=== PATIENT | female | born 1955 | race Caucasian/White ===

== ENCOUNTER 2023-08-04 10:12 | Outpatient (AMB) | payer MEDICARE, SELFPAY ==
--- NOTE | 2023-08-04 10:16 | AM.OFFWIN_ITS ---
Intake Vital Signs 08/04/23 10:26 Height 5 ft 4 in Weight 241 lb 2 oz BMI 41.4 BP 140/80 H Blood Pressure Location Rt brachial Position Sitting Respiration 14 Pulse 71 Pulse Source Pulse Oximeter Temp 97 F Temp Source Temporal Artery Scan Pulse Oximetry (%) 94 Oxygen Delivery Method Room Air Intake Visit Reasons: Sinus Infection Intake Note: Patient states that shes been experiencing post nasal drip, dark yellow phlegm, and congestion. Patient Tobacco Use Status: Former Tobacco user Park Services Specialist Required: No Accompanied by: Sister Allergies iopromide [From Ultravist] Allergy (Mild, Verified 08/04/23 10:41) REDNESS, SWELLING AROUND NECK amoxapine [AMOXAPINE] Allergy (Unknown, Verified 08/04/23 10:41) OVER EATING amoxicillin [AMOXICILLIN] Allergy (Unknown, Verified 08/04/23 10:41) LOWER GI DISTRESS azithromycin [From ZITHROMAX] Allergy (Unknown, Verified 08/04/23 10:41) DOES NOT WORK blue dye [BLUE DYE] Allergy (Unknown, Verified 08/04/23 10:41) FACIAL SWELLING,TEMP,RASH caffeine [From CAFERGOT] Allergy (Unknown, Verified 08/04/23 10:41) CANT TAKE ANYMORE celecoxib [From CELEBREX] Allergy (Unknown, Verified 08/04/23 10:41) RASH,TEMP ciprofloxacin [CIPROFLOXACIN] Allergy (Unknown, Verified 08/04/23 10:41) HALLUCINATION clarithromycin [From BIAXIN] Allergy (Unknown, Verified 08/04/23 10:41) DOES NOT WORK clavulanic acid [From AUGMENTIN] Allergy (Unknown, Verified 08/04/23 10:41) C-DIFF X 3 divalproex sodium [From DEPAKOTE] Allergy (Unknown, Verified 08/04/23 10:41) NIGHT SCARES ergotamine [From CAFERGOT] Allergy (Unknown, Verified 08/04/23 10:41) UNKNOWN gabapentin [GABAPENTIN] Allergy (Unknown, Verified 08/04/23 10:41) NIGHT SCARES hydroxyzine [HYDROXYZINE] Allergy (Unknown, Verified 08/04/23 10:41) ITCHING influenza virus vaccine, specific [FLU VACCINE] Allergy (Unknown, Verified 08/04/23 10:41) FEVER- PINS/ NEEDLES ALL OVER , RASH Iodinated Contrast Media [IV CONTRAST] Allergy (Unknown, Verified 08/04/23 10:41 ) HIVES ketorolac [From TORADOL] Allergy (Unknown, Verified 08/04/23 10:41) SEVERE ITCHING levofloxacin [From LEVAQUIN] Allergy (Unknown, Verified 08/04/23 10:41) HEART PALPITATIONS meperidine [From DEMEROL] Allergy (Unknown, Verified 08/04/23 10:41) ANAPHYLAXIS Sulfa (Sulfonamide Antibiotics) [SULFA (SULFONAMIDE ANTIBIOTICS)] Allergy (Unknown, Verified 08/04/23 10:41) ADMITTED WITH HIVES sumatriptan [Imitrex] Allergy (Unknown, Verified 08/04/23 10:41) heart pounding tramadol [From ULTRAM] Allergy (Unknown, Verified 08/04/23 10:41) ITCH trazodone [TRAZODONE] Allergy (Unknown, Verified 08/04/23 10:41) NIGHT SCARES valacyclovir [VALACYCLOVIR] Allergy (Unknown, Verified 08/04/23 10:41) GASTIC UPSET yellow dye [YELLOW DYE] Allergy (Unknown, Verified 08/04/23 10:41) SYSTEMIC ITCHING dexamethasone [From Decadron] Adverse Reaction (Intermediate, Verified 08/04/23 10:41) neck pain naproxen Adverse Reaction (Verified 08/04/23 10:41) Swelling Flu vaccine Allergy (Severe, Uncoded 08/04/23 10:35) Anaphylaxis Amitriptyline Allergy (Unknown, Uncoded 08/04/23 10:35) Unknown Blue and yellow dye Allergy (Unknown, Uncoded 08/04/23 10:35) Swelling Ionic dye Allergy (Unknown, Uncoded 08/04/23 10:35) Rash Medication List - Last Reconciled 08/04/23 by Madonna Loco, RELIGION INSTRUCTOR- amlodipine 5 mg PO DAILY baclofen 20 mg PO BID ixecazarni-vwgcuiol-kaxsyfmnfw 160-9-4.8 mcg/actuation (Breztri Aerosphere) inhalations inhalation buspirone 30 mg PO BID lancets (FreeStyle Lancets) As directed latanoprost 0.005% drps ophthalmic (eye) lisinopril 40 mg PO DAILY lorazepam 1 mg PO TID metoprolol succinate ER 100 mg PO DAILY nystatin topical venlafaxine ER 225 mg PO DAILY Do you need a note to return to daycare/school/sports/work: No HPI HPI Comments History of Present Illness Details Here worried she has a sinus infection Sx started a few weeks ago Fever started 4 days ago nasal drainage and dental and frontal pain, dry cough, phlegm at back of throat, overall feeling tired, T 100.3 Used excedrin and NSAID w/ temporary relief PFSH Social History Patient Tobacco Use Status: Former Tobacco user Review of Systems Const All systems reviewed & are unremarkable except as noted in HPI and below Physical Exam Const Other: Awake alert NAD Sclera and conjunctiva clear bilat Nares with scant mucoid d/c, turbinates pale and edematous, + frontal and maxillary sinus tenderness with palpation bilat TM intact and clear bilat MMM, pharynx WNL - dry overall RRR LS CTAB Assessment & Plan Assessment & Plan (1) Acute bacterial sinusitis: Comment: states she has responded well to doxy in the past as long as it does not contain blue or yellow dye this was added to RX Code(s): J01.90 - Acute sinusitis, unspecified; B96.89 - Other specified bacterial agents as the cause of diseases classified elsewhere Plan . Medications: New doxycycline hyclate 100 mg PO BID 7 days 14 caps 0RF Patient Instructions: WHAT IS IT? SINUSES ARE AIR-FILLED SPACES BEHIND THE BONES OF THE UPPER FACE: BETWEEN THE EYES AND BEHIND THE FOREHEAD, NOSE AND CHEEKS. THE LINING OF THE SINUSES ARE MADE UP OF CELLS WITH TINY HAIRS ON THEIR SURFACES CALLED CILIA. OTHER CELLS IN THE LINING PRODUCE MUCUS. THE MUCUS TRAPS GERMS AND POLLUTANTS AND THE CILIA PUSH THE MUCUS OUT THROUGH NARROW SINUS OPENINGS INTO THE NOSE. WHEN THE SINUSES BECOME INFLAMED OR INFECTED, THE MUCUS THICKENS AND CLOGS THE OPENINGS TO ONE OR MORE SINUSES. FLUID BUILDS UP INSIDE THE SINUSES CAUSING INCREASED PRESSURE. ALSO BACTERIA CAN BECOME TRAPPED, MULTIPLY AND INFECT THE LINING. THIS IS SINUSITIS. PREVENTION THERE ARE SOME MEASURES YOU CAN TAKE TO DECREASE YOUR RISK OF DEVELOPING SINUSITIS. IF YOU SMOKE CIGARETTES, YOU SHOULD QUIT. THE SMOKE CAN IRRITATE NASAL PASSAGEWAYS AND INCREASE THE LIKELIHOOD OF INFECTION. NASAL ALLERGIES CAN TRIGGER SINUS INFECTIONS, TOO. BY IDENTIFYING THE ALLERGEN (THE SUBSTANCE CAUSING THE ALLERGIC REACTION) AND AVOIDING IT, YOU CAN HELP PREVENT SINUSITIS. IF YOU HAVE CONGESTION FROM A COLD OR ALLERGIES, THE FOLLOWING MAY HELP TO REDUCE THE RISK OF DEVELOPING SINUSITIS: DRINK LOTS OF WATER. THIS THINS NASAL SECRETIONS AND KEEPS MUCOUS MEMBRANES MOIST. USE STEAM TO SOOTHE NASAL PASSAGES. BREATHE DEEPLY WHILE STANDING IN A HOT SHOWER, OR INHALE THE VAPOR FROM A BASIN FILLED WITH HOT WATER WHILE HOLDING A TOWEL OVER YOUR HEAD. AVOID BLOWING YOUR NOSE WITH GREAT FORCE, WHICH CAN PUSH BACTERIA INTO THE SINUSES. SOME DOCTORS ADVISE PERIODIC HOME NASAL WASHINGS TO CLEAR SECRETIONS. THIS MAY HELP PREVENT, AND ALSO TREAT, SINUS INFECTIONS. TREATMENT MANY SINUS INFECTIONS IMPROVE WITHOUT TREATMENT. HOWEVER, SEVERAL MEDICATIONS MAY SPEED RECOVERY AND REDUCE THE CHANCE THAT AN INFECTION WILL BECOME CHRONIC. DECONGESTANTS - CONGESTION OFTEN TRIGGERS SINUS INFECTIONS, AND DECONGESTANTS CAN OPEN THE SINUSES AND ALLOW THEM TO DRAIN. SEVERAL ARE AVAILABLE: PSEUDOEPHEDRINE (SUDAFED) IS AVAILABLE WITHOUT PRESCRIPTION, ALONE OR IN COMBINATION WITH OTHER MEDICATIONS IN MULTI-SYMPTOM COLD AND SINUS REMEDIES. PSEUDOEPHEDRINE CAN CAUSE INSOMNIA, RACING PULSE AND JITTERINESS. DO NOT USE IF YOU HAVE HIGH BLOOD PRESSURE OR A HEART CONDITION. PHENYLEPHRINE (SUCH SUDAFED PE) IS AN ALTERNATIVE [id number] ORAL DECONGESTANT. IF YOU TAKE PRODUCTS CONTAINING ORAL PHENYLEPHRINE, CHECK WITH THE PHARMACIST TO BE CERTAIN THERE IS NO INTERACTION WITH OTHER MEDICATIONS YOU TAKE. OXYMETAZOLINE (AFSANTA ELLIOTT AND OTHERS) AND PHENYLEPHRINE (NALDO-SYNEPHRINE AND OTHERS) ARE FOUND IN NASAL SPRAYS. THEY ARE EFFECTIVE AND MAY BE LESS LIKELY TO CAUSE THE SIDE EFFECTS SEEN WITH PSEUDOEPHEDRINE. HOWEVER, USING A NASAL DECONGESTANT FOR MORE THAN THREE DAYS CAN CAUSE WORSE SYMPTOMS WHEN YOU STOP THE MEDICATION. THIS IS CALLED THE REBOUND EFFECT. ANTIHISTAMINES - THESE MEDICATIONS HELP TO RELIEVE THE SYMPTOMS OF NASAL ALLERGIES THAT LEAD TO INFLAMMATION AND INFECTIONS. HOWEVER, SOME DOCTORS ADVISE AGAINST USING ANTIHISTAMINES DURING A SINUS INFECTION BECAUSE THEY CAN CAUSE EXCESSIVE DRYING AND SLOW THE DRAINAGE PROCESS. [id number] ANTIHISTAMINES INCLUDE DIPHENHYDRAMINE (BENADRYL AND OTHERS), CHLORPHENIRAMINE (CHLOR-TRIMETON AND OTHERS) AND LORATADINE (CLARITIN). FEXOFENADINE (KRISTY) AND CETRIZINE (ZYRTEC) ARE AVAILABLE BY PRESCRIPTION. NASAL STEROIDS - ANTI-INFLAMMATORY SPRAYS SUCH MOMETASONE (NASONEX) AND FLUTICASONE (FLONASE), BOTH AVAILABLE BY PRESCRIPTION, REDUCE SWELLING OF NASAL MEMBRANES. LIKE ANTIHISTAMINES, NASAL STEROIDS CAN BE MOST USEFUL FOR THOSE WHO HAVE NASAL ALLERGIES. NASAL STEROIDS TEND TO PRODUCE LESS DRYING THAN ANTIHISTAMINES. UNLIKE NASAL DECONGESTANTS, NASAL STEROIDS CAN BE USED FOR PROLONGED PERIODS. SALINE NASAL SPRAYS - THESE SALT-WATER SPRAYS ARE SAFE TO USE AND CAN PROVIDE SOME RELIEF BY ADDING MOISTURE TO THE NASAL PASSAGES, THINNING MUCUS SECRETIONS AND HELPING TO FLUSH OUT ANY BACTERIA THAT MAY BE PRESENT. PAIN RELIEVERS - ACETAMINOPHEN (TYLENOL), IBUPROFEN (ADVIL, MOTRIN AND OTHERS) OR NAPROXEN (ALEVE) CAN BE TAKEN SINUS PAIN. ANTIBIOTICS - YOUR DOCTOR MAY PRESCRIBE AN ANTIBIOTIC IF HE OR SHE SUSPECTS THAT A BACTERIAL INFECTION IS CAUSING YOUR SINUSITIS. IF YOU START TAKING AN ANTIBIOTIC, COMPLETE THE ENTIRE COURSE SO THAT THE INFECTION IS COMPLETELY KILLED OFF. NOT ALL CASES OF SINUSITIS REQUIRE ANTIBIOTIC TREATMENT: TALK WITH YOUR DOCTOR ABOUT WHETHER AN ANTIBIOTIC IS RIGHT FOR YOU. KEEP IN MIND THAT ANTIBIOTICS CAN CAUSE SIDE EFFECTS, SUCH ALLERGIC REACTIONS, RASH AND DIARRHEA. IN ADDITION, OVERUSING ANTIBIOTICS EVENTUALLY LEADS TO THE SPREAD OF BACTERIA THAT NO LONGER CAN BE KILLED BY THE MOST COMMONLY PRESCRIBED ANTIBIOTICS. WHEN TO CALL A PROFESSIONAL CONTACT A DOCTOR IF YOU EXPERIENCE FACIAL PAIN ALONG WITH A HEADACHE AND FEVER, COLD SYMPTOMS THAT LAST LONGER THAN SEVEN TO 10 DAYS, OR PERSISTENT GREEN DISCHARGE FROM THE NOSE. IF YOUR SYMPTOMS DON'T IMPROVE WITHIN A WEEK OF BEGINNING TREATMENT, CALL YOUR DOCTOR. CALL SOONER IF SYMPTOMS ARE GETTING WORSE. IF YOU HAVE REPEATED BOUTS OF ACUTE SINUSITIS, YOU MAY HAVE ALLERGIES OR ANOTHER TREATABLE CAUSE OF SINUS CONGESTION. ASK YOUR DOCTOR FOR ADVICE. Coding Level of Care Code Est Pt Level 3 (52567) Diagnoses Acute bacterial sinusitis J01.90; B96.89
--- OUTSIDE RECORDS SUMMARY | 2023-08-04 10:18 | XMS_ITS | Continuity of Care Document ---
Author Organization [facility] Address [address] [place] [address]- Care Team Providers Care Human Resources Office Manager Name Role Phone Marilia HARE, Destiny Gibbs Primary Care Physician [phone] Encounter [facility] Date(s): 05/08/21 - 06/07/21 [facility] [address], [place] [address] Allergies, Adverse Reactions, Alerts Substance Reaction Severity Status ciprofloxacin hallucinations Persistent Severe Active cefuroxime Active amoxicillin Active gabapentin night terrors Persistent Severe Active levofloxacin Heart Palpatations Persistent Severe Acti ve sulfa drugs high temp and rash Persistent Severe Acti ve nitrates migraine STARR Persistent Severe Active Toradol Active Imitrex chest heaviness Persistent Severe Active Ultram generalized itching Persistent Severe Act krystal Remeron swollen neck and rash Persistent Severe A ctive Compazine severe STARR Persistent Severe Active Decadron Pins and needles sensation A ctive Depakote night terrors Persistent Severe Active Demerol HCl anaphylaxis Persistent Severe Active pantoprazole 1 Facial swelling Persistent Severe Activ e Abdominal pain Active Chocolate migraine STARR Persistent Severe Active Contrast Dye hives Persistent Severe Active Other Food Allergy 2, 3, 4 migraines and swelling Active Other Environmental Allergy 5, 6, 7 facial swelling and itching Persistent Severe Active flu vaccines high fever and swelling Persistent Severe Active Percocet 5/325 severe STARR Persistent Severe Active Valacyclovir Hydrochloride abd upspet A ctive traMADol Active CeleBREX HIVES Persistent Severe Active 1patient has yellow dye allergy --Pantoprazole 40mg (manfacturer: Mylan) contains yellow dye 2blue and yellow dyes 3MSG 4yeast, feta cheese, cottage cheese, splenda 5IVP DYE 6BLEACH 7BLUE DYE YELLOW DYE Immunizations Given and Recorded Vaccine Date Status Refusal Reason pneumococcal 13-valent vaccine 01/31/19 Given Influenza Virus Vaccine (oldterm) 1 11/28/14 Given influ virus vac, H1N1, inactive(oldterm) 2 05/15/13 Given tetanus/diphtheria/pertussis, acel(Tdap) 02/04/13 Given tetanus/diphtheria/pertussis, acel(Tdap) 02/28/99 Given pneumococcal 23-valent vaccine 02/29/08 Given 1Admin Note: pt states allergic 2Admin Note: pt advises allergic to Medications acetaminophen 325 mg oral tablet 650 mg, By Mouth, Every 6 hours, Refills 0, Maintenance, 07/03/20 11:30:00 EDT, Partial fill upon patient request if the prescription is for a schedule II opioid drug. Start Date: 07/03/20 Status: Ordered acetaminophen/butalbital/caffeine 325 mg-50 mg-40 mg oral tablet See Instructions, TAKE 1 TABLET BY MOUTH EVERY 4 HOURS NEEDED FOR PAIN, # 12 tablet, 0 Refills, [id number], 3, TAKE 1 TABLET BY MOUTH EVERY 4 HOURS NEEDED FOR PAIN, 162, cm, 07/03/20 11:05:00 EDT, Height, 99.8, kg, 07/02/20 6:39:00 EDT, Dry... Start Date: 04/21/21 Status: Ordered acyclovir 400 mg oral tablet 1 tablet, By Mouth, 2 times a day, # 180 tablet, 1 Refills, Maintenance, 01/09/20 10:00:00 EST, [facility]/pharmacy #[id number], 163, cm, 11/10/19 8:11:00 EDT, Height, 105, kg, 08/11/19 15:02:00 EDT, Dry Weight Start Date: 01/09/20 Status: Ordered albuterol-ipratropium 3 mg-0.5 mg/3 ml inhalation solution 3 mL, Inhalation, 4 times a day, # 30 each, 0 Refills, Maintenance, 06/02/21 10:30:00 EDT, Solution, [id number], Partial fill upon patient request if the prescription is for a schedule II opioid drug., 3 mL Inhalation 4 times a day, 164, cm, 0... Start Date: 06/02/21 Status: Ordered albuterol-ipratropium 3 mg-0.5 mg/3 ml inhalation solution 3 mL, Inhalation, 4 times a day, PRN Wheezing/Shortness of Breath, FAX [phone] BOWLING J45.909 ASTHMA, # 360 mL, 11 Refills, Maintenance, 05/04/17 13:29:51, Inhalation Solution, 3 mL Inhalation 4 times a day,PRN:Wheezing/Shortness of Breath,I... Start Date: 05/04/17 Status: Ordered Asmanex Twisthaler 60 Dose 220 mcg/inh inhalation aerosol powder 2 puffs, Inhalation, 2 times a day, j44.9, # 1 each, 6 Refills, Maintenance, 04/25/20 9:10:00 EST, Aerosol, Partial fill upon patient request if the prescription is for a schedule II opioid drug. Start Date: 04/25/20 Status: Ordered atorvastatin 20 mg oral tablet See Instructions, TAKE 1 TABLET BY MOUTH EVERY DAY, # 90 tablet, 2 Refills, Maintenance, [id number], 163, cm, 11/10/19 8:11:00 EDT, Height, 105, kg, 08/11/19 15:02:00 EDT, Dry Weight Start Date: 01/21/20 Status: Ordered baclofen 10 mg oral tablet 20 mg, 2, tablet, By Mouth, 2 times a day, Refills 0, Maintenance, 07/29/16 15:15:27 Start Date: 07/29/16 Status: Ordered busPIRone 10 mg oral tablet 20 mg, 2, tablet, By Mouth, 3 times a day, DOSE CHANGE, # 180 tablet, Refills 0, Tot. Refills 0, Maintenance, 10/13/16 14:32:53, Route to Pharmacy Electronically, [id number], [facility]/pharmacy #[id number] Start Date: 10/13/16 Status: Ordered Colace sodium 100 mg oral capsule 100 mg, 1, capsule, By Mouth, Daily, PRN, # 20 capsule, Refills 0, Maintenance, for constipation, 07/13/17 11:53:57 EDT Start Date: 07/13/17 Status: Ordered Denavir 1% topical cream 1 applicator, Topically, Every 2 hours, # 1 Gm, 4 Refills, Maintenance, 11/23/17 10:35:31 EDT, 1 applicator Topically Every 2 hours Start Date: 11/23/17 Status: Ordered famotidine 40 mg oral tablet 1 tablet, By Mouth, 2 times a day, # 180 tablet, 3 Refills, [facility], 162, cm, 07/03/20 11:05:00 EDT, Height, 99.8, kg, 07/02/20 6:39:00 EDT, Dry Weight Start Date: 11/14/20 Status: Ordered latanoprost 0.005% ophthalmic solution 1 drops, Eyes, Both, Daily in PM, # 2.5 mL, 0 Refills, Maintenance, 08/21/15 10:26:08, Solution Start Date: 08/21/15 Status: Ordered lisinopril 20 mg oral tablet 20 mg, 1, tablet, By Mouth, Daily, no yellow dye and no blue dye due to allergy, # 90 tablet, Refills 1, Tot. Refills 1, Maintenance, 07/18/20 10:58:00 EDT, Route to Pharmacy Electronically, [facility]/pharmacy #[id number], Partial fill upon patient request if the... Start Date: 07/18/20 Status: Ordered LORazepam 1 mg oral tablet 1 tablet = 1 mg, By Mouth, 3 times a day, 0 Refills, Maintenance, 09/14/17 11:57:01 EDT, Tablet Start Date: 09/14/17 Status: Ordered magnesium oxide 400 mg oral tablet 1 tablet, By Mouth, Daily, # 30 tablet, 5 Refills, Acute, 10/02/20 11:46:00 EDT, [facility], 162, cm, 07/03/20 11:05:00 EDT, Height, 99.8, kg, 07/02/20 6:39:00 EDT, Dry Weight Start Date: 10/02/20 Status: Ordered meclizine 12.5 mg oral tablet 1 tablet = 12.5 mg, By Mouth, 3 times a day, PRN for motion sickness, has allergy to blue dye, white tabs only, # 30 tablet, 0 Refills, Maintenance, 11/05/20 9:59:00 EDT, Tablet, [facility]/pharmacy #[id number], Patient is allergic to blue dye. White tablet woul... Start Date: 11/05/20 Status: Ordered Metoprolol Succinate ER 100 mg oral tablet, extended release 1 tablet = 100 mg, By Mouth, Daily, # 90 tablet, 1 Refills, Maintenance, 12/07/19 9:45:00 EDT, [facility]/pharmacy #[id number], 163, cm, 11/10/19 8:11:00 EDT, Height, 105, kg, 08/11/19 15:02:00 EDT, Dry Weight Start Date: 12/07/19 Status: Ordered mupirocin 2% topical ointment 1 application, Topically, 3 times a day, # 30 Gm, 11 Refills, Maintenance, 05/15/19 15:41:00 EDT, Ointment, [facility]/pharmacy #[id number], 1 application Topically 3 times a day, 164, cm, 04/22/19 10:50:00 EST, Height, 102.5, kg, 03/10/19 22:47:00 EST, Dry Weight Start Date: 05/15/19 Status: Ordered nystatin topical 553917 u/gm powder See Instructions, APPLY TO AFFECTED AREA TWICE A DAY -PER DR BOWLING, # 30 Gm, 1 Refills, Acute, [facility], 7, APPLY TO AFFECTED AREA TWICE A DAY -PER DR BOWLING, 163, cm, 11/10/19 8:11:00 EDT, Height,105, kg, 08/11/19 15:02:00 EDT, Dry Weight Start Date: 11/13/19 Status: Ordered Probiotic Formula oral capsule 1 capsule, By Mouth, 2 times a day, # 60 capsule, 11 Refills, Maintenance, 01/22/16 10:10:40, 1 capsule By Mouth 2 times a day Start Date: 01/22/16 Status: Ordered Senna = 8.6 mg, By Mouth, Daily at bedtime, PRN as needed for constipation, 0 Refills, Maintenance, 01/14/13 2:05:48 Start Date: 01/14/13 Status: Ordered triamcinolone 0.025% topical cream 1 application, Topically, 2 times a day, # 15 Gm, 0 Refills, Maintenance, 09/14/17 11:54:23 EDT, Cream Start Date: 09/14/17 Stop Date: 09/28/17 Status: Ordered venlafaxine 225 mg oral tablet, extended release 225 mg, 1, tablet, By Mouth, Daily, # 30 tablet, Refills 0, Maintenance, 04/17/16 7:41:51 Start Date: 04/17/16 Status: Ordered Ventolin HFA 108 mcg/inh inhalation aerosol with adapter 2 puffs, Inhalation, 4 times a day, # 54 Unknown, 3 Refills, Maintenance, 11/07/19 7:57:00 EDT, [facility], 163, cm, 08/11/19 15:02:00 EDT, Height, 105, kg, 08/11/19 15:02:00 EDT, Dry Weight Start Date: 11/07/19 Status: Ordered Vitamin D3 2000 intl units oral tablet 1 tablet = 2,000 International_Units, By Mouth, Daily, 0 Refills, Maintenance, 01/14/13 1:51:51 Start Date: 01/14/13 Status: Ordered Zofran 4 mg oral tablet See Instructions, 1 tablet By Mouth at onset of migraine prn nausea PER DR BOWLING, # 30 tablet, 11 Refills, Maintenance, 05/26/18 14:35:15 EDT, PT HAS ALLERGIES TO CERTAIN DYES. [facility] AWARE. Start Date: 05/26/18 Status: Ordered Zyrtec 10 mg oral tablet 1 tablet = 10 mg, By Mouth, Daily, 0 Refills, Maintenance, 01/14/13 1:54:06, Tablet Start Date: 01/14/13 Status: Ordered Problem List Condition Effective Dates Status Health Status Inform ant Allergic rhinitis(Confirmed) Active Temporomandibular joint (TMJ ) pain(Confirmed) Active Asthma(Confirmed) Active BMI 40.0-44.9, adult(Confirmed) Active Carpal tunnel syndrome(Confirmed) 1 Active Chronic fatigue syndrome(Confirmed) Active Chronic tension-type headache(Confirmed) Active Depressive disorder(Confirmed) Active Diverticular disease(Confirmed) Active Diverticulitis(Confirmed) Active NSAID long-term use(Confirmed) Active External hemorrhoids(Confirmed) 2 Active Fibromyositis(Confirmed) Active Gastroesophageal reflux disease(Confirmed) 3 Active Generalized anxiety disorder(Confirmed) Active History of incisional hernia repair(Confirmed) 4 Active Herpes(Confirmed) Active History of total hysterectomy(Confirmed) Active Hypercholesterolemia(Confirmed) Active Hypertensive disorder(Confirmed) Active Knee pain, bilateral(Confirmed) Active Menopausal symptom(Confirmed) Active Chronic migraine(Confirmed) Active Chronic nausea(Confirmed) Active Obese class II(Confirmed) Active Osteoarthritis(Confirmed) Active Past history of procedure-colonoscopy(Confirmed) 5 Active Polyp of colon(Confirmed) 6, 7 Active Posttraumatic stress disorder(Confirmed) Active 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 Per patient's report [id number] - [facility] - Dr. Hazel 5Colonoscopy 2008 by patient report normal. 6tubular adenoma of colon repeat scrrening colonoscopy in 2020 7colo 2015 Social History Social History Type Response Smoking Status Former smoker; Other : Quit smoking 1983.; entered on: 08/21/15 Sex
--- OUTSIDE RECORDS SUMMARY | 2023-08-04 10:20 | XMS_ITS | Continuity of Care Document ---
Author Organization [facility] Address [address] [place] [address]- Care Team Providers Care Painter Ordnance Name Role Phone Sujatha HARE, Narda Primary Care Physician Encounter [facility] ACCT R [id number] Date(s): 11/24/22 - 12/01/22 [facility] [address] [place] [address]- Encounter Diagnosis COPD with exacerbation(Discharge Diagnosis) - 11/24/22 Attending Physician: Marielena Jacobson MD Referring Physician: Narda Solares MD Allergies, Adverse Reactions, Alerts Substance Reaction Severity [...] 2Admin Note: pt advises allergic to Medications acetaminophen/butalbital/caffeine 325 mg-50 mg-40 mg oral tablet See Instructions, PRN Headache, TAKE 1 TABLET BY MOUTH EVERY 4 HOURS NEEDED FOR PAIN, # 12 tablet, 0 Refills, Maintenance, 11/05/22 11:09:00 EDT, [id number], TAKE 1 TABLET BY MOUTH EVERY 4HOURS NEEDED FOR PAIN,PRN:Headache, 163, cm, /... Start Date: 11/05/22 Status: Ordered acyclovir 400 mg oral tablet 2 tablet = 800 mg, By Mouth, 2 times a day, PRN herpes episodes, # 60 tablet, 0 Refills, Maintenance, 07/28/22 14:06:00 EDT, [id number], 163, cm, 07/28/22 13:50:00 EDT, Height, 105, kg, 06/05/22 16:25:00 EDT, Dry Weight Start Date: 07/28/22 Status: Ordered albuterol-ipratropium 3 mg-0.5 mg/3 ml inhalation solution 3 mL, Inhalation, 4 times a day, PRN Wheezing/Shortness of Breath, # 90 mL, 0 Refills, Maintenance,11/24/22 18:14:00 EDT, Solution, [id number], Partial fill upon patient request if the prescription is for a schedule II opioid drug., 3 mL Inha... Start Date: 11/24/22 Status: Ordered amLODIPine 5 mg oral tablet 5 mg, 1, tablet, By Mouth, Daily, # 90 tablet, Refills 3, Tot. Refills 3, Maintenance, 10/23/22 8:48:00 EDT, Route to Pharmacy Electronically, [facility]pharmacy #[id number], pt has allergies to yellow and blue dye, 163, cm, 08/27/22 12:58:00 EDT, Height, 107.3,... Start Date: 10/23/22 Stop Date: 10/18/23 Status: Ordered atorvastatin 20 mg oral tablet 1 tablet, By Mouth, Daily, # 90 tablet, 1 Refills, Maintenance, 03/23/22 21:16:00 EST, [id number], 164, cm, 01/27/22 10:37:00 EST, Height, 98.8, kg, 06/01/21 18:26:00 EDT, Dry Weight Start Date: 03/23/22 Status: Ordered baclofen 10 mg oral tablet 20 mg, 2, tablet, By Mouth, 2 times a day, Refills 0, Maintenance, 07/29/16 15:15:27 Start Date: 07/29/16 Status: Ordered Beconase AQ 0.042 mg/inh spray 1 sprays, Nares, Both, 2 times a day, PRN Nasal Congestion, # 25 Gm, 1 Refills, Maintenance, 10/22/22 12:39:00 EDT, [facility]/pharmacy #[id number], Partial fill upon patient request if the prescription is for a schedule II opioid drug., 1 sprays Nares, Both 2 anne... Start Date: 10/22/22 Status: Ordered Breo Ellipta 200 mcg-25 mcg/inh inhalation powder 1 puffs, Inhalation, Daily, # 1 each, 11 Refills, Maintenance, 05/11/22 12:46:00 EDT, Powder, [facility]/pharmacy #[id number], Partial fill upon patient request if the prescription is for a schedule II opioid drug., 1 puffs Inhalation Daily, 164, cm, 04/16/22 11:0... Start Date: 05/11/22 Status: Ordered busPIRone 30 mg oral tablet 1 tablet = 30 mg, By Mouth, 2 times a day, # 60 tablet, 0 Refills, Maintenance, 09/23/21 19:24:00 EDT, Tablet, Partial fill upon patient request if the prescription is for a schedule II opioid drug. Start Date: 09/23/21 Status: Ordered Colace sodium 100 mg oral capsule 100 mg, 1, capsule, By Mouth, Daily, PRN, # 20 capsule, Refills 0, Maintenance, for constipation, 07/13/17 11:53:57 EDT Start Date: 07/13/17 Status: Ordered CPAP Machine See Instructions, # 1 each, Maintenance, AutoCPAP 11-15 cm H20, use Daily when sleeping, 10/22/22 12:30:00 EDT, Supply Start Date: 10/22/22 Status: Ordered famotidine 40 mg oral tablet 1 tablet, By Mouth, 2 times a day, # 180 tablet, 3 Refills, [id number], 162, cm, 07/03/20 11:05:00 EDT, Height, 99.8, kg, 07/02/20 6:39:00 EDT, Dry Weight Start Date: 11/14/20 Status: Ordered Freestyle Lite Lancets See Instructions, # 200 each, Refills 5, Tot. Refills 5, Maintenance, check glucose twice a day e11.9, 08/11/22 14:41:00 EDT, Supply, 163, cm, 08/11/22 14:12:00 EDT, Height, 107.3, kg, 08/04/22 17:44:00 EDT, Dry Weight Start Date: 08/11/22 Stop Date: 02/07/23 Status: Ordered FREESTYLE LITE TEST STRIP FREESTYLE LITE TEST STRIP, See Instructions, # 100 Unknown, 3 Refills, Maintenance, TEST ONCE [id number], 06/08/22 8:32:00 EDT, 163, cm, 06/05/22 16:25:00 EDT, Height, 105, kg, 06/05/22 16:25:00 EDT, Dry Weight Start Date: 06/08/22 Status: Ordered Freestyle Lite Test Strips See Instructions, # 200 each, Tot. Refills 5, Maintenance, use as directed for Type 2 Diabetes Mellitus, 08/11/22 14:41:00 EDT, Supply, 163, cm, 08/11/22 14:12:00 EDT, Height, 107.3, kg, 08/04/22 17:44:00 EDT, Dry Weight Start Date: 08/11/22 Stop Date: 7/20/23 Status: Ordered Home Blood Pressure Monitor See Instructions, # 1 each, Refills 0, Tot. Refills 0, Maintenance, Please take blood pressure and heart rate at least once daily. ICD-10 Code: I10 (HTN), 06/17/22 11:22:00 EDT, Supply Start Date: 06/17/22 Status: Ordered latanoprost 0.005% ophthalmic solution 1 drops, Eyes, Both, Daily in PM, # 2.5 mL, 0 Refills, Maintenance, 08/21/15 10:26:08, Solution Start Date: 08/21/15 Status: Ordered lisinopril 40 mg oral tablet 1 tablet = 40 mg, By Mouth, Daily, no yellow dye and no blue dye due to allergy, # 90 tablet, 3 Refills, Maintenance, 06/26/22 10:29:00 EDT, Tablet, [facility]/pharmacy #[id number], Partial fill upon patient request if the prescription is for a schedule II opioid... Start Date: 06/26/22 Stop Date: 06/21/23 Status: Ordered LORazepam 1 mg oral tablet 1 tablet = 1 mg, By Mouth, 3 times a day, 0 Refills, Maintenance, 09/14/17 11:57:01 EDT, Tablet Start Date: 09/14/17 Status: Ordered magnesium oxide 400 mg oral tablet 1 tablet, By Mouth, Daily, # 30 tablet, 5 Refills, Acute, 10/02/20 11:46:00 EDT, [facility], 162, cm, 07/03/20 11:05:00 EDT, Height, 99.8, kg, 07/02/20 6:39:00 EDT, Dry Weight Start Date: 10/02/20 Status: Ordered meclizine 12.5 mg oral tablet 1 tablet = 12.5 mg, By Mouth, 3 times a day, PRN for motion sickness, has allergy to blue dye, white tabs only, # 30 tablet, 0 Refills, Maintenance, 11/05/20 9:59:00 EDT, Tablet, [facility]/pharmacy #[id number], Patient is allergic to blue dye. White tablet woul... Start Date: 11/05/20 Status: Ordered Metoprolol Succinate ER 100 mg oral tablet, extended release 1 tablet = 100 mg, By Mouth, Daily, # 30 tablet, 0 Refills, Maintenance, 09/24/21 9:49:00 EDT, [facility]/pharmacy #[id number], 164, cm, 06/30/21 11:07:00 EDT, Height, 98.8, kg, 06/01/21 18:26:00 EDT, Dry Weight Start Date: 09/24/21 Status: Ordered mupirocin 2% topical ointment 1 application, Topically, 3 times a day, # 30 Gm, 11 Refills, Maintenance, 05/15/19 15:41:00 EDT, Ointment, [facility]/pharmacy #[id number], 1 application Topically 3 times a day, 164, cm, 04/22/19 10:50:00 EST, Height, 102.5, kg, 03/10/19 22:47:00 EST, Dry Weight Start Date: 05/15/19 Status: Ordered nystatin topical [id number] u/gm powder See Instructions, APPLY TO AFFECTED AREA TWICE A DAY -PER DR BOWLING, # 30 Gm, 1 Refills, Acute, [id number], 7, APPLY TO AFFECTED AREA TWICE A DAY -PER DR BOWLING, 163, cm, 11/10/19 8:11:00 EDT, Height,105, kg, 08/11/19 15:02:00 EDT, Dry Weight Start Date: 11/13/19 Status: Ordered predniSONE 20 mg oral tablet See Instructions, 3 tabs PO QD X3 days 2 tabs PO QD X3 days 1 tab PO QD x3 days with food or milk, # 15 tablet, 0 Refills, Acute 12/03/22 18:13:00 EDT, 11/24/22 18:12:00 EDT, [facility]/pharmacy #[id number], Partial fill upon patient request if the prescripti... Start Date: 11/24/22 Stop Date: 12/03/22 Status: Ordered Probiotic Formula oral capsule 1 [...] Date: 09/14/17 Stop Date: 09/28/17 Status: Ordered Trulicity Pen 0.75 mg/0.5 mL subcutaneous solution 0.5 mL = 0.75 mg, Subcutaneous Injection, Every week, rotate injection sites, # 2 mL, 0 Refills, Maintenance, 08/11/22 14:46:00 EDT, Solution, [id number], Partial fill upon patient request ifthe prescription is for a schedule II opioid drug.,... Start Date: 08/11/22 Status: Ordered venlafaxine 225 mg oral tablet, extended release 225 mg, 1, tablet, By Mouth, Daily, # 30 tablet, Refills 0, Maintenance, 04/17/16 7:41:51 Start Date: 04/17/16 Status: Ordered Ventolin HFA 108 mcg/inh inhalation aerosol with adapter 2 puffs, Inhalation, 4 times a day, # 54 Unknown, 3 Refills, Maintenance, 11/07/19 7:57:00 EDT, [id number], 163, cm, 08/11/19 15:02:00 EDT, Height, 105, [...] EDT, PT HAS ALLERGIES TO CERTAIN DYES. [facility] AWARE. Start Date: 05/26/18 Status: Ordered Zyrtec 10 mg oral tablet 1 tablet = 10 mg, By Mouth, Daily, 0 Refills, Maintenance, 01/14/13 1:54:06, Tablet Start Date: 01/14/13 Status: Ordered Problem List Condition Confirmation Course Effective Dates Status Health Status Informant Allergic rhinitis Confirmed Active Temporomandibular joint (TMJ) pain Confirmed Active Arthritis of hand Confirmed Active Asthma Confirmed Active BMI 40.0-44.9, adult Confirmed Active Carpal tunnel syndrome 1 Confirmed Active Chronic fatigue syndrome Confirmed Active Chronic obstructive lung disease (disorder) Confirmed Active Chronic tension-type headache Confirmed Active Diverticular disease Confirmed Active Diverticulitis Confirmed Active NSAID long-term use Confirmed Active COPD with chronic bronchitis Confirmed Active External hemorrhoids 2 Confirmed Active Fibromyositis Confirmed Active Gastroesophageal reflux disease 3 Confirmed Active Generalized anxiety disorder Confirmed Active Herpes Confirmed Active Hypercholesterolemia Confirmed Active Hypertensive disorder Confirmed Active Knee pain, bilateral Confirmed Active Major depression in partial remission Confirmed Active Menopausal symptom Confirmed Active Chronic migraine Confirmed Active Moderate recurrent major depression (disorder) Confirmed Active Chronic nausea Confirmed Active Meningioma Confirmed Active Obstructive sleep apnea Confirmed Active Osteoarthritis Confirmed Active Polyp of colon 4, 5 Confirmed Active Posttraumatic stress disorder Confirmed Active Pre-diabetes Confirmed Active Severe obesity Confirmed Active Hernia, umbilical Confirmed Active White matter disease, unspecified Confirmed Active 1Status post right carpal tunnel release surgery 2colo 2015 3Status post endoscopy approximately 2005 negative for Casey's esophagus. Per patient's report 4tubular adenoma of colon repeat scrrening colonoscopy in 2020 5colo 2015 Diagnosis Diagnosis Type Effective Dates Health Status Clinical Service Informant COPD with exacerbation Discharge Diagnosis 11/24/22 Vital Signs Most recent to oldest [Reference Range]: 1 Height 163 cm (11/24/22 5:36 PM) Oxygen Saturation [94-100 %] 94 % (11/24/22 5:36 PM) Pulse Rate [55-90 bpm] 70 bpm (11/24/22 5:36 PM) Blood Pressure [90-138/55-84 mm Hg] 137/ 71mm Hg (11/24/22 5:36 PM) Respiratory Rate [16-30 br/min] 16 br/mi n (11/24/22 5:36 PM) Temperature [96.8-100.4 DegF] 98.2 DegF (11/24/22 5:36 PM) Mode of Delivery (Oxygen) Room air (11/24/22 5:36 PM) Blood pressure sites Arm, right (11/24/22 5:36 PM) Temperature Route Oral (11/24/22 5:36 PM) Social History Social History Type Response Smoking Status Former smoker; Other : Quit smoking 1983.; entered on: 08/21/15 Sex Patient Care team information Care Team Personnel Name: Matthew Julio RN Position: [facility] RN Member Role: Primary Care Nurse Name: Ashley Akers RN Position: [facility] RN Member Role: Primary Care Nurse Name: Evelyn Hernandez RN Position: [facility] RN Member Role: Primary Care Nurse Name: Zahira Davis RN Position: [facility] RN Member Role: Primary Care Nurse Name: Jeff ROSS, Ashley Matson Position: Reference Physician Member Role: Primary Care Nurse Address: Address: [address] [place] [id number]- [place] Name: Narda Solares MD Position: [facility] Physician - Primary Care Member Role: PCP Address: Address: [address] [place] [id number]- [place] Name: Joe Sullivan RN Position: [facility] [employer] Member Role: Primary Care Nurse Care Team Related Persons Name: LENY BLAS Address: home [address] [address] Name: LAURA CALL Address: home [address] [place] [address] [address]
--- OUTSIDE RECORDS SUMMARY | 2023-08-04 10:21 | XMS_ITS | Continuity of Care Document ---
Author Organization [facility] Address [address], [address], [address] [place] [address]- Care Team Providers Care Cattle Broker Name Role Phone Marilia HARE, Destiny Gibbs Primary Care Physician [phone] Encounter [facility] Date(s): 06/12/19 - 07/12/19 [facility] [address] [place], [address], [address] [place] [address]- [facility] Attending Physician: Admtr, Ar8 Admitting Physician: Admtr, Ar8 Referring Physician: Admtr, Ar8 Allergies, Adverse Reactions, Alerts Substance Reaction Severity [...] 2Admin Note: pt advises allergic to Medications Accu-Chek Shira Glucose Meter See Instructions, # 1 each, Maintenance, DM2 E11.9 check blood sugar qd, 08/22/18 14:09:22 EDT, Compound Start Date: 08/22/18 Status: Ordered Accu-Chek Shira Plus Test Strips See Instructions, # 90 each, Refills 3, Tot. Refills 3, Maintenance, DM2 E11.9 check blood sugar qd, 08/22/18 14:09:29 EDT, Compound Start Date: 08/22/18 Status: Ordered acetaminophen/butalbital/caffeine 325 mg-50 mg-40 mg oral tablet 1 tablet, By Mouth, Every 4 hours, PRN NEEDED, # 30 tablet, 0 Refills, Maintenance, 06/13/19 13:51:00 EDT, [facility]/pharmacy #[id number], 5, 1 tablet By Mouth Every 4 hours,PRN: NEEDED, 164, cm, 04/22/19 10:50:00 EST, Height, 102.5, kg, 03/10/19 22:47:00 ES... Start Date: 06/13/19 Status: Ordered acyclovir 400 mg oral tablet 1 tablet = 400 mg, By Mouth, 2 times a day, # 20 tablet, 3 Refills, Soft Stop, 04/22/19 11:05:00 EST, [id number], 164, cm, 04/22/19 10:50:00 EST, Height, 102.5, kg, 03/10/19 22:47:00 EST, DryWeight Start Date: 04/22/19 Status: Ordered albuterol-ipratropium 3 mg-0.5 mg/3 ml inhalation solution 3 mL, Inhalation, 4 times a day, PRN Wheezing/Shortness of Breath, FAX [phone] BOWLING J45.909 ASTHMA, # 360 mL, 11 Refills, Maintenance, 05/04/17 13:29:51, Inhalation Solution, 3 mL Inhalation 4 times a day,PRN:Wheezing/Shortness of Breath,I... Start Date: 05/04/17 Status: Ordered atorvastatin 20 mg oral tablet 1 tablet = 20 mg, By Mouth, Daily, # 90 tablet, 1 Refills, Maintenance, 06/18/19 11:32:00 EDT, Tablet, [facility]/pharmacy #[id number], 164, cm, 04/22/19 10:50:00 EST, Height, 102.5, kg, 03/10/19 22:47:00 EST, Dry Weight Start Date: 06/18/19 Stop Date: 12/15/19 Status: Ordered baclofen 10 mg oral tablet 20 mg, 2, tablet, By Mouth, 2 times a day, Refills 0, Maintenance, 07/29/16 15:15:27 Start Date: 07/29/16 Status: Ordered Benadryl 25 mg oral capsule 1 capsule = 25 mg, By Mouth, 4 times a day, PRN for allergy symptoms, 0 Refills, Maintenance, 01/14/13 1:52:28, Capsule Start Date: 01/14/13 Status: Ordered busPIRone 10 mg oral tablet 20 mg, 2, tablet, By Mouth, 3 times a day, DOSE CHANGE, # 180 tablet, Refills 0, Tot. Refills 0, Maintenance, 10/13/16 14:32:53, Route to Pharmacy Electronically, [id number], [id number] Start Date: 10/13/16 Status: Ordered Coenzyme Q10 30 mg oral capsule 1 capsule = 30 mg, By Mouth, Daily, # 30 capsule, 5 Refills, Maintenance, 06/12/19 15:10:00 EDT, Capsule, [id number], 164, cm, 04/22/19 10:50:00 EST, Height, 102.5, kg, 03/10/19 22:47:00 EST,Dry Weight Start Date: 06/12/19 Stop Date: 12/09/19 Status: Ordered Colace sodium 100 mg oral [...] Ordered famotidine 40 mg oral tablet 1 tablet = 40 mg, By Mouth, 2 times a day, # 60 tablet, 11 Refills, Maintenance, 08/08/18 13:55:58 EDT, Suspension Start Date: 08/08/18 Stop Date: 08/03/19 Status: Ordered Flonase 50 mcg/inh nasal spray 1 sprays, Nares, Both, 2 times a day, # 16 Gm, 11 Refills, Maintenance, 07/01/18 11:47:12 EDT, [place], 1 sprays Nares, Both 2 times a day Start Date: 07/01/18 Status: Ordered Flovent HFA 110 mcg/inh inhalation aerosol 2 puffs, Inhalation, 2 times a day, # 36 Gm, 11 Refills, Maintenance, 06/27/18 13:45:48 EDT, Aerosol Start Date: 06/27/18 Status: Ordered Freestyle Lite Lancets See Instructions, # 200 each, Refills 11, Tot. Refills 11, Maintenance, DM2 E11.9 check blood sugarthree times a day, 11/23/17 10:42:26 EDT, Compound Start Date: 11/23/17 Status: Ordered Freestyle Lite Monitor See Instructions, # 1 each, Maintenance, DM2 E11.9 check blood sugar three times a day, 11/23/17 10:42:10 EDT, Compound Start Date: 11/23/17 Status: Ordered Freestyle Lite Test Strips See Instructions, # 100 each, Refills 3, Tot. Refills 3, Maintenance, DM2 E11.9 check blood sugar qd NEW DIRECTIONS PER DR BOWLING, 08/17/18 15:20:58 EDT, Compound Start Date: 08/17/18 Status: Ordered latanoprost 0.005% ophthalmic solution 1 drops, Eyes, Both, Daily in PM, # 2.5 mL, 0 Refills, Maintenance, 08/21/15 10:26:08, Solution Start Date: 08/21/15 Status: Ordered lisinopril 10 mg oral tablet 10 mg, 1, tablet, By Mouth, Daily, # 90 tablet, Refills 0, Tot. Refills 0, Maintenance, 05/22/19 10:20:00 EDT, Route to Pharmacy Electronically, [facility]/pharmacy #[id number], 164, cm, 04/22/19 10:50:00 EST, Height, 102.5, kg, 03/10/19 22:47:00 EST, Dry Weight Start Date: 05/22/19 Status: Ordered LORazepam 1 mg oral tablet 1 tablet = 1 mg, By Mouth, 3 times a day, 0 Refills, Maintenance, 09/14/17 11:57:01 EDT, Tablet Start Date: 09/14/17 Status: Ordered lysine 1000 mg oral tablet 1 tablet = 1,000 mg, By Mouth, Daily, # 60 tablet, 0 Refills, Maintenance, 11/23/17 10:25:18 EDT, Tablet Start Date: 11/23/17 Status: Ordered magnesium oxide 400 mg oral tablet 1 tablet = 400 mg, By Mouth, Daily, for 30 days, # 30 tablet, 5 Refills, Acute 12/09/19 15:12:00 EDT, 06/12/19 15:12:00 EDT, [facility]/pharmacy #[id number], 164, cm, 04/22/19 10:50:00 EST, Height, 102.5, kg, 03/10/19 22:47:00 EST, Dry Weight Start Date: 06/12/19 Stop Date: 12/09/19 Status: Ordered meclizine 12.5 mg oral tablet 1 tablet = 12.5 mg, By Mouth, 3 times a day, PRN for motion sickness, # 30 tablet, 0 Refills, Maintenance, 04/07/19 10:10:00 EST, Tablet, [facility]/pharmacy #[id number], Patient is allergic to blue dye. White tablet would be preferrable., 163, cm, 04/07/19 9:43:0... Start Date: 04/07/19 Status: Ordered Metoprolol Succinate ER 100 mg oral tablet, extended release 1 tablet = 100 mg, By Mouth, Daily, # 90 tablet, 1 Refills, Maintenance, 06/13/19 12:04:00 EDT, [facility]/pharmacy #[id number], 164, cm, 04/22/19 10:50:00 EST, Height, 102.5, kg, 03/10/19 22:47:00 EST, Dry Weight Start Date: 06/13/19 Status: Ordered mupirocin 2% topical ointment 1 application, Topically, 3 times a day, # 30 Gm, 11 Refills, Maintenance, 05/15/19 15:41:00 EDT, Ointment, [facility]/pharmacy #[id number], 1 application Topically 3 times a day, 164, cm, 04/22/19 10:50:00 EST, Height, 102.5, kg, 03/10/19 22:47:00 EST, Dry Weight Start Date: 05/15/19 Status: Ordered nystatin topical [id number] u/gm powder See Instructions, 1 APPLICATION TOPICALLY 2 TIMES A DAY,INSTR:PER DR BOWLING, # 30 Gm, 1 Refills, Soft Stop, 05/17/19 10:22:00 EDT, [facility]/pharmacy #[id number], 1 APPLICATION TOPICALLY 2 TIMES A DAY,INSTR:PER DR BOWLING, 164, cm, 04/22/19 10:50:00 EST, Height, 102.5,... Start Date: 05/17/19 Status: Ordered Probiotic Formula oral capsule 1 capsule, By Mouth, 2 times a day, # 60 capsule, 11 Refills, Maintenance, 01/22/16 10:10:40, 1 capsule By Mouth 2 times a day Start Date: 01/22/16 Status: Ordered riboflavin 100 mg oral tablet 2 tablet = 200 mg, By Mouth, 2 times a day with meals, # 120 tablet, 5 Refills, Maintenance, 06/12/19 15:11:00 EDT, Tablet, [facility]/pharm[facility] #0838, 164, cm, 04/22/19 10:50:00 EST, Height, 102.5, kg, 03/10/19 22:47:00 EST, Dry Weight Start Date: 06/12/19 Stop Date: 12/09/19 Status: Ordered Senna = 8.6 mg, By [...] HFA 108 mcg/inh inhalation aerosol with adapter See Instructions, # 54 Unknown, Refills 3 Tot. Refills 3, INHALE 2 PUFFS BY MOUTH 4 TIMES A DAY, [facility]/pharmacy #[id number] Start Date: 01/11/19 Status: Ordered Vitamin D3 2000 intl units [...] HAS ALLERGIES TO CERTAIN DYES. [facility] AWARE. 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 Per patient's report [id number] - [facility] [place] - Dr. Hazel [id number]; repeat 2020 6Colonoscopy 2008 by patient report normal. 7tubular adenoma of colon repeat scrrening colonoscopy in 2020 8colo 2015 Social History Social History Type Response Smoking Status Former smoker; Other : Quit smoking 1983.; entered on: 08/21/15 Sex
[2023-08-04 10:26] VITALS: BP 140/80; PULSE 71; RESP 14; TEMP 36.1; O2SAT 94; BMI 41.4
--- OUTSIDE RECORDS SUMMARY | 2023-08-04 10:30 | XMS_ITS | Continuity of Care Document ---
Author Organization [facility] Address [address] [place] [address]- Care Team Providers Care Mechanic Assistant Name Role Phone Sujatha HARE, Narda Primary Care Physician Encounter [facility] Date(s): 02/23/23 - 03/25/23 [facility] [address], [place] [address] Allergies, Adverse Reactions, Alerts Substance Reaction Severity [...] PAIN, # 12 tablet, 0 Refills, Maintenance, 03/22/23 15:45:00 EST, [id number], TAKE 1 TABLET BY MOUTH EVERY 4 HOURS NEEDED FOR PAIN,PRN:Headache, 163, cm,... Start Date: 03/22/23 Status: Ordered acyclovir 400 mg oral tablet 2 tablet = 800 mg, By Mouth, 2 times a day, PRN herpes episodes, # 60 tablet, 0 Refills, Maintenance, 07/28/22 14:06:00 EDT, [facility]/pharmacy #[id number], 163, cm, 07/28/22 13:50:00 EDT, Height, 105, kg, 06/05/22 16:25:00 EDT, Dry Weight Start Date: 07/28/22 Status: Ordered albuterol-ipratropium 3 mg-0.5 mg/3 ml inhalation solution 3 mL, Inhalation, 4 times a day, PRN Wheezing/Shortness of Breath, # 90 mL, 0 Refills, Maintenance,11/24/22 18:14:00 EDT, Solution, [facility]/pharmacy #[id number], Partial fill upon patient request if the prescription is for a schedule II opioid drug., 3 mL Inha... Start Date: 11/24/22 Status: Ordered amLODIPine 5 mg oral tablet 5 mg, 1, tablet, By Mouth, Daily, # 90 tablet, Refills 3, Tot. Refills 3, Maintenance, 10/23/22 8:48:00 EDT, Route to Pharmacy Electronically, [facility]/pharmacy #[id number], pt has allergies to yellow and blue dye, 163, cm, 08/27/22 12:58:00 EDT, Height, 107.3,... Start Date: 10/23/22 Stop Date: 10/18/23 Status: Ordered atorvastatin 20 mg oral tablet 1 tablet, By Mouth, Daily, # 90 tablet, 1 Refills, Maintenance, 03/23/22 21:16:00 EST, [id number], 164, cm, 01/27/22 10:37:00 EST, Height, 98.8, [...] Gm, 1 Refills, Maintenance, 10/22/22 12:39:00 EDT, [facility]/pharmacy #[id number], Partial fill upon patient request if the prescription is for a schedule II opioid drug., 1 sprays Nares, Both 2 anne... Start Date: 10/22/22 Status: Ordered Breo Ellipta 200 mcg-25 mcg/inh inhalation powder 1 puffs, Inhalation, Daily, # 1 each, 11 Refills, Maintenance, 05/11/22 12:46:00 EDT, Powder, [facility]/pharmacy #[id number], Partial fill upon patient request [...] a day, # 180 tablet, 3 Refills, [id number], 162, cm, 07/03/20 11:05:00 EDT, Height, 99.8, [...] 100 Unknown, 3 Refills, Maintenance, TEST ONCE [id number], 06/08/22 8:32:00 EDT, 163, cm, 06/05/22 16:25:00 EDT, Height, 105, kg, 06/05/22 16:25:00 EDT, Dry Weight Start Date: 06/08/22 Status: Ordered Freestyle Lite Test Strips See Instructions, # 100 each, Refills 5, Tot. Refills 5, Maintenance, To monitor BG twice daily Dx:E11.9, 01/21/23 7:53:00 EST, Supply, 163, cm, 01/18/23 13:12:00 EST, Height, 107.3, kg, 08/04/22 17:44:00 EDT, Dry Weight Start Date: 01/21/23 Stop Date: 07/20/23 Status: Ordered Home Blood Pressure Monitor See Instructions, # 1 each, Refills 0, Tot. Refills 0, Maintenance, Please take blood pressure and heart rate at least once daily. ICD-10 Code: I10 (HTN), 06/17/22 11:22:00 EDT, Supply Start Date: 06/17/22 Status: Ordered Incruse Ellipta 62.5 mcg/inh inhalation powder 1 each, Inhalation, Every 24 hours, doses should be taken at least 24 hours apart, # 1 each, 11 Refills, Maintenance, 03/09/23 16:11:00 EST, Powder, [id number], Partial fill upon patient request if the prescription is for a schedule II opio... Start Date: 03/09/23 Status: Ordered latanoprost 0.005% ophthalmic solution 1 drops, Eyes, Both, Daily in PM, # 2.5 mL, 0 Refills, Maintenance, 08/21/15 10:26:08, Solution Start Date: 08/21/15 Status: Ordered lisinopril 40 mg oral tablet 1 tablet = 40 mg, By Mouth, Daily, no yellow dye and no blue dye due to allergy, # 90 tablet, 3 Refills, Maintenance, 06/26/22 10:29:00 EDT, Tablet, [facility]/pharmacy #[id number], Partial fill upon patient request [...] Refills, Acute, 10/02/20 11:46:00 EDT, [id number], 162, cm, 07/03/20 11:05:00 EDT, Height, 99.8, kg, 07/02/20 6:39:00 EDT, Dry Weight Start Date: 10/02/20 Status: Ordered meclizine 12.5 mg oral tablet 1 tablet = 12.5 mg, By Mouth, 3 times a day, PRN for motion sickness, has allergy to blue dye, white tabs only, # 30 tablet, 0 Refills, Maintenance, 11/05/20 9:59:00 EDT, Tablet, [facility]/pharmacy #[id number], Patient is allergic to blue dye. White tablet woul... Start Date: 11/05/20 Status: Ordered Metoprolol Succinate ER 100 mg oral tablet, extended release 1 tablet = 100 mg, By Mouth, Daily, # 30 tablet, 0 Refills, Maintenance, 09/24/21 9:49:00 EDT, [facility]/pharmacy #[id number], 164, cm, 06/30/21 11:07:00 EDT, Height, 98.8, kg, 06/01/21 18:26:00 EDT, Dry Weight Start Date: 09/24/21 Status: Ordered mupirocin 2% topical ointment 1 application, Topically, 3 times a day, # 30 Gm, 11 Refills, Maintenance, 05/15/19 15:41:00 EDT, Ointment, [facility]/pharmacy #[id number], 1 application Topically 3 times a day, 164, cm, 04/22/19 10:50:00 EST, Height, 102.5, kg, 03/10/19 22:47:00 EST, Dry Weight Start Date: 05/15/19 Status: Ordered NuLYTELY [place] oral powder for reconstitution See Instructions, Plan as per split prep instructions until 4 liters are consumed or the rectal effluent is clear, # 4,000 mL, 0 Refills, Maintenance, 02/25/23 10:21:00 EST, REC Powder, [facility]/pharmacy #[id number], Partial fill upon patient request if the pr... Start Date: 02/25/23 Status: Ordered nystatin topical 649200 u/gm powder See Instructions, APPLY TO AFFECTED AREA TWICE A DAY, # 30 Gm, 1 Refills, Maintenance, 03/22/23 15:46:00 EST, [facility], 7, APPLY TO AFFECTED AREA TWICE A DAY, 163, cm, 03/04/23 13:11:00 EST, Height, 104.5, kg, 02/18/23 15:25:00 EST, Dry W... Start Date: 03/22/23 Status: Ordered One Touch Control Solution See Instructions, # 2 each, Refills 5, Tot. Refills 5, Maintenance, use as directed for Type 2 Diabetes Mellitus, 02/23/23 16:41:00 EST, Supply, 163, cm, 02/18/23 15:25:00 EST, Height, 104.5, kg, 02/18/23 15:25:00 EST, Dry Weight Start Date: 02/23/23 Stop Date: 08/22/23 Status: Ordered One Touch Delica Lancets See Instructions, # 100 each, Refills 3, Tot. Refills 3, Maintenance, use to check bg 1x/day 33 gauge dx e 11.9 90 day supply, 02/25/23 17:11:00 EST, Supply, 163, cm, 02/25/23 10:06:00 EST, Height, 104.5, kg, 02/18/23 15:25:00 EST, Dry Weight Start Date: 02/25/23 Status: Ordered One Touch Ultra 2 Glucose Meter See Instructions, # 1 each, Refills 0, Tot. Refills 0, Maintenance, use to check bg 1x day dx e11.9, 02/23/23 16:45:00 EST, Supply, 163, cm, 02/18/23 15:25:00 EST, Height, 104.5, kg, 02/18/23 15:25:00 EST, Dry Weight Start Date: 02/23/23 Status: Ordered One Touch Ultra Test Strips See Instructions, # 100 each, Refills 3, Tot. Refills 3, Maintenance, use to check bg 1x/day dx e11.9 90 day supply, 02/23/23 16:45:00 EST, Supply, 163, cm, 02/18/23 15:25:00 EST, Height, 104.5, kg, 02/18/23 15:25:00 EST, Dry Weight Start Date: 02/23/23 Status: Ordered Probiotic Formula oral capsule 1 [...] 3 Refills, Maintenance, 11/07/19 7:57:00 EDT, [facility], 163, cm, 08/11/19 15:02:00 EDT, Height, 105, [...] EDT, PT HAS ALLERGIES TO CERTAIN DYES. [facility] AWARE. Start Date: 05/26/18 Status: Ordered Zyrtec [...] repeat scrrening colonoscopy in 2020 5colo 2015 Social History Social History Type Response Smoking Status Former smoker; Other : Quit smoking 1983.; entered on: 08/21/15 Sex Patient Care team information Care Team Personnel Name: Matthew Julio RN Position: [facility] RN Member Role: Primary Care Nurse Name: Ashley Akers RN Position: [facility] RN Member Role: Primary Care Nurse Name: Evelyn Hernandez RN Position: [facility] RN Member Role: Primary Care Nurse Name: Zahira Davis RN Position: [facility] RN Member Role: Primary Care Nurse Name: Ashley Aguilar NP Position: Reference Physician Member Role: Primary Care Nurse Address: Address: [address] [place] [id number]- [place] Name: Narda Solares MD Position: [facility] Physician - Primary Care Member Role: PCP Address: Address: [address] [place] [id number]- [place] Name: Joe Sullivan RN Position: [facility] Hospital Fur Grader Member Role: Primary Care Nurse Care Team Related Persons Name: LENY BLAS Address: home [address] [address] Name: LAURA CALL Address: home [address] [address]
--- OUTSIDE RECORDS SUMMARY | 2023-08-04 10:37 | XMS_ITS | Continuity of Care Document ---
Author Organization [facility] Tyrell Sebastián lt Address [address] [place] [address]- Care Team Providers Care Internet Sales Director Name Role Phone Matthew Bowling MD Primary Care Physician Encounter [facility] Date(s): 01/31/19 - 02/10/19 [facility] Adult [address] [place] [address]- [facility] Attending Physician: Admeduardo, [id number] Admitting Physician: Admtr, [id number] Referring Physician: Admtr, [...] mg-50 mg-40 mg oral tablet See Instructions, 1 tablet By Mouth Every 4 hours as needed, # 30 tablet, 1 Refills, Maintenance, 01/31/19 11:15:21 EST, Tablet, 1 tablet By Mouth Every 4 hours as needed, 163, cm, 01/31/19 10:42:38 EST, Height, 102.1, kg, 01/23/19 17:46:54 EST, Dry W... Start Date: 01/31/19 Status: Ordered acyclovir 400 mg oral tablet See Instructions, TAKE 1 TABLET BY MOUTH EVERY DAY, # 90 tablet, 3 Refills, Soft Stop, 08/17/18 15:20:15 EDT Start Date: 08/17/18 Status: Ordered albuterol-ipratropium 3 mg-0.5 mg/3 ml inhalation solution 3 mL, Inhalation, 4 times a day, PRN Wheezing/Shortness of Breath, FAX [phone] BOWLING J45.909 ASTHMA, # 360 mL, 11 Refills, Maintenance, 05/04/17 13:29:51, Inhalation Solution, 3 mL Inhalation 4 times a day,PRN:Wheezing/Shortness of Breath,I... Start Date: 05/04/17 Status: Ordered atorvastatin 20 mg oral tablet 1 tablet = 20 mg, By Mouth, Daily, # 90 tablet, 3 Refills, Maintenance, Tablet, Route to Pharmacy Electronically, [id number], [facility]/pharmacy #[id number] Start Date: 05/26/18 Stop Date: 05/21/19 Status: Ordered baclofen 10 mg oral tablet 20 mg, 2, tablet, By Mouth, 2 times a day, Refills 0, Maintenance, 07/29/16 15:15:27 Start Date: 07/29/16 Status: Ordered Beconase AQ 0.042 mg/inh spray 1 puffs, Nares, Both, 2 times a day, # 1 each, 11 Refills, Maintenance, 06/04/16 10:38:23, 1 puffs Nares, Both 2 times a day Start Date: 06/04/16 Status: Ordered Benadryl 25 mg oral capsule [...] Maintenance, 10/13/16 14:32:53, Route to Pharmacy Electronically, [id number], [facility]/pharmacy #[id number] Start Date: 10/13/16 Status: Ordered Colace [...] 2 hours Start Date: 11/23/17 Status: Ordered Excedrin Aspirin Free 2 tablet, By Mouth, Every 6 hours, PRN Headache, 0 Refills, Maintenance, 04/30/15 17:11:57 Start Date: 04/30/15 Status: Ordered famotidine 40 mg oral tablet 1 tablet = 40 mg, By Mouth, 2 times a day, # 60 tablet, 11 Refills, Maintenance, 08/08/18 13:55:58 EDT, Suspension Start Date: 08/08/18 Stop Date: 08/03/19 Status: Ordered Flonase 50 mcg/inh nasal spray 1 sprays, Nares, Both, 2 times a day, # 16 Gm, 11 Refills, Maintenance, 07/01/18 11:47:12 EDT, [place], 1 sprays Nares, Both 2 times a [...] EDT, Compound Start Date: 08/17/18 Status: Ordered ibuprofen 800 mg oral tablet 800 mg, 1, tablet, By Mouth, 3 times a day, PRN, with food or milk, # 90 tablet, Refills 1, Tot. Refills 1, Maintenance, as needed for pain, 01/31/19 11:03:42 EST, Route to Pharmacy Electronically, [id number], [facility]/pharmacy #0... Start Date: 01/31/19 Status: Ordered latanoprost 0.005% ophthalmic solution 1 drops, Eyes, Both, Daily in PM, # 2.5 mL, 0 Refills, Maintenance, 08/21/15 10:26:08, Solution Start Date: 08/21/15 Status: Ordered lisinopril 10 mg oral tablet 10 mg, 1, tablet, By Mouth, Daily, # 90 tablet, Refills 0, Tot. Refills 0, Maintenance, 04/12/18 11:28:12 EST, Route to Pharmacy Electronically, [id number], [facility]/pharmacy #[id number] Start Date: 04/12/18 Status: Ordered LORazepam 1 mg oral tablet 1 tablet = 1 mg, By Mouth, 3 times a day, 0 Refills, Maintenance, 09/14/17 11:57:01 EDT, Tablet Start Date: 09/14/17 Status: Ordered lysine 1000 mg oral tablet 1 tablet = 1,000 mg, By Mouth, Daily, # 60 tablet, 0 Refills, Maintenance, 11/23/17 10:25:18 EDT, Tablet Start Date: 11/23/17 Status: Ordered magnesium oxide 250 mg oral tablet 2 tablet = 500 mg, By Mouth, Daily, 0 Refills, Maintenance Start Date: 01/14/13 Status: Ordered Metoprolol Succinate ER 100 mg oral tablet, extended release 1 tablet, By Mouth, Daily, # 30 tablet, 2 Refills, Maintenance, 02/06/19 9:36:12 EST, [id number], 163, cm, 01/31/19 10:42:38 EST, Height, 102.1, kg, 01/23/19 17:46:54 EST, Dry Weight Start Date: 02/06/19 Status: Ordered mupirocin 2% topical ointment 1 application, Topically, 3 times a day, APPLY TO AFFECTED AREAS TID PRN PER DR BOWLING, # 30 Gm, 11 Refills, Maintenance, 01/18/18 12:55:36 EST, Ointment, 1 application Topically 3 times a day,Instr:APPLY TO AFFECTED AREAS TID PRN PER DR BOWLING Start Date: 01/18/18 Status: Ordered nystatin topical [id number] u/gm powder See Instructions, # 30 Gm, Refills 1 Tot. Refills 1, 1 APPLICATION TOPICALLY 2 TIMES A DAY,INSTR:PER DR BOWLING, [facility]/pharmacy #[id number] Start Date: 09/15/18 Status: Ordered Probiotic Formula oral capsule 1 [...] PUFFS BY MOUTH 4 TIMES A DAY, [facility]/pharmacy #[id number] Start Date: 01/11/19 Status: Ordered Vitamin [...] EDT, PT HAS ALLERGIES TO CERTAIN DYES. [facility] AWARE. 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 Per patient's report [id number] - [facility] - Dr. Hazel [id number]; repeat 2020 6Colonoscopy 2008 by patient report normal. 7tubular adenoma of colon repeat scrrening colonoscopy in 2020 8colo 2015 Procedures Procedure Date Related Diagnosis Body Site Status Incisional hernia 1 06/18/16 Compl eted 1Repair done at [facility] Social History Social History Type Response Smoking Status Former smoker; Other : Quit smoking 1983.; entered on: 08/21/15 Sex
== END 2023-08-04 10:49 | disposition home or self-care (01) ==
PROVIDERS: PCP Internal Medicine; Visit Provider Nurse Practitioner Family
DX: J01.90 Acute sinusitis, unspecified (principal); B96.89 Other specified bacterial agents as the cause of diseases classified elsewhere
CPT/HCPCS: 99213

== ENCOUNTER 2023-08-20 11:14 | Outpatient (AMB) | payer MEDICARE, SELFPAY ==
--- OUTSIDE RECORDS SUMMARY | 2023-08-20 11:17 | XMS_ITS | Continuity of Care Document ---
Author Organization [facility] Address [address] [place] [address]- Care Team Providers Care Hide Puller Name Role Phone Marilia HARE, Destiny Gibbs Primary Care Physician [phone] [place] [facility] [facility] [place] - 05/31/21 [facility] [address] [place] [address]- Allergies, Adverse Reactions, Alerts Substance Reaction Severity [...] Shira Plus Test Strips See Instructions, # 100 each, Refills 1, Tot. Refills 1, Maintenance, DM2 E11.9 check blood sugar qd, 12/07/19 9:45:00 EDT, Compound, 163, cm, 11/10/19 8:11:00 EDT, Height, 105, kg, 08/11/19 15:02:00EDT, Dry Weight Start Date: 12/07/19 Status: Ordered acetaminophen 325 mg oral tablet 650 mg, By Mouth, Every 6 hours, Refills 0, Maintenance, 07/03/20 11:30:00 EDT, Partial fill upon patient request if the prescription is for a schedule II opioid drug. Start Date: 07/03/20 Status: Ordered acetaminophen/butalbital/caffeine 325 mg-50 mg-40 mg oral tablet See Instructions, TAKE 1 TABLET BY MOUTH EVERY 4 HOURS NEEDED FOR PAIN, # 12 tablet, 0 Refills, [facility], 3, TAKE 1 TABLET BY MOUTH EVERY 4 HOURS NEEDED FOR PAIN, 162, cm, 07/03/20 11:05:00 EDT, Height, 99.8, kg, 07/02/20 6:39:00 EDT, Dry... Start Date: 04/21/21 Status: Ordered acyclovir 400 mg oral tablet 1 tablet, By Mouth, 2 times a day, # 180 tablet, 1 Refills, Maintenance, 01/09/20 10:00:00 EST, [facility]/pharmacy #[id number], 163, cm, 11/10/19 8:11:00 EDT, Height, 105, kg, 08/11/19 15:02:00 EDT, Dry Weight Start Date: 01/09/20 Status: Ordered albuterol-ipratropium 3 mg-0.5 mg/3 ml inhalation solution 3 mL, Inhalation, 4 times a day, PRN Wheezing/Shortness of Breath, FAX [phone] BOWLING J45.909 ASTHMA, # 360 [...] opioid drug. Start Date: 04/25/20 Status: Ordered Aspirin Tablet 325 mg, By Mouth, 2 times a day, Refills 0, Maintenance, 07/03/20 11:30:00 EDT, Partial fill upon patient request if the prescription is for a schedule II opioid drug. Start Date: 07/03/20 Status: Ordered atorvastatin 20 mg oral tablet See Instructions, TAKE 1 TABLET BY MOUTH EVERY DAY, # 90 tablet, 2 Refills, Maintenance, [facility], 163, cm, 11/10/19 8:11:00 EDT, Height, 105, [...] Maintenance, 10/13/16 14:32:53, Route to Pharmacy Electronically, [id number], [facility]/pharmacy #[id number] Start Date: 10/13/16 Status: Ordered codeine-guaifenesin 10 mg-100 mg/5 mL oral syrup 5 mL, By Mouth, Every 4 hours, PRN for cough, # 120 mL, 0 Refills, Maintenance, 04/04/21 11:23:00 EST, Syrup, [facility]/pharmacy #[id number], Partial fill upon patient request if the prescription is for a schedule II opioid drug., 5 mL By Mouth Every 4 hours,PRN:... Start Date: 04/04/21 Status: Ordered codeine-guaifenesin 10 mg-100 mg/5 mL oral syrup 5 mL, By Mouth, Every 6 hours, PRN for cough and congestion, # 100 mL, 0 Refills, Maintenance, 03/12/21 13:49:00 EST, Syrup, [facility]/pharmacy #[id number], Partial fill upon patient request if the prescription is for a schedule II opioid drug., 5 mL By Mouth Carmelita... Start Date: 03/12/21 Status: Ordered COENZYME Q-10 30 MG SOFTGEL COENZYME Q-10 30 MG SOFTGEL, See Instructions, # 30 capsule, 0 Refills, Maintenance, TAKE 1 SOFTGELBY MOUTH EVERY DAY, 163, cm, 11/10/19 8:11:00 EDT, Height, 105, kg, 08/11/19 15:02:00 EDT, Dry Weight Start Date: 01/24/20 Status: Ordered Colace sodium 100 mg oral [...] a day, # 180 tablet, 3 Refills, [facility], 162, cm, 07/03/20 11:05:00 EDT, Height, 99.8, kg, 07/02/20 6:39:00 EDT, Dry Weight Start Date: 11/14/20 Status: Ordered fluconazole 150 mg oral tablet See Instructions, TAKE 1 TABLET BY MOUTH ONCE, # 1 tablet, 0 Refills, Soft Stop, [facility], 163, cm, 04/22/20 14:51:00 EST, Height, 105, kg, 08/11/19 15:02:00 EDT, Dry Weight Start Date: 05/16/20 Status: Ordered Freestyle Lite Lancets See Instructions, # 200 each, Refills 11, Tot. Refills 11, Maintenance, DM2 E11.9 check blood sugarthree times a day, 11/23/17 10:42:26 EDT, Compound Start Date: 11/23/17 Status: Ordered Freestyle Lite Lancets See Instructions, # 100 each, Refills 3, Tot. Refills 3, Maintenance, test once daily E11.9, 05/07/21 14:12:00 EDT, Supply, 162, cm, 05/07/21 13:55:00 EDT, Height, 99.8, kg, 07/02/20 6:39:00 EDT, DryWeight Start Date: 05/07/21 Status: Ordered Freestyle Lite Monitor See Instructions, # 1 each, Maintenance, DM2 E11.9 check blood sugar three times a day, 11/23/17 10:42:10 EDT, Compound Start Date: 11/23/17 Status: Ordered Freestyle Lite Monitor See Instructions, # 1 each, Refills 0, Tot. Refills 0, Maintenance, test once daily E11.9, 05/07/2213:11:00 EDT, Supply, 162, cm, 05/07/21 13:55:00 EDT, Height, 99.8, kg, 07/02/20 6:39:00 EDT, Dry Weight Start Date: 05/07/21 Status: Ordered Freestyle Lite Test Strips See Instructions, # 100 each, Refills 3, Tot. Refills 3, Maintenance, DM2 E11.9 check blood sugar qd NEW DIRECTIONS PER DR BOWLING, 08/17/18 15:20:58 EDT, Compound Start Date: 08/17/18 Status: Ordered Freestyle Lite Test Strips See Instructions, # 100 each, Refills 3, Tot. Refills 3, Maintenance, test once daily E11.9, 05/07/21 14:12:00 EDT, Supply, 162, cm, 05/07/21 13:55:00 EDT, Height, 99.8, kg, 07/02/20 6:39:00 EDT, DryWeight Start Date: 05/07/21 Status: Ordered lansoprazole 30 mg oral enteric coated capsule 1 capsule = 30 mg, By Mouth, Daily, # 14 capsule, 0 Refills, Maintenance, 03/03/21 11:51:00 EST, CRCapsule, [facility]/pharmacy #[id number], Partial fill upon patient request if the prescription is for a schedule II opioid drug., 162, cm, 07/03/20 11:05:00 EDT, H... Start Date: 03/03/21 Stop Date: 03/17/21 Status: Ordered latanoprost 0.005% ophthalmic solution 1 [...] 07/18/20 10:58:00 EDT, Route to Pharmacy Electronically, [facility]/pharmacy #[id number], Partial fill upon patient request if the... Start Date: 07/18/20 Status: Ordered LORazepam 1 mg oral tablet 1 tablet = 1 mg, By Mouth, 3 times a day, 0 Refills, Maintenance, 09/14/17 11:57:01 EDT, Tablet Start Date: 09/14/17 Status: Ordered magnesium oxide 400 mg oral tablet 1 tablet, By Mouth, Daily, # 30 tablet, 5 Refills, Acute, 10/02/20 11:46:00 EDT, [facility], 162, cm, 07/03/20 11:05:00 EDT, Height, 99.8, kg, 07/02/20 6:39:00 EDT, Dry Weight Start Date: 10/02/20 Status: Ordered meclizine 12.5 mg oral tablet 1 tablet = 12.5 mg, By Mouth, 3 times a day, PRN for motion sickness, has allergy to blue dye, white tabs only, # 30 tablet, 0 Refills, Maintenance, 11/05/20 9:59:00 EDT, Tablet, [facility]/pharmacy #0838, Patient is allergic to blue dye. White tablet woul... Start Date: 11/05/20 Status: Ordered Metoprolol Succinate ER 100 mg oral tablet, extended release 1 tablet = 100 mg, By Mouth, Daily, # 90 tablet, 1 Refills, Maintenance, 12/07/19 9:45:00 EDT, [facility]/pharmacy #0838, 163, cm, 11/10/19 8:11:00 EDT, Height, 105, kg, 08/11/19 15:02:00 EDT, Dry Weight Start Date: 12/07/19 Status: Ordered MiraLax Powder 1 pack/packet = 17 Gm, By Mouth, Daily, 0 Refills, Maintenance, 07/03/20 11:30:00 EDT, Powder, Partial fill upon patient request if the prescription is for a schedule II opioid drug. Start Date: 07/03/20 Status: Ordered mupirocin 2% topical ointment 1 application, Topically, 3 times a day, # 30 Gm, 11 Refills, Maintenance, 05/15/19 15:41:00 EDT, Ointment, [facility]/pharmacy #0838, 1 application Topically 3 times a day, 164, cm, 04/22/19 10:50:00 EST, Height, 102.5, kg, 03/10/19 22:47:00 EST, Dry Weight Start Date: 05/15/19 Status: Ordered nystatin topical 625594 u/gm powder See Instructions, APPLY TO AFFECTED AREA TWICE A DAY -PER DR BOWLING, # 30 Gm, 1 Refills, Acute, [facility], 7, APPLY TO AFFECTED AREA TWICE A DAY -PER DR BOWLING, 163, cm, 11/10/19 8:11:00 EDT, Height,105, kg, 08/11/19 15:02:00 EDT, Dry Weight Start Date: 11/13/19 Status: Ordered Probiotic Formula oral capsule 1 capsule, By Mouth, 2 times a day, # 60 capsule, 11 Refills, Maintenance, 01/22/16 10:10:40, 1 capsule By Mouth 2 times a day Start Date: 01/22/16 Status: Ordered Readi-Cat 2 oral suspension See Instructions, By Mouth take one stat and take one 90 minutes before exam., # 900 mL, 0 Refills,Maintenance, 08/21/19 11:24:00 EDT, [id number], By Mouth take one stat and take one 90 minutes before exam., 163, cm, 08/11/19 15:02:00 EDT, He... Start Date: 08/21/19 Status: Ordered Senna = 8.6 mg, By [...] 3 Refills, Maintenance, 11/07/19 7:57:00 EDT, [facility], 163, cm, 08/11/19 15:02:00 EDT, Height, 105, [...] EDT, PT HAS ALLERGIES TO CERTAIN DYES. [facility]. Start Date: 05/26/18 Status: Ordered Zyrtec [...] negative for Casey's esophagus. Per patient's report [address]70 - [facility] [place]. Hazel 5Colonoscopy 2008 by patient report normal. 6tubular adenoma of colon repeat scrrening colonoscopy in 2020 7colo 2015 Social History Social History Type Response Smoking Status Former smoker; Other : Quit smoking 1983.; entered on: 08/21/15 Sex
--- OUTSIDE RECORDS SUMMARY | 2023-08-20 11:17 | XMS_ITS | Continuity of Care Document ---
Author Organization [facility] ter Address [address] [place] [phone]- Care Team Providers Care Jackscrew Worker Name Role Phone Narda Solares MD Primary Care Physician [place] [facility] [place] - 10/15/[address] [address] Attending Physician: AdmMayra clark Admitting Physician: AdmtrMayra Referring Physician: Admtr, Ar8 Allergies, Adverse Reactions, [...] tablet, By Mouth, Every 4 hours, PRN NEEDED FOR PAIN, # 12 tablet, 0 Refills, Maintenance, 09/21/22 10:02:00 EDT, [facility]/pharmacy #0838, 2, 1 tablet By Mouth Every 4 hours,PRN: NEEDED FOR PAIN, 163, cm, 08/27/22 12:58:00 EDT, Height, 107.3, kg, 06... Start Date: 09/21/22 Status: Ordered acyclovir 400 mg oral tablet 2 tablet = 800 mg, By Mouth, 2 times a day, PRN herpes episodes, # 60 tablet, 0 Refills, Maintenance, 07/28/22 14:06:00 EDT, [facility]/pharmacy #0838, 163, cm, 07/28/22 13:50:00 EDT, Height, 105, kg, 06/05/22 16:25:00 EDT, Dry Weight Start Date: 07/28/22 Status: Ordered amLODIPine 5 mg oral tablet 5 mg, 1, tablet, By Mouth, Daily, # 30 tablet, Refills 2, Tot. Refills 2, Maintenance, 08/05/22 11:00:00 EDT, Route to Pharmacy Electronically, [facility]/pharmacy #[id number], pt has allergies to yellow and bluedye, 163, cm, 08/04/22 17:44:00 EDT, Height, 107.3,... Start Date: 08/05/22 Stop Date: 11/03/22 Status: Ordered atorvastatin 20 mg oral tablet 1 tablet, By Mouth, Daily, # 90 tablet, 1 Refills, Maintenance, 03/23/22 21:16:00 EST, [facility], 164, cm, 01/27/22 10:37:00 EST, Height, 98.8, kg, 06/01/21 18:26:00 EDT, Dry Weight Start Date: 03/23/22 Status: Ordered baclofen 10 mg oral tablet 20 mg, 2, tablet, By Mouth, 2 times a day, Refills 0, Maintenance, 07/29/16 15:15:27 Start Date: 07/29/16 Status: Ordered Breo Ellipta 200 mcg-25 mcg/inh inhalation powder 1 puffs, Inhalation, Daily, # 1 each, 11 Refills, Maintenance, 05/11/22 12:46:00 EDT, Powder, [facility]/pharmacy #[id number], Partial fill upon [...] 11:53:57 EDT Start Date: 07/13/17 Status: Ordered famotidine 40 mg oral tablet 1 tablet, By Mouth, 2 times a day, # 180 tablet, 3 Refills, [facility], 162, cm, 07/03/20 11:05:00 EDT, Height, 99.8, [...] 100 Unknown, 3 Refills, Maintenance, TEST ONCE [id number], 06/08/22 8:32:00 EDT, 163, cm, 06/05/22 16:25:00 [...] Dry Weight Start Date: 08/11/22 Stop Date: 09/10/22 Status: Ordered Home Blood Pressure Monitor See [...] 3 Refills, Maintenance, 06/26/22 10:29:00 EDT, Tablet, [facility]/pharmacy #[id number], Partial fill upon patient request if the [...] Refills, Acute, 10/02/20 11:46:00 EDT, [facility], 162, cm, 07/03/20 11:05:00 EDT, Height, 99.8, kg, 07/02/20 6:39:00 EDT, Dry Weight Start Date: 10/02/20 Status: Ordered meclizine 12.5 mg oral tablet 1 tablet = 12.5 mg, By Mouth, 3 times a day, PRN for motion sickness, has allergy to blue dye, white tabs only, # 30 tablet, 0 Refills, Maintenance, 11/05/20 9:59:00 EDT, Tablet, [facility], Patient is allergic to blue dye. White tablet woul... Start Date: 11/05/20 Status: Ordered Metoprolol Succinate ER 100 mg oral tablet, extended release 1 tablet = 100 mg, By Mouth, Daily, # 30 tablet, 0 Refills, Maintenance, 09/24/21 9:49:00 EDT, [facility], 164, cm, 06/30/21 11:07:00 EDT, Height, 98.8, kg, 06/01/21 18:26:00 EDT, Dry Weight Start Date: 09/24/21 Status: Ordered mupirocin 2% topical ointment 1 application, Topically, 3 times a day, # 30 Gm, 11 Refills, Maintenance, 05/15/19 15:41:00 EDT, Ointment, [facility], 1 application Topically 3 times a day, 164, cm, 04/22/19 10:50:00 EST, Height, 102.5, kg, 03/10/19 22:47:00 EST, Dry Weight Start Date: 05/15/19 Status: Ordered nystatin topical 501793 u/gm powder See Instructions, APPLY TO AFFECTED AREA TWICE A DAY -PER DR BOWLING, # 30 Gm, 1 Refills, Acute, [facility], 7, APPLY TO AFFECTED AREA TWICE A [...] 0 Refills, Maintenance, 08/11/22 14:46:00 EDT, Solution, [facility]/pharmacy #5866, Partial fill upon patient request ifthe prescription [...] 3 Refills, Maintenance, 11/07/19 7:57:00 EDT, [facility], 163, cm, 08/11/19 15:02:00 EDT, Height, 105, [...] EDT, PT HAS ALLERGIES TO CERTAIN DYES. [facility]. Start Date: 05/26/18 Status: Ordered Zyrtec [...] Team Personnel Name: Matthew Julio RN Position: S RN Member Role: Primary Care Nurse Name: Ashley Akers RN Position: S RN Member Role: Primary Care Nurse Name: Evelyn Hernandez RN Position: [facility] RN Member Role: Primary Care Nurse Name: Zahira Davis RN Position: [facility] RN Member Role: Primary Care Nurse Name: Jeff SALES FLOOR MANAGER, Ashley Matson Position: Reference Physician Member Role: Primary Care Nurse Address: Address: [address] [place] [address]- Name: Narda Solares MD Position: [facility] Physician - Primary Care Member Role: PCP Address: Address: [address] [place] [phone]- [place] Name: Nate ALEXANDER, Joe Position: [facility] Security Officer Member Role: Primary Care Nurse Care Team Related Persons Name: LENY BLAS Address: home [address] [place] [address] Name: LAURA CALL Address: home [address] [place] [address]
--- OUTSIDE RECORDS SUMMARY | 2023-08-20 11:17 | XMS_ITS | Continuity of Care Document ---
Author Organization [facility] ter Address [address] [place] [phone]- Care Team Providers Care Strickler Attendant Name Role Phone Sujatha HARE, Narda Primary Care Physician Encounter [facility] [place] Date(s): 08/11/22 - 10/15/[address] [address] Attending Physician: Danna Eaton MD Admitting Physician: Danna Eaton MD Referring Physician: Narda Solares MD Allergies, Adverse Reactions, Alerts Substance Reaction Severity Status ciprofloxacin hallucinations Persistent Severe Active cefuroxime Active gabapentin night terrors Persistent Severe Active nitrates migraine STARR Persistent Severe Active Imitrex chest heaviness Persistent Severe Active Remeron swollen neck and rash Persistent Severe A ctive Compazine severe STARR Persistent Severe Active Depakote night terrors Persistent Severe Active Demerol HCl anaphylaxis Persistent Severe Active amoxicillin Active levofloxacin Heart Palpatations Persistent Severe Acti ve sulfa drugs high temp and rash Persistent Severe Acti ve Toradol Active Ultram generalized itching Persistent Severe Act krystal Decadron Pins and needles sensation A ctive Abdominal pain Active pantoprazole 1 Facial swelling Persistent Severe Activ e Chocolate migraine STARR Persistent Severe Active Contrast Dye hives Persistent Severe Active Other Food Allergy 2, 3, 4 migraines and swelling Active Other Environmental Allergy 5, 6, 7 facial swelling and itching Persistent Severe Active flu vaccines high fever and swelling Persistent Severe Active Percocet 5/325 severe STARR Persistent Severe Active CeleBREX HIVES Persistent Severe Active Valacyclovir Hydrochloride abd upspet A ctive traMADol Active 1patient has yellow dye allergy --Pantoprazole [...] tablet, 0 Refills, Maintenance, 09/21/22 10:02:00 EDT, [facility]/pharmacy #0838, 2, 1 tablet By Mouth Every 4 hours,PRN: NEEDED FOR PAIN, 163, cm, 08/27/22 12:58:00 EDT, Height, 107.3, kg, 06... Start Date: 09/21/22 Status: Ordered acyclovir 400 mg oral tablet 2 tablet = 800 mg, By Mouth, 2 times a day, PRN herpes episodes, # 60 tablet, 0 Refills, Maintenance, 07/28/22 14:06:00 EDT, [facility]/pharmacy #0838, 163, cm, 07/28/22 13:50:00 EDT, Height, 105, kg, 06/05/22 16:25:00 EDT, Dry Weight Start Date: 07/28/22 Status: Ordered amLODIPine 5 mg oral tablet 5 mg, 1, tablet, By Mouth, Daily, # 30 tablet, Refills 2, Tot. Refills 2, Maintenance, 08/05/22 11:00:00 EDT, Route to Pharmacy Electronically, [facility]/pharmacy #0838, pt has allergies to yellow and bluedye, 163, cm, 08/04/22 17:44:00 EDT, Height, 107.3,... Start Date: 08/05/22 Stop Date: 11/03/22 Status: Ordered atorvastatin 20 mg oral tablet 1 tablet, By Mouth, Daily, # 90 tablet, 1 Refills, Maintenance, 03/23/22 21:16:00 EST, [facility], 164, cm, 01/27/22 10:37:00 EST, Height, 98.8, [...] 11 Refills, Maintenance, 05/11/22 12:46:00 EDT, Powder, [facility]/pharmacy #0838, Partial fill upon patient request if [...] # 180 tablet, 3 Refills, [facility], 162, cm, 07/03/20 11:05:00 EDT, Height, 99.8, [...] 100 Unknown, 3 Refills, Maintenance, TEST ONCE [id number], 06/08/22 8:32:00 EDT, 163, cm, 06/05/22 16:25:00 [...] 3 Refills, Maintenance, 06/26/22 10:29:00 EDT, Tablet, [facility]/pharmacy #8119, Partial fill upon patient request if the [...] Refills, Acute, 10/02/20 11:46:00 EDT, [facility], 162, cm, 07/03/20 11:05:00 EDT, Height, 99.8, kg, 07/02/20 6:39:00 EDT, Dry Weight Start Date: 10/02/20 Status: Ordered meclizine 12.5 mg oral tablet 1 tablet = 12.5 mg, By Mouth, 3 times a day, PRN for motion sickness, has allergy to blue dye, white tabs only, # 30 tablet, 0 Refills, Maintenance, 11/05/20 9:59:00 EDT, Tablet, [facility]/pharmacy #0838, Patient is allergic to blue dye. [...] Start Date: 05/15/19 Status: Ordered nystatin topical [id number] u/gm powder See Instructions, APPLY TO AFFECTED AREA TWICE A DAY -PER DR BOWLING, # 30 Gm, 1 Refills, Acute, [facility], 7, APPLY TO AFFECTED AREA TWICE A [...] 0 Refills, Maintenance, 08/11/22 14:46:00 EDT, Solution, [facility]/pharmacy #0843, Partial fill upon patient request ifthe prescription [...] 3 Refills, Maintenance, 11/07/19 7:57:00 EDT, [facility], 163, cm, 08/11/19 15:02:00 EDT, Height, 105, [...] PT HAS ALLERGIES TO CERTAIN DYES. [facility]. Start Date: 05/26/18 Status: Ordered Zyrtec [...] Team Personnel Name: Matthew Julio RN Position: [facility] RN Member Role: Primary Care Nurse Name: Ashley Akers RN Position: S RN Member Role: Primary Care Nurse Name: Evelyn Hernandez RN Position: [facility] RN Member Role: Primary Care Nurse Name: Zahira Davis RN Position: [facility] RN Member Role: Primary Care Nurse Name: Jeff ROSS, Ashley Matson Position: Reference Physician Member Role: Primary Care Nurse Address: Address: [address] [place] [phone]- [place] Name: Narda Solares MD Position: [facility] Physician - Primary Care Member Role: PCP Address: Address: [address] [place] [phone]- [place] Name: Nate ALEXANDER, Joe Position: [facility] Sr. Unix System Administrator Member Role: Primary Care Nurse Care Team Related Persons Name: LENY BLAS Address: home [address] [place] [address] Name: LAURA CALL Address: home [address] [place] [address]
--- OUTSIDE RECORDS SUMMARY | 2023-08-20 11:17 | XMS_ITS | Continuity of Care Document ---
Author Organization [facility] Tyrell Sebsatián lt Address [address] [place] [address]- Care Team Providers Care Commercial Loan Underwriter Name Role Phone Marilia HARE, Destiny Gibbs Primary Care Physician [phone] [facility] [place] 11[place]10/19 [facility] Adult [address] [place] [address]- [facility] Allergies, Adverse Reactions, Alerts Substance Reaction Severity [...] Maintenance, DM2 E11.9 check blood sugar qd, 09/29/19 12:12:00 EDT, Compound, 163, cm, 08/11/19 15:02:00 EDT, Height, 105, kg, 08/11/19 15:02:00 EDT, Dry Weight Start Date: 09/29/19 Status: Ordered acetaminophen/butalbital/caffeine 325 mg-50 mg-40 mg oral tablet 1 tablet, By Mouth, Every 4 hours, PRN NEEDED, # 12 tablet, 0 Refills, Maintenance, 10/11/19 16:02:00 EDT, [facility]/pharmacy #[id number], 1 tablet By Mouth Every 4 hours,PRN: NEEDED, 163, cm, 08/11/19 15:02:00 EDT, Height, 105, kg, 08/11/19 15:02:00 EDT, . Start Date: 10/11/19 Status: Ordered acyclovir 400 mg oral tablet 1 tablet = 400 mg, By Mouth, 2 times a day, # 20 tablet, 0 Refills, Soft Stop, 10/19/19 15:16:00 EDT, [facility]/pharmacy #[id number], 163, cm, 08/11/19 15:02:00 EDT, Height, 105, kg, 08/11/19 15:02:00 EDT, Dry Weight Start Date: 10/19/19 Status: Ordered albuterol-ipratropium 3 mg-0.5 mg/3 ml inhalation solution 3 mL, Inhalation, 4 times a day, PRN Wheezing/Shortness of Breath, FAX [phone] BOWLING J45.909 ASTHMA, # 360 mL, 11 Refills, Maintenance, 05/04/17 13:29:51, Inhalation Solution, 3 mL Inhalation 4 times a day,PRN:Wheezing/Shortness of Breath,I... Start Date: 05/04/17 Status: Ordered atorvastatin 20 mg oral tablet 1 tablet = 20 mg, By Mouth, Daily, # 90 tablet, 1 Refills, Maintenance, 06/18/19 11:32:00 EDT, Tablet, [facility]/pharmacy #[id number], 164, cm, 04/22/19 10:50:00 EST, Height, [...] Maintenance, 10/13/16 14:32:53, Route to Pharmacy Electronically, [id number], [facility]/pharmacy #[id number] Start Date: 10/13/16 Status: Ordered Coenzyme Q10 30 mg oral capsule 1 capsule = 30 mg, By Mouth, Daily, # 30 capsule, 5 Refills, Maintenance, 06/12/19 15:10:00 EDT, Capsule, [facility]/pharmacy #[id number], 164, cm, 04/22/19 10:50:00 EST, Height, [...] a day, # 180 tablet, 3 Refills, Maintenance, 08/17/19 9:51:00 EDT, Suspension, [facility]/pharmacy #0838, 163, cm, 08/11/19 15:02:00 EDT, Height, 105, kg, 08/11/19 15:02:00 EDT, Dry Weight Start Date: 08/17/19 Stop Date: 08/11/20 Status: Ordered Flonase 50 mcg/inh nasal spray 1 sprays, Nares, Both, 2 times a day, # 16 Gm, 11 Refills, Maintenance, 07/01/18 11:47:12 EDT, [place], 1 sprays Nares, Both 2 times a [...] Status: Ordered lisinopril 10 mg oral tablet See Instructions, TAKE 1 TABLET BY MOUTH EVERY DAY, # 30 tablet, Refills 11, Maintenance, Instructions Replace Required Details, Route to Pharmacy Electronically, [facility] STORE [id number], 163, cm, 08/11/19 15:02:00 EDT, Height, 105, kg, 08/11/19 15:02:00 EDT,... Start Date: 10/23/19 Status: Ordered LORazepam 1 mg oral tablet [...] Acute 12/09/19 15:12:00 EDT, 06/12/19 15:12:00 EDT, [facility]/pharmacy #[id number], 164, cm, 04/22/19 10:50:00 EST, Height, 102.5, kg, 03/10/19 22:47:00 EST, Dry Weight Start Date: 06/12/19 Stop Date: 12/09/19 Status: Ordered meclizine 12.5 mg oral tablet 1 tablet = 12.5 mg, By Mouth, 3 times a day, PRN for motion sickness, # 30 tablet, 0 Refills, Maintenance, 04/07/19 10:10:00 EST, Tablet, [facility]/pharmacy #0838, Patient is allergic to blue dye. White tablet would be preferrable., 163, cm, 04/07/19 9:43:0... Start Date: 04/07/19 Status: Ordered Metoprolol Succinate ER 100 mg oral tablet, extended release 1 tablet = 100 mg, By Mouth, Daily, # 90 tablet, 1 Refills, Maintenance, 06/13/19 12:04:00 EDT, [facility]/pharmacy #[id number], 164, cm, 04/22/19 10:50:00 EST, Height, 102.5, kg, 03/10/19 22:47:00 EST, Dry Weight Start Date: 06/13/19 Status: Ordered mupirocin 2% topical ointment 1 application, Topically, 3 times a day, # 30 Gm, 11 Refills, Maintenance, 05/15/19 15:41:00 EDT, Ointment, [facility]/pharmacy #[id number], 1 application Topically 3 times a day, 164, cm, 04/22/19 10:50:00 EST, Height, 102.5, kg, 03/10/19 22:47:00 EST, Dry Weight Start Date: 05/15/19 Status: Ordered nystatin topical 552566 u/gm powder See Instructions, 1 APPLICATION TOPICALLY 2 TIMES A DAY,INSTR:PER DR BOWLING, # 30 Gm, 1 Refills, Soft Stop, 07/20/19 13:27:00 EDT, [facility]/pharmacy #0838, 1 APPLICATION TOPICALLY 2 TIMES A DAY,INSTR:PER DR BOWLING, 164, cm, 04/22/19 10:50:00 EST, Height, 102.5,... Start Date: 07/20/19 Status: Ordered Probiotic Formula oral capsule 1 capsule, By Mouth, 2 times a day, # 60 capsule, 11 Refills, Maintenance, 01/22/16 10:10:40, 1 capsule By Mouth 2 times a day Start Date: 01/22/16 Status: Ordered Readi-Cat 2 oral suspension See Instructions, By Mouth take one stat and take one 90 minutes before exam., # 900 mL, 0 Refills,Maintenance, 08/21/19 11:24:00 EDT, [facility]/pharmacy #0838, By Mouth take one stat and take one 90 minutes before exam., 163, cm, 08/11/19 15:02:00 EDT, He... Start Date: 08/21/19 Status: Ordered riboflavin 100 mg oral tablet 2 tablet = 200 mg, By Mouth, 2 times a day with meals, # 120 tablet, 5 Refills, Maintenance, 06/12/19 15:11:00 EDT, Tablet, [facility]/pharmacy #0838, 164, cm, 04/22/19 10:50:00 EST, Height, [...] Unknown, 3 Refills, Maintenance, 11/07/19 7:57:00 EDT, [facility], 163, cm, 08/11/19 15:02:00 EDT, Height, 105, [...] EDT, PT HAS ALLERGIES TO CERTAIN DYES. H AWARE. Start Date: 05/26/18 Status: Ordered Zyrtec [...] negative for Casey's esophagus. Per patient's report [address]89 - [facility] [place]. Hazel [address]; repeat 2020 6Colonoscopy 2008 by patient report normal. 7tubular adenoma of colon repeat scrrening colonoscopy in 2020 8colo 2015 Social History Social History Type Response Smoking Status Former smoker; Other : Quit smoking 1983.; entered on: 08/21/15 Sex
--- OUTSIDE RECORDS SUMMARY | 2023-08-20 11:17 | XMS_ITS | Continuity of Care Document ---
Author Organization [facility] Address [address] [place] [address]- Care Team Providers Care Boiler Repairman Name Role Phone Marilia HARE, Destiny Gibbs Primary Care Physician [phone] [place] [facility] [place](s): 07/03/21 - 08/02/21 [facility] [address] [place] [id number] Attending Physician: Mayra Franz Admitting Physician: AdmMayra clark Referring Physician: Mayra Franz Allergies, Adverse Reactions, Alerts Substance Reaction Severity [...] PAIN, # 12 tablet, 0 Refills, [facility] STORE 39261,2, TAKE 1 TABLET BY MOUTH EVERY 4 HOURS NEEDED FOR PAIN, 164, cm, 06/30/21 11:07:00 EDT, Height,98.8, kg, 06/01/21 18:26:00 EDT, Dry Weight Start Date: 07/28/21 Status: Ordered acyclovir 400 mg oral tablet 1 tablet, By Mouth, 2 times a day, # 180 tablet, 1 Refills, Maintenance, 06/09/21 12:56:00 EDT, [facility] #0838, 164, cm, 06/02/21 7:57:00 EDT, Height, 98.8, kg, 06/01/21 18:26:00 EDT, Dry Weight Start Date: 06/09/21 Status: Ordered albuterol-ipratropium 3 mg-0.5 mg/3 ml inhalation solution 3 mL, Inhalation, 4 times a day, # 30 each, 0 Refills, Maintenance, 06/02/21 10:30:00 EDT, Solution, [facility]/pharmacy #0838, Partial fill upon patient request if the prescription is for a schedule II opioid drug., 3 mL Inhalation 4 times a day, 164, cm, 0... Start Date: 06/02/21 Status: Ordered albuterol-ipratropium 3 mg-0.5 mg/3 ml inhalation solution 3 mL, Inhalation, 4 times a day, PRN Wheezing/Shortness of Breath, FAX [phone] BOWLING J45.909 ASTHMA, # 360 mL, 11 Refills, Maintenance, 05/04/17 13:29:51, Inhalation Solution, 3 mL Inhalation 4 times a day,PRN:Wheezing/Shortness of Breath,I... Start Date: 05/04/17 Status: Ordered Asmanex Twisthaler 60 Dose 220 mcg/inh inhalation aerosol powder 1 puffs, Inhalation, 2 times a day, j44.9, # 1 each, 11 Refills, Maintenance, 07/28/21 17:15:00 EDT, Aerosol, [facility]/pharmacy #0838, Partial fill upon patient request if the prescription is for a schedule II opioid drug., 1 puffs Inhalation 2 times a day... Start Date: 07/28/21 Status: Ordered atorvastatin 20 mg oral tablet See Instructions, TAKE 1 TABLET BY MOUTH EVERY DAY, # 90 tablet, 2 Refills, Maintenance, [facility] STORE 74298, 163, cm, 11/10/19 8:11:00 EDT, Height, 105, [...] Maintenance, 10/13/16 14:32:53, Route to Pharmacy Electronically, [id number], [facility]/pharmacy #0838 Start Date: 10/13/16 Status: [...] a day, # 180 tablet, 3 Refills, [facility] STORE 80606, 162, cm, 07/03/20 11:05:00 EDT, Height, 99.8, [...] 10:58:00 EDT, Route to Pharmacy Electronically, [facility]/pharmacy #[id number], Partial fill upon patient request if the... Start Date: 07/18/20 Status: Ordered LORazepam 1 mg oral tablet 1 tablet = 1 mg, By Mouth, 3 times a day, 0 Refills, Maintenance, 09/14/17 11:57:01 EDT, Tablet Start Date: 09/14/17 Status: Ordered magnesium oxide 400 mg oral tablet 1 tablet, By Mouth, Daily, # 30 tablet, 5 Refills, Acute, 10/02/20 11:46:00 EDT, [facility] STORE 29150, 162, cm, 07/03/20 11:05:00 EDT, Height, 99.8, kg, 07/02/20 6:39:00 EDT, Dry Weight Start Date: 10/02/20 Status: Ordered meclizine 12.5 mg oral tablet 1 tablet = 12.5 mg, By Mouth, 3 times a day, PRN for motion sickness, has allergy to blue dye, white tabs only, # 30 tablet, 0 Refills, Maintenance, 11/05/20 9:59:00 EDT, Table[facility] Patient is allergic to blue dye. White tablet woul... Start Date: 11/05/20 Status: Ordered Metoprolol Succinate ER 100 mg oral tablet, extended release 1 tablet = 100 mg, By Mouth, Daily, # 90 tablet, 1 Refills, Maintenance, 12/07/19 9:45:00 EDT, [facility]/pharmacy #0838, 163, cm, 11/10/19 8:11:00 EDT, Height, 105, kg, 08/11/19 15:02:00 EDT, Dry Weight Start Date: 12/07/19 Status: Ordered mupirocin 2% topical ointment 1 application, Topically, 3 times a day, # 30 Gm, 11 Refills, Maintenance, 05/15/19 15:41:00 EDT, Ointment, [facility], 1 application Topically 3 times a day, 164, cm, 04/22/19 10:50:00 EST, Height, 102.5, kg, 03/10/19 22:47:00 EST, Dry Weight Start Date: 05/15/19 Status: Ordered nystatin topical 807918 u/gm powder See Instructions, APPLY TO AFFECTED AREA TWICE A DAY -PER DR BOWLING, # 30 Gm, 1 Refills, Acute, [facility] STORE 14958, 7, APPLY TO AFFECTED AREA TWICE A [...] 3 Refills, Maintenance, 11/07/19 7:57:00 EDT, [facility], 163, cm, 08/11/19 15:02:00 EDT, Height, 105, [...] negative for Casey's esophagus. [place] [address] [place] [facility] [place] 5Colonoscopy 2008 by patient report normal. 6tubular adenoma of colon repeat scrrening colonoscopy in 2020 7colo 2015 Social History Social History Type Response Smoking Status Former smoker; Other : Quit smoking 1983.; entered on: 08/21/15 Sex
--- OUTSIDE RECORDS SUMMARY | 2023-08-20 11:17 | XMS_ITS | Continuity of Care Document ---
Author Organization [facility] Address [address] [place] [address]- Care Team Providers Care Strategic Consultant Name Role Phone Sujatha HARE, Narda Primary Care Physician [place] [facility] [place] - 09/10/22 [facility] [address] [place] [address]- Attending Physician: Admeduardo, [id number] Admitting Physician: Admtr, [...] PAIN, # 12 tablet, 0 Refills, Maintenance, 08/13/22 15:44:00 EDT, [facility]/pharmacy #0838, 2, 1 tablet By Mouth Every 4 hours,PRN: NEEDED FOR PAIN, 163, cm, 08/13/22 15:07:00 EDT, Height, 107.3, kg, 06... Start Date: 08/13/22 Status: Ordered acyclovir 400 mg oral tablet 2 tablet = 800 mg, By Mouth, 2 times a day, PRN herpes episodes, # 60 tablet, 0 Refills, Maintenance, 07/28/22 14:06:00 EDT, [facility]/pharmacy #0838, 163, cm, 07/28/22 13:50:00 EDT, Height, 105, kg, 06/05/22 16:25:00 EDT, Dry Weight Start Date: 07/28/22 Status: Ordered amLODIPine 5 mg oral tablet 5 mg, 1, tablet, By Mouth, Daily, # 30 tablet, Refills 2, Tot. Refills 2, Maintenance, 08/05/22 11:00:00 EDT, Route to Pharmacy Electronically, [facility]/pharmacy #0838, pt has allergies to yellow and bluedye, 163, cm, 08/04/22 17:44:00 EDT, Height, 107.3,... Start Date: 08/05/22 Stop Date: 11/03/22 Status: Ordered atorvastatin 20 mg oral tablet 1 tablet, By Mouth, Daily, # 90 tablet, 1 Refills, Maintenance, 03/23/22 21:16:00 EST, [facility], 164, cm, 01/27/22 10:37:00 EST, Height, 98.8, [...] 11 Refills, Maintenance, 05/11/22 12:46:00 EDT, Powder, [facility]/pharmacy #0838, Partial fill upon patient request [...] # 180 tablet, 3 Refills, [facility], 162, cm, 07/03/20 11:05:00 EDT, Height, 99.8, [...] 100 Unknown, 3 Refills, Maintenance, TEST ONCE [id number], 06/08/22 8:32:00 EDT, 163, cm, 06/05/22 16:25:00 [...] 3 Refills, Maintenance, 06/26/22 10:29:00 EDT, Tablet, [facility]/pharmacy #8802, Partial fill upon patient request if the prescription is for a schedule II opioid... Start Date: 06/26/22 Stop Date: 4/29/24 Status: Ordered LORazepam 1 mg oral tablet 1 tablet = 1 mg, By Mouth, 3 times a day, 0 Refills, Maintenance, 09/14/17 11:57:01 EDT, Tablet Start Date: 09/14/17 Status: Ordered magnesium oxide 400 mg oral tablet 1 tablet, By Mouth, Daily, # 30 tablet, 5 Refills, Acute, 10/02/20 11:46:00 EDT, [facility], 162, cm, 07/03/20 11:05:00 EDT, Height, 99.8, [...] Start Date: 05/15/19 Status: Ordered nystatin topical 482476 u/gm powder See Instructions, APPLY TO AFFECTED AREA TWICE A DAY -PER DR BOWLING, # 30 Gm, 1 Refills, Acute, [facility], 7, APPLY TO AFFECTED AREA TWICE A [...] 0 Refills, Maintenance, 08/11/22 14:46:00 EDT, Solution, [facility]/pharmacy #5437, Partial fill upon patient request ifthe prescription [...] 3 Refills, Maintenance, 11/07/19 7:57:00 EDT, [facility], 163, cm, 08/11/19 15:02:00 EDT, Height, 105, kg, 08/11/19 15:02:00 EDT, Dry Weight Start Date: 11/07/19 Status: Ordered Vitamin D3 2000 intl units oral tablet 1 tablet = 2,000 International_Units, By Mouth, Daily, 0 Refills, Maintenance, 01/14/13 1:51:51 Start Date: 01/14/13 Status: Ordered Zofran 4 mg oral tablet See Instructions, 1 tablet By Mouth at onset of migraine prn nausea PER DR BOLWING, # 30 tablet, 11 Refills, Maintenance, 05/26/18 14:35:15 EDT, PT HAS ALLERGIES TO CERTAIN DYES. [facility] [place]. Start Date: 05/26/18 Status: Ordered Zyrtec [...] Care Nurse Name: Evelyn Hernandez RN Position: [facility] RN Member Role: Primary Care Nurse Name: Zahira Davis RN Position: [facility] RN Member Role: Primary Care Nurse Name: Ashley Aguilar NP Position: Reference Physician Member Role: Primary Care Nurse Address: Address: [address] [place] [address]- [place] Name: Narda Solares MD Position: [facility] Physician - Primary Care Member Role: PCP Address: Address: [address] [place] [address]- [place] Name: Nate ALEXANDER, Joe Position: [facility] Human Development Professor Member Role: Primary Care Nurse Care Team Related Persons Name: LENY BLAS Address: home [address] [place] [address] Name: LAURA CALL Address: home [address] [address]
--- OUTSIDE RECORDS SUMMARY | 2023-08-20 11:18 | XMS_ITS | Continuity of Care Document ---
Author Organization [facility] ter Address [address] [place] [id number]- Care Team Providers Care Broadcast Maintenance Engineer Name Role Phone Marilia HARE, Destiny Gibbs Primary Care Physician [phone] [place] [facility] [place]20 [facility] [address] [place] [address] Discharge Disposition: A-Transfer SNF Attending Physician: Matthew Pinto MD Admitting Physician: Matthew Pinto MD Referring Physician: Matthew Pinto MD Allergies, Adverse Reactions, Alerts Substance Reaction [...] opioid drug. Start Date: 07/03/20 Status: Ordered Acetaminophen Tablet 650 mg, Tablet, By Mouth, 07/03/20 11:00:00 EDT Start Date: 07/03/20 Stop Date: 07/03/20 Status: Completed acetaminophen/butalbital/caffeine 325 mg-50 mg-40 mg oral tablet 1 tablet, By Mouth, Every 4 hours, PRN NEEDED FOR PAIN, # 12 tablet, 0 Refills, Maintenance, 06/26/20 11:00:00 EDT, [facility]/pharmacy #[id number], 3, 1 tablet By Mouth Every 4 hours,PRN: NEEDED FOR PAIN, 163, cm, 04/22/20 14:51:00 EST, Height, 105, kg, 07/23... Start Date: 06/26/20 Status: Ordered acyclovir 400 mg oral tablet 1 tablet, By Mouth, 2 times a day, # 180 tablet, 1 Refills, Maintenance, 01/09/20 10:00:00 EST, [facility]/pharmacy #[id number], 163, cm, 11/10/19 8:11:00 EDT, Height, 105, kg, 08/11/19 15:02:00 EDT, Dry Weight Start Date: 01/09/20 Status: Ordered albuterol-ipratropium 3 mg-0.5 mg/3 ml inhalation solution 3 mL, Inhalation, 4 times a day, PRN Wheezing/Shortness of Breath, FAX [phone] BOWLING J45.909 ASTHMA, # 360 [...] DAY, # 90 tablet, 2 Refills, Maintenance, [facility], 163, cm, 11/10/19 8:11:00 EDT, Height, 105, [...] Maintenance, 10/13/16 14:32:53, Route to Pharmacy Electronically, [id number], [facility]/pharmacy #[id number] Start Date: 10/13/16 Status: Ordered COENZYME Q-10 30 MG SOFTGEL [...] a day, # 180 tablet, 3 Refills, Hard Stop 08/11/20 9:51:00 EDT,08/17/19 9:51:00 EDT, Suspension, [facility]/pharmacy #0838, 163, cm, 08/11/19 15:02:00 EDT, Height, 105, kg, 08/11/19 15:02:00 EDT, Dry Weight Start Date: 08/17/19 Stop Date: 08/11/20 Status: Ordered fluconazole 150 mg oral tablet See Instructions, TAKE 1 TABLET BY MOUTH ONCE, # 1 tablet, 0 Refills, Soft Stop, [facility], 163, cm, 04/22/20 14:51:00 EST, Height, 105, [...] tablet, Refills 1, Tot. Refills 1, Maintenance, 01/24/20 12:35:00 EST, Route to Pharmacy Electronically, [facility]/pharmacy #[id number], Partial fill upon patient request if the... Start Date: 01/24/20 Status: Ordered LORazepam 1 mg oral tablet 1 tablet = 1 mg, By Mouth, 3 times a day, 0 Refills, Maintenance, 09/14/17 11:57:01 EDT, Tablet Start Date: 09/14/17 Status: Ordered meclizine 12.5 mg oral tablet 1 tablet = 12.5 mg, By Mouth, 3 times a day, PRN for motion sickness, # 30 tablet, 0 Refills, Maintenance, 04/07/19 10:10:00 EST, Tablet, [facility]/pharmacy #0838, Patient is allergic to blue dye. White tablet would be preferrable., 163, cm, 04/07/19 9:43:0... Start Date: 04/07/19 Status: Ordered metoprolol 100 mg oral tablet, extended release 100 mg, XL Tablet, By Mouth, 07/03/20 9:00:00 EDT Start Date: 07/03/20 Stop Date: 07/03/20 Status: Completed Metoprolol Succinate ER 100 mg oral tablet, extended release 1 tablet = 100 mg, By Mouth, Daily, # 90 tablet, 1 Refills, Maintenance, 12/07/19 9:45:00 EDT, [facility]/pharmacy #0838, 163, cm, 11/10/19 [...] 11 Refills, Maintenance, 05/15/19 15:41:00 EDT, Ointment, [facility]/pharmacy #0838, 1 application Topically 3 times a day, 164, cm, 04/22/19 10:50:00 EST, Height, 102.5, kg, 03/10/19 22:47:00 EST, Dry Weight Start Date: 05/15/19 Status: Ordered nystatin topical 112972 u/gm powder See Instructions, APPLY TO AFFECTED AREA TWICE A DAY -PER DR BOWLING, # 30 Gm, 1 Refills, Acute, [facility] 07956, 7, APPLY TO AFFECTED AREA TWICE A DAY -PER DR BOWLING, 163, cm, 11/10/19 8:11:00 EDT, Height,105, kg, 08/11/19 15:02:00 EDT, Dry Weight Start Date: 11/13/19 Status: Ordered oxyCODONE 5 mg oral tablet See Instructions, PRN, 1-2 tablet By Mouth Every 4 hours PRN pain, # 84 tablet, Refills 0, Tot. Refills 0, Acute 07/10/20 11:24:00 EDT, Pain , Moderate, 07/03/20 11:23:00 EDT, Instructions Replace Required Details, Print Requisition, Partial fill upon... Start Date: 07/03/20 Stop Date: 07/10/20 Status: Ordered oxyCODONE 5 mg oral tablet 10 mg, Tablet, By Mouth, Every 4 hours, PRN for Pain , Severe, Routine, 07/02/20 14:12:00 EDT Start Date: 07/02/20 Stop Date: 07/04/20 Status: Discontinued Probiotic Formula oral capsule 1 capsule, By Mouth, 2 times a day, # 60 capsule, 11 Refills, Maintenance, 01/22/16 10:10:40, 1 capsule By Mouth 2 times a day Start Date: 01/22/16 Status: Ordered Readi-Cat 2 oral suspension See Instructions, By Mouth take one stat and take one 90 minutes before exam., # 900 mL, 0 Refills,Maintenance, 08/21/19 11:24:00 EDT, [facility]/pharmacy #0838, By Mouth take one [...] 3 Refills, Maintenance, 11/07/19 7:57:00 EDT, [facility], 163, cm, 08/11/19 15:02:00 EDT, Height, 105, [...] PT HAS ALLERGIES TO CERTAIN DYES. [facility]. Start Date: 05/26/18 Status: Ordered [...] surgery 2colo 2015 3Status post endoscopy approximately 2006 negative for Casey's esophagus. Per patient's report [address]271 - [facility] Dr. Hazel [address]; repeat 2020 6Colonoscopy 2009 by patient report normal. 7tubular adenoma of colon repeat scrrening colonoscopy in 2020 8colo 2015 Results Radiology Reports * Exam Date Time Procedure Performing Provider Status 07/02/20 10:14 PM Knee 1 or 2 Views Right Ewa Osborne; Auth (Verified) Notes: (Knee 1 or 2 Views Right) Reason For Exam: Postop RESULT: Knee 1 or 2 Views Right Knee 1 or 2 Views Right Reason: Postop; Clinical Question(s): Other:; Implant Position; Special Instructions: Do today at 2200, No flexed knee in the lateral position. Keep leg straight; 2 Views COMPARISON: None. FINDINGS: Total right knee arthroplasty. The distal femoral and proximal tibial cemented components are well-positioned without complication. Postsurgical soft tissue changes. A drain terminates in the suprapatellar region. IMPRESSION: Total right knee arthroplasty without complication. WSN: [id number] Ordering Physician: Asif Vega V Dictated By: Emery Johnson DO Dictated Date/Time: 07/03/20 0:22 am Reviewed By: Emery Johnson DO Signed By: Emery Johnson DO Signed Date/Time: 07/03/20 0:22 am Transcribed By: DANIELLA Transcribed Date/Time: 07/03/20 0:22 am Vital Signs Most recent to oldest [Reference Range]: 1 2 3 Height 162 cm (07/03/20 11:05 AM) 162 cm (07/03/20 9:39 AM) 162 cm (07/03/20 7:00 AM) Weight 99.8 kg (07/02/20 7:54 AM) 99.8 kg (07/02/20 6:39 AM) Oxygen Saturation [94-100 %] 95 % (07/03/20 11:05 AM) 98 % (07/03/20 7:00 AM) 100 % (07/03/20 3:00 AM) Pulse Rate [55-90 bpm] 71 bpm (07/03/20 11:05 AM) 64 bpm (07/03/20 9:12 AM) 64 bpm (07/03/20 7:00 AM) Body Mass Index [18.5-24.99] 38.03 *>HHI* (07/02/20 7:54 AM) 38.03 *>HHI* (07/02/20 6:39 AM) Blood Pressure [90-138/55-84 mm Hg] 122/59mm Hg (07/03/20 11:05 AM) 114/58mm Hg (07/03/20 9:12 AM) 114/58mm Hg (07/03/20 7:00 AM) Respiratory Rate [16-30 br/min] 18 br/min (07/03/20 2:38 PM) 20 br/min (07/03/20 1:38 PM) 18 br/min (07/03/20 12:14 PM) Temperature [96.8-100.4 DegF] 98 DegF (07/03/20 11:05 AM) 97.6 DegF (07/03/20 7:00 AM) 97.6 DegF (07/03/20 3:00 AM) Liters per Minute 2 L/min (07/03/20 7:00 AM) Mode of Delivery (Oxygen) Room air (07/03/20 11:05 AM) Nasal cannula (07/03/20 7:00 AM) Room air (07/03/20 3:00 AM) Blood pressure sites Arm, right (07/03/20 11:05 AM) Arm, right (07/03/20 7:00 AM) Arm, right (07/03/20 3:00 AM) Temperature Route Oral (07/03/20 11:05 AM) Oral (07/03/20 7:00 AM) Oral (07/03/20 3:00 AM) Dry Weight 99.8 kg (07/02/20 6:39 AM) Weight Obtained Via Standing scale (07/02/20 6:39 AM) Dry Weight Obtained Via Standing scale (07/02/20 6:39 AM) Social History Social History Type Response Smoking Status Former smoker; Other : Quit smoking 1983.; entered on: 08/21/15 Sex
--- OUTSIDE RECORDS SUMMARY | 2023-08-20 11:18 | XMS_ITS | Continuity of Care Document ---
Author Organization [facility] Address [address] [place] [address]- Care Team Providers Care Putty Remover Name Role Phone Marilia HARE, Destiny Gibbs Primary Care Physician Encounter 07/18/20 - 08/01/20 [facility] [address] [place] [address]- Discharge Disposition: GOALS MET Allergies, Adverse Reactions, Alerts Substance Reaction Severity [...] tablet, 0 Refills, Maintenance, 06/26/20 11:00:00 EDT, [facility]/pharmacy #0838, 3, 1 tablet By Mouth Every 4 hours,PRN: NEEDED FOR PAIN, 163, cm, 04/22/20 14:51:00 EST, Height, 105, kg, 07/23... Start Date: 06/26/20 Status: Ordered acyclovir 400 mg oral tablet 1 tablet, By Mouth, 2 times a day, # 180 tablet, 1 Refills, Maintenance, 01/09/20 10:00:00 EST, [facility]/pharmacy #0838, 163, cm, 11/10/19 8:11:00 EDT, Height, 105, kg, 08/11/19 15:02:00 EDT, Dry Weight Start Date: 01/09/20 Status: Ordered albuterol-ipratropium 3 mg-0.5 mg/3 ml inhalation solution 3 mL, Inhalation, 4 times a day, PRN Wheezing/Shortness of Breath, FAX [phone] BOWLING J45.909 ASTHMA, # 360 [...] DAY, # 90 tablet, 2 Refills, Maintenance, [facility] 265[facility], 163, cm, 11/10/19 8:11:00 EDT, Height, 105, [...] Maintenance, 10/13/16 14:32:53, Route to Pharmacy Electronically, [id number], [facility]/pharmacy #0838 Start Date: 10/13/16 Status: Ordered COENZYME [...] Stop 08/11/20 9:51:00 EDT,08/17/19 9:51:00 EDT, Suspension, [facility]/pharmacy #0838, 163, cm, 08/11/19 15:02:00 EDT, Height, 105, kg, 08/11/19 15:02:00 EDT, Dry Weight Start Date: 08/17/19 Stop Date: 08/11/20 Status: Ordered fluconazole 150 mg oral tablet See Instructions, TAKE 1 TABLET BY MOUTH ONCE, # 1 tablet, 0 Refills, Soft Stop, [facility] 13563, 163, cm, 04/22/20 14:51:00 EST, Height, 105, [...] 07/18/20 10:58:00 EDT, Route to Pharmacy Electronically, [facility]/pharmacy #[id number], Partial fill upon patient [...] 0 Refills, Maintenance, 04/07/19 10:10:00 EST, Tablet, [facility]/pharmacy #0838, Patient is allergic to blue dye. White tablet would be preferrable., 163, cm, 04/07/19 9:43:0... Start Date: 04/07/19 Status: Ordered Metoprolol Succinate ER 100 mg oral tablet, extended release 1 tablet = 100 mg, By Mouth, Daily, # 90 tablet, 1 Refills, Maintenance, 12/07/19 9:45:00 EDT, [facility]/pharmacy #0838, 163, cm, 11/10/19 8:11:00 EDT, [...] 11 Refills, Maintenance, 05/15/19 15:41:00 EDT, Ointment, [facility]/pharmacy #0838, 1 application Topically 3 times a day, 164, cm, 04/22/19 10:50:00 EST, Height, 102.5, kg, 03/10/19 22:47:00 EST, Dry Weight Start Date: 05/15/19 Status: Ordered nystatin topical 186353 u/gm powder See Instructions, APPLY TO AFFECTED AREA TWICE A DAY -PER DR BOWLING, # 30 Gm, 1 Refills, Acute, [facility], 7, APPLY TO AFFECTED AREA TWICE A [...] 3 Refills, Maintenance, 11/07/19 7:57:00 EDT, [facility], 163, cm, 08/11/19 15:02:00 EDT, Height, 105, [...] EDT, PT HAS ALLERGIES TO CERTAIN DYES. [facility]. Start Date: 05/26/18 Status: Ordered Zyrtec [...] negative for Casey's esophagus. Per patient's [place] 74584 [place] [facility] [place] Haz[place] [address]; repeat 2020 6Colonoscopy 2008 by patient report normal. 7tubular adenoma of colon repeat scrrening colonoscopy in 2020 8colo 2015 Social History Social History Type Response Smoking Status Former smoker; Other : Quit smoking 1983.; entered on: 08/21/15 Sex
--- OUTSIDE RECORDS SUMMARY | 2023-08-20 11:18 | XMS_ITS | Continuity of Care Document ---
Author Organization [facility] Address [address] [place] [address]- Care Team Providers Care Agricultural Systems Specialist Name Role Phone Sujatha HARE, Narda Primary Care Physician Encounter [facility] [place] Date(s): 05/31/23 - 06/30/23 [facility] [address] [place] [address]- Allergies, Adverse Reactions, Alerts Substance Reaction Severity Status ciprofloxacin hallucinations Persistent Severe Active Compazine severe STARR Persistent Severe Active Decadron Pins and needles sensation A ctive cefuroxime Active amoxicillin Active gabapentin night terrors Persistent Severe Active Remeron swollen neck and rash Persistent Severe A ctive levofloxacin Heart Palpatations Persistent Severe Acti ve sulfa drugs high temp and rash Persistent Severe Acti ve nitrates migraine STARR Persistent Severe Active Toradol Active Imitrex chest heaviness Persistent Severe Active Ultram generalized itching Persistent Severe Act krystal Depakote night terrors Persistent Severe Active Demerol HCl anaphylaxis Persistent Severe Active pantoprazole 1 Facial swelling Persistent Severe Activ e Chocolate migraine STARR Persistent Severe Active Contrast Dye hives Persistent Severe Active Other Environmental Allergy 2, 3, 4 facial swelling and itching Persistent Severe Active flu vaccines high fever and swelling Persistent Severe Active Percocet 5/325 severe STARR Persistent Severe Active CeleBREX HIVES Persistent Severe Active Other Food Allergy 5, 6, 7 migraines and swelling Active Valacyclovir Hydrochloride abd upspet A ctive traMADol Active 1patient has yellow dye allergy --Pantoprazole 40mg (manfacturer: [employer]) contains yellow dye 2IVP DYE 3BLEACH 4BLUE DYE YELLOW DYE 5blue and yellow dyes 6MSG 7yeast, feta cheese, cottage cheese, splenda Immunizations Given and Recorded Vaccine Date Status [...] Mouth, Every 4 hours, PRN NEEDED FOR PAIN FOR HEADACHE, # 12 tablet, 0 Refills, Maintenance, 06/21/23 16:12:00 EDT, [facility], 2, TAKE 1 TABLET BY MOUTH EVERY 4 HOURS NEEDED FOR PAIN FOR HEADACHE, 163, cm, 05/06/23 12:17... Start Date: 06/21/23 Status: Ordered acyclovir 400 mg oral tablet 2 tablet = 800 mg, By Mouth, 2 times a day, PRN herpes episodes, # 60 tablet, 0 Refills, Maintenance, 07/28/22 14:06:00 EDT, [facility]/pharmacy #0838, 163, cm, 07/28/22 13:50:00 EDT, Height, 105, kg, 06/05/22 16:25:00 EDT, Dry Weight Start Date: 07/28/22 Status: Ordered albuterol-ipratropium 3 mg-0.5 mg/3 ml inhalation solution 3 mL, Inhalation, 4 times a day, PRN Wheezing/Shortness of Breath, # 90 mL, 0 Refills, Maintenance,11/24/22 18:14:00 EDT, Solution, [facility]/pharmacy #0838, Partial fill upon patient request if the prescription is for a schedule II opioid drug., 3 mL Inha... Start Date: 11/24/22 Status: Ordered amLODIPine 5 mg oral tablet 5 mg, 1, tablet, By Mouth, Daily, # 90 tablet, Refills 3, Tot. Refills 3, Maintenance, 10/23/22 8:48:00 EDT, Route to Pharmacy Electronically, [facility]/pharmacy #0838, pt has allergies to yellow and blue dye, 163, cm, 08/27/22 12:58:00 EDT, Height, 107.3,... Start Date: 10/23/22 Stop Date: 10/18/23 Status: Ordered atorvastatin 20 mg oral tablet 1 tablet, By Mouth, Daily, # 90 tablet, 1 Refills, Maintenance, 03/23/22 21:16:00 EST, [facility], 164, cm, 01/27/22 10:37:00 EST, Height, 98.8, [...] Gm, 1 Refills, Maintenance, 10/22/22 12:39:00 EDT, [facility]/pharmacy #0838, Partial fill upon patient request if the prescription is for a schedule II opioid drug., 1 sprays Nares, Both 2 anne... Start Date: 10/22/22 Status: Ordered busPIRone 30 mg oral tablet [...] a day, # 180 tablet, 3 Refills, [facility] 77[facility], 162, cm, 07/03/20 11:05:00 EDT, Height, 99.8, kg, 07/02/20 6:39:00 EDT, Dry Weight Start Date: 11/14/20 Status: Ordered fluticasone-vilanterol 200 mcg-25 mcg/inh inhalation powder 1 puffs, Inhalation, Daily, # 1 each, 11 Refills, Maintenance, 05/31/23 12:44:00 EDT, [facility], 1 puffs Inhalation Daily,x30 days, 163, cm, 05/06/23 12:17:00 EDT, Height, 108.7, kg, 05/02/23 17:58:00 EDT, Dry Weight Start Date: 05/31/23 Stop Date: 05/25/24 Status: Ordered Freestyle Lite Lancets See Instructions, # 200 each, Refills 5, Tot. Refills 5, Maintenance, check glucose twice a day e11.9, 08/11/22 14:41:00 EDT, Supply, 163, cm, 08/11/22 14:12:00 EDT, Height, 107.3, kg, 08/04/22 17:44:00 EDT, Dry Weight Start Date: 08/11/22 Stop Date: 02/07/23 Status: Ordered Freestyle Lite Test Strips See [...] 11 Refills, Maintenance, 03/09/23 16:11:00 EST, Powder, [facility], Partial fill upon patient request if the prescription is for a schedule II opio... Start Date: 03/09/23 Status: Ordered latanoprost 0.005% ophthalmic solution 1 drops, Eyes, Both, Daily in PM, # 2.5 mL, 0 Refills, Maintenance, 08/21/15 10:26:08, Solution Start Date: 08/21/15 Status: Ordered lidocaine 5% topical film Topically, Daily, 0 Refills, Maintenance, 05/04/23 15:07:00 EDT, Patch, Partial fill upon patient request if the prescription is for a schedule II opioid drug. Start Date: 05/04/23 Status: Ordered lisinopril 40 mg oral tablet 1 tablet = 40 mg, By Mouth, Daily, no yellow dye and no blue dye due to allergy, # 90 tablet, 3 Refills, Maintenance, 06/26/22 10:29:00 EDT, Tablet, [facility]/pharmacy #0838, Partial fill upon patient request if the prescription is for a schedule II opioid... Start Date: 06/26/22 Stop Date: 06/21/23 Status: Ordered Metoprolol Succinate ER 100 mg oral tablet, extended release 1 tablet = 100 mg, By Mouth, Daily, # 30 tablet, 0 Refills, Maintenance, 09/24/21 9:49:00 EDT, [facility]/pharmacy #0838, 164, cm, 06/30/21 11:07:00 EDT, Height, 98.8, kg, 06/01/21 18:26:00 EDT, Dry Weight Start Date: 09/24/21 Status: Ordered nystatin topical 041286 u/gm powder 1 application, Topically, 2 times a day, # 15 Gm, 0 Refills, Maintenance, 05/02/23 17:00:00 EDT, Powder, Partial fill upon patient request if the prescription is for a schedule II opioid drug. Start Date: 05/02/23 Status: Ordered One Touch Control Solution See [...] a day Start Date: 01/22/16 Status: Ordered senna 187 mg oral tablet 1 tablet = 8.6 mg, By Mouth, 2 times a day, PRN Constipation, 0 Refills, Maintenance, 05/04/23 15:08:00 EDT, Tablet, Partial fill upon patient request if the prescription is for a schedule II opioid drug. Start Date: 05/04/23 Status: Ordered venlafaxine 225 mg oral tablet, extended release 225 mg, 1, tablet, By Mouth, Daily, # 30 tablet, Refills 0, Maintenance, 04/17/16 7:41:51 Start Date: 04/17/16 Status: Ordered Ventolin HFA 108 mcg/inh inhalation aerosol with adapter 2 puffs, Inhalation, 4 times a day, # 54 Unknown, 3 Refills, Maintenance, 11/07/19 7:57:00 EDT, [facility], 163, cm, 08/11/19 15:02:00 EDT, Height, 105, kg, 08/11/19 15:02:00 EDT, Dry Weight Start Date: 11/07/19 Status: Ordered Vitamin D3 2000 intl units oral tablet 1 tablet = 2,000 International_Units, By Mouth, Daily, 0 Refills, Maintenance, 01/14/13 1:51:51 Start Date: 01/14/13 Status: Ordered Zyrtec 10 mg oral tablet [...] colon repeat scrrening colonoscopy in 2020 5colo 2016 Social History Social History Type Response Smoking Status Former smoker; Other : Quit smoking 1983.; entered on: 08/21/15 Sex Patient Care team information Care Team Personnel Name: Matthew Julio RN Position: [facility] RN Member Role: Primary Care Nurse Name: Akers RN, Ashley Position: [facility] RN Member Role: Primary Care Nurse Name: Mary ALEXANDER, Evelyn Position: [facility] RN Member Role: Primary Care Nurse Name: Zahira Davis RN Position: [facility] RN Member Role: Primary Care Nurse Name: Jeff FELTMAKER, Ashley Matson Position: Reference Physician Member Role: Primary Care Nurse Address: Address: [address] [place] [id number]- Name: Narda Solares MD Position: [facility] Physician - Primary Care Member Role: PCP Address: Address: [address] [place] [id number]- Name: Joe Sullivan RN Position: [facility] Dental Insurance Coordinator Member Role: Primary Care Nurse Care Team Related Persons Name: LENY BLAS Address: home [address] [address] Name: LAURA CALL Address: home [address] [address]
--- OUTSIDE RECORDS SUMMARY | 2023-08-20 11:18 | XMS_ITS | Continuity of Care Document ---
Author Organization [facility] Address [address] [place] [address]- Care Team Providers Care Revenue Settlements Administrator Name Role Phone Sujatha HARE, Narda Primary Care Physician Encounter [facility] Date(s): 02/24/23 - 03/26/23 [facility] [address] [place], [place] [address] Allergies, Adverse Reactions, Alerts Substance Reaction Severity Status ciprofloxacin hallucinations Persistent Severe Active gabapentin night terrors Persistent Severe Active nitrates migraine STARR Persistent Severe Active Remeron swollen neck and rash Persistent Severe A ctive Compazine severe STARR Persistent Severe Active Decadron Pins and needles sensation A ctive Depakote night terrors Persistent Severe Active cefuroxime Active amoxicillin Active levofloxacin Heart Palpatations Persistent Severe Acti ve sulfa drugs high temp and rash Persistent Severe Acti ve Toradol Active Imitrex chest heaviness Persistent Severe Active Ultram generalized itching Persistent Severe Act krystal Abdominal pain Active Demerol HCl anaphylaxis Persistent Severe Active pantoprazole 1 Facial swelling Persistent Severe Activ e Chocolate migraine STARR Persistent Severe Active Contrast Dye hives Persistent Severe Active Other Food Allergy 2, 3, 4 migraines and swelling Active flu vaccines high fever and swelling Persistent Severe Active Percocet 5/325 severe STARR Persistent Severe Active Valacyclovir Hydrochloride abd upspet A ctive CeleBREX HIVES Persistent Severe Active Other Environmental Allergy 5, 6, 7 facial swelling and itching Persistent Severe Active traMADol Active 1patient has yellow dye allergy [...] tablet, 0 Refills, Maintenance, 03/22/23 15:45:00 EST, [facility], TAKE 1 TABLET BY MOUTH EVERY 4 HOURS NEEDED FOR PAIN,PRN:Headache, 163, cm,... Start Date: 03/22/23 Status: Ordered acyclovir 400 mg oral tablet 2 tablet = 800 mg, By Mouth, 2 times a day, PRN herpes episodes, # 60 tablet, 0 Refills, Maintenance, 07/28/22 14:06:00 EDT, [facility]/pharmacy #0838, 163, cm, 07/28/22 13:50:00 EDT, Height, 105, kg, 06/05/22 16:25:00 EDT, Dry Weight Start Date: 07/28/22 Status: Ordered albuterol-ipratropium 3 mg-0.5 mg/3 ml inhalation solution 3 mL, Inhalation, 4 times a day, PRN Wheezing/Shortness of Breath, # 90 mL, 0 Refills, Maintenance,11/24/22 18:14:00 EDT, Solution, [facility]/pharmacy #0838, Partial fill upon patient request if the prescription is for a schedule II opioid drug., 3 mL Inha... Start Date: 11/24/22 Status: Ordered amLODIPine 5 mg oral tablet 5 mg, 1, tablet, By Mouth, Daily, # 90 tablet, Refills 3, Tot. Refills 3, Maintenance, 10/23/22 8:48:00 EDT, [facility], pt has allergies to yellow and blue dye, 163, cm, 08/27/22 12:58:00 EDT, Height, 107.3,... Start Date: 10/23/22 Stop Date: 10/18/23 Status: Ordered atorvastatin 20 mg oral tablet 1 tablet, By Mouth, Daily, # 90 tablet, 1 Refills, Maintenance, 03/23/22 21:16:00 EST, [facility], 164, cm, 01/27/22 10:37:00 EST, Height, 98.8, [...] Gm, 1 Refills, Maintenance, 10/22/22 12:39:00 EDT, [facility]/pharmacy #0838, Partial fill upon patient request if the prescription is for a schedule II opioid drug., 1 sprays Nares, Both 2 anne... Start Date: 10/22/22 Status: Ordered Breo Ellipta 200 mcg-25 mcg/inh inhalation powder 1 puffs, Inhalation, Daily, # 1 each, 11 Refills, Maintenance, 05/11/22 12:46:00 EDT, Powder, [facility]/pharmacy #0838, Partial fill upon patient request if [...] a day, # 180 tablet, 3 Refills, [facility], 162, cm, 07/03/20 11:05:00 EDT, Height, 99.8, [...] 100 Unknown, 3 Refills, Maintenance, TEST ONCE [id number], 06/08/22 8:32:00 EDT, 163, cm, 06/05/22 16:25:00 [...] 11 Refills, Maintenance, 03/09/23 16:11:00 EST, Powder, [facility], Partial fill upon patient [...] 3 Refills, Maintenance, 06/26/22 10:29:00 EDT, Tablet, [facility]/pharmacy #0838, Partial fill upon patient request if [...] Refills, Acute, 10/02/20 11:46:00 EDT, [facility], 162, cm, 07/03/20 11:05:00 EDT, Height, 99.8, kg, 07/02/20 6:39:00 EDT, Dry Weight Start Date: 10/02/20 Status: Ordered meclizine 12.5 mg oral tablet 1 tablet = 12.5 mg, By Mouth, 3 times a day, PRN for motion sickness, has allergy to blue dye, white tabs only, # 30 tablet, 0 Refills, Maintenance, 11/05/20 9:59:00 EDT, Tablet, [facility]/pharmacy #0838, Patient is allergic to blue dye. White tablet woul... Start Date: 11/05/20 Status: Ordered Metoprolol Succinate ER 100 mg oral tablet, extended release 1 tablet = 100 mg, By Mouth, Daily, # 30 tablet, 0 Refills, Maintenance, 09/24/21 9:49:00 EDT, [facility]/pharmacy #0838, 164, cm, 06/30/21 11:07:00 EDT, Height, 98.8, kg, 06/01/21 18:26:00 EDT, Dry Weight Start Date: 09/24/21 Status: Ordered mupirocin 2% topical ointment 1 application, Topically, 3 times a day, # 30 Gm, 11 Refills, Maintenance, 05/15/19 15:41:00 EDT, Ointment, [facility]/pharmacy #0838, 1 application Topically 3 times a day, 164, cm, 04/22/19 10:50:00 EST, Height, 102.5, kg, 03/10/19 22:47:00 EST, Dry Weight Start Date: 05/15/19 Status: Ordered NuLYTELY Lemon [place] oral powder for reconstitution See Instructions, Plan as per split prep instructions until 4 liters are consumed or the rectal effluent is clear, # 4,000 mL, 0 Refills, Maintenance, 02/25/23 10:21:00 EST, REC Powder, [facility]/pharmacy #0838, Partial fill upon patient request if the pr... Start Date: 02/25/23 Status: Ordered nystatin topical 796161 u/gm powder See Instructions, APPLY TO AFFECTED AREA TWICE A DAY, # 30 Gm, 1 Refills, Maintenance, 03/22/23 15:46:00 EST, [facility], 7, APPLY TO AFFECTED AREA TWICE A [...] 3 Refills, Maintenance, 11/07/19 7:57:00 EDT, [facility], 163, cm, 08/11/19 15:02:00 EDT, Height, 105, [...] EDT, PT HAS ALLERGIES TO CERTAIN DYES. [facility]. Start Date: 05/26/18 Status: Ordered [...] Team Personnel Name: Matthew Julio RN Position: [facility] RN Member Role: Primary Care Nurse Name: Ashley Akers RN Position: [facility] RN Member Role: Primary Care Nurse Name: Evelyn Hernandez RN Position: [facility] RN Member Role: Primary Care Nurse Name: Zahira Davis RN Position: [facility] RN Member Role: Primary Care Nurse Name: Ashley Aguilar NP Position: Reference Physician Member Role: Primary Care Nurse Address: Address: [address] [place] [phone]- [place] Name: Narda Solares MD Position: [facility] Physician - Primary Care Member Role: PCP Address: Address: [address] [place] [address]- [place] Name: Joe Sullivan RN Position: [facility] Hospital Phone Counselor Member Role: Primary Care Nurse Care Team Related Persons Name: LENY BLAS Address: home [address] [address] Name: LAURA CALL Address: home [address] [facility] [address] [address]
--- OUTSIDE RECORDS SUMMARY | 2023-08-20 11:18 | XMS_ITS | Continuity of Care Document ---
Author Organization [facility] Address [address] [place] [address]- Care Team Providers Care Criminal Legal Assistant Name Role Phone Narda Solares MD Primary Care Physician Encounter [facility] Date(s): 08/10/22 - 09/09/22 [facility] [address] [place] [address]- Attending Physician: Mayra Franz Admitting Physician: Mayra Franz Referring Physician: Mayra Franz Allergies, Adverse Reactions, [...] tablet, 0 Refills, Maintenance, 08/13/22 15:44:00 EDT, [facility]/pharmacy #0838, 2, 1 tablet By Mouth Every 4 hours,PRN: NEEDED FOR PAIN, 163, cm, 08/13/22 15:07:00 EDT, Height, 107.3, kg, 06... Start Date: 08/13/22 Status: Ordered acyclovir 400 mg oral tablet 2 tablet = 800 mg, By Mouth, 2 times a day, PRN herpes episodes, # 60 tablet, 0 Refills, Maintenance, 07/28/22 14:06:00 EDT, [facility]/pharmacy #0838, 163, cm, 07/28/22 13:50:00 EDT, Height, 105, kg, 06/05/22 16:25:00 EDT, Dry Weight Start Date: 07/28/22 Status: Ordered amLODIPine 5 mg oral tablet 5 mg, 1, tablet, By Mouth, Daily, # 30 tablet, Refills 2, Tot. Refills 2, Maintenance, 08/05/22 11:00:00 EDT, Route to Pharmacy Electronically, [facility]/pharmacy #0838, pt has allergies to yellow and bluedye, 163, cm, 08/04/22 17:44:00 EDT, Height, 107.3,... Start Date: 08/05/22 Stop Date: 11/03/22 Status: Ordered atorvastatin 20 mg oral tablet 1 tablet, By Mouth, Daily, # 90 tablet, 1 Refills, Maintenance, 03/23/22 21:16:00 EST, [facility], 164, cm, 01/27/22 10:37:00 EST, Height, 98.8, [...] 11 Refills, Maintenance, 05/11/22 12:46:00 EDT, Powder, [facility]/pharmacy #0838, Partial fill upon patient request if [...] # 180 tablet, 3 Refills, [facility], 162, cm, 07/03/20 11:05:00 EDT, Height, 99.8, [...] 100 Unknown, 3 Refills, Maintenance, TEST ONCE [id number], 06/08/22 8:32:00 EDT, 163, cm, 06/05/22 16:25:00 [...] 3 Refills, Maintenance, 06/26/22 10:29:00 EDT, Tablet, [facility]/pharmacy #3130, Partial fill upon patient request if the [...] Refills, Acute, 10/02/20 11:46:00 EDT, [facility], 162, cm, 07/03/20 11:05:00 EDT, Height, 99.8, [...] Start Date: 05/15/19 Status: Ordered nystatin topical 304025 u/gm powder See Instructions, APPLY TO AFFECTED AREA TWICE A DAY -PER DR BOWLING, # 30 Gm, 1 Refills, Acute, [facility], 7, APPLY TO AFFECTED AREA TWICE A [...] 0 Refills, Maintenance, 08/11/22 14:46:00 EDT, Solution, [facility]/pharmacy #0895, Partial fill upon patient request ifthe prescription [...] 3 Refills, Maintenance, 11/07/19 7:57:00 EDT[facility] 163, cm, 08/11/19 15:02:00 EDT, Height, 105, [...] Care Nurse Name: Evelyn Hernandez RN Position: S RN Member Role: Primary Care Nurse Name: Zahira Davis RN Position: [facility] RN Member Role: Primary Care Nurse Name: Jeff SENIOR DIRECTOR OF [employer], Ashley Matson Position: Reference Physician Member Role: Primary Care Nurse Address: Address: [address] [place] [address]- Name: Narda Solares MD Position: [facility] Physician - Primary Care Member Role: PCP Address: Address: [address] [place] [address]- Name: Nate ALEXANDER, Joe Position: [facility] Retail Shift Supervisor Member Role: Primary Care Nurse Care Team Related Persons Name: LENY BLAS Address: home [address] [place] [address] Name: LAURA ACLL Address: home [address] [address]
--- OUTSIDE RECORDS SUMMARY | 2023-08-20 11:18 | XMS_ITS | Continuity of Care Document ---
Author Organization [facility] ter Address [address] [place] [address]- Care Team Providers Care Medicaid Plan Compliance Director Name Role Phone Marilia HARE, Destiny Gibbs Primary Care Physician Encounter [facility] Date(s): 09/23/21 - 09/24/[address] [address]- Encounter Diagnosis Shortness of breath(Final) - 09/23/21 Hypertension(Final) - 09/23/21 Discharge Disposition: A-D/C Home Attending Physician: Mike Hamilton MD Admitting Physician: Leonides HARE, Madi Singh Referring Physician: Not on Staff, Referring MD Allergies, Adverse Reactions, Alerts Substance Reaction [...] opioid drug. Start Date: 07/03/20 Status: Ordered acyclovir 400 mg oral tablet 1 tablet, By Mouth, 2 times a day, # 180 tablet, 1 Refills, Maintenance, 06/09/21 12:56:00 EDT, [facility]/pharmacy #0838, 164, cm, 06/02/21 7:57:00 EDT, Height, [...] a day, PRN Wheezing/Shortness of Breath, FAX [phone] BOWLING J45.909 ASTHMA, # 360 mL, 11 Refills, Maintenance, 05/04/17 13:29:51, Inhalation Solution, 3 mL Inhalation 4 times a day,PRN:Wheezing/Shortness of Breath,I... Start Date: 05/04/17 Status: Ordered Asmanex Twisthaler 60 Dose 220 mcg/inh inhalation aerosol powder 1 puffs, Inhalation, 2 times a day, j44.9, # 1 each, 11 Refills, Maintenance, 07/28/21 17:15:00 EDT, Aerosol, [facility]/pharmacy #0838, Partial fill upon patient request if the prescription is for a schedule II opioid drug., 1 puffs Inhalation 2 times a day... Start Date: 07/28/21 Status: Ordered atorvastatin 20 mg oral tablet 1 tablet, By Mouth, Daily, # 90 tablet, 1 Refills, [facility] 87[facility], 164, cm, 06/30/21 11:07:00 EDT,Height, 98.8, kg, 06/01/21 18:26:00 EDT, Dry Weight Start Date: 08/18/21 Status: Ordered baclofen 10 mg oral tablet 20 mg, 2, tablet, By Mouth, 2 times a day, Refills 0, Maintenance, 07/29/16 15:15:27 Start Date: 07/29/16 Status: Ordered baclofen 10 mg oral tablet 20 mg, Tablet, By Mouth, 09/24/21 9:00:00 EDT Start Date: 09/24/21 Stop Date: 09/24/21 Status: Completed busPIRone 30 mg oral tablet 1 tablet [...] # 180 tablet, 3 Refills, [facility], 162, cm, 07/03/20 11:05:00 EDT, Height, 99.8, kg, 07/02/20 6:39:00 EDT, Dry Weight Start Date: 11/14/20 Status: Ordered latanoprost 0.005% ophthalmic solution 1 drops, Eyes, Both, Daily in PM, # 2.5 mL, 0 Refills, Maintenance, 08/21/15 10:26:08, Solution Start Date: 08/21/15 Status: Ordered lisinopril 20 mg oral tablet 20 mg, Tablet, By Mouth, 09/24/21 9:00:00 EDT Start Date: 09/24/21 Stop Date: 09/24/21 Status: Completed lisinopril 20 mg oral tablet 20 mg, 1, tablet, By Mouth, Daily, no yellow dye and no blue dye due to allergy, # 90 tablet, Refills 1, Tot. Refills 1, Maintenance, 07/18/20 10:58:00 EDT, Route to Pharmacy Electronically, [facility]/pharmacy #4201, Partial fill upon patient request if the... Start Date: 07/18/20 Status: Ordered LORazepam 1 mg oral tablet 1 tablet = 1 mg, By Mouth, 3 times a day, 0 Refills, Maintenance, 09/14/17 11:57:01 EDT, Tablet Start Date: 09/14/17 Status: Ordered magnesium oxide 400 mg oral tablet 1 tablet, By Mouth, Daily, # 30 tablet, 5 Refills, Acute, 10/02/20 11:46:00 EDT, [facility], 162, cm, 07/03/20 11:05:00 EDT, Height, 99.8, kg, 07/02/20 6:39:00 EDT, Dry Weight Start Date: 10/02/20 Status: Ordered meclizine 12.5 mg oral tablet 1 tablet = 12.5 mg, By Mouth, 3 times a day, PRN for motion sickness, has allergy to blue dye, white tabs only, # 30 tablet, 0 Refills, Maintenance, 11/05/20 9:59:00 EDT, Tablet, [facility]/pharmacy #0838, Patient is allergic to blue dye. White tablet woul... Start Date: 11/05/20 Status: Ordered metoprolol 100 mg oral tablet, extended release 100 mg, XL Tablet, By Mouth, 09/24/21 9:00:00 EDT Start Date: 09/24/21 Stop Date: 09/24/21 Status: Completed Metoprolol Succinate ER 100 mg oral tablet, extended release 1 tablet = 100 mg, By Mouth, Daily, # 30 tablet, 0 Refills, Maintenance, 09/24/21 9:49:00 EDT, [facility]/pharmacy #0838, 164, cm, 06/30/21 11:07:00 EDT, Height, 98.8, kg, 06/01/21 18:26:00 EDT, Dry Weight Start Date: 09/24/21 Status: Ordered mupirocin 2% topical ointment 1 application, Topically, 3 times a day, # 30 Gm, 11 Refills, Maintenance, 05/15/19 15:41:00 EDT, Ointment, [facility]/pharmacy #0838, 1 application Topically 3 times a day, 164, cm, 04/22/19 10:50:00 EST, Height, 102.5, kg, 03/10/19 22:47:00 EST, Dry Weight Start Date: 05/15/19 Status: Ordered nystatin topical 980155 u/gm powder See Instructions, APPLY TO AFFECTED AREA TWICE A DAY -PER DR BOWLING, # 30 Gm, 1 Refills, Acute, [facility] 430[facility], 7, APPLY TO AFFECTED AREA TWICE A [...] 3 Refills, Maintenance, 11/07/19 7:57:00 EDT, [facility], 163, cm, 08/11/19 15:02:00 EDT, Height, 105, [...] EDT, PT HAS ALLERGIES TO CERTAIN DYES. [facility] AWARE. Start Date: 05/26/18 Status: Ordered [...] negative for Casey's esophagus. Per patient's report [address]62 - [facility] [place] - Dr. Hazel 5Colonoscopy 2008 by patient report normal. 6tubular adenoma of colon repeat scrrening colonoscopy in 2020 7colo 2015 Results Radiology Reports * Exam Date Time Procedure Performing Provider Status 09/23/21 2:25 PM Chest Portable Carlos A Osborne (Verified) Notes: (Chest Portable) Reason For Exam: chest pain;Other: RESULT: Chest Portable Examination: Portable chest performed on 09/23/2021. History: Mid sternal chest pain. Findings: A frontal view of the chest is compared to a prior study dated 06/01/2021. The cardiac and mediastinal silhouettes are within normal limits. The lungs are clear. Osteophyte formation within the thoracic spine is seen. IMPRESSION: There is no acute cardiopulmonary disease. WSN: [id number] Ordering Physician: Kayla Berry Dictated By: Elizabeth Mujica MD Dictated Date/Time: 09/23/21 2:52 pm Reviewed By: Elizabeth Mujica MD Signed By: Elizabeth Mujica MD Signed Date/Time: 09/23/21 2:52 pm Transcribed By: DANIELLA Transcribed Date/Time: 09/23/21 2:51 pm Vital Signs Most recent to oldest [Reference Range]: 1 2 3 Weight 103.8 kg (09/23/21 7:59 PM) Oxygen Saturation [94-100 %] 96 % (09/24/21 11:22 AM) 98 % (09/24/21 7:16 AM) 97 % (09/24/21 4:15 AM) Pulse Rate [55-90 bpm] 71 bpm (09/24/21 11:22 AM) 77 bpm (09/24/21 8:35 AM) 77 bpm (09/24/21 7:16 AM) Blood Pressure [90-138/55-84 mm Hg] 152/83mm Hg *H* (09/24/21 11:22 AM) 160/88mm Hg *H* (09/24/21 8:35 AM) 160/88mm Hg *H* (09/24/21 8:35 AM) Respiratory Rate [16-30 br/min] 20 br/min (09/24/21 11:22 AM) 18 br/min (09/24/21 8:35 AM) 20 br/min (09/24/21 7:16 AM) Temperature [96.8-100.4 DegF] 97.5 DegF (09/24/21 11:22 AM) 98.1 DegF (09/24/21 7:16 AM) 98.1 DegF (09/24/21 4:15 AM) Liters per Minute 2 L/min (09/24/21 7:16 AM) 2 L/min (09/24/21 4:15 AM) Mode of Delivery (Oxygen) Room air (09/24/21 11:22 AM) Nasal cannula (09/24/21 7:16 AM) Nasal cannula (09/24/21 4:15 AM) Blood pressure sites Arm, right (09/24/21 7:16 AM) Arm, right (09/24/21 4:15 AM) Arm, right (09/23/21 11:23 PM) Temperature Route Oral (09/24/21 11:22 AM) Oral (09/24/21 7:16 AM) Oral (09/24/21 4:15 AM) Weight Obtained Via Standing scale (09/23/21 7:59 PM) Social History Social History Type Response Smoking Status Former smoker; Other : Quit smoking 1984.; entered on: 08/21/15 Sex
--- OUTSIDE RECORDS SUMMARY | 2023-08-20 11:18 | XMS_ITS | Continuity of Care Document ---
Author Organization [facility] ter Address [address] [place] [address]- Care Team Providers Care Handicrafts Teacher Name Role Phone Marilia HARE, Destiny Gibbs Primary Care Physician Encounter [facility] [place] Date(s): 06/18/20 - 07/18/[address] [address] Attending Physician: Admeduardo, Mayra Admitting Physician: AdmtrMayra Referring Physician: Admtr, Ar8 [...] tablet, 0 Refills, Maintenance, 06/26/20 11:00:00 EDT, [facility]/pharmacy #0838, 3, 1 tablet By Mouth Every 4 hours,PRN: NEEDED FOR PAIN, 163, cm, 04/22/20 14:51:00 EST, Height, 105, kg, 07/23... Start Date: 06/26/20 Status: Ordered acyclovir 400 mg oral tablet 1 tablet, By Mouth, 2 times a day, # 180 tablet, 1 Refills, Maintenance, 01/09/20 10:00:00 EST, [facility]/pharmacy #0838, 163, cm, 11/10/19 8:11:00 EDT, Height, 105, kg, 08/11/19 15:02:00 EDT, Dry Weight Start Date: 01/09/20 Status: Ordered albuterol-ipratropium 3 mg-0.5 mg/3 ml inhalation solution 3 mL, Inhalation, 4 times a day, PRN Wheezing/Shortness of Breath, FAX [phone] BOWLING J45.909 ASTHMA, # 360 [...] DAY, # 90 tablet, 2 Refills, Maintenance, [facility] 00401, 163, cm, 11/10/19 8:11:00 EDT, Height, 105, [...] Maintenance, 10/13/16 14:32:53, Route to Pharmacy Electronically, [id number], [facility]/pharmacy #0838 Start Date: 10/13/16 Status: Ordered COENZYME [...] Stop 08/11/20 9:51:00 EDT,08/17/19 9:51:00 EDT, Suspension, [facility]/pharmacy #0838, 163, cm, 08/11/19 15:02:00 EDT, Height, 105, kg, 08/11/19 15:02:00 EDT, Dry Weight Start Date: 08/17/19 Stop Date: 08/11/20 Status: Ordered fluconazole 150 mg oral tablet See Instructions, TAKE 1 TABLET BY MOUTH ONCE, # 1 tablet, 0 Refills, Soft Stop, [facility] 501[facility], 163, cm, 04/22/20 14:51:00 EST, Height, 105, [...] 07/18/20 10:58:00 EDT, Route to Pharmacy Electronically, [facility]/pharmacy #0825, Partial fill upon patient request if the... [...] 0 Refills, Maintenance, 04/07/19 10:10:00 EST, Tablet, [facility]/pharmacy #0883, Patient is allergic to blue dye. White tablet would be preferrable., 163, cm, 04/07/19 9:43:0... Start Date: 04/07/19 Status: Ordered Metoprolol Succinate ER 100 mg oral tablet, extended release 1 tablet = 100 mg, By Mouth, Daily, # 90 tablet, 1 Refills, Maintenance, 12/07/19 9:45:00 EDT, [facility]/pharmacy #0838, 163, cm, 11/10/19 8:11:00 EDT, Height, [...] 11 Refills, Maintenance, 05/15/19 15:41:00 EDT, Ointment, [facility]/pharmacy #0838, 1 application Topically 3 times a day, 164, cm, 04/22/19 10:50:00 EST, Height, 102.5, kg, 03/10/19 22:47:00 EST, Dry Weight Start Date: 05/15/19 Status: Ordered nystatin topical 232059 u/gm powder See Instructions, APPLY TO AFFECTED AREA TWICE A DAY -PER DR BOWLING, # 30 Gm, 1 Refills, Acute, [facility] 63[facility], 7, APPLY TO AFFECTED AREA TWICE A [...] 3 Refills, Maintenance, 11/07/19 7:57:00 EDT, [facility], 163, cm, 08/11/19 15:02:00 EDT, Height, 105, [...] HAS ALLERGIES TO CERTAIN DYES. [facility] AWARE. Start Date: 05/26/18 Status: Ordered Zyrtec [...] negative for Casey's esophagus. Per patient's report 04220 - [facility] [place]. Hazel [address]; repeat 2020 6Colonoscopy 2008 by patient report normal. 7tubular adenoma of colon repeat scrrening colonoscopy in 2020 8colo 2015 Social History Social History Type Response Smoking Status Former smoker; Other : Quit smoking 1983.; entered on: 08/21/15 Sex
--- OUTSIDE RECORDS SUMMARY | 2023-08-20 11:18 | XMS_ITS | Continuity of Care Document ---
Author Organization [facility] Address [address] [place] [address]- Care Team Providers Care Facilities Maintenance Technician Name Role Phone Destiny Capellan MD Primary Care Physician Encounter [facility] [place] ACCT R [id number] Date(s): 05/07/21 - 05/14/21 [facility] [address] [place] [address]- Attending Physician: Danna Eaton MD Referring Physician: Destiny Capellan MD Allergies, Adverse Reactions, Alerts Substance Reaction [...] FOR PAIN, # 12 tablet, 0 Refills, [facility], 3, TAKE 1 TABLET BY MOUTH EVERY 4 HOURS NEEDED FOR PAIN, 162, cm, 07/03/20 11:05:00 EDT, Height, 99.8, kg, 07/02/20 6:39:00 EDT, Dry... Start Date: 04/21/21 Status: Ordered acyclovir 400 mg oral tablet 1 tablet, By Mouth, 2 times a day, # 180 tablet, 1 Refills, Maintenance, 01/09/20 10:00:00 EST, [facility]/pharmacy #0838, 163, cm, 11/10/19 8:11:00 EDT, Height, 105, kg, 08/11/19 15:02:00 EDT, Dry Weight Start Date: 01/09/20 Status: Ordered albuterol-ipratropium 3 mg-0.5 mg/3 ml inhalation solution 3 mL, Inhalation, 4 times a day, PRN Wheezing/Shortness of Breath, FAX [phone] BOWLING J45.909 ASTHMA, # 360 [...] DAY, # 90 tablet, 2 Refills, Maintenance, [facility], 163, cm, 11/10/19 8:11:00 EDT, Height, 105, [...] Maintenance, 10/13/16 14:32:53, Route to Pharmacy Electronically, [id number], [facility]/pharmacy #0838 Start Date: 10/13/16 Status: Ordered codeine-guaifenesin 10 mg-100 mg/5 mL oral syrup 5 mL, By Mouth, Every 4 hours, PRN for cough, # 120 mL, 0 Refills, Maintenance, 04/04/21 11:23:00 EST, Syrup, [facility]/pharmacy #0838, Partial fill upon patient request if the prescription is for a schedule II opioid drug., 5 mL By Mouth Every 4 hours,PRN:... Start Date: 04/04/21 Status: Ordered codeine-guaifenesin 10 mg-100 mg/5 mL oral syrup 5 mL, By Mouth, Every 6 hours, PRN for cough and congestion, # 100 mL, 0 Refills, Maintenance, 03/12/21 13:49:00 EST, Syrup, [facility]/pharmacy #0838, Partial fill upon patient request [...] # 180 tablet, 3 Refills, [facility], 162, cm, 07/03/20 11:05:00 EDT, Height, 99.8, kg, 07/02/20 6:39:00 EDT, Dry Weight Start Date: 11/14/20 Status: Ordered fluconazole 150 mg oral tablet See Instructions, TAKE 1 TABLET BY MOUTH ONCE, # 1 tablet, 0 Refills, Soft Stop, [facility], 163, cm, 04/22/20 14:51:00 EST, Height, 105, [...] 0 Refills, Maintenance, 03/03/21 11:51:00 EST, CRCapsule, [facility]/pharmacy #0838, Partial fill upon patient request [...] 07/18/20 10:58:00 EDT, Route to Pharmacy Electronically, [facility]/pharmacy #0838, Partial fill upon patient request [...] Refills, Acute, 10/02/20 11:46:00 EDT, [facility], 162, cm, 07/03/20 11:05:00 EDT, Height, 99.8, [...] tablet, 1 Refills, Maintenance, 12/07/19 9:45:00 EDT, [facility], 163, cm, 11/10/19 8:11:00 EDT, Height, [...] 11 Refills, Maintenance, 05/15/19 15:41:00 EDT, Ointment, [facility]/pharmacy #0838, 1 application Topically 3 times a day, 164, cm, 04/22/19 10:50:00 EST, Height, 102.5, kg, 03/10/19 22:47:00 EST, Dry Weight Start Date: 05/15/19 Status: Ordered nystatin topical 043321 u/gm powder See Instructions, APPLY TO AFFECTED AREA TWICE A DAY -PER DR BOWLING, # 30 Gm, 1 Refills, Acute, [facility], 7, APPLY TO AFFECTED AREA TWICE A [...] 3 Refills, Maintenance, 11/07/19 7:57:00 EDT, [facility], 163, cm, 08/11/19 15:02:00 EDT, Height, 105, [...] EDT, PT HAS ALLERGIES TO CERTAIN DYES. [facility] AWARE. Start Date: 05/26/18 Status: Ordered Zyrtec [...] negative for Casey's esophagus. Per patient's report 69[address] - [facility] [place] Dr. Hazel 5Colonoscopy 2008 by patient report normal. 6tubular adenoma of colon repeat scrrening colonoscopy in 2020 7colo 2015 Vital Signs Most recent to oldest [Reference Range]: 1 Height 162 cm (05/07/21 1:55 PM) Weight 102.4 kg (05/07/21 1:55 PM) Pulse Rate [55-90 bpm] 69 bpm (05/07/21 1:55 PM) Body Mass Index [18.5-24.99] 39.02 *>HHI* (05/07/21 1:55 PM) Blood Pressure [90-138/55-84 mm Hg] 151/ 89mm Hg *H* (05/07/21 1:55 PM) Blood pressure sites Arm, left (05/07/21 1:55 PM) Weight Obtained Via Bed scale (05/07/21 1:55 PM) Social History Social History Type Response Smoking Status Former smoker; Other : Quit smoking 1983.; entered on: 08/21/15 Sex
--- OUTSIDE RECORDS SUMMARY | 2023-08-20 11:18 | XMS_ITS | Continuity of Care Document ---
Author Organization [facility] Address [address] [place] [address]- Care Team Providers Care Regional Sales Coordinator Name Role Phone Marilia HARE, Destiny Gibbs Primary Care Physician En[place] [facility] [place] Date(s): 06/12/20 - 07/18/[address] [address] Attending Physician: Matthew Pinto MD Admitting Physician: [...] tablet, 0 Refills, Maintenance, 06/26/20 11:00:00 EDT, [facility]/pharmacy #0838, 3, 1 tablet By Mouth Every 4 hours,PRN: NEEDED FOR PAIN, 163, cm, 04/22/20 14:51:00 EST, Height, 105, kg, 07/23... Start Date: 06/26/20 Status: Ordered acyclovir 400 mg oral tablet 1 tablet, By Mouth, 2 times a day, # 180 tablet, 1 Refills, Maintenance, 01/09/20 10:00:00 EST, [facility]/pharmacy #0838, 163, cm, 11/10/19 8:11:00 EDT, Height, 105, kg, 08/11/19 15:02:00 EDT, Dry Weight Start Date: 01/09/20 Status: Ordered albuterol-ipratropium 3 mg-0.5 mg/3 ml inhalation solution 3 mL, Inhalation, 4 times a day, PRN Wheezing/Shortness of Breath, FAX [phone] BOWLING J45.909 ASTHMA, # 360 [...] DAY, # 90 tablet, 2 Refills, Maintenance, [facility] 06833, 163, cm, 11/10/19 8:11:00 EDT, Height, 105, [...] Maintenance, 10/13/16 14:32:53, Route to Pharmacy Electronically, [id number], [facility]/pharmacy #0838 Start Date: 10/13/16 Status: Ordered [...] Stop 08/11/20 9:51:00 EDT,08/17/19 9:51:00 EDT, Suspension, [facility]/pharmacy #0838, 163, cm, 08/11/19 15:02:00 EDT, Height, 105, kg, 08/11/19 15:02:00 EDT, Dry Weight Start Date: 08/17/19 Stop Date: 08/11/20 Status: Ordered fluconazole 150 mg oral tablet See Instructions, TAKE 1 TABLET BY MOUTH ONCE, # 1 tablet, 0 Refills, Soft Stop, [facility] 33370, 163, cm, 04/22/20 14:51:00 EST, Height, 105, [...] 07/18/20 10:58:00 EDT, Route to Pharmacy Electronically, [facility]/pharmacy #0827, Partial fill upon patient request if the... [...] 0 Refills, Maintenance, 04/07/19 10:10:00 EST, Tablet, [facility]/pharmacy #0831, Patient is allergic to blue dye. White tablet would be preferrable., 163, cm, 04/07/19 9:43:0... Start Date: 04/07/19 Status: Ordered Metoprolol Succinate ER 100 mg oral tablet, extended release 1 tablet = 100 mg, By Mouth, Daily, # 90 tablet, 1 Refills, Maintenance, 12/07/19 9:45:00 EDT, [facility]/pharmacy #0838, 163, cm, 11/10/19 8:11:00 EDT, [...] 11 Refills, Maintenance, 05/15/19 15:41:00 EDT, Ointment, [facility]/pharmacy #0838, 1 application Topically 3 times a day, 164, cm, 04/22/19 10:50:00 EST, Height, 102.5, kg, 03/10/19 22:47:00 EST, Dry Weight Start Date: 05/15/19 Status: Ordered nystatin topical 077532 u/gm powder See Instructions, APPLY TO AFFECTED AREA TWICE A DAY -PER DR BOWLING, # 30 Gm, 1 Refills, Acute, [facility] 62922, 7, APPLY TO AFFECTED AREA TWICE A [...] 3 Refills, Maintenance, 11/07/19 7:57:00 EDT, [facility], 163, cm, 08/11/19 15:02:00 EDT, Height, 105, [...] EDT, PT HAS ALLERGIES TO CERTAIN DYES. [facility] AWARE. Start Date: 05/26/18 Status: Ordered Zyrtec 10 mg oral tablet 1 tablet = 10 mg, By Mouth, Daily, 0 Refills, Maintenance, 11/23/13 1:54:06, Tablet Start Date: 01/14/13 Status: Ordered [...] negative for Casey's esophagus. Per patient's report 60952 - [facility] [place]. Hazel [address]; repeat 2020 6Colonoscopy 2008 by patient report normal. 7tubular adenoma of colon repeat scrrening colonoscopy in 2020 8colo 2015 Social History Social History Type Response Smoking Status Former smoker; Other : Quit smoking 1983.; entered on: 08/21/15 Sex
--- OUTSIDE RECORDS SUMMARY | 2023-08-20 11:18 | XMS_ITS | Continuity of Care Document ---
Author Organization [facility] Address [address] [place] [address]- Care Team Providers Care Filling Hauler Weaving Name Role Phone Marilia HARE, Destiny Gibbs Primary Care Physician [phone] Encounter [facility] [place] Date(s): 03/03/21 - 04/02/21 [facility] [address] [place] [address]- Attending Physician: Admeduardo, [id number] Admitting Physician: Admtr, ArRenetta Referring Physician: Admtr, [id number] Allergies, Adverse Reactions, [...] PAIN, # 12 tablet, 0 Refills, Maintenance, 03/05/21 9:44:00 EST, [facility]/pharmacy #0838, 2, 1 tablet By Mouth Every 4 hours,PRN: NEEDED FOR PAIN, 162, cm, 07/03/20 11:05:00 EDT, Height, 99.8, kg, 06/22... Start Date: 03/05/21 Status: Ordered acyclovir 400 mg oral tablet 1 tablet, By Mouth, 2 times a day, # 180 tablet, 1 Refills, Maintenance, 01/09/20 10:00:00 EST, [facility]/pharmacy #0838, 163, cm, 11/10/19 8:11:00 EDT, Height, 105, kg, 08/11/19 15:02:00 EDT, Dry Weight Start Date: 01/09/20 Status: Ordered albuterol-ipratropium 3 mg-0.5 mg/3 ml inhalation solution 3 mL, Inhalation, 4 times a day, PRN Wheezing/Shortness of Breath, FAX [phone] BOWLING J45.909 ASTHMA, # 360 [...] DAY, # 90 tablet, 2 Refills, Maintenance, [facility] 87601, 163, cm, 11/10/19 8:11:00 EDT, Height, 105, [...] Maintenance, 10/13/16 14:32:53, Route to Pharmacy Electronically, [id number], [facility]/pharmacy #0838 Start Date: 10/13/16 Status: Ordered codeine-guaifenesin 10 mg-100 mg/5 mL oral syrup 5 mL, By Mouth, Every 6 hours, PRN for cough and congestion, # 100 mL, 0 Refills, Maintenance, 03/12/21 13:49:00 EST, Syrup, [facility]/pharmacy #0838, Partial fill [...] a day, # 180 tablet, 3 Refills, [facility] 10810, 162, cm, 07/03/20 11:05:00 EDT, Height, 99.8, kg, 07/02/20 6:39:00 EDT, Dry Weight Start Date: 11/14/20 Status: Ordered fluconazole 150 mg oral tablet See Instructions, TAKE 1 TABLET BY MOUTH ONCE, # 1 tablet, 0 Refills, Soft Stop, [facility] 24217, 163, cm, 04/22/20 14:51:00 EST, Height, 105, [...] EDT, Compound Start Date: 08/17/18 Status: Ordered lansoprazole 30 mg oral enteric coated capsule 1 capsule = 30 mg, By Mouth, Daily, # 14 capsule, 0 Refills, Maintenance, 03/03/21 11:51:00 EST, CRCapsule, [facility]/pharmacy #0838, Partial fill [...] to Pharmacy Electronically, [facility]/pharmacy #0838, Partial fill [...] Refills, Acute, 10/02/20 11:46:00 EDT, [facility], 162, cm, 07/03/20 11:05:00 EDT, Height, 99.8, [...] tablet, 1 Refills, Maintenance, 12/07/19 9:45:00 EDT, [facility]/pharmacy #0838, 163, cm, 11/10/19 8:11:00 EDT, [...] Start Date: 05/15/19 Status: Ordered nystatin topical 672883 u/gm powder See Instructions, APPLY TO AFFECTED AREA TWICE A DAY -PER DR BOWLING, # 30 Gm, 1 Refills, Acute, [facility] 99526, 7, APPLY TO AFFECTED AREA TWICE A [...] 900 mL, 0 Refills,Maintenance, 08/21/19 11:24:00 EDT, [facility]/pharmacy #0838, By Mouth take one stat and [...] 3 Refills, Maintenance, 11/07/19 7:57:00 EDT, [facility], 163, cm, 08/11/19 15:02:00 EDT, Height, 105, [...] EDT, PT HAS ALLERGIES TO CERTAIN DYES. [facility] AWARE. Start Date: 05/26/18 Status: [...] negative for Casey's esophagus. Per patient's report 38200 - [facility] [place]. Hazel [address]; repeat 2020 6Colonoscopy 2008 by patient report normal. 7tubular adenoma of colon repeat scrrening colonoscopy in 2020 8colo 2015 Social History Social History Type Response Smoking Status Former smoker; Other : Quit smoking 1983.; entered on: 08/21/15 Sex
--- OUTSIDE RECORDS SUMMARY | 2023-08-20 11:19 | XMS_ITS | Continuity of Care Document ---
Author Organization [facility] Address [address] [place] [address]- Care Team Providers Care Treatment Plant Operator Name Role Phone Marilia HARE, Destiny Gibbs Primary Care Physician [phone] [place] [facility] [place]s): 03/18/21 - 04/17/21 [facility] [address] [place] [address]- [place] Allergies, Adverse Reactions, Alerts Substance Reaction Severity [...] tablet, 0 Refills, Maintenance, 03/05/21 9:44:00 EST, [facility], 2, 1 tablet By Mouth Every 4 hours,PRN: NEEDED FOR PAIN, 162, cm, 07/03/20 11:05:00 EDT, Height, 99.8, kg, 06/22... Start Date: 03/05/21 Status: Ordered acyclovir 400 mg oral tablet 1 tablet, By Mouth, 2 times a day, # 180 tablet, 1 Refills, Maintenance, 01/09/20 10:00:00 EST, [facility], 163, cm, 11/10/19 8:11:00 EDT, Height, 105, kg, 08/11/19 15:02:00 EDT, Dry Weight Start Date: 01/09/20 Status: Ordered albuterol-ipratropium 3 mg-0.5 mg/3 ml inhalation solution 3 mL, Inhalation, 4 times a day, PRN Wheezing/Shortness of Breath, FAX [phone] BOWLING J45.909 ASTHMA, # 360 [...] tablet, 2 Refills, Maintenance, [facility] 87271, 163, cm, 11/10/19 8:11:00 EDT, Height, 105, [...] Maintenance, 10/13/16 14:32:53, Route to Pharmacy Electronically, [id number], [facility]/pharmacy #0838 Start Date: 10/13/16 Status: [...] a day, # 180 tablet, 3 Refills, [facility] 75896, 162, cm, 07/03/20 11:05:00 EDT, Height, 99.8, kg, 07/02/20 6:39:00 EDT, Dry Weight Start Date: 11/14/20 Status: Ordered fluconazole 150 mg oral tablet See Instructions, TAKE 1 TABLET BY MOUTH ONCE, # 1 tablet, 0 Refills, Soft Stop, [facility], 163, cm, 04/22/20 14:51:00 EST, Height, 105, [...] Refills, Acute, 10/02/20 11:46:00 EDT, [facility], 162, cm, 07/03/20 11:05:00 EDT, Height, 99.8, kg, 07/02/20 6:39:00 EDT, Dry Weight Start Date: 10/02/20 Status: Ordered meclizine 12.5 mg oral tablet 1 tablet = 12.5 mg, By Mouth, 3 times a day, PRN for motion sickness, has allergy to blue dye, white tabs only, # 30 tablet, 0 Refills, Maintenance, 11/05/20 9:59:00 EDT, Tablet, [facility]/pharmacy #0838, Patient is allergic to blue dye. White tablet woul... Start Date: 11/05/20 Status: Ordered Metoprolol Succinate ER 100 mg oral tablet, extended release 1 tablet = 100 mg, By Mouth, Daily, # 90 tablet, 1 Refills, Maintenance, 12/07/19 9:45:00 EDT, [facility]/pharmacy #0838, 163, cm, 11/10/19 8:11:00 [...] Start Date: 05/15/19 Status: Ordered nystatin topical 926056 u/gm powder See Instructions, APPLY TO AFFECTED AREA TWICE A DAY -PER DR BOWLING, # 30 Gm, 1 Refills, Acute, [facility] 62168, 7, APPLY TO AFFECTED AREA TWICE A [...] 900 mL, 0 Refills,Maintenance, 08/21/19 11:24:00 EDT, [facility]/pharmacy #0838, By Mouth take one stat [...] 3 Refills, Maintenance, 11/07/19 7:57:00 EDT, [facility], 163, cm, 08/11/19 15:02:00 EDT, Height, 105, [...] negative for Casey's esophagus. Per [place]'s [place] 25559 [place] [facility] [place] 5Colonoscopy 2008 by patient report normal. 6tubular adenoma of colon repeat scrrening colonoscopy in 2020 7colo 2015 Social History Social History Type Response Smoking Status Former smoker; Other : Quit smoking 1983.; entered on: 08/21/15 Sex
--- OUTSIDE RECORDS SUMMARY | 2023-08-20 11:19 | XMS_ITS | Continuity of Care Document ---
Author Organization [facility] Address [address] [place] [address]- Care Team Providers Care Fabricator Industrial Furnace Name Role Phone Destiny Capellan MD Primary Care Physician [phone] [place] [facility] [id number] Date(s): 02/12/20 - 05/15/20 [facility] [address] [place] [address]- Attending Physician: Yuan Alegria MD Admitting Physician: Yuan Alegria MD Referring Physician: Destiny Capellan MD Allergies, Adverse Reactions, Alerts Substance Reaction Severity Status ciprofloxacin hallucinations Persistent Severe Active Remeron swollen neck and rash Persistent Severe A ctive cefuroxime Active amoxicillin Active gabapentin night terrors Persistent Severe Active levofloxacin Heart Palpatations Persistent Severe Acti ve sulfa drugs high temp and rash Persistent Severe Acti ve nitrates migraine STARR Persistent Severe Active Toradol Active Imitrex chest heaviness Persistent Severe Active Ultram generalized itching Persistent Severe Act krystal Compazine severe STARR Persistent Severe Active Decadron Pins and needles sensation A ctive Depakote night terrors Persistent Severe Active Demerol HCl anaphylaxis Persistent Severe Active pantoprazole 1 Facial swelling Persistent Severe Activ e Chocolate migraine STARR Persistent Severe Active Abdominal pain Active Contrast Dye hives Persistent Severe Active Other Food Allergy 2, 3, 4 migraines and swelling Active flu vaccines high fever and swelling Persistent Severe Active Percocet 5/325 severe STARR Persistent Severe Active CeleBREX HIVES Persistent Severe Active Other Environmental Allergy 5, 6, 7 facial swelling and itching Persistent Severe Active Valacyclovir Hydrochloride abd upspet [...] Dry Weight Start Date: 12/07/19 Status: Ordered acetaminophen/butalbital/caffeine 325 mg-50 mg-40 mg oral tablet 1 tablet, By Mouth, Every 4 hours, PRN NEEDED FOR PAIN, # 12 tablet, 0 Refills, Acute, 04/11/20 15:33:00 EST, [facility]70, 2, TAKE 1 TABLET EVERY 4 HOURS NEEDED FOR PAIN, 163, cm, 02/12/20 10:39:00 EST, Height, 105, kg, 08/11/19 15:02:00 EDT... Start Date: 04/11/20 Status: Ordered acyclovir 400 mg oral tablet 1 tablet, By Mouth, 2 times a day, # 180 tablet, 1 Refills, Maintenance, 01/09/20 10:00:00 EST, [facility]/pharmacy #0838, 163, cm, 11/10/19 8:11:00 EDT, Height, 105, kg, 08/11/19 15:02:00 EDT, Dry Weight Start Date: 01/09/20 Status: Ordered albuterol-ipratropium 3 mg-0.5 mg/3 ml inhalation solution 3 mL, Inhalation, 4 times a day, PRN Wheezing/Shortness of Breath, FAX [phone] BOWLING J45.909 ASTHMA, # 360 [...] DAY, # 90 tablet, 2 Refills, Maintenance, [facility] ST[facility] 76752, 163, cm, 11/10/19 8:11:00 EDT, Height, 105, [...] Maintenance, 10/13/16 14:32:53, Route to Pharmacy Electronically, [id number], [facility]/pharmacy #0838 Start Date: 10/13/16 Status: Ordered COENZYME Q-10 30 MG SOFTGEL COENZYME Q-10 30 MG SOFTGEL, See Instructions, # 30 capsule, 0 Refills, Maintenance, TAKE 1 SOFTGELBY MOUTH EVERY DAY, 163, cm, 11/10/19 8:11:00 EDT, Height, 105, kg, 08/11/19 15:02:00 EDT, Dry Weight Start Date: 01/24/20 Status: Ordered Coenzyme Q10 30 mg oral capsule 1 capsule = 30 mg, By Mouth, Daily, # 30 capsule, 5 Refills, Maintenance, 06/12/19 15:10:00 EDT, Capsule, [facility]/pharmacy #0838, 164, cm, 04/22/19 10:50:00 EST, [...] 3 Refills, Maintenance, 08/17/19 9:51:00 EDT, Suspension, [facility], 163, cm, 08/11/19 15:02:00 EDT, Height, 105, kg, 08/11/19 15:02:00 EDT, Dry Weight Start Date: 08/17/19 Stop Date: 08/11/20 Status: Ordered Flonase 50 mcg/inh nasal spray 1 sprays, Nares, Both, 2 times a day, # 16 Gm, 11 Refills, Maintenance, 07/01/18 11:47:12 EDT, [place], 1 sprays Nares, Both 2 times a day Start Date: 07/01/18 Status: Ordered Flovent HFA 110 mcg/inh inhalation aerosol 2 puffs, Inhalation, 2 times a day, # 36 Gm, 11 Refills, Maintenance, 06/27/18 13:45:48 EDT, Aerosol Start Date: 06/27/18 Status: Ordered fluconazole 150 mg oral tablet 1 tablet = 150 mg, By Mouth, Once, # 1 tablet, 0 Refills, Soft Stop, 11/28/19 12:36:00 EDT, Tablet,[facility]/pharmacy #0838, 163, cm, 11/10/19 8:11:00 EDT, Height, 105, kg, 08/11/19 15:02:00 EDT, Dry Weight Start Date: 11/28/19 Status: Ordered Freestyle Lite Lancets See Instructions, [...] 01/24/20 12:35:00 EST, Route to Pharmacy Electronically, [facility]/pharmacy #0838, Partial fill upon patient [...] EDT, Tablet Start Date: 11/23/17 Status: Ordered meclizine 12.5 mg oral tablet 1 tablet = 12.5 mg, By Mouth, 3 times a day, PRN for motion sickness, # 30 tablet, 0 Refills, Maintenance, 04/07/19 10:10:00 EST, Tablet, [facility]/pharmacy #0838, Patient is allergic to blue dye. White tablet would be preferrable., 163, cm, 04/07/19 9:43:0... Start Date: 04/07/19 Status: Ordered Metoprolol Succinate ER 100 mg oral tablet, extended release 1 tablet = 100 mg, By Mouth, Daily, # 90 tablet, 1 Refills, Maintenance, 12/07/19 9:45:00 EDT, [facility]/pharmacy #0838, 163, cm, 11/10/19 8:11:00 EDT, Height, 105, kg, 08/11/19 15:02:00 EDT, Dry Weight Start Date: 12/07/19 Status: Ordered mupirocin 2% topical ointment 1 application, Topically, 3 times a day, # 30 Gm, 11 Refills, Maintenance, 05/15/19 15:41:00 EDT, Ointment, [facility]/pharmacy #0838, 1 application Topically 3 times a day, 164, cm, 04/22/19 10:50:00 EST, Height, 102.5, kg, 03/10/19 22:47:00 EST, Dry Weight Start Date: 05/15/19 Status: Ordered nystatin topical 677365 u/gm powder See Instructions, APPLY TO AFFECTED AREA TWICE A DAY -PER DR BOWLING, # 30 Gm, 1 Refills, Acute, [facility], 7, APPLY TO AFFECTED AREA TWICE A DAY -PER DR BOWLING, 163, cm, 11/10/19 8:11:00 EDT, Height,105, kg, 08/11/19 15:02:00 EDT, Dry Weight Start Date: 11/13/19 Status: Ordered Probiotic Formula oral capsule 1 capsule, By Mouth, 2 times a day, # 60 capsule, 11 Refills, Maintenance, 01/22/16 10:10:40, 1 capsule By Mouth 2 times a day Start Date: 01/22/16 Status: Ordered Qvar Redihaler 80 mcg/inh inhalation aerosol = 160 mcg, Inhalation, 2 times a day, # 3 each, 0 Refills, Maintenance, 02/12/20 9:18:00 EST, [facility]/pharmacy #0838, Partial fill upon patient request if the prescription is for a schedule II opioid drug., 160 mcg Inhalation 2 times a day, 163, cm, 02/08... Start Date: 02/12/20 Status: Ordered Readi-Cat 2 oral suspension See [...] 5 Refills, Maintenance, 06/12/19 15:11:00 EDT, Tablet, [facility], 164, cm, 04/22/19 10:50:00 EST, [...] 3 Refills, Maintenance, 11/07/19 7:57:00 EDT, [facility], 163, cm, 08/11/19 15:02:00 EDT, Height, 105, [...] EDT, PT HAS ALLERGIES TO CERTAIN DYES. [facility] AWARE. Start Date: 05/26/18 Status: Ordered [...] negative for Casey's esophagus. [place] 85020 [place] [facility] [place] [address]; repeat 2020 6Colonoscopy 2008 by patient report normal. 7tubular adenoma of colon repeat scrrening colonoscopy in 2020 8colo 2015 Social History Social History Type Response Smoking Status Former smoker; Other : Quit smoking 1983.; entered on: 08/21/15 Sex
--- OUTSIDE RECORDS SUMMARY | 2023-08-20 11:19 | XMS_ITS | Continuity of Care Document ---
Author Organization [facility] Address [address] [place] [address]- Care Team Providers Care Oracle Software Engineer Name Role Phone Marilia HARE, Destiny Gibbs Primary Care Physician Encounter [facility] [place] Date(s): 03/17/21 - 04/16/21 [facility] [address], [place] [address] Attending Physician: Mayra Franz Admitting Physician: AdmMayra clark Referring Physician: Mayra Franz Allergies, Adverse Reactions, Alerts Substance Reaction Severity Status ciprofloxacin hallucinations Persistent Severe Active cefuroxime Active gabapentin night terrors Persistent Severe Active Remeron swollen neck and rash Persistent Severe A ctive Compazine severe STARR Persistent Severe Active Decadron Pins and needles sensation A ctive amoxicillin Active levofloxacin Heart Palpatations Persistent Severe Acti ve sulfa drugs high temp and rash Persistent Severe Acti ve nitrates migraine STARR Persistent Severe Active Toradol Active Imitrex chest heaviness Persistent Severe Active Ultram generalized itching Persistent Severe Act krystal Demerol HCl anaphylaxis Persistent Severe Active Depakote night terrors Persistent Severe Active pantoprazole 1 Facial swelling Persistent Severe Activ e Chocolate migraine STARR Persistent Severe Active Abdominal pain Active Contrast Dye hives Persistent Severe Active flu vaccines high fever and swelling Persistent Severe Active Percocet 5/325 severe STARR Persistent Severe Active CeleBREX HIVES Persistent Severe Active Other Food Allergy 2, [...] tablet, 0 Refills, Maintenance, 03/05/21 9:44:00 EST, [facility]/pharmacy #0838, 2, 1 tablet By Mouth Every 4 hours,PRN: NEEDED FOR PAIN, 162, cm, 07/03/20 11:05:00 EDT, Height, 99.8, kg, 06/22... Start Date: 03/05/21 Status: Ordered acyclovir 400 mg oral tablet 1 tablet, By Mouth, 2 times a day, # 180 tablet, 1 Refills, Maintenance, 01/09/20 10:00:00 EST, [facility]/pharmacy #0838, 163, cm, 11/10/19 8:11:00 EDT, Height, 105, kg, 08/11/19 15:02:00 EDT, Dry Weight Start Date: 01/09/20 Status: Ordered albuterol-ipratropium 3 mg-0.5 mg/3 ml inhalation solution 3 mL, Inhalation, 4 times a day, PRN Wheezing/Shortness of Breath, FAX [phone] BOWLING J45.909 ASTHMA, # 360 [...] DAY, # 90 tablet, 2 Refills, Maintenance, [facility], 163, cm, 11/10/19 8:11:00 EDT, Height, 105, [...] Maintenance, 10/13/16 14:32:53, Route to Pharmacy Electronically, [id number], [facility]/pharmacy #[id number] Start Date: 10/13/16 Status: Ordered codeine-guaifenesin 10 mg-100 mg/5 mL oral syrup 5 mL, By Mouth, Every 4 hours, PRN for cough, # 120 mL, 0 Refills, Maintenance, 04/04/21 11:23:00 EST, Syrup, [facility]/pharmacy #0838, Partial fill upon patient request if the prescription is for a schedule II opioid drug., 5 mL By Mouth Every 4 hours,PRN:... Start Date: 04/04/21 Status: Ordered codeine-guaifenesin 10 mg-100 mg/5 mL oral syrup 5 mL, By Mouth, Every 6 hours, PRN for cough and congestion, # 100 mL, 0 Refills, Maintenance, 03/12/21 13:49:00 EST, Syrup, [facility]/pharmacy #0838, Partial fill upon patient request if [...] # 180 tablet, 3 Refills, [facility], 162, cm, 07/03/20 11:05:00 EDT, Height, 99.8, kg, 07/02/20 6:39:00 EDT, Dry Weight Start Date: 11/14/20 Status: Ordered fluconazole 150 mg oral tablet See Instructions, TAKE 1 TABLET BY MOUTH ONCE, # 1 tablet, 0 Refills, Soft Stop, [facility], 163, cm, 04/22/20 14:51:00 EST, Height, 105, [...] 0 Refills, Maintenance, 03/03/21 11:51:00 EST, CRCapsule, [facility]/pharmacy #0838, Partial fill upon patient request if [...] 07/18/20 10:58:00 EDT, Route to Pharmacy Electronically, [facility]/pharmacy #0838, Partial fill upon patient request if the... Start Date: 07/18/20 Status: Ordered LORazepam 1 mg oral tablet 1 tablet = 1 mg, By Mouth, 3 times a day, 0 Refills, Maintenance, 09/14/17 11:57:01 EDT, Tablet Start Date: 09/14/17 Status: Ordered magnesium oxide 400 mg oral tablet 1 tablet, By Mouth, Daily, # 30 tablet, 5 Refills, Acute, 10/02/20 11:46:00 EDT, [facility], 162, cm, 07/03/20 11:05:00 EDT, Height, 99.8, kg, 07/02/20 6:39:00 EDT, Dry Weight Start Date: 10/02/20 Status: Ordered meclizine 12.5 mg oral tablet 1 tablet = 12.5 mg, By Mouth, 3 times a day, PRN for motion sickness, has allergy to blue dye, white tabs only, # 30 tablet, 0 Refills, Maintenance, 11/05/20 9:59:00 EDT, Tablet, [facility]/pharmacy #0838, Patient is allergic to blue dye. White tablet woul... Start Date: 11/05/20 Status: Ordered Metoprolol Succinate ER 100 mg oral tablet, extended release 1 tablet = 100 mg, By Mouth, Daily, # 90 tablet, 1 Refills, Maintenance, 12/07/19 9:45:00 EDT, [facility]/pharmacy #0838, 163, cm, 11/10/19 8:11:00 EDT, Height, [...] 11 Refills, Maintenance, 05/15/19 15:41:00 EDT, Ointment, [facility]/pharmacy #0838, 1 application Topically 3 times a day, 164, cm, 04/22/19 10:50:00 EST, Height, 102.5, kg, 03/10/19 22:47:00 EST, Dry Weight Start Date: 05/15/19 Status: Ordered nystatin topical 358878 u/gm powder See Instructions, APPLY TO AFFECTED AREA TWICE A DAY -PER DR BOWLING, # 30 Gm, 1 Refills, Acute, [facility], 7, APPLY TO AFFECTED AREA TWICE A [...] 3 Refills, Maintenance, 11/07/19 7:57:00 EDT, [facility], 163, cm, 08/11/19 15:02:00 EDT, Height, 105, [...] HAS ALLERGIES TO CERTAIN DYES. [facility] AWARE. Start Date: 05/26/18 Status: [...] negative for Casey's esophagus. Per patient's [place] 00719 [place] [facility] [place] Hazel 5Colonoscopy 2008 by patient report normal. 6tubular adenoma of colon repeat scrrening colonoscopy in 2020 7colo 2015 Social History Social History Type Response Smoking Status Former smoker; Other : Quit smoking 1983.; entered on: 08/21/15 Sex
--- OUTSIDE RECORDS SUMMARY | 2023-08-20 11:19 | XMS_ITS | Continuity of Care Document ---
Author Organization [facility] Address [address] [place] [address]- Care Team Providers Care Drawing In Machine Tender Helper Name Role Phone Destiny Capellan MD Primary Care Physician Encounter [facility] [place] Date(s): 05/01/21 - 08/02/21 [facility] [address] [place] [address] Attending Physician: Danna Eaton MD Referring Physician: Destiny Capellan MD Allergies, Adverse Reactions, Alerts Substance Reaction Severity Status ciprofloxacin hallucinations Persistent Severe Active sulfa drugs high temp and rash Persistent Severe Acti ve Compazine severe STARR Persistent Severe Active Decadron Pins and needles sensation A ctive cefuroxime Active amoxicillin Active gabapentin night terrors Persistent Severe Active Remeron swollen neck and rash Persistent Severe A ctive levofloxacin Heart Palpatations Persistent Severe Acti ve nitrates migraine STARR Persistent Severe Active Toradol Active Imitrex chest heaviness Persistent Severe Active Ultram generalized itching Persistent Severe Act krystal Depakote night terrors Persistent Severe Active Demerol HCl anaphylaxis Persistent Severe Active Chocolate migraine STARR Persistent Severe Active pantoprazole 1 Facial swelling Persistent Severe Activ e Abdominal pain Active Contrast Dye hives Persistent [...] FOR PAIN, # 12 tablet, 0 Refills, [facility] 49713,2, TAKE 1 TABLET BY MOUTH EVERY 4 [...] a day, PRN Wheezing/Shortness of Breath, FAX [phone] BOWLING J45.909 ASTHMA, # 360 mL, 11 Refills, Maintenance, 05/04/17 13:29:51, Inhalation Solution, 3 mL Inhalation 4 times a day,PRN:Wheezing/Shortness of Breath,I... Start Date: 05/04/17 Status: Ordered Asmanex Twisthaler 60 Dose 220 mcg/inh inhalation aerosol powder 1 puffs, Inhalation, 2 times a day, j44.9, # 1 each, 11 Refills, Maintenance, 07/28/21 17:15:00 EDT, Aerosol, [facility]/pharmacy #0838, Partial fill upon patient request if the prescription is for a schedule II opioid drug., 1 puffs Inhalation 2 times a day... Start Date: 07/28/21 Status: Ordered atorvastatin 20 mg oral tablet See Instructions, TAKE 1 TABLET BY MOUTH EVERY DAY, # 90 tablet, 2 Refills, Maintenance, [facility] 34650, 163, cm, 11/10/19 8:11:00 EDT, Height, 105, [...] Maintenance, 10/13/16 14:32:53, Route to Pharmacy Electronically, [id number], [facility]/pharmacy #0838 Start Date: 10/13/16 Status: [...] a day, # 180 tablet, 3 Refills, [facility] 20801, 162, cm, 07/03/20 11:05:00 EDT, Height, 99.8, [...] 07/18/20 10:58:00 EDT, Route to Pharmacy Electronically, [facility]/pharmacy #9125, Partial fill upon patient request if the... Start Date: 07/18/20 Status: Ordered LORazepam 1 mg oral tablet 1 tablet = 1 mg, By Mouth, 3 times a day, 0 Refills, Maintenance, 09/14/17 11:57:01 EDT, Tablet Start Date: 09/14/17 Status: Ordered magnesium oxide 400 mg oral tablet 1 tablet, By Mouth, Daily, # 30 tablet, 5 Refills, Acute, 10/02/20 11:46:00 EDT, [facility], 162, cm, 07/03/20 11:05:00 EDT, Height, 99.8, kg, 07/02/20 6:39:00 EDT, Dry Weight Start Date: 10/02/20 Status: Ordered meclizine 12.5 mg oral tablet 1 tablet = 12.5 mg, By Mouth, 3 times a day, PRN for motion sickness, has allergy to blue dye, white tabs only, # 30 tablet, 0 Refills, Maintenance, 11/05/20 9:59:00 EDT, Tablet, [facility]/pharmacy #0838, Patient is allergic to blue dye. White tablet woul... Start Date: 11/05/20 Status: Ordered Metoprolol Succinate ER 100 mg oral tablet, extended release 1 tablet = 100 mg, By Mouth, Daily, # 90 tablet, 1 Refills, Maintenance, 12/07/19 9:45:00 EDT, [facility]/pharmacy #0838, 163, cm, 11/10/19 8:11:00 EDT, Height, 105, kg, 08/11/19 15:02:00 EDT, Dry Weight Start Date: 12/07/19 Status: Ordered mupirocin 2% topical ointment 1 application, Topically, 3 times a day, # 30 Gm, 11 Refills, Maintenance, 05/15/19 15:41:00 EDT, [facility], 1 application Topically 3 times a day, 164, cm, 04/22/19 10:50:00 EST, Height, 102.5, kg, 03/10/19 22:47:00 EST, Dry Weight Start Date: 05/15/19 Status: Ordered nystatin topical 826560 u/gm powder See Instructions, APPLY TO AFFECTED AREA TWICE A DAY -PER DR BOWLING, # 30 Gm, 1 Refills, Acute, [facility] 70561, 7, APPLY TO AFFECTED AREA TWICE A [...] 3 Refills, Maintenance, 11/07/19 7:57:00 EDT, [facility], 163, cm, 08/11/19 15:02:00 EDT, Height, 105, [...] EDT, PT HAS ALLERGIES TO CERTAIN DYES. [facility] AWARE. Start Date: 05/26/18 Status: [...] negative for Casey's esophagus. Per patient's [place] 27270 [place] [facility] [place] Hazel 5Colonoscopy 2008 by patient report normal. 6tubular adenoma of colon repeat scrrening colonoscopy in 2020 7colo 2016 Social History Social History Type Response Smoking Status Former smoker; Other : Quit smoking 1983.; entered on: 08/21/15 Sex
--- OUTSIDE RECORDS SUMMARY | 2023-08-20 11:19 | XMS_ITS | Continuity of Care Document ---
Author Organization [facility] Address [address] [place] [address]- Care Team Providers Care Lithographic Printing Machinist Name Role Phone Marilia HARE, Destiny Gibbs Primary Care Physician Encounter [facility] [place] [id number] Date(s): 07/16/20 - 08/15/[address] [address] Attending Physician: Not on Staff, Attending MD Admitting Physician: Not on Staff, Admitting MD Referring Physician: Not on Staff, Referring MD [...] tablet, 0 Refills, Maintenance, 06/26/20 11:00:00 EDT, [facility]/pharmacy #0838, 3, 1 tablet By Mouth Every 4 hours,PRN: NEEDED FOR PAIN, 163, cm, 04/22/20 14:51:00 EST, Height, 105, kg, 07/23... Start Date: 06/26/20 Status: Ordered acyclovir 400 mg oral tablet 1 tablet, By Mouth, 2 times a day, # 180 tablet, 1 Refills, Maintenance, 01/09/20 10:00:00 EST, [facility]/pharmacy #0838, 163, cm, 11/10/19 8:11:00 EDT, Height, 105, kg, 08/11/19 15:02:00 EDT, Dry Weight Start Date: 01/09/20 Status: Ordered albuterol-ipratropium 3 mg-0.5 mg/3 ml inhalation solution 3 mL, Inhalation, 4 times a day, PRN Wheezing/Shortness of Breath, FAX [phone] BOWLING J45.909 ASTHMA, # 360 [...] # 90 tablet, 2 Refills, Maintenance, [facility] 22180, 163, cm, 11/10/19 8:11:00 EDT, Height, 105, [...] Maintenance, 10/13/16 14:32:53, Route to Pharmacy Electronically, [id number], [facility]/pharmacy #0838 Start Date: 10/13/16 Status: Ordered COENZYME [...] 2 hours Start Date: 11/23/17 Status: Ordered fluconazole 150 mg oral tablet See Instructions, TAKE 1 TABLET BY MOUTH ONCE, # 1 tablet, 0 Refills, Soft Stop, [facility] 270[facility], 163, cm, 04/22/20 14:51:00 EST, Height, 105, [...] 10:58:00 EDT, Route to Pharmacy Electronically, [facility]/pharmacy #0838, Partial fill upon patient request if [...] 0 Refills, Maintenance, 04/07/19 10:10:00 EST, Tablet, [facility]/pharmacy #0838, Patient is allergic to blue dye. White tablet would be preferrable., 163, cm, 04/07/19 9:43:0... Start Date: 04/07/19 Status: Ordered Metoprolol Succinate ER 100 mg oral tablet, extended release 1 tablet = 100 mg, By Mouth, Daily, # 90 tablet, 1 Refills, Maintenance, 12/07/19 9:45:00 EDT, [facility]/pharmacy #0838, 163, cm, 11/10/19 8:11:00 EDT, Height, [...] Refills, Maintenance, 05/15/19 15:41:00 EDT, Ointment, [facility]/pharmacy #0838, 1 application Topically 3 times a day, 164, cm, 04/22/19 10:50:00 EST, Height, 102.5, kg, 03/10/19 22:47:00 EST, Dry Weight Start Date: 05/15/19 Status: Ordered nystatin topical 330656 u/gm powder See Instructions, APPLY TO AFFECTED AREA TWICE A DAY -PER DR BOWLING, # 30 Gm, 1 Refills, Acute, [facility]80, 7, APPLY TO AFFECTED AREA TWICE A [...] 3 Refills, Maintenance, 11/07/19 7:57:00 EDT, [facility], 163, cm, 08/11/19 15:02:00 EDT, Height, 105, [...] PT HAS ALLERGIES TO CERTAIN DYES. [facility]. Start Date: 05/26/18 Status: Ordered Zyrtec [...] negative for Casey's esophagus. Per patient's report [address] - [facility] [place] Margarette Hazel [address]; repeat 2020 6Colonoscopy 2008 by patient report normal. 7tubular adenoma of colon repeat scrrening colonoscopy in 2020 8colo 2015 Social History Social History Type Response Smoking Status Former smoker; Other : Quit smoking 1983.; entered on: 08/21/15 Sex
--- OUTSIDE RECORDS SUMMARY | 2023-08-20 11:19 | XMS_ITS | Continuity of Care Document ---
Author Organization [facility] Address [address] [place] [address]- Care Team Providers Care Bankman Name Role Phone Marilia HARE, Destiny Gibbs Primary Care Physician [phone] Encounter [facility] [place] Date(s): 09/12/19 - 10/12/19 [facility] [address] [place] [address]- [facility] Allergies, Adverse Reactions, Alerts Substance Reaction Severity [...] 0 Refills, Maintenance, 10/11/19 16:02:00 EDT, [facility]/pharmacy #0838, 1 tablet By Mouth Every 4 hours,PRN: NEEDED, 163, cm, 08/11/19 15:02:00 EDT, Height, 105, kg, 08/11/19 15:02:00 EDT, . Start Date: 10/11/19 Status: Ordered acyclovir 400 mg oral tablet 1 tablet = 400 mg, By Mouth, 2 times a day, # 20 tablet, 3 Refills, Soft Stop, 09/12/19 16:08:00 EDT, [facility]/pharmacy #0838, 163, cm, 08/11/19 15:02:00 EDT, Height, 105, kg, 08/11/19 15:02:00 EDT, Dry Weight Start Date: 09/12/19 Status: Ordered albuterol-ipratropium 3 mg-0.5 mg/3 ml inhalation solution 3 mL, Inhalation, 4 times a day, PRN Wheezing/Shortness of Breath, FAX [phone] BOWLING J45.909 ASTHMA, # 360 mL, 11 Refills, Maintenance, 05/04/17 13:29:51, Inhalation Solution, 3 mL Inhalation 4 times a day,PRN:Wheezing/Shortness of Breath,I... Start Date: 05/04/17 Status: Ordered atorvastatin 20 mg oral tablet 1 tablet = 20 mg, By Mouth, Daily, # 90 tablet, 1 Refills, Maintenance, 06/18/19 11:32:00 EDT, Tablet, [facility]/pharmacy #0838, 164, cm, 04/22/19 10:50:00 EST, [...] Maintenance, 10/13/16 14:32:53, Route to Pharmacy Electronically, [id number], [facility]/pharmacy #0838 Start Date: 10/13/16 Status: Ordered Coenzyme Q10 30 mg oral capsule 1 capsule = 30 mg, By Mouth, Daily, # 30 capsule, 5 Refills, Maintenance, 06/12/19 15:10:00 EDT, Capsule, [facility]/pharmacy #0838, 164, cm, 04/22/19 10:50:00 EST, [...] Refills, Maintenance, 08/17/19 9:51:00 EDT, Suspension, [facility]/pharmacy #0838, 163, cm, 08/11/19 15:02:00 EDT, Height, 105, kg, 08/11/19 15:02:00 EDT, Dry Weight Start Date: 08/17/19 Stop Date: 08/11/20 Status: Ordered Flonase 50 mcg/inh nasal spray 1 sprays, Nares, Both, 2 times a day, # 16 Gm, 11 Refills, Maintenance, 07/01/18 11:47:12 EDT, [place], 1 sprays Nares, Both 2 times a [...] By Mouth, Daily, # 30 tablet, Refills 1, Tot. Refills 1, Maintenance, 09/27/19 10:14:00 EDT, Route to Pharmacy Electronically, [facility]/pharmacy #0838, 163, cm, 08/11/19 15:02:00 EDT, Height, 105, kg, 08/11/19 15:02:00 EDT, Dry Weight Start Date: 09/27/19 Status: Ordered LORazepam 1 mg oral tablet [...] 12/09/19 15:12:00 EDT, 06/12/19 15:12:00 EDT, [facility]/pharmacy #0838, 164, cm, 04/22/19 10:50:00 EST, Height, 102.5, kg, 03/10/19 22:47:00 EST, Dry Weight Start Date: 06/12/19 Stop Date: 12/09/19 Status: Ordered meclizine 12.5 mg oral tablet 1 tablet = 12.5 mg, By Mouth, 3 times a day, PRN for motion sickness, # 30 tablet, 0 Refills, Maintenance, 04/07/19 10:10:00 EST, Tablet, [facility]/pharmacy #0838, Patient is allergic to blue dye. White tablet would be preferrable., 163, cm, 04/07/19 9:43:0... Start Date: 04/07/19 Status: Ordered Metoprolol Succinate ER 100 mg oral tablet, extended release 1 tablet = 100 mg, By Mouth, Daily, # 90 tablet, 1 Refills, Maintenance, 06/13/19 12:04:00 EDT, [facility]/pharmacy #0838, 164, cm, 04/22/19 10:50:00 EST, Height, 102.5, kg, 03/10/19 22:47:00 EST, Dry Weight Start Date: 06/13/19 Status: Ordered mupirocin 2% topical ointment 1 application, Topically, 3 times a day, # 30 Gm, 11 Refills, Maintenance, 05/15/19 15:41:00 EDT, Ointment, [facility]/pharmacy #0838, 1 application Topically 3 times a day, 164, cm, 04/22/19 10:50:00 EST, Height, 102.5, kg, 03/10/19 22:47:00 EST, Dry Weight Start Date: 05/15/19 Status: Ordered nystatin topical 332629 u/gm powder See Instructions, 1 APPLICATION TOPICALLY 2 TIMES A DAY,INSTR:PER DR BOWLING, # 30 Gm, 1 Refills, Soft Stop, 07/20/19 13:27:00 EDT, [facility]/pharmacy #0838, 1 APPLICATION TOPICALLY 2 TIMES [...] mL, 0 Refills,Maintenance, 08/21/19 11:24:00 EDT, [facility]/pharmacy #0838, By Mouth take one stat and take one 90 minutes before exam., 163, cm, 08/11/19 15:02:00 EDT, He... Start Date: 08/21/19 Status: Ordered riboflavin 100 mg oral tablet 2 tablet = 200 mg, By Mouth, 2 times a day with meals, # 120 tablet, 5 Refills, Maintenance, 06/12/19 15:11:00 EDT, Tablet, [facility]/pharmacy #0838, 164, cm, 04/22/19 10:50:00 EST, [...] PUFFS BY MOUTH 4 TIMES A DAY, [facility]/pharmacy #0838 Start Date: 01/11/19 Status: Ordered [...] negative for Casey's esophagus. Per patient's report 156[address] - [facility] [place] Haz[place] [address]; repeat 2020 6Colonoscopy 2008 by patient report normal. 7tubular adenoma of colon repeat scrrening colonoscopy in 2020 8colo 2015 Social History Social History Type Response Smoking Status Former smoker; Other : Quit smoking 1983.; entered on: 08/21/15 Sex
--- OUTSIDE RECORDS SUMMARY | 2023-08-20 11:19 | XMS_ITS | Continuity of Care Document ---
Author Organization [facility] Address [address] [place] [address]- Care Team Providers Care Machine Featheredger And Reducer Name Role Phone Destiny Capellan MD Primary Care Physician Encounter 05/14/22 - 05/21/22 [facility] [address], [address] [place] [address]- Attending Physician: Destiny Capellan MD Admitting Physician: Destiny Capellan MD Referring Physician: Destiny Capellan MD Allergies, Adverse Reactions, Alerts Substance Reaction Severity Status ciprofloxacin hallucinations Persistent Severe Active Toradol Active Imitrex chest heaviness Persistent Severe Active Ultram generalized itching Persistent Severe Act krystal Compazine severe STARR Persistent Severe Active Depakote night terrors Persistent Severe Active cefuroxime Active amoxicillin Active gabapentin night terrors Persistent Severe Active Remeron swollen neck and rash Persistent Severe A ctive levofloxacin Heart Palpatations Persistent Severe Acti ve sulfa drugs high temp and rash Persistent Severe Acti ve nitrates migraine STARR Persistent Severe Active Decadron Pins and needles sensation A ctive Demerol HCl anaphylaxis Persistent Severe Active pantoprazole [...] PAIN, # 12 tablet, 0 Refills, Maintenance, 04/23/22 8:57:00 EST, [facility]/pharmacy #[id number], 2, 1 tablet By Mouth Every 4 hours,PRN: NEEDED FOR PAIN, 164, cm, 04/16/22 11:03:00 EST, Height, 98.8, kg, 05/23... Start Date: 04/23/22 Status: Ordered acyclovir 400 mg oral tablet 1 tablet, By Mouth, 2 times a day, # 180 tablet, 1 Refills, Maintenance, 06/09/21 12:56:00 EDT, [facility]/pharmacy #0838, 164, cm, 06/02/21 7:57:00 EDT, Height, 98.8, kg, 06/01/21 18:26:00 EDT, Dry Weight Start Date: 06/09/21 Status: Ordered albuterol-ipratropium 3 mg-0.5 mg/3 ml inhalation solution 3 mL, Inhalation, 4 times a day, # 30 each, 0 Refills, Maintenance, 06/02/21 10:30:00 EDT, Solution, [facility]/pharmacy #0838, Partial fill upon patient request if the prescription is for a schedule II opioid drug., 3 mL Inhalation 4 times a day, 164, cm, 0... Start Date: 06/02/21 Status: Ordered albuterol-ipratropium 3 mg-0.5 mg/3 ml inhalation solution 3 mL, Inhalation, 4 times a day, PRN Wheezing/Shortness of Breath, FAX [phone] BOWLING J45.909 ASTHMA, # 360 mL, 11 Refills, Maintenance, 05/04/17 13:29:51, Inhalation Solution, 3 mL Inhalation 4 times a day,PRN:Wheezing/Shortness of Breath,I... Start Date: 05/04/17 Status: Ordered atorvastatin 20 mg oral tablet 1 tablet, By Mouth, Daily, # 90 tablet, 1 Refills, Maintenance, 03/23/22 21:16:00 EST, [id number], 164, cm, 01/27/22 10:37:00 EST, Height, 98.8, [...] 11 Refills, Maintenance, 05/11/22 12:46:00 EDT, Powder, [facility]/pharmacy #0838, Partial fill upon patient request [...] a day, # 180 tablet, 3 Refills, [facility], 162, cm, 07/03/20 11:05:00 EDT, Height, 99.8, [...] 07/18/20 10:58:00 EDT, Route to Pharmacy Electronically, [facility]/pharmacy #8174, Partial fill upon patient request if the... Start Date: 07/18/20 Status: Ordered LORazepam 1 mg oral tablet 1 tablet = 1 mg, By Mouth, 3 times a day, 0 Refills, Maintenance, 09/14/17 11:57:01 EDT, Tablet Start Date: 09/14/17 Status: Ordered magnesium oxide 400 mg oral tablet 1 tablet, By Mouth, Daily, # 30 tablet, 5 Refills, Acute, 10/02/20 11:46:00 EDT, [facility] STORE 36984, 162, cm, 07/03/20 11:05:00 EDT, Height, 99.8, kg, 07/02/20 6:39:00 EDT, Dry Weight Start Date: 10/02/20 Status: Ordered meclizine 12.5 mg oral tablet 1 tablet = 12.5 mg, By Mouth, 3 times a day, PRN for motion sickness, has allergy to blue dye, white tabs only, # 30 tablet, 0 Refills, Maintenance, 11/05/20 9:59:00 EDT, Tablet, [facility]/pharmacy #0838, Patient is allergic to blue dye. White tablet woul... Start Date: 11/05/20 Status: Ordered Metoprolol Succinate ER 100 mg oral tablet, extended release 1 tablet = 100 mg, By Mouth, Daily, # 30 tablet, 0 Refills, Maintenance, 09/24/21 9:49:00 EDT, [facility]/pharmacy #0838, 164, cm, 06/30/21 11:07:00 EDT, Height, 98.8, kg, 06/01/21 18:26:00 EDT, Dry Weight Start Date: 09/24/21 Status: Ordered mupirocin 2% topical ointment 1 application, Topically, 3 times a day, # 30 Gm, 11 Refills, Maintenance, 05/15/19 15:41:00 EDT, [facility], 1 application Topically 3 times a day, 164, cm, 04/22/19 10:50:00 EST, Height, 102.5, kg, 03/10/19 22:47:00 EST, Dry Weight Start Date: 05/15/19 Status: Ordered nystatin topical 773713 u/gm powder See Instructions, APPLY TO AFFECTED AREA TWICE A DAY -PER DR BOWLING, # 30 Gm, 1 Refills, Acute, [facility] 12[facility], 7, APPLY TO AFFECTED AREA TWICE A [...] 01/14/13 2:05:48 Start Date: 01/14/13 Status: Ordered Spiriva Respimat 1.25 mcg/inh inhalation aerosol 2 puffs, Inhalation, Daily, # 4 Gm, 11 Refills, Maintenance, 01/27/22 11:01:00 EST, Aerosol, [facility]/pharmacy #0838, Partial fill upon patient request if the prescription is for a schedule II opioid drug., 164, cm, 01/27/22 10:37:00 EST, Height, 98.8, kg,... Start Date: 01/27/22 Status: Ordered triamcinolone 0.025% topical cream 1 [...] 3 Refills, Maintenance, 11/07/19 7:57:00 EDT, [facility], 163, cm, 08/11/19 15:02:00 EDT, Height, 105, [...] EDT, PT HAS ALLERGIES TO CERTAIN DYES. [facility]. Start Date: 05/26/18 Status: Ordered Zyrtec 10 mg oral tablet 1 tablet = 10 mg, By Mouth, Daily, 0 Refills, Maintenance, 01/14/13 1:54:06, Tablet Start Date: 11/23/13 Status: Ordered Problem List Condition Confirmation Course Effective Dates Status Health Status Informant Allergic rhinitis Confirmed Active Temporomandibular joint (TMJ) pain Confirmed Active Arthritis of hand Confirmed Active Asthma Confirmed Active BMI 40.0-44.9, adult Confirmed Active Carpal tunnel syndrome 1 Confirmed Active Chronic fatigue syndrome Confirmed Active Chronic tension-type headache Confirmed Active Depressive disorder Confirmed Active Diverticular disease Confirmed Active Diverticulitis Confirmed Active NSAID long-term use Confirmed Active External hemorrhoids 2 Confirmed Active Fibromyositis Confirmed Active Gastroesophageal reflux disease 3 Confirmed Active Generalized anxiety disorder Confirmed Active History of incisional hernia repair 4 Confirmed Active Herpes Confirmed Active History of total hysterectomy Confirmed Active Hypercholesterolemia Confirmed Active Hypertensive disorder Confirmed Active Knee pain, bilateral Confirmed Active Menopausal symptom Confirmed Active Chronic migraine Confirmed Active Chronic nausea Confirmed Active Osteoarthritis Confirmed Active Past history of procedure-colonoscopy 5 Confirmed Active Polyp of colon 6, 7 Confirmed Active Posttraumatic stress disorder Confirmed Active Severe obesity (BMI 35.0-39.9) with comorbidity Confirmed Active 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 Per patient's report [id number] - [facility] [place] - Dr. Hazel 5Colonoscopy 2008 by patient report normal. 6tubular adenoma of colon repeat scrrening colonoscopy in 2020 7colo 2015 Results Radiology Reports * Exam Date Time Procedure Performing Provider Status 05/14/22 11:12 AM MM Digital Mammo Screening Mal Dunham henry; Auth (Verified) Notes: (MM Digital Mammo Screening) Reason For Exam: Z12.31 SCREENING RESULT: MM Digital Mammo Screening PROCEDURE: MM Digital Mammo Screening INDICATION: Screening for breast cancer. No known palpable abnormalities. COMPARISON: Multiple priors TECHNIQUE: Full-field digital CC and MLO 3D tomosynthesis images of both breasts were acquired. Computer-aided detection (CAD) was utilized in the interpretation of this study. DENSITY: The breast tissue contains scattered areas of fibroglandular density. FINDINGS: No suspicious masses, suspicious microcalcifications, or areas of architectural distortion are seen in either breast to suggest malignancy. Stable bilateral nodular pattern. Biopsy clip in the LEFT breast. IMPRESSION: No mammographic evidence of malignancy. RECOMMENDATION: Routine mammographic screening BI-RADS: 2 (Benign) Lay letter mailed to patient WSN: [id number] Ordering Physician: Destiny Capellan Dictated By: Anne-Marie Campa MD, V Dictated Date/Time: 05/14/22 11:46 am Reviewed By: Anne-Marie Campa MD, V Signed By: Anne-Marie Campa MD, V Signed Date/Time: 05/14/22 11:46 am Transcribed By: DANIELLA Medical Administrator Date/Time: 05/14/22 11:42 am Birads: Social History Social History Type Response Smoking Status Former smoker; Other : Quit smoking 1983.; entered on: 08/21/15 Sex MG Breast Screening * [facility] , CIS S: TRANSCRIBE Anne-Marie Campa MD, V: VERIFY Event Display: Result: Authored Date: [id number] PROCEDURE: MM Digital Mammo Screening INDICATION: Screening for breast cancer. No known palpable abnormalities. COMPARISON: Multiple priors TECHNIQUE: Full-field digital CC and MLO 3D tomosynthesis images of both breasts were acquired. Computer-aided detection (CAD) was utilized in the interpretation of this study. DENSITY: The breast tissue contains scattered areas of fibroglandular density. FINDINGS: No suspicious masses, suspicious microcalcifications, or areas of architectural distortion are seen in either breast to suggest malignancy. Stable bilateral nodular pattern. Biopsy clip in the LEFT breast. IMPRESSION: No mammographic evidence of malignancy. RECOMMENDATION: Routine mammographic screening BI-RADS: 2 (Benign) Lay letter mailed to patient WSN: [id number] Ordering Physician: Destiny Capellan Dictated By: Anne-Marie Campa MD, V Dictated Date/Time: 05/14/22 11:46 am Reviewed By: Anne-Marie Campa MD, V Signed By: Anne-Marie Campa MD, V Signed Date/Time: 05/14/22 11:46 am Transcribed By: DANIELLA Medical Administrator Date/Time: 05/14/22 11:42 am Birads: Patient Care team information Care Team Personnel Name: Matthew Julio RN Position: S RN Member Role: Primary Care Nurse Name: Ashley Akers RN Position: S RN Member Role: Primary Care Nurse Name: Destiny Capellan MD Position: S Primary Care Physician Member Role: PCP Address: Address: [address] [place] [address]- [place] Name: Evelyn Hernandez RN Position: [facility] RN Member Role: Primary Care Nurse Name: Zahira Davis RN Position: [facility] RN Member Role: Primary Care Nurse Name: Ashley Aguilar NP Position: Reference Physician Member Role: Primary Care Nurse Address: Address: [address] [place] [address]- [place] Name: Joe Sullivan RN Position: [facility] Patient Resource Specialist Member Role: Primary Care Nurse Care Team Related Persons Name: ROOPA LENY Address: home [address] [place] [address] Name: LAURA CALL Address: home [address] [place] [address]
--- OUTSIDE RECORDS SUMMARY | 2023-08-20 11:19 | XMS_ITS | Continuity of Care Document ---
Author Organization [facility] Address [address] [place] [address]- Care Team Providers Care Community Education Specialist Name Role Phone Narda Solaers MD Primary Care Physician Encounter [facility] Date(s): 11/24/22 - 12/24/22 [facility] [address] [place] [address]- Attending Physician: Mayra Franz Admitting Physician: Mayra Franz Referring Physician: AdmMayra clark Allergies, Adverse Reactions, Alerts Substance Reaction Severity Status ciprofloxacin hallucinations Persistent Severe Active Toradol Active Remeron swollen neck and rash Persistent Severe A ctive cefuroxime Active amoxicillin Active gabapentin night terrors Persistent Severe Active levofloxacin Heart Palpatations Persistent Severe Acti ve sulfa drugs high temp and rash Persistent Severe Acti ve nitrates migraine STARR Persistent Severe Active Imitrex [...] PAIN, # 12 tablet, 0 Refills, Maintenance, 12/16/22 12:10:00 EDT, [facility], TAKE 1 TABLET BY MOUTH EVERY 4HOURS NEEDED FOR PAIN,PRN:Headache, 163, cm, ... Start Date: 12/16/22 Status: Ordered acyclovir 400 mg oral tablet [...] 10/23/22 8:48:00 EDT, Route to Pharmacy Electronically, [facility]/pharmacy #0838, pt has allergies to yellow and blue dye, 163, cm, 08/27/22 12:58:00 EDT, Height, 107.3,... Start Date: 10/23/22 Stop Date: 10/18/23 Status: Ordered atorvastatin 20 mg oral tablet 1 tablet, By Mouth, Daily, # 90 tablet, 1 Refills, Maintenance, 03/23/22 21:16:00 EST, [facility] STORE 14568, 164, cm, 01/27/22 10:37:00 EST, Height, 98.8, [...] Gm, 1 Refills, Maintenance, 10/22/22 12:39:00 EDT, [facility]/pharmacy #0838, Partial fill upon patient request if the prescription is for a schedule II opioid drug., 1 sprays Nares, Both 2 anne... Start Date: 10/22/22 Status: Ordered Breo Ellipta 200 mcg-25 mcg/inh inhalation powder 1 puffs, Inhalation, Daily, # 1 each, 11 Refills, Maintenance, 05/11/22 12:46:00 EDT, Powder, [facility]/pharmacy #0838, Partial fill upon patient request if [...] a day, # 180 tablet, 3 Refills, [place] [facility] 84[facility], 162, cm, 07/03/20 11:05:00 EDT, Height, 99.8, [...] 100 Unknown, 3 Refills, Maintenance, TEST ONCE [id number], 06/08/22 8:32:00 EDT, 163, cm, 06/05/22 16:25:00 [...] 3 Refills, Maintenance, 06/26/22 10:29:00 EDT, Tablet, [facility]/pharmacy #0838, Partial fill upon patient request if [...] Refills, Acute, 10/02/20 11:46:00 EDT, [facility], 162, cm, 07/03/20 11:05:00 EDT, Height, 99.8, kg, 07/02/20 6:39:00 EDT, Dry Weight Start Date: 10/02/20 Status: Ordered meclizine 12.5 mg oral tablet 1 tablet = 12.5 mg, By Mouth, 3 times a day, PRN for motion sickness, has allergy to blue dye, white tabs only, # 30 tablet, 0 Refills, Maintenance, 11/05/20 9:59:00 EDT, Tablet, [facility]/pharmacy #0838, Patient is allergic to blue dye. White tablet woul... Start Date: 11/05/20 Status: Ordered Metoprolol Succinate ER 100 mg oral tablet, extended release 1 tablet = 100 mg, By Mouth, Daily, # 30 tablet, 0 Refills, Maintenance, 09/24/21 9:49:00 EDT, [facility]/pharmacy #0838, 164, cm, 06/30/21 11:07:00 EDT, Height, 98.8, kg, 06/01/21 18:26:00 EDT, Dry Weight Start Date: 09/24/21 Status: Ordered mupirocin 2% topical ointment 1 application, Topically, 3 times a day, # 30 Gm, 11 Refills, Maintenance, 05/15/19 15:41:00 EDT, Ointment, [facility]/pharmacy #0838, 1 application Topically 3 times a day, 164, cm, 04/22/19 10:50:00 EST, Height, 102.5, kg, 03/10/19 22:47:00 EST, Dry Weight Start Date: 05/15/19 Status: Ordered nystatin topical 895880 u/gm powder See Instructions, APPLY TO AFFECTED AREA TWICE A DAY -PER DR BOWLING, # 30 Gm, 1 Refills, Acute, [facility] STORE 55385, 7, APPLY TO AFFECTED AREA TWICE A [...] Refills, Maintenance, 08/11/22 14:46:00 EDT, Solution, [facility], Partial fill upon patient request ifthe prescription [...] 3 Refills, Maintenance, 11/07/19 7:57:00 EDT, [facility], 163, cm, 08/11/19 15:02:00 EDT, Height, 105, [...] Team Personnel Name: Matthew Julio RN Position: [facility] RN Member Role: Primary Care Nurse Name: Ashley Akers RN Position: [facility] RN Member Role: Primary Care Nurse Name: Evelyn Hernandez RN Position: [facility] RN Member Role: Primary Care Nurse Name: Zahira Davis RN Position: [facility] RN Member Role: Primary Care Nurse Name: Ashley Aguilar NP Position: Reference Physician Member Role: Primary Care Nurse Address: Address: [address] [place] [address]- [place] Name: Narda Solares MD Position: [facility] Physician - Primary Care Member Role: PCP Address: Address: [address] [place] [address]- [place] Name: Joe Sullivan RN Position: [facility] Hospital Director Security Management Member Role: Primary Care Nurse Care Team Related Persons Name: ROOPA LENY Address: home [address] [place] [address] Name: LAURA CALL Address: home [address] [address]
--- OUTSIDE RECORDS SUMMARY | 2023-08-20 11:19 | XMS_ITS | Continuity of Care Document ---
Author Organization [facility] Address [address] [place] [address]- Care Team Providers Care Spout Tender Name Role Phone Marilia HARE, Destiny Gibbs Primary Care Physician Encounter [facility] ACCT R [id number] Date(s): 06/12/19 - 06/19/19 [facility] [address] [place] [address]- [facility] Attending Physician: Sendy Rizvi MD Allergies, Adverse Reactions, Alerts Substance Reaction [...] Activ e Abdominal pain Active Chocolate migraine SATRR Persistent Severe Active Contrast Dye hives Persistent [...] tablet, 0 Refills, Maintenance, 06/13/19 13:51:00 EDT, [facility]/pharmacy #0838, 5, 1 tablet By Mouth Every 4 hours,PRN: NEEDED, 164, cm, 04/22/19 10:50:00 EST, Height, 102.5, kg, 03/10/19 22:47:00 ES... Start Date: 06/13/19 Status: Ordered acyclovir 400 mg oral tablet 1 tablet = 400 mg, By Mouth, 2 times a day, # 20 tablet, 3 Refills, Soft Stop, 04/22/19 11:05:00 EST, [facility]/pharmacy #0838, 164, cm, 04/22/19 10:50:00 EST, Height, 102.5, kg, 03/10/19 22:47:00 EST, DryWeight Start Date: 04/22/19 Status: Ordered albuterol-ipratropium 3 mg-0.5 mg/3 ml inhalation solution 3 mL, Inhalation, 4 times a day, PRN Wheezing/Shortness of Breath, FAX [phone] BOWLING J45.909 ASTHMA, # 360 mL, 11 Refills, Maintenance, 05/04/17 13:29:51, Inhalation Solution, 3 mL Inhalation 4 times a day,PRN:Wheezing/Shortness of Breath,I... Start Date: 05/04/17 Status: Ordered atorvastatin 20 mg oral tablet 1 tablet = 20 mg, By Mouth, Daily, # 90 tablet, 1 Refills, Maintenance, 06/18/19 11:32:00 EDT, Tablet, [facility]/pharmacy #0838, 164, cm, 04/22/19 10:50:00 EST, [...] Maintenance, 10/13/16 14:32:53, Route to Pharmacy Electronically, [id number], [facility]/pharmacy #0838 Start Date: 10/13/16 Status: Ordered Coenzyme Q10 30 mg oral capsule 1 capsule = 30 mg, By Mouth, Daily, # 30 capsule, 5 Refills, Maintenance, 06/12/19 15:10:00 EDT, Capsule, [facility]/pharmacy #0838, 164, cm, 04/22/19 10:50:00 EST, [...] Gm, 11 Refills, Maintenance, 07/01/18 11:47:12 EDT, [place], 1 sprays Nares, Both 2 times a [...] 05/22/19 10:20:00 EDT, Route to Pharmacy Electronically, [facility]/pharmacy #0838, 164, cm, 04/22/19 10:50:00 EST, [...] Acute 12/09/19 15:12:00 EDT, 06/12/19 15:12:00 EDT, [facility]/pharmacy #0838, 164, cm, 04/22/19 10:50:00 EST, Height, 102.5, kg, 03/10/19 22:47:00 EST, Dry Weight Start Date: 06/12/19 Stop Date: 12/09/19 Status: Ordered meclizine 12.5 mg oral tablet 1 tablet = 12.5 mg, By Mouth, 3 times a day, PRN for motion sickness, # 30 tablet, 0 Refills, Maintenance, 04/07/19 10:10:00 EST, Tablet, [facility]/pharmacy #0838, Patient is allergic to blue dye. White tablet would be preferrable., 163, cm, 04/07/19 9:43:0... Start Date: 04/07/19 Status: Ordered Metoprolol Succinate ER 100 mg oral tablet, extended release 1 tablet = 100 mg, By Mouth, Daily, # 90 tablet, 1 Refills, Maintenance, 06/13/19 12:04:00 EDT, [facility]/pharmacy #0838, 164, cm, 04/22/19 10:50:00 EST, [...] Start Date: 05/15/19 Status: Ordered nystatin topical [id number] u/gm powder See Instructions, 1 APPLICATION TOPICALLY 2 TIMES A DAY,INSTR:PER DR BOWLING, # 30 Gm, 1 Refills, Soft Stop, 05/17/19 10:22:00 EDT, [facility]/pharmacy #0838, 1 APPLICATION TOPICALLY 2 TIMES [...] 5 Refills, Maintenance, 06/12/19 15:11:00 EDT, Tablet, [facility]/pharmacy #0838, 164, cm, 04/22/19 10:50:00 EST, [...] PUFFS BY MOUTH 4 TIMES A DAY, [facility]/pharmacy #0838 Start Date: 01/11/19 Status: Ordered [...] negative for Casey's esophagus. Per patient's report [address] - [facility] Margarette Hazel [id number]; repeat 2020 6Colonoscopy 2008 by patient report normal. 7tubular adenoma of colon repeat scrrening colonoscopy in 2020 8colo 2015 Social History Social History Type Response Smoking Status Former smoker; Other : Quit smoking 1983.; entered on: 08/21/15 Sex
--- OUTSIDE RECORDS SUMMARY | 2023-08-20 11:19 | XMS_ITS | Continuity of Care Document ---
Author Organization [facility] Address [address], [address], [address] [place] [address]- Care Team Providers Care Trial Attorney Name Role Phone Marilia HARE, Destiny Gibbs Primary Care Physician [phone] Encounter [facility] [place] ACCT R [id number] Date(s): 04/05/19 - 07/12/19 [facility] [address], [address], [address] [place] [address]- [facility] Attending Physician: Sim Parra NP Admitting Physician: Sim Parra NP Referring Physician: Destiny Capellan MD Allergies, Adverse [...] tablet, 0 Refills, Maintenance, 06/13/19 13:51:00 EDT, [facility]/pharmacy #0838, 5, 1 tablet By Mouth [...] a day, PRN Wheezing/Shortness of Breath, FAX [phone] BOWLING J45.909 ASTHMA, # 360 mL, 11 Refills, Maintenance, 05/04/17 13:29:51, Inhalation Solution, 3 mL Inhalation 4 times a day,PRN:Wheezing/Shortness of Breath,I... Start Date: 05/04/17 Status: Ordered atorvastatin 20 mg oral tablet 1 tablet = 20 mg, By Mouth, Daily, # 90 tablet, 1 Refills, Maintenance, 06/18/19 11:32:00 EDT, Tablet, [facility]/pharmacy #0838, 164, cm, 04/22/19 10:50:00 EST, [...] Maintenance, 10/13/16 14:32:53, Route to Pharmacy Electronically, [id number], [facility] Start Date: 10/13/16 Status: Ordered [...] Gm, 11 Refills, Maintenance, 07/01/18 11:47:12 EDT, [place], 1 sprays Nares, Both 2 times a [...] 05/22/19 10:20:00 EDT, Route to Pharmacy Electronically, [facility]/pharmacy #0838, 164, cm, 04/22/19 10:50:00 EST, [...] Acute 12/09/19 15:12:00 EDT, 06/12/19 15:12:00 EDT, [facility]/pharmacy #0838, 164, cm, 04/22/19 10:50:00 EST, Height, 102.5, kg, 03/10/19 22:47:00 EST, Dry Weight Start Date: 06/12/19 Stop Date: 12/09/19 Status: Ordered meclizine 12.5 mg oral tablet 1 tablet = 12.5 mg, By Mouth, 3 times a day, PRN for motion sickness, # 30 tablet, 0 Refills, Maintenance, 04/07/19 10:10:00 EST, Tablet, [facility]/pharmacy #0838, Patient is allergic to blue dye. White tablet would be preferrable., 163, cm, 04/07/19 9:43:0... Start Date: 04/07/19 Status: Ordered Metoprolol Succinate ER 100 mg oral tablet, extended release 1 tablet = 100 mg, By Mouth, Daily, # 90 tablet, 1 Refills, Maintenance, 06/13/19 12:04:00 EDT, [facility]/pharmacy #0838, 164, cm, 04/22/19 10:50:00 EST, Height, 102.5, kg, 03/10/19 22:47:00 EST, Dry Weight Start Date: 06/13/19 Status: Ordered mupirocin 2% topical ointment 1 application, Topically, 3 times a day, # 30 Gm, 11 Refills, Maintenance, 05/15/19 15:41:00 EDT, Ointment, [facility]/pharmacy #0838, 1 application Topically 3 times a day, 164, cm, 04/22/19 10:50:00 EST, Height, 102.5, kg, 03/10/19 22:47:00 EST, Dry Weight Start Date: 05/15/19 Status: Ordered nystatin topical 401149 u/gm powder See Instructions, 1 APPLICATION TOPICALLY 2 TIMES A DAY,INSTR:PER DR BOWLING, # 30 Gm, 1 Refills, Soft Stop, 05/17/19 10:22:00 EDT, [facility]/pharmacy #0838, 1 APPLICATION TOPICALLY 2 TIMES [...] 5 Refills, Maintenance, 06/12/19 15:11:00 EDT, Tablet, [facility]/pharmacy #0838, 164, cm, 04/22/19 10:50:00 EST, [...] PUFFS BY MOUTH 4 TIMES A DAY, [facility]/pharmacy #0838 Start Date: 01/11/19 Status: Ordered [...] EDT, PT HAS ALLERGIES TO CERTAIN DYES. [facility] AWARE. Start Date: 05/26/18 Status: Ordered Zyrtec [...] negative for Casey's esophagus. [place] 11474 [place] [facility] [place] [address]; repeat 2020 6Colonoscopy 2008 by patient report normal. 7tubular adenoma of colon repeat scrrening colonoscopy in 2020 8colo 2015 Social History Social History Type Response Smoking Status Former smoker; Other : Quit smoking 1983.; entered on: 08/21/15 Sex
--- OUTSIDE RECORDS SUMMARY | 2023-08-20 11:20 | XMS_ITS | Continuity of Care Document ---
Author Organization [facility] Address [address] [place] [address]- Care Team Providers Care Photographic Developer And Printer Name Role Phone Marilia HARE, Destiny Gibbs Primary Care Physician Encounter [facility] [place] Date(s): 04/15/20 - 05/15/20 [facility] [address] [place] [address]- Attending Physician: Mayra Franz Admitting Physician: Mayra [...] tablet, 0 Refills, Acute, 04/11/20 15:33:00 EST, [facility], 2, TAKE 1 TABLET EVERY 4 HOURS NEEDED FOR PAIN, 163, cm, 02/12/20 10:39:00 EST, Height, 105, kg, 08/11/19 15:02:00 EDT... Start Date: 04/11/20 Status: Ordered acyclovir 400 mg oral tablet 1 tablet, By Mouth, 2 times a day, # 180 tablet, 1 Refills, Maintenance, 01/09/20 10:00:00 EST, [facility]/pharmacy #0838, 163, cm, 11/10/19 8:11:00 EDT, Height, 105, kg, 08/11/19 15:02:00 EDT, Dry Weight Start Date: 01/09/20 Status: Ordered albuterol-ipratropium 3 mg-0.5 mg/3 ml inhalation solution 3 mL, Inhalation, 4 times a day, PRN Wheezing/Shortness of Breath, FAX [phone] BOWLING J45.909 ASTHMA, # 360 [...] 90 tablet, 2 Refills, Maintenance, [facility] 9[facility], 163, cm, 11/10/19 8:11:00 EDT, Height, 105, [...] Maintenance, 10/13/16 14:32:53, Route to Pharmacy Electronically, [id number], [facility] Start Date: 10/13/16 Status: Ordered COENZYME [...] Gm, 11 Refills, Maintenance, 07/01/18 11:47:12 EDT, [place], 1 sprays Nares, Both 2 times a [...] 0 Refills, Soft Stop, 11/28/19 12:36:00 EDT, Tablet,[facility]/pharmacy #0838, 163, cm, 11/10/19 [...] 01/24/20 12:35:00 EST, Route to Pharmacy Electronically, [facility]/pharmacy #0824, Partial fill upon patient request if the... [...] Refills, Maintenance, 04/07/19 10:10:00 EST, Tablet, [facility]/pharmacy #0838, Patient is allergic to blue dye. White tablet would be preferrable., 163, cm, 04/07/19 9:43:0... Start Date: 04/07/19 Status: Ordered Metoprolol Succinate ER 100 mg oral tablet, extended release 1 tablet = 100 mg, By Mouth, Daily, # 90 tablet, 1 Refills, Maintenance, 12/07/19 9:45:00 EDT, [facility]/pharmacy #0838, 163, cm, 11/10/19 8:11:00 EDT, Height, 105, kg, 08/11/19 15:02:00 EDT, Dry Weight Start Date: 12/07/19 Status: Ordered mupirocin 2% topical ointment 1 application, Topically, 3 times a day, # 30 Gm, 11 Refills, Maintenance, 05/15/19 15:41:00 EDT, Ointment, [facility]/pharmacy #0838, 1 application Topically 3 times a day, 164, cm, 04/22/19 10:50:00 EST, Height, 102.5, kg, 03/10/19 22:47:00 EST, Dry Weight Start Date: 05/15/19 Status: Ordered nystatin topical 834243 u/gm powder See Instructions, APPLY TO AFFECTED AREA TWICE A DAY -PER DR BOWLING, # 30 Gm, 1 Refills, Acute, [facility], 7, APPLY TO AFFECTED AREA TWICE A [...] each, 0 Refills, Maintenance, 02/12/20 9:18:00 EST, [facility]/pharmacy #0838, Partial fill upon patient request if the prescription is for a schedule II opioid drug., 160 mcg Inhalation 2 times a day, 163, cm, 02/08... Start Date: 02/12/20 Status: Ordered Readi-Cat 2 oral suspension See Instructions, By Mouth take one stat and take one 90 minutes before exam., # 900 mL, 0 Refills,Maintenance, 08/21/19 11:24:00 EDT, [facility]/pharmacy #0838, By Mouth take one stat and take one 90 minutes before exam., 163, cm, 08/11/19 15:02:00 EDT, He... Start Date: 08/21/19 Status: Ordered riboflavin 100 mg oral tablet 2 tablet = 200 mg, By Mouth, 2 times a day with meals, # 120 tablet, 5 Refills, Maintenance, 06/12/19 15:11:00 EDT, Tablet, [facility]/pharmacy #0838, 164, cm, 04/22/19 [...] 3 Refills, Maintenance, 11/07/19 7:57:00 EDT, [facility], 163, cm, 08/11/19 15:02:00 EDT, Height, 105, [...] PT HAS ALLERGIES TO CERTAIN DYES. [facility] A[facility]. Start Date: 05/26/18 Status: [...] negative for Casey's esophagus. Per patient's report 54691 - [facility] [place] Hazel [address]; repeat 2020 6Colonoscopy 2008 by patient report normal. 7tubular adenoma of colon repeat scrrening colonoscopy in 2020 8colo 2015 Social History Social History Type Response Smoking Status Former smoker; Other : Quit smoking 1983.; entered on: 08/21/15 Sex
--- OUTSIDE RECORDS SUMMARY | 2023-08-20 11:20 | XMS_ITS | Continuity of Care Document ---
Author Organization [facility] Address [address] [place] [address]- Care Team Providers Care Roller Checker Name Role Phone uSjatha HARE, Narda Primary Care Physician Encounter [facility] [place] Date(s): 01/18/23 - 02/17/23 [facility] [address] [place] [address]- Allergies, Adverse Reactions, Alerts Substance Reaction Severity Status ciprofloxacin hallucinations Persistent Severe Active cefuroxime Active amoxicillin Active nitrates migraine STARR Persistent Severe Active Imitrex chest heaviness Persistent Severe Active Compazine severe STARR Persistent Severe Active Decadron Pins and needles sensation A ctive Demerol HCl anaphylaxis Persistent Severe Active gabapentin night terrors Persistent Severe Active Remeron swollen neck and rash Persistent Severe A ctive levofloxacin Heart Palpatations Persistent Severe Acti ve sulfa drugs high temp and rash Persistent Severe Acti ve Toradol Active Ultram generalized itching Persistent Severe Act krystal Depakote night terrors Persistent Severe Active pantoprazole [...] PAIN, # 12 tablet, 0 Refills, Maintenance, 01/29/23 7:48:00 EST, [facility]/pharmacy #0838, TAKE 1 TABLET BY MOUTH EVERY 4 HOURS NEEDED FOR PAIN,PRN:Headache, 163, cm, 2... Start Date: 01/29/23 Status: Ordered acyclovir 400 mg oral tablet [...] 10/23/22 8:48:00 EDT, Route to Pharmacy Electronically, [facility]/pharmacy #0838, pt has allergies to yellow and blue dye, 163, cm, 08/27/22 12:58:00 EDT, Height, 107.3,... Start Date: 10/23/22 Stop Date: 10/18/23 Status: Ordered atorvastatin 20 mg oral tablet 1 tablet, By Mouth, Daily, # 90 tablet, 1 Refills, Maintenance, 03/23/22 21:16:00 EST, [facility], 164, cm, 01/27/22 10:37:00 EST, Height, 98.8, [...] Gm, 1 Refills, Maintenance, 10/22/22 12:39:00 EDT, [facility]/pharmacy #0838, Partial fill upon patient request if the prescription is for a schedule II opioid drug., 1 sprays Nares, Both 2 anne... Start Date: 10/22/22 Status: Ordered Breo Ellipta 200 mcg-25 mcg/inh inhalation powder 1 puffs, Inhalation, Daily, # 1 each, 11 Refills, Maintenance, 05/11/22 12:46:00 EDT, Powder, [facility]/pharmacy #0838, Partial fill upon patient [...] a day, # 180 tablet, 3 Refills, [facility], 162, cm, 07/03/20 11:05:00 EDT, Height, 99.8, [...] 100 Unknown, 3 Refills, Maintenance, TEST ONCE [id number], 06/08/22 8:32:00 EDT, 163, cm, 06/05/22 16:25:00 [...] 3 Refills, Maintenance, 06/26/22 10:29:00 EDT, Tablet, [facility]/pharmacy #0838, Partial fill upon patient [...] Refills, Acute, 10/02/20 11:46:00 EDT, [facility], 162, cm, 07/03/20 11:05:00 EDT, Height, 99.8, [...] tablet, 0 Refills, Maintenance, 09/24/21 9:49:00 EDT, [facility]/pharmacy #0838, 164, cm, 06/30/21 11:07:00 EDT, [...] Start Date: 05/15/19 Status: Ordered nystatin topical 276027 u/gm powder See Instructions, APPLY TO AFFECTED AREA TWICE A DAY -PER DR BOWLING, # 30 Gm, 1 Refills, Acute, [facility] 66[facility], 7, APPLY TO AFFECTED AREA TWICE A [...] 3 Refills, Maintenance, 11/07/19 7:57:00 EDT, [facility], 163, cm, 08/11/19 15:02:00 EDT, Height, 105, [...] Team Personnel Name: Matthew Julio RN Position: [facility] RN Member Role: Primary Care Nurse Name: Ashley Akers RN Position: [facility] RN Member Role: Primary Care Nurse Name: Evelyn Hernandez RN Position: [facility] RN Member Role: Primary Care Nurse Name: Zahira Davis RN Position: [facility] RN Member Role: Primary Care Nurse Name: Jeff ROSS, Ashley Matson Position: Reference Physician Member Role: Primary Care Nurse Address: Address: [address] [place] [address]- Name: Narda Solares MD Position: [facility] Physician - Primary Care Member Role: PCP Address: Address: [address] [place] [address]- Name: Joe Sullivan RN Position: [facility] Switchboard Troubleshooter Member Role: Primary Care Nurse Care Team Related Persons Name: LENY BLAS Address: home [address] [address] Name: LAURA CALL Address: home [address] [place] [address]
--- OUTSIDE RECORDS SUMMARY | 2023-08-20 11:20 | XMS_ITS | Continuity of Care Document ---
Author Organization [facility] Address [address] [place] [address]- Care Team Providers Care Finding Fastener Name Role Phone Destiny Capellan MD Primary Care Physician Encounter [facility] [place] ACCT R [id number] Date(s): 03/17/21 - 03/24/21 [facility] [address] [place] [address]- Attending Physician: Not on Staff, Attending MD Referring Physician: Destiny Capellan MD Allergies, [...] tablet, 0 Refills, Maintenance, 03/05/21 9:44:00 EST, [facility]/pharmacy #0838, 2, 1 tablet By Mouth Every 4 hours,PRN: NEEDED FOR PAIN, 162, cm, 07/03/20 11:05:00 EDT, Height, 99.8, kg, 06/22... Start Date: 03/05/21 Status: Ordered acyclovir 400 mg oral tablet 1 tablet, By Mouth, 2 times a day, # 180 tablet, 1 Refills, Maintenance, 01/09/20 10:00:00 EST, [facility]/pharmacy #0838, 163, cm, 11/10/19 8:11:00 EDT, Height, 105, kg, 08/11/19 15:02:00 EDT, Dry Weight Start Date: 01/09/20 Status: Ordered albuterol-ipratropium 3 mg-0.5 mg/3 ml inhalation solution 3 mL, Inhalation, 4 times a day, PRN Wheezing/Shortness of Breath, FAX [phone] BOWLING J45.909 ASTHMA, # 360 [...] DAY, # 90 tablet, 2 Refills, Maintenance, [facility] ST[facility] 90108, 163, cm, 11/10/19 8:11:00 EDT, Height, 105, [...] Maintenance, 10/13/16 14:32:53, Route to Pharmacy Electronically, [id number], [facility]/pharmacy #0838 Start Date: 10/13/16 Status: Ordered codeine-guaifenesin 10 mg-100 mg/5 mL oral syrup 5 mL, By Mouth, Every 6 hours, PRN for cough and congestion, # 100 mL, 0 Refills, Maintenance, 03/12/21 13:49:00 EST, Syrup, [facility]/pharmacy #0838, Partial fill upon patient request if [...] a day, # 180 tablet, 3 Refills, [facility] 52290, 162, cm, 07/03/20 11:05:00 EDT, Height, 99.8, kg, 07/02/20 6:39:00 EDT, Dry Weight Start Date: 11/14/20 Status: Ordered fluconazole 150 mg oral tablet See Instructions, TAKE 1 TABLET BY MOUTH ONCE, # 1 tablet, 0 Refills, Soft Stop, [facility] 63254, 163, cm, 04/22/20 14:51:00 EST, Height, 105, [...] 0 Refills, Maintenance, 03/03/21 11:51:00 EST, CRCapsule, [facility]/pharmacy #0838, Partial fill upon patient request if [...] 07/18/20 10:58:00 EDT, Route to Pharmacy Electronically, [facility]/pharmacy #0838, Partial fill upon patient request if the... Start Date: 07/18/20 Status: Ordered LORazepam 1 mg oral tablet 1 tablet = 1 mg, By Mouth, 3 times a day, 0 Refills, Maintenance, 09/14/17 11:57:01 EDT, Tablet Start Date: 09/14/17 Status: Ordered magnesium oxide 400 mg oral tablet 1 tablet, By Mouth, Daily, # 30 tablet, 5 Refills, Acute, 10/02/20 11:46:00 EDT, [facility], 162, cm, 07/03/20 11:05:00 EDT, Height, 99.8, kg, 07/02/20 6:39:00 EDT, Dry Weight Start Date: 10/02/20 Status: Ordered meclizine 12.5 mg oral tablet 1 tablet = 12.5 mg, By Mouth, 3 times a day, PRN for motion sickness, has allergy to blue dye, white tabs only, # 30 tablet, 0 Refills, Maintenance, 11/05/20 9:59:00 EDT, Tablet, [facility]/pharmacy #0838, Patient is allergic to blue dye. White tablet woul... Start Date: 11/05/20 Status: Ordered Metoprolol Succinate ER 100 mg oral tablet, extended release 1 tablet = 100 mg, By Mouth, Daily, # 90 tablet, 1 Refills, Maintenance, 12/07/19 9:45:00 EDT, [facility]/pharmacy #0838, 163, cm, 11/10/19 8:11:00 EDT, Height, [...] 11 Refills, Maintenance, 05/15/19 15:41:00 EDT, Ointment, [facility]/pharmacy #0838, 1 application Topically 3 times a day, 164, cm, 04/22/19 10:50:00 EST, Height, 102.5, kg, 03/10/19 22:47:00 EST, Dry Weight Start Date: 05/15/19 Status: Ordered nystatin topical 113245 u/gm powder See Instructions, APPLY TO AFFECTED AREA TWICE A DAY -PER DR BOWLING, # 30 Gm, 1 Refills, Acute, [facility] 17813, 7, APPLY TO AFFECTED AREA TWICE A [...] 900 mL, 0 Refills,Maintenance, 08/21/19 11:24:00 EDT, [facility]/pharmacy #0838, By Mouth take one stat and [...] 3 Refills, Maintenance, 11/07/19 7:57:00 EDT, [facility], 163, cm, 08/11/19 15:02:00 EDT, Height, 105, [...] HAS ALLERGIES TO CERTAIN DYES. [facility] AWARE. Start Date: 05/26/18 Status: [...] negative for Casey's esophagus. Per patient's report 6[address]63 - [facility] [place]. Hazel [address]; repeat 2020 6Colonoscopy 2008 by patient report normal. 7tubular adenoma of colon repeat scrrening colonoscopy in 2020 8colo 2015 Social History Social History Type Response Smoking Status Former smoker; Other : Quit smoking 1983.; entered on: 08/21/15 Sex
--- OUTSIDE RECORDS SUMMARY | 2023-08-20 11:20 | XMS_ITS | Continuity of Care Document ---
Author Organization [facility] Address [address] [place] [address]- Care Team Providers Care Director Mobile Name Role Phone Marilia HARE, Destiny Gibbs Primary Care Physician [place] [facility] [place] Date(s): 04/01/20 - 05/01/20 [facility] [address] [place] [address]- Allergies, Adverse Reactions, Alerts Substance Reaction Severity [...] tablet, 0 Refills, Acute, 04/11/20 15:33:00 EST, [facility] 04[facility], 2, TAKE 1 TABLET EVERY 4 HOURS NEEDED FOR PAIN, 163, cm, 02/12/20 10:39:00 EST, Height, 105, kg, 08/11/19 15:02:00 EDT... Start Date: 04/11/20 Status: Ordered acyclovir 400 mg oral tablet 1 tablet, By Mouth, 2 times a day, # 180 tablet, 1 Refills, Maintenance, 01/09/20 10:00:00 EST, [facility]/pharmacy #0838, 163, cm, 11/10/19 8:11:00 EDT, Height, 105, kg, 08/11/19 15:02:00 EDT, Dry Weight Start Date: 01/09/20 Status: Ordered albuterol-ipratropium 3 mg-0.5 mg/3 ml inhalation solution 3 mL, Inhalation, 4 times a day, PRN Wheezing/Shortness of Breath, FAX [phone] BOWLING J45.909 ASTHMA, # 360 [...] # 90 tablet, 2 Refills, Maintenance, [facility] 800[facility], 163, cm, 11/10/19 8:11:00 EDT, Height, 105, [...] Maintenance, 10/13/16 14:32:53, Route to Pharmacy Electronically, [id number], [facility]/pharmacy #0838 Start Date: 10/13/16 Status: Ordered COENZYME [...] 5 Refills, Maintenance, 06/12/19 15:10:00 EDT, Capsule, [facility]/pharmacy #0838, 164, cm, 04/22/19 10:50:00 EST, Height, [...] 3 Refills, Maintenance, 08/17/19 9:51:00 EDT, Suspension, [facility]/pharmacy #0838, 163, cm, 08/11/19 15:02:00 EDT, Height, 105, kg, 08/11/19 15:02:00 EDT, Dry Weight Start Date: 08/17/19 Stop Date: 08/11/20 Status: Ordered Flonase 50 mcg/inh nasal spray 1 sprays, Nares, Both, 2 times a day, # 16 Gm, 11 Refills, Maintenance, 07/01/18 11:47:12 EDT, [place], 1 sprays Nares, Both 2 times a [...] 0 Refills, Soft Stop, 11/28/19 12:36:00 EDT, Tablet,[facility]/pharmacy #0838, 163, cm, 11/10/19 8:11:00 EDT, Height, [...] 01/24/20 12:35:00 EST, Route to Pharmacy Electronically, [facility]/pharmacy #0838, Partial fill upon patient request if [...] Refills, Maintenance, 04/07/19 10:10:00 EST, Tablet, [facility]/pharmacy #0838, Patient is allergic to blue dye. White tablet would be preferrable., 163, cm, 04/07/19 9:43:0... Start Date: 04/07/19 Status: Ordered Metoprolol Succinate ER 100 mg oral tablet, extended release 1 tablet = 100 mg, By Mouth, Daily, # 90 tablet, 1 Refills, Maintenance, 12/07/19 9:45:00 EDT, [facility]/pharmacy #0838, 163, cm, 11/10/19 8:11:00 EDT, Height, 105, kg, 08/11/19 15:02:00 EDT, Dry Weight Start Date: 12/07/19 Status: Ordered mupirocin 2% topical ointment 1 application, Topically, 3 times a day, # 30 Gm, 11 Refills, Maintenance, 05/15/19 15:41:00 EDT, Ointment, [facility]/pharmacy #0838, 1 application Topically 3 times a day, 164, cm, 04/22/19 10:50:00 EST, Height, 102.5, kg, 03/10/19 22:47:00 EST, Dry Weight Start Date: 05/15/19 Status: Ordered nystatin topical 856899 u/gm powder See Instructions, APPLY TO AFFECTED AREA TWICE A DAY -PER DR BOWLING, # 30 Gm, 1 Refills, Acute, [facility] 40558, 7, APPLY TO AFFECTED AREA TWICE A [...] each, 0 Refills, Maintenance, 02/12/20 9:18:00 EST, [facility]/pharmacy #0838, Partial fill upon patient request if the prescription is for a schedule II opioid drug., 160 mcg Inhalation 2 times a day, 163, cm, 02/08... Start Date: 02/12/20 Status: Ordered Readi-Cat 2 oral suspension See Instructions, By Mouth take one stat and take one 90 minutes before exam., # 900 mL, 0 Refills,Maintenance, 08/21/19 11:24:00 EDT, [facility]/pharmacy #0838, By Mouth take one stat and take one 90 minutes before exam., 163, cm, 08/11/19 15:02:00 EDT, He... Start Date: 08/21/19 Status: Ordered riboflavin 100 mg oral tablet 2 tablet = 200 mg, By Mouth, 2 times a day with meals, # 120 tablet, 5 Refills, Maintenance, 06/12/19 15:11:00 EDT, Tablet, [facility]/pharmacy #0838, 164, cm, 04/22/19 10:50:00 EST, Height, [...] 3 Refills, Maintenance, 11/07/19 7:57:00 EDT, [facility], 163, cm, 08/11/19 15:02:00 EDT, Height, 105, [...] EDT, PT HAS ALLERGIES TO CERTAIN DYES. [facility] AWARE. Start Date: 05/26/18 Status: Ordered [...] negative for Casey's esophagus. Per patient's report 52536 - [facility] [place]. Hazel [address]; repeat 2020 6Colonoscopy 2008 by patient report normal. 7tubular adenoma of colon repeat scrrening colonoscopy in 2020 8colo 2015 Social History Social History Type Response Smoking Status Former smoker; Other : Quit smoking 1983.; entered on: 08/21/15 Sex
--- OUTSIDE RECORDS SUMMARY | 2023-08-20 11:20 | XMS_ITS | Continuity of Care Document ---
Author Organization [facility] Address [address] [place] [address]- Care Team Providers Care General Warehouse Worker Name Role Phone Marilia HARE, Destiny Gibbs Primary Care Physician Encounter [facility] [place] [facility] [place] [id number] Date(s): 03/03/21 - 03/10/21 [facility] [address] [place] [address]- Attending Physician: Not on Staff, Attending MD [...] tablet, 0 Refills, Maintenance, 03/05/21 9:44:00 EST, [facility]/pharmacy #0838, 2, 1 tablet By Mouth Every 4 hours,PRN: NEEDED FOR PAIN, 162, cm, 07/03/20 11:05:00 EDT, Height, 99.8, kg, 06/22... Start Date: 03/05/21 Status: Ordered acyclovir 400 mg oral tablet 1 tablet, By Mouth, 2 times a day, # 180 tablet, 1 Refills, Maintenance, 01/09/20 10:00:00 EST, [facility]/pharmacy #0838, 163, cm, 11/10/19 8:11:00 EDT, Height, 105, kg, 08/11/19 15:02:00 EDT, Dry Weight Start Date: 01/09/20 Status: Ordered albuterol-ipratropium 3 mg-0.5 mg/3 ml inhalation solution 3 mL, Inhalation, 4 times a day, PRN Wheezing/Shortness of Breath, FAX [phone] BOWLING J45.909 ASTHMA, # 360 [...] # 90 tablet, 2 Refills, Maintenance, [facility] STORE 47770, 163, cm, 11/10/19 8:11:00 EDT, Height, 105, [...] Maintenance, 10/13/16 14:32:53, Route to Pharmacy Electronically, [id number], [facility]/pharmacy #0838 Start Date: 10/13/16 Status: Ordered [...] a day, # 180 tablet, 3 Refills, [facility], 162, cm, 07/03/20 11:05:00 EDT, Height, 99.8, kg, 07/02/20 6:39:00 EDT, Dry Weight Start Date: 11/14/20 Status: Ordered fluconazole 150 mg oral tablet See Instructions, TAKE 1 TABLET BY MOUTH ONCE, # 1 tablet, 0 Refills, Soft Stop, [facility] 04126, 163, cm, 04/22/20 14:51:00 EST, Height, 105, [...] 0 Refills, Maintenance, 03/03/21 11:51:00 EST, [facility], [facility]/pharmacy #0838, Partial fill upon patient request [...] 10:58:00 EDT, Route to Pharmacy Electronically, [facility]/pharmacy #0838, Partial fill upon patient request [...] Refills, Acute, 10/02/20 11:46:00 EDT, [facility], 162, cm, 07/03/20 11:05:00 EDT, Height, 99.8, kg, 07/02/20 6:39:00 EDT, Dry Weight Start Date: 10/02/20 Status: Ordered meclizine 12.5 mg oral tablet 1 tablet = 12.5 mg, By Mouth, 3 times a day, PRN for motion sickness, has allergy to blue dye, white tabs only, # 30 tablet, 0 Refills, Maintenance, 11/05/20 9:59:00 EDT, Tablet, [facility]/pharmacy #0838, Patient is allergic to blue dye. White tablet woul... Start Date: 11/05/20 Status: Ordered Metoprolol Succinate ER 100 mg oral tablet, extended release 1 tablet = 100 mg, By Mouth, Daily, # 90 tablet, 1 Refills, Maintenance, 12/07/19 9:45:00 EDT, [facility]/pharmacy #0838, 163, cm, 11/10/19 8:11:00 EDT, [...] Start Date: 05/15/19 Status: Ordered nystatin topical 447811 u/gm powder See Instructions, APPLY TO AFFECTED AREA TWICE A DAY -PER DR BOWLING, # 30 Gm, 1 Refills, Acute, [facility], 7, APPLY TO AFFECTED AREA TWICE A [...] Refills,Maintenance, 08/21/19 11:24:00 EDT, [facility]/pharmacy #0838, By Mouth take one stat [...] 3 Refills, Maintenance, 11/07/19 7:57:00 EDT, [facility], 163, cm, 08/11/19 15:02:00 EDT, Height, 105, kg, 08/11/19 15:02:00 EDT, Dry Weight Start Date: 9/15/20 Status: Ordered Vitamin D3 2000 intl units [...] negative for Casey's esophagus. Per patient's report 90317 [place] [facility] [place] [address]; repeat 2020 6Colonoscopy 2008 by patient report normal. 7tubular adenoma of colon repeat scrrening colonoscopy in 2020 8colo 2016 Social History Social History Type Response Smoking Status Former smoker; Other : Quit smoking 1983.; entered on: 08/21/15 Sex
--- OUTSIDE RECORDS SUMMARY | 2023-08-20 11:20 | XMS_ITS | Continuity of Care Document ---
Author Organization [facility] Address [address] [place] [address]- Care Team Providers Care Structures Engineer Name Role Phone Narda Solares MD Primary Care Physician Encounter [facility] [place] Date(s): 01/18/23 - 02/17/23 [facility] [address] [place] [address] Attending Physician: Mayra Franz Admitting Physician: AdmMayra clark Referring Physician: [id number] Allergies, Adverse Reactions, Alerts Substance Reaction Severity [...] tablet, 0 Refills, Maintenance, 01/29/23 7:48:00 EST, [facility], TAKE 1 TABLET BY MOUTH [...] mL, 0 Refills, Maintenance,11/24/22 18:14:00 EDT, Solution, [facility]/pharmacy #0838, Partial fill upon patient request if the prescription is for a schedule II opioid drug., 3 mL Inha... Start Date: 11/24/22 Status: Ordered amLODIPine 5 mg oral tablet 5 mg, 1, tablet, By Mouth, Daily, # 90 tablet, Refills 3, Tot. Refills 3, Maintenance, 10/23/22 8:48:00 EDT, Route to Pharmacy Electronically, [facility]/pharmacy #0838, pt has allergies to yellow and blue dye, 163, cm, 08/27/22 12:58:00 EDT, Height, 107.3,... Start Date: 10/23/22 Stop Date: 10/18/23 Status: Ordered atorvastatin 20 mg oral tablet 1 tablet, By Mouth, Daily, # 90 tablet, 1 Refills, Maintenance, 03/23/22 21:16:00 EST, [facility] STORE 78109, 164, cm, 01/27/22 10:37:00 EST, Height, 98.8, [...] Gm, 1 Refills, Maintenance, 10/22/22 12:39:00 EDT, [facility]/pharmacy #0838, Partial fill upon patient request if the prescription is for a schedule II opioid drug., 1 sprays Nares, Both 2 anne... Start Date: 10/22/22 Status: Ordered Breo Ellipta 200 mcg-25 mcg/inh inhalation powder 1 puffs, Inhalation, Daily, # 1 each, 11 Refills, Maintenance, 05/11/22 12:46:00 EDT, Powder, [facility]/pharmacy #0838, Partial fill upon patient [...] a day, # 180 tablet, 3 Refills, [facility], 162, cm, 07/03/20 11:05:00 EDT, Height, 99.8, [...] 100 Unknown, 3 Refills, Maintenance, TEST ONCE [id number], 06/08/22 8:32:00 EDT, 163, cm, 06/05/22 16:25:00 [...] 3 Refills, Maintenance, 06/26/22 10:29:00 EDT, Tablet, [facility]/pharmacy #0838, Partial fill upon patient [...] Refills, Acute, 10/02/20 11:46:00 EDT, [facility], 162, cm, 07/03/20 11:05:00 EDT, Height, 99.8, kg, 07/02/20 6:39:00 EDT, Dry Weight Start Date: 10/02/20 Status: Ordered meclizine 12.5 mg oral tablet 1 tablet = 12.5 mg, By Mouth, 3 times a day, PRN for motion sickness, has allergy to blue dye, white tabs only, # 30 tablet, 0 Refills, Maintenance, 11/05/20 9:59:00 EDT, Tablet, [facility]/pharmacy #0838, Patient is allergic to blue dye. White tablet woul... Start Date: 11/05/20 Status: Ordered Metoprolol Succinate ER 100 mg oral tablet, extended release 1 tablet = 100 mg, By Mouth, Daily, # 30 tablet, 0 Refills, Maintenance, 09/24/21 9:49:00 EDT, [facility]/pharmacy #0838, 164, cm, 06/30/21 11:07:00 EDT, Height, 98.8, kg, 06/01/21 18:26:00 EDT, Dry Weight Start Date: 09/24/21 Status: Ordered mupirocin 2% topical ointment 1 application, Topically, 3 times a day, # 30 Gm, 11 Refills, Maintenance, 05/15/19 15:41:00 EDT, Ointment, [facility]/pharmacy #0838, 1 application Topically 3 times a day, 164, cm, 04/22/19 10:50:00 EST, Height, 102.5, kg, 03/10/19 22:47:00 EST, Dry Weight Start Date: 05/15/19 Status: Ordered nystatin topical 979050 u/gm powder See Instructions, APPLY TO AFFECTED AREA TWICE A DAY -PER DR BOWLING, # 30 Gm, 1 Refills, Acute, [facility] STORE 75966, 7, APPLY TO AFFECTED AREA TWICE A [...] 3 Refills, Maintenance, 11/07/19 7:57:00 EDT, [facility], 163, cm, 08/11/19 15:02:00 EDT, Height, 105, [...] EDT, PT HAS ALLERGIES TO CERTAIN DYES. [facility] AWARE. Start Date: 05/26/18 Status: [...] of colon repeat scrrening colonoscopy in 2020 5c2015 Social History Social History Type Response Smoking Status Former smoker; Other : Quit smoking 1983.; entered on: 08/21/15 Sex Patient Care team information Care Team Personnel Name: Sumanth ALEXANDER, Matthew Luna Position: [facility] RN Member Role: Primary Care Nurse Name: Akers RN, Ashley Position: [facility] RN Member Role: Primary Care Nurse Name: Mary ALEXANDER, Evelyn Position: [facility] RN Member Role: Primary Care Nurse Name: Zahira Daivs RN Position: [facility] RN Member Role: Primary Care Nurse Name: Jeff ROSS, Ashley Matson Position: Reference Physician Member Role: Primary Care Nurse Address: Address: [address] [place] [address]- [place] Name: Narda Solares MD Position: [facility] Physician - Primary Care Member Role: PCP Address: Address: [address] [place] [address]- [place] Name: Nate ALEXANDER, Joe Position: [facility] Hospital Supply Chain Specialist Member Role: Primary Care Nurse Care Team Related Persons Name: LENY BLAS Address: home [address] [address] Name: LAURA CALL Address: home [address] [place] [address]
--- OUTSIDE RECORDS SUMMARY | 2023-08-20 11:20 | XMS_ITS | Continuity of Care Document ---
Author Organization [facility] Address [address] [place] [address]- Care Team Providers Care Binder Fixer Name Role Phone Marilia HARE, Destiny Gibbs Primary Care Physician Encounter [facility] Date(s): 04/22/20 - 05/22/20 [facility] [address] [place], [place] [address] Attending Physician: Mayra Franz Admitting Physician: AdmMayra clark Referring Physician: Admtr, Ar8 Allergies, Adverse Reactions, [...] PAIN, # 12 tablet, 0 Refills, Acute, 05/16/20 10:54:00 EDT, [facility], 3, TAKE 1 TABLET EVERY 4 HOURS NEEDED FOR PAIN, 163, cm, 04/22/20 14:51:00 EST, Height, 105, kg, 08/11/19 15:02:00 EDT... Start Date: 05/16/20 Status: Ordered acyclovir 400 mg oral tablet 1 tablet, By Mouth, 2 times a day, # 180 tablet, 1 Refills, Maintenance, 01/09/20 10:00:00 EST, [facility]/pharmacy #0838, 163, cm, 11/10/19 8:11:00 EDT, Height, 105, kg, 08/11/19 15:02:00 EDT, Dry Weight Start Date: 01/09/20 Status: Ordered albuterol-ipratropium 3 mg-0.5 mg/3 ml inhalation solution 3 mL, Inhalation, 4 times a day, PRN Wheezing/Shortness of Breath, FAX [phone] BOWLING J45.909 ASTHMA, # 360 [...] DAY, # 90 tablet, 2 Refills, Maintenance, [facility] 75958, 163, cm, 11/10/19 8:11:00 EDT, Height, 105, [...] Maintenance, 10/13/16 14:32:53, Route to Pharmacy Electronically, [id number], [facility] Start Date: 10/13/16 Status: Ordered [...] Gm, 11 Refills, Maintenance, 07/01/18 11:47:12 EDT, [place], 1 sprays Nares, Both 2 times a day Start Date: 07/01/18 Status: Ordered Flovent HFA 110 mcg/inh inhalation aerosol 2 puffs, Inhalation, 2 times a day, # 36 Gm, 11 Refills, Maintenance, 06/27/18 13:45:48 EDT, Aerosol Start Date: 06/27/18 Status: Ordered fluconazole 150 mg oral tablet See Instructions, TAKE 1 TABLET BY MOUTH ONCE, # 1 tablet, 0 Refills, Soft Stop, [facility] STORE 06603, 163, cm, 04/22/20 14:51:00 EST, Height, 105, [...] 01/24/20 12:35:00 EST, Route to Pharmacy Electronically, [facility]/pharmacy #8117, Partial fill upon patient request if the... [...] 0 Refills, Maintenance, 04/07/19 10:10:00 EST, Tablet, [facility]/pharmacy #0838, Patient is allergic to blue dye. White tablet would be preferrable., 163, cm, 04/07/19 9:43:0... Start Date: 04/07/19 Status: Ordered Metoprolol Succinate ER 100 mg oral tablet, extended release 1 tablet = 100 mg, By Mouth, Daily, # 90 tablet, 1 Refills, Maintenance, 12/07/19 9:45:00 EDT, [facility]/pharmacy #0838, 163, cm, 11/10/19 8:11:00 EDT, Height, 105, kg, 08/11/19 15:02:00 EDT, Dry Weight Start Date: 12/07/19 Status: Ordered mupirocin 2% topical ointment 1 application, Topically, 3 times a day, # 30 Gm, 11 Refills, Maintenance, 05/15/19 15:41:00 EDT, Ointment, [facility]/pharmacy #0838, 1 application Topically 3 times a day, 164, cm, 04/22/19 10:50:00 EST, Height, 102.5, kg, 03/10/19 22:47:00 EST, Dry Weight Start Date: 05/15/19 Status: Ordered nystatin topical 229192 u/gm powder See Instructions, APPLY TO AFFECTED AREA TWICE A DAY -PER DR BOWLING, # 30 Gm, 1 Refills, Acute, [facility] STORE 50477, 7, APPLY TO AFFECTED AREA TWICE A [...] each, 0 Refills, Maintenance, 02/12/20 9:18:00 EST, [facility]/pharmacy #0838, Partial fill upon patient request if the prescription is for a schedule II opioid drug., 160 mcg Inhalation 2 times a day, 163, cm, 02/08... Start Date: 02/12/20 Status: Ordered Readi-Cat 2 oral suspension See Instructions, By Mouth take one stat and take one 90 minutes before exam., # 900 mL, 0 Refills,Maintenance, 08/21/19 11:24:00 EDT, [facility]/pharmacy #0838, By Mouth take one stat and take one 90 minutes before exam., 163, cm, 08/11/19 15:02:00 EDT, He... Start Date: 08/21/19 Status: Ordered riboflavin 100 mg oral tablet 2 tablet = 200 mg, By Mouth, 2 times a day with meals, # 120 tablet, 5 Refills, Maintenance, 06/12/19 15:11:00 EDT, Tablet, [facility]/pharmacy #0838, 164, cm, 04/22/19 10:50:00 EST, [...] 3 Refills, Maintenance, 11/07/19 7:57:00 EDT, [facility], 163, cm, 08/11/19 15:02:00 EDT, Height, 105, [...] EDT, PT HAS ALLERGIES TO CERTAIN DYES. [facility] AWARE. Start Date: 05/26/18 Status: [...] negative for Casey's esophagus. Per patient's report 80069 - [facility] - Dr. Hazel [address]; repeat 2020 6Colonoscopy 2008 by patient report normal. 7tubular adenoma of colon repeat scrrening colonoscopy in 2020 8colo 2015 Social History Social History Type Response Smoking Status Former smoker; Other : Quit smoking 1983.; entered on: 08/21/15 Sex
--- OUTSIDE RECORDS SUMMARY | 2023-08-20 11:20 | XMS_ITS | Continuity of Care Document ---
Author Organization [facility] Address [address] [place] [address]- Care Team Providers Care Clinical Program Coordinator Name Role Phone Marilia HARE, Destiny Gibbs Primary Care Physician [phone] [facility] [place] Date(s): 02/12/20 - 03/13/20 [facility] [address] [place] [address]- Attending Physician: Mayra Franz Admitting Physician: Mayra Franz Referring Physician: Mayra Franz Allergies, Adverse Reactions, Alerts Substance Reaction Severity Status ciprofloxacin hallucinations Persistent Severe Active cefuroxime Active Remeron swollen neck and rash Persistent Severe A ctive amoxicillin Active gabapentin night terrors Persistent Severe Active levofloxacin Heart Palpatations Persistent Severe Acti ve sulfa drugs high temp and rash Persistent Severe Acti ve nitrates migraine STARR Persistent Severe Active Toradol Active Imitrex chest heaviness Persistent Severe Active Ultram generalized itching Persistent Severe Act krystal Compazine severe STARR Persistent Severe Active pantoprazole 1 Facial swelling Persistent Severe Activ e Decadron Pins and needles sensation A ctive Depakote night terrors Persistent Severe Active Demerol HCl anaphylaxis Persistent Severe Active Chocolate migraine STARR Persistent Severe Active Abdominal [...] PAIN, # 12 tablet, 0 Refills, Acute, 03/12/20 7:47:00 EST, [facility], 2, TAKE 1 TABLET EVERY 4 HOURS NEEDED FOR PAIN, 163, cm, 02/12/20 10:39:00 EST, Height, 105, kg, 08/11/19 15:02:00 EDT,... Start Date: 03/12/20 Status: Ordered acyclovir 400 mg oral tablet 1 tablet, By Mouth, 2 times a day, # 180 tablet, 1 Refills, Maintenance, 01/09/20 10:00:00 EST, [facility]/pharmacy #0838, 163, cm, 11/10/19 8:11:00 EDT, Height, 105, kg, 08/11/19 15:02:00 EDT, Dry Weight Start Date: 01/09/20 Status: Ordered albuterol-ipratropium 3 mg-0.5 mg/3 ml inhalation solution 3 mL, Inhalation, 4 times a day, PRN Wheezing/Shortness of Breath, FAX [phone] BOWLING J45.909 ASTHMA, # 360 mL, 11 Refills, Maintenance, 05/04/17 13:29:51, Inhalation Solution, 3 mL Inhalation 4 times a day,PRN:Wheezing/Shortness of Breath,I... Start Date: 05/04/17 Status: Ordered atorvastatin 20 mg oral tablet See Instructions, TAKE 1 TABLET BY MOUTH EVERY DAY, # 90 tablet, 2 Refills, Maintenance, [facility], 163, cm, 11/10/19 8:11:00 EDT, Height, 105, [...] Maintenance, 10/13/16 14:32:53, Route to Pharmacy Electronically, [id number], [facility]/pharmacy #0838 Start Date: 10/13/16 Status: Ordered [...] 5 Refills, Maintenance, 06/12/19 15:10:00 EDT, Capsule, [facility]/pharmacy #0838, 164, cm, 04/22/19 10:50:00 [...] 3 Refills, Maintenance, 08/17/19 9:51:00 EDT, Suspension, [facility]/pharmacy #0838, 163, cm, 08/11/19 15:02:00 EDT, Height, 105, kg, 08/11/19 15:02:00 EDT, Dry Weight Start Date: 08/17/19 Stop Date: 08/11/20 Status: Ordered Flonase 50 mcg/inh nasal spray 1 sprays, Nares, Both, 2 times a day, # 16 Gm, 11 Refills, Maintenance, 07/01/18 11:47:12 EDT, [facility], 1 sprays Nares, Both 2 times a [...] 0 Refills, Soft Stop, 11/28/19 12:36:00 EDT, Tablet,[facility]/pharmacy #0838, 163, cm, 11/10/19 8:11:00 EDT, [...] 01/24/20 12:35:00 EST, Route to Pharmacy Electronically, [facility]/pharmacy #0838, Partial fill upon patient request [...] tablet, 1 Refills, Maintenance, 12/07/19 9:45:00 EDT, [facility]/pharmacy #0838, 163, cm, 11/10/19 8:11:00 EDT, [...] Start Date: 05/15/19 Status: Ordered nystatin topical 802351 u/gm powder See Instructions, APPLY TO AFFECTED AREA TWICE A DAY -PER DR BOWLING, # 30 Gm, 1 Refills, Acute, [facility] STORE 73391, 7, APPLY TO AFFECTED AREA TWICE A [...] each, 0 Refills, Maintenance, 02/12/20 9:18:00 EST, [facility]/pharmacy #0838, Partial fill upon patient request if the prescription is for a schedule II opioid drug., 160 mcg Inhalation 2 times a day, 163, cm, 02/08... Start Date: 02/12/20 Status: Ordered Readi-Cat 2 oral suspension See Instructions, By Mouth take one stat and take one 90 minutes before exam., # 900 mL, 0 Refills,Maintenance, 08/21/19 11:24:00 EDT, [facility]/pharmacy #0838, By Mouth take one stat [...] 3 Refills, Maintenance, 11/07/19 7:57:00 EDT, [facility], 163, cm, 08/11/19 15:02:00 EDT, Height, 105, [...] PT HAS ALLERGIES TO CERTAIN DYES. [facility]. Start Date: 05/26/18 [...] negative for Casey's esophagus. [place] [facility] [place] [address]; repeat 2020 6Colonoscopy 2008 by patient report normal. 7tubular adenoma of colon repeat scrrening colonoscopy in 2020 8colo 2015 Social History Social History Type Response Smoking Status Former smoker; Other : Quit smoking 1983.; entered on: 08/21/15 Sex
--- OUTSIDE RECORDS SUMMARY | 2023-08-20 11:20 | XMS_ITS | Continuity of Care Document ---
Author Organization [facility] Address [address] [place] [address]- Care Team Providers Care Computer Hardware Designer Name Role Phone Lilo Solares MD-Bryan Primary Care Physician [place] [facility] [place] 02/02/23 - 03/04/23 [facility] [address] [place] [address]- [place] Allergies, Adverse Reactions, Alerts Substance Reaction [...] krystal Compazine severe STARR Persistent Severe Active Abdominal pain Active Decadron Pins and needles sensation A [...] tablet, 0 Refills, Maintenance, 01/29/23 7:48:00 EST, [facility]/pharmacy #[id number], TAKE 1 TABLET BY MOUTH EVERY 4 HOURS NEEDED FOR PAIN,PRN:Headache, 163, cm, /2... Start Date: 01/29/23 Status: Ordered acyclovir 400 [...] mL, 0 Refills, Maintenance,11/24/22 18:14:00 EDT, Solution, [facility]/pharmacy #[id number], Partial fill upon patient request if the prescription is for a schedule II opioid drug., 3 mL Inha... Start Date: 11/24/22 Status: Ordered amLODIPine 5 mg oral tablet 5 mg, 1, tablet, By Mouth, Daily, # 90 tablet, Refills 3, Tot. Refills 3, Maintenance, 10/23/22 8:48:00 EDT, Route to Pharmacy Electronically, [facility]/pharmacy #[id number], pt has allergies to yellow and blue dye, 163, cm, 08/27/22 12:58:00 EDT, Height, 107.3,... Start Date: 10/23/22 Stop Date: 10/18/23 Status: Ordered atorvastatin 20 mg oral tablet 1 tablet, By Mouth, Daily, # 90 tablet, 1 Refills, Maintenance, 03/23/22 21:16:00 EST, [facility], 164, cm, 01/27/22 10:37:00 EST, Height, 98.8, [...] Gm, 1 Refills, Maintenance, 10/22/22 12:39:00 EDT, [facility]/pharmacy #[id number], Partial fill upon patient request if the prescription is for a schedule II opioid drug., 1 sprays Nares, Both 2 anne... Start Date: 10/22/22 Status: Ordered Breo Ellipta 200 mcg-25 mcg/inh inhalation powder 1 puffs, Inhalation, Daily, # 1 each, 11 Refills, Maintenance, 05/11/22 12:46:00 EDT, Powder, [facility]/pharmacy #[id number], Partial fill upon patient [...] a day, # 180 tablet, 3 Refills, [facility] STORE 22570, 162, cm, 07/03/20 11:05:00 EDT, Height, 99.8, [...] 100 Unknown, 3 Refills, Maintenance, TEST ONCE [id number], 06/08/22 8:32:00 EDT, 163, cm, 06/05/22 16:25:00 [...] 3 Refills, Maintenance, 06/26/22 10:29:00 EDT, Tablet, [facility]/pharmacy #[id number], Partial fill upon patient [...] Refills, Acute, 10/02/20 11:46:00 EDT, [facility], 162, cm, 07/03/20 11:05:00 EDT, Height, 99.8, [...] 11 Refills, Maintenance, 05/15/19 15:41:00 EDT, Ointment, [facility]/pharmacy #0838, 1 application Topically 3 times a day, 164, cm, 04/22/19 10:50:00 EST, Height, 102.5, kg, 03/10/19 22:47:00 EST, Dry Weight Start Date: 05/15/19 Status: Ordered NuLYTELY Lemon [place] oral powder for reconstitution See Instructions, Plan as per split prep instructions until 4 liters are consumed or the rectal effluent is clear, # 4,000 mL, 0 Refills, Maintenance, 02/25/23 10:21:00 EST, REC Powder, [facility]/pharmacy #[id number], Partial fill upon patient request if the pr... Start Date: 02/25/23 Status: Ordered nystatin topical 304011 u/gm powder See Instructions, APPLY TO AFFECTED AREA TWICE A DAY -PER DR BOWLING, # 30 Gm, 1 Refills, Acute, [facility] STORE 65991, 7, APPLY TO AFFECTED AREA TWICE A DAY -PER DR BOWLING, 163, cm, 11/10/19 8:11:00 EDT, Height,105, kg, 08/11/19 15:02:00 EDT, Dry Weight Start Date: 11/13/19 Status: Ordered One Touch Control Solution See [...] 3 Refills, Maintenance, 11/07/19 7:57:00 EDT, [facility], 163, cm, 08/11/19 15:02:00 EDT, Height, 105, [...] Team Personnel Name: Matthew Julio RN Position: [facility] RN Member Role: Primary Care Nurse Name: Akers RN, Ashley Position: [facility] RN Member Role: Primary Care Nurse Name: Mayr ALEXANDER, Evelyn Position: [facility] RN Member Role: Primary Care Nurse Name: Zahira Davis RN Position: [facility] RN Member Role: Primary Care Nurse Name: Jeff HUMAN RESOURCES PROFESSIONAL, Ashley Matson Position: Reference Physician Member Role: Primary Care Nurse Address: Address: [address] [place] [address]- [place] Name: Narda Solares MD Position: [facility] Physician - Primary Care Member Role: PCP Address: Address: [address] [place] [address]- Name: Nate ALEXANDER, Joe Position: [facility] Systems Engineering Manager Member Role: Primary Care Nurse Care Team Related Persons Name: LENY BLAS Address: home [address] [place] [address] Name: LAURA CALL Address: home [address] [place] [address]
--- OUTSIDE RECORDS SUMMARY | 2023-08-20 11:20 | XMS_ITS | Continuity of Care Document ---
Author Organization [facility] Address [address] [place] [address]- Care Team Providers Care Track Laborer Name Role Phone Narda Solares MD Primary Care Physician [place] [facility] [place]): 06/26/22 - 07/26/22 [facility] [address] [place] [address]- [place] Allergies, Adverse Reactions, Alerts Substance Reaction [...] PAIN, # 12 tablet, 0 Refills, Maintenance, 07/17/22 11:38:00 EDT, [facility] STORE 65272, 2, TAKE 1 TABLET BY MOUTH EVERY 4 HOURS NEEDED FOR PAIN, 163, cm, 06/23/22 13:39:00 EDT, Height,... Start Date: 07/17/22 Status: Ordered acetaminophen/butalbital/caffeine 325 mg-50 mg-40 mg oral tablet 1 tablet, By Mouth, Every 4 hours, PRN NEEDED FOR PAIN, # 12 tablet, 0 Refills, Maintenance, 04/23/22 8:57:00 EST, [facility]/pharmacy #0838, 2, 1 tablet By Mouth Every 4 hours,PRN: NEEDED FOR PAIN, 164, cm, 04/16/22 11:03:00 EST, Height, 98.8, kg, 05/23... Start Date: 04/23/22 Status: Ordered acyclovir 400 mg oral tablet 1 tablet, By Mouth, 2 times a day, # 180 tablet, 1 Refills, Maintenance, 06/08/22 14:37:00 EDT, [facility]/pharmacy #0838, 163, cm, 06/05/22 16:25:00 EDT, Height, 105, kg, 06/05/22 16:25:00 EDT, Dry Weight Start Date: 06/08/22 Status: Ordered albuterol-ipratropium 3 mg-0.5 mg/3 ml inhalation solution 3 mL, Inhalation, 4 times a day, # 30 each, 0 Refills, Maintenance, 06/02/21 10:30:00 EDT, Solution, [facility]/pharmacy #0838, Partial fill upon patient request if the prescription is for a schedule II opioid drug., 3 mL Inhalation 4 times a day, 164, cm, 0... Start Date: 06/02/21 Status: Ordered albuterol-ipratropium 3 mg-0.5 mg/3 ml inhalation solution 3 mL, Inhalation, 4 times a day, PRN Wheezing/Shortness of Breath, FAX [phone] BOWLING J45.909 ASTHMA, # 360 mL, 11 Refills, Maintenance, 05/04/17 13:29:51, Inhalation Solution, 3 mL Inhalation 4 times a day,PRN:Wheezing/Shortness of Breath,I... Start Date: 05/04/17 Status: Ordered atorvastatin 20 mg oral tablet 1 tablet, By Mouth, Daily, # 90 tablet, 1 Refills, Maintenance, 03/23/22 21:16:00 EST, [facility], 164, cm, 01/27/22 10:37:00 EST, Height, 98.8, [...] 11 Refills, Maintenance, 05/11/22 12:46:00 EDT, Powder, [id number], Partial fill upon patient request [...] a day, # 180 tablet, 3 Refills, [facility] ST[facility], 162, cm, 07/03/20 11:05:00 EDT, Height, 99.8, kg, 07/02/20 6:39:00 EDT, Dry Weight Start Date: 11/14/20 Status: Ordered FREESTYLE LITE TEST STRIP FREESTYLE LITE TEST STRIP, See Instructions, # 100 Unknown, 3 Refills, Maintenance, TEST ONCE [id number], 06/08/22 8:32:00 EDT, 163, cm, 06/05/22 16:25:00 EDT, Height, 105, kg, 06/05/22 16:25:00 EDT, Dry Weight Start Date: 06/08/22 Status: Ordered Home Blood Pressure Monitor See [...] 3 Refills, Maintenance, 06/26/22 10:29:00 EDT, Tablet, [facility], Partial fill upon patient request [...] Refills, Acute, 10/02/20 11:46:00 EDT, [facility], 162, cm, 07/03/20 11:05:00 EDT, Height, 99.8, [...] Start Date: 05/15/19 Status: Ordered nystatin topical 673323 u/gm powder See Instructions, APPLY TO AFFECTED AREA TWICE A DAY -PER DR BOWLING, # 30 Gm, 1 Refills, Acute, [facility], 7, APPLY TO AFFECTED AREA TWICE A [...] 11 Refills, Maintenance, 01/27/22 11:01:00 EST, Aerosol, [facility]/pharmacy #0838, Partial fill upon patient [...] 3 Refills, Maintenance, 11/07/19 7:57:00 EDT, [facility], 163, cm, 08/11/19 15:02:00 EDT, Height, 105, [...] PT HAS ALLERGIES TO CERTAIN DYES. [facility]. Start Date: 05/26/18 Status: [...] negative for Casey's esophagus. Per patient's report 29963 [place] [facility] [place]. Hazel 5Colonoscopy 2008 by patient report normal. 6tubular adenoma of colon repeat scrrening colonoscopy in 2020 7colo 2016 Social History Social History Type Response Smoking Status Former smoker; Other : Quit smoking 1983.; entered on: 08/21/15 Sex Patient Care team information Care Team Personnel Name: Matthew Julio RN Position: [facility] RN Member Role: Primary Care Nurse Name: Ashley Akers RN Position: [facility] RN Member Role: Primary Care Nurse Name: Evelyn Hernandez RN Position: [facility] RN Member Role: Primary Care Nurse Name: Zahira Davis RN Position: [facility] RN Member Role: Primary Care Nurse Name: Jeff ROSS, Ashley Matson Position: Reference Physician Member Role: Primary Care Nurse Address: Address: [address] [place] [address]- Name: Narda Solares MD Position: [facility] Physician - Primary Care Member Role: PCP Address: Address: [address] [place] [address]- Name: Joe Sullivan RN Position: [facility] Atomic Physics Professor Member Role: Primary Care Nurse Care Team Related Persons Name: LENY BLAS Address: home [address] [address] Name: LAURA CALL Address: home [address] [place] [address]
--- OUTSIDE RECORDS SUMMARY | 2023-08-20 11:20 | XMS_ITS | Continuity of Care Document ---
Author Organization [facility] Address [address] [address]- Care Team Providers Care Insert Molding Operator Name Role Phone Marilia HARE, Destiny Gibbs Primary Care Physician [phone] [place] [facility] [place]): 07/28/21 - 08/27/21 [facility] [address] [place] [id number] Allergies, Adverse Reactions, Alerts Substance Reaction [...] FOR PAIN, # 12 tablet, 0 Refills, [facility] STORE 25582,2, TAKE 1 TABLET BY MOUTH EVERY 4 [...] a day, PRN Wheezing/Shortness of Breath, FAX [phone] BOWLING J45.909 ASTHMA, # 360 mL, 11 Refills, Maintenance, 05/04/17 13:29:51, Inhalation Solution, 3 mL Inhalation 4 times a day,PRN:Wheezing/Shortness of Breath,I... Start Date: 05/04/17 Status: Ordered Asmanex Twisthaler 60 Dose 220 mcg/inh inhalation aerosol powder 1 puffs, Inhalation, 2 times a day, j44.9, # 1 each, 11 Refills, Maintenance, 07/28/21 17:15:00 EDT, Aerosol, [facility]/pharmacy #0838, Partial fill upon patient request if the prescription is for a schedule II opioid drug., 1 puffs Inhalation 2 times a day... Start Date: 07/28/21 Status: Ordered atorvastatin 20 mg oral tablet 1 tablet, By Mouth, Daily, # 90 tablet, 1 Refills, [facility] STORE 13386, 164, cm, 06/30/21 11:07:00 EDT,Height, 98.8, kg, [...] Maintenance, 10/13/16 14:32:53, Route to Pharmacy Electronically, [id number], [facility]/pharmacy #[id number] Start Date: 10/13/16 Status: Ordered Colace sodium [...] # 180 tablet, 3 Refills, [facility], 162, cm, 07/03/20 11:05:00 EDT, Height, 99.8, [...] 07/18/20 10:58:00 EDT, Route to Pharmacy Electronically, [facility]/pharmacy #0883, Partial fill upon patient request if the... Start Date: 07/18/20 Status: Ordered LORazepam 1 mg oral tablet 1 tablet = 1 mg, By Mouth, 3 times a day, 0 Refills, Maintenance, 09/14/17 11:57:01 EDT, Tablet Start Date: 09/14/17 Status: Ordered magnesium oxide 400 mg oral tablet 1 tablet, By Mouth, Daily, # 30 tablet, 5 Refills, Acute, 10/02/20 11:46:00 EDT, [facility], 162, cm, 07/03/20 11:05:00 EDT, Height, 99.8, kg, 07/02/20 6:39:00 EDT, Dry Weight Start Date: 10/02/20 Status: Ordered meclizine 12.5 mg oral tablet 1 tablet = 12.5 mg, By Mouth, 3 times a day, PRN for motion sickness, has allergy to blue dye, white tabs only, # 30 tablet, 0 Refills, Maintenance, 11/05/20 9:59:00 EDT, [facility] Patient is allergic to blue dye. White tablet woul... Start Date: 11/05/20 Status: Ordered Metoprolol Succinate ER 100 mg oral tablet, extended release 1 tablet = 100 mg, By Mouth, Daily, # 90 tablet, 1 Refills, Maintenance, 12/07/19 9:45:00 EDT, [facility], 163, cm, 11/10/19 8:11:00 EDT, Height, 105, kg, 08/11/19 15:02:00 EDT, Dry Weight Start Date: 12/07/19 Status: Ordered mupirocin 2% topical ointment 1 application, Topically, 3 times a day, # 30 Gm, 11 Refills, Maintenance, 05/15/19 15:41:00 EDT, Ointment, [facility], 1 application Topically 3 times a day, 164, cm, 04/22/19 10:50:00 EST, Height, 102.5, kg, 03/10/19 22:47:00 EST, Dry Weight Start Date: 05/15/19 Status: Ordered nystatin topical 003089 u/gm powder See Instructions, APPLY TO AFFECTED AREA TWICE A DAY -PER DR BOWLING, # 30 Gm, 1 Refills, Acute, [facility] STORE 53931, 7, APPLY TO AFFECTED AREA TWICE A [...] 3 Refills, Maintenance, 11/07/19 7:57:00 EDT, [facility], 163, cm, 08/11/19 15:02:00 EDT, Height, 105, [...] negative for Casey's esophagus. Per patient's report 51089 - [facility] [place]. Hazel 5Colonoscopy 2008 by patient report normal. 6tubular adenoma of colon repeat scrrening colonoscopy in 2020 7colo 2015 Social History Social History Type Response Smoking Status Former smoker; Other : Quit smoking 1983.; entered on: 08/21/15 Sex
--- OUTSIDE RECORDS SUMMARY | 2023-08-20 11:21 | XMS_ITS | Continuity of Care Document ---
Author Organization [facility] ter Address [address] [place] [address]- Care Team Providers Care Glass Worker Name Role Phone Narda Solares MD Primary Care Physician Encounter [facility] [place] Date(s): 08/04/22 - 09/03/[address] [address]- Allergies, Adverse Reactions, Alerts Substance Reaction Severity Status ciprofloxacin hallucinations Persistent Severe Active Compazine severe STARR Persistent Severe Active Depakote [...] tablet, 0 Refills, Maintenance, 08/13/22 15:44:00 EDT, [facility]/pharmacy #0838, 2, 1 tablet By Mouth Every 4 hours,PRN: NEEDED FOR PAIN, 163, cm, 08/13/22 15:07:00 EDT, Height, 107.3, kg, 06... Start Date: 08/13/22 Status: Ordered acyclovir 400 mg oral tablet 2 tablet = 800 mg, By Mouth, 2 times a day, PRN herpes episodes, # 60 tablet, 0 Refills, Maintenance, 07/28/22 14:06:00 EDT, [facility]/pharmacy #0838, 163, cm, 07/28/22 13:50:00 EDT, Height, 105, kg, 06/05/22 16:25:00 EDT, Dry Weight Start Date: 07/28/22 Status: Ordered amLODIPine 5 mg oral tablet 5 mg, 1, tablet, By Mouth, Daily, # 30 tablet, Refills 2, Tot. Refills 2, Maintenance, 08/05/22 11:00:00 EDT, Route to Pharmacy Electronically, [facility]/pharmacy #0838, pt has allergies to yellow and bluedye, 163, cm, 08/04/22 17:44:00 EDT, Height, 107.3,... Start Date: 08/05/22 Stop Date: 11/03/22 Status: Ordered atorvastatin 20 mg oral tablet 1 tablet, By Mouth, Daily, # 90 tablet, 1 Refills, Maintenance, 03/23/22 21:16:00 EST, [facility] STORE 40293, 164, cm, 01/27/22 10:37:00 EST, Height, 98.8, [...] 11 Refills, Maintenance, 05/11/22 12:46:00 EDT, Powder, [facility]/pharmacy #0838, Partial fill upon patient request if [...] a day, # 180 tablet, 3 Refills, [facility] 8[facility], 162, cm, 07/03/20 11:05:00 EDT, Height, 99.8, [...] 100 Unknown, 3 Refills, Maintenance, TEST ONCE [id number], 06/08/22 8:32:00 EDT, 163, cm, 06/05/22 16:25:00 [...] 3 Refills, Maintenance, 06/26/22 10:29:00 EDT, Tablet, [facility]/pharmacy #5201, Partial fill upon patient request if the [...] tablet, 5 Refills, Acute, 10/02/20 11:46:00 EDT, [facility] STORE 24612, 162, cm, 07/03/20 11:05:00 EDT, Height, 99.8, kg, 07/02/20 6:39:00 EDT, Dry Weight Start Date: 10/02/20 Status: Ordered meclizine 12.5 mg oral tablet 1 tablet = 12.5 mg, By Mouth, 3 times a day, PRN for motion sickness, has allergy to blue dye, white tabs only, # 30 tablet, 0 Refills, Maintenance, 11/05/20 9:59:00 EDT, Tablet, [facility]/pharmacy #0838, Patient is allergic to blue dye. White tablet woul... Start Date: 11/05/20 Status: Ordered Metoprolol Succinate ER 100 mg oral tablet, extended release 1 tablet = 100 mg, By Mouth, Daily, # 30 tablet, 0 Refills, Maintenance, 09/24/21 9:49:00 EDT, [facility]/pharmacy #0838, 164, cm, 06/30/21 11:07:00 EDT, Height, 98.8, kg, 06/01/21 18:26:00 EDT, Dry Weight Start Date: 09/24/21 Status: Ordered mupirocin 2% topical ointment 1 application, Topically, 3 times a day, # 30 Gm, 11 Refills, Maintenance, 05/15/19 15:41:00 EDT, Ointment, [facility]/pharmacy #0838, 1 application Topically 3 times a day, 164, cm, 04/22/19 10:50:00 EST, Height, 102.5, kg, 03/10/19 22:47:00 EST, Dry Weight Start Date: 05/15/19 Status: Ordered nystatin topical 180453 u/gm powder See Instructions, APPLY TO AFFECTED AREA TWICE A DAY -PER DR BOWLING, # 30 Gm, 1 Refills, Acute, [facility] STORE 82634, 7, APPLY TO AFFECTED AREA TWICE A [...] Refills, Maintenance, 08/11/22 14:46:00 EDT, [facility], [facility], Partial fill upon patient request ifthe prescription [...] 3 Refills, Maintenance, 11/07/19 7:57:00 EDT, [facility], 163, cm, 08/11/19 15:02:00 EDT, Height, 105, [...] Care Nurse Name: Zahira Davis RN Position: S RN Member Role: Primary Care Nurse Name: Jeff ROSS, Ashley Matson Position: Reference Physician Member Role: Primary Care Nurse Address: Address: [address] [place] [address]- [place] Name: Narda Solares MD Position: [facility] Physician - Primary Care Member Role: PCP Address: Address: [address] [place] [address]- [place] Name: Joe Sullivan RN Position: [facility] Hospital Assembler Tubing Member Role: Primary Care Nurse Care Team Related Persons Name: LENY BLAS Address: home [address] [place] [address] Name: LAURA CALL Address: home [address] [address]
--- OUTSIDE RECORDS SUMMARY | 2023-08-20 11:21 | XMS_ITS | Continuity of Care Document ---
Author Organization [facility] Address [address] [place] [address]- Care Team Providers Care Teletype Or Varitype Keyboard Operator Name Role Phone Marilia HARE, Destiny Gibbs Primary Care Physician [phone] [place] [facility] [id number] Date(s): 01/21/22 - 02/20/22 [facility] [address] [place] [address]- Allergies, Adverse Reactions, Alerts Substance Reaction Severity [...] Severe Active CeleBREX HIVES Persistent Severe Active traMADol Active Other Food Allergy 5, 6, 7 migraines and swelling Active Valacyclovir Hydrochloride abd upspet A ctive 1patient has yellow dye allergy --Pantoprazole 40mg [...] PAIN, # 12 tablet, 0 Refills, Maintenance, 01/20/22 10:09:00 EST, [facility], 2, 1 tablet By Mouth Every 4 hours,PRN: NEEDED FOR PAIN, 164, cm, 11/18/21 13:51:00 EDT, Height, 98.8, kg, ... Start Date: 01/20/22 Status: Ordered acyclovir 400 mg oral tablet [...] a day, PRN Wheezing/Shortness of Breath, FAX [phone] BOWLING J45.909 ASTHMA, # 360 mL, 11 Refills, Maintenance, 05/04/17 13:29:51, Inhalation Solution, 3 mL Inhalation 4 times a day,PRN:Wheezing/Shortness of Breath,I... Start Date: 05/04/17 Status: Ordered atorvastatin 20 mg oral tablet 1 tablet, By Mouth, Daily, # 90 tablet, 1 Refills, [facility], 164, cm, 06/30/21 11:07:00 EDT,Height, 98.8, kg, 06/01/21 18:26:00 EDT, Dry Weight Start Date: 08/18/21 Status: Ordered baclofen 10 mg oral tablet 20 mg, 2, tablet, By Mouth, 2 times a day, Refills 0, Maintenance, 07/29/16 15:15:27 Start Date: 07/29/16 Status: Ordered busPIRone 30 mg oral tablet [...] a day, # 180 tablet, 3 Refills, [facility], 162, cm, 07/03/20 11:05:00 EDT, Height, 99.8, kg, 07/02/20 6:39:00 EDT, Dry Weight Start Date: 11/14/20 Status: Ordered fluticasone-salmeterol 250 mcg-50 mcg inhalation powder 1, puffs, Inhalation, 2 times a day, # 1 each, Refills 11, Tot. Refills 11, Maintenance, 11/05/21 10:30:00 EDT, Powder, Route to Pharmacy Electronically, [id number], [facility]/pharmacy #0838, 164, cm, 11/05/21 9:51:00 EDT, Height,... Start Date: 11/05/21 Stop Date: 10/31/22 Status: Ordered latanoprost 0.005% ophthalmic solution 1 [...] Refills, Acute, 10/02/20 11:46:00 EDT, [facility], 162, cm, 07/03/20 11:05:00 EDT, Height, 99.8, kg, 07/02/20 6:39:00 EDT, Dry Weight Start Date: 10/02/20 Status: Ordered meclizine 12.5 mg oral tablet 1 tablet = 12.5 mg, By Mouth, 3 times a day, PRN for motion sickness, has allergy to blue dye, white tabs only, # 30 tablet, 0 Refills, Maintenance, 11/05/20 9:59:00 EDT, Tablet, [facility]/pharmacy #0838, Patient is allergic to blue dye. White tablet woul... Start Date: 11/05/20 Status: Ordered Metoprolol Succinate ER 100 mg oral tablet, extended release 1 tablet = 100 mg, By Mouth, Daily, # 30 tablet, 0 Refills, Maintenance, 09/24/21 9:49:00 EDT, [facility]/pharmacy #0838, 164, cm, 06/30/21 11:07:00 [...] Start Date: 05/15/19 Status: Ordered nystatin topical 790803 u/gm powder See Instructions, APPLY TO AFFECTED AREA TWICE A DAY -PER DR BOWLING, # 30 Gm, 1 Refills, Acute, [facility] STORE 99795, 7, APPLY TO AFFECTED AREA TWICE A [...] 11 Refills, Maintenance, 01/27/22 11:01:00 EST, Aerosol, [facility]/pharmacy #0838, Partial fill upon [...] 3 Refills, Maintenance, 11/07/19 7:57:00 EDT, [facility], 163, cm, 08/11/19 15:02:00 EDT, Height, 105, [...] EDT, PT HAS ALLERGIES TO CERTAIN DYES. [facility] AWARE. Start Date: 05/26/18 Status: Ordered Zyrtec 10 mg oral tablet 1 tablet = 10 mg, By Mouth, Daily, 0 Refills, Maintenance, 01/14/13 1:54:06, Tablet Start Date: 01/14/13 Status: Ordered Problem List Condition Confirmation Course Effective Dates Status Health Status Informant Allergic rhinitis Confirmed Active Temporomandibular joint (TMJ) pain Confirmed Active Asthma Confirmed Active BMI 40.0-44.9, [...] migraine Confirmed Active Chronic nausea Confirmed Active Obese class II Confirmed Active Osteoarthritis Confirmed Active Past history of procedure-colonoscopy 5 Confirmed Active Polyp of colon 6, 7 Confirmed Active Posttraumatic stress disorder Confirmed Active 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 Per patient's report [address] - [facility] [place] Dr. Hazel 5Colonoscopy 2008 by patient report normal. 6tubular adenoma of colon repeat scrrening colonoscopy in 2020 7colo 2015 Social History Social History Type Response Smoking Status Former smoker; Other : Quit smoking 1983.; entered on: 08/21/15 Sex Patient Care team information Care Team Personnel Name: Matthew Julio RN Position: [facility] RN Member Role: Primary Care Nurse Name: Ashley Akers RN Position: [facility] RN Member Role: Primary Care Nurse Name: Destiny Capellan MD Position: [facility] Primary Care Physician Member Role: PCP Address: Address: [address] [place] [id number]- [place] Name: Evelyn Hernandez RN Position: [facility] RN Member Role: Primary Care Nurse Name: Zahira Davis RN Position: [facility] RN Member Role: Primary Care Nurse Name: Ashley Aguilar NP Position: Reference Physician Member Role: Primary Care Nurse Address: Address: [address] [place] [address]- Name: Joe Sullivan RN Position: [facility] Hospital [employer] Systems Administrator Member Role: Primary Care Nurse Care Team Related Persons Name: ROOPA LENY Address: home [address] [place] [address] [address] [place] [address] Name: LAURA CALL Address: home [address] [place] [address]
--- OUTSIDE RECORDS SUMMARY | 2023-08-20 11:21 | XMS_ITS | Continuity of Care Document ---
Author Organization [facility] Address [address] [place] [address]- Care Team Providers Care Gifted Teacher Name Role Phone Narda Solares MD Primary Care Physician Encounter [facility] [id number] Date(s): 05/12/22 - 09/09/22 [facility] [address] [place] [address]- Attending Physician: Maurice Georges MD Referring Physician: Destiny Capellan MD Allergies, [...] tablet, 0 Refills, Maintenance, 08/13/22 15:44:00 EDT, [facility]/pharmacy #0838, 2, 1 tablet By Mouth Every 4 hours,PRN: NEEDED FOR PAIN, 163, cm, 08/13/22 15:07:00 EDT, Height, 107.3, kg, 06... Start Date: 08/13/22 Status: Ordered acyclovir 400 mg oral tablet 2 tablet = 800 mg, By Mouth, 2 times a day, PRN herpes episodes, # 60 tablet, 0 Refills, Maintenance, 07/28/22 14:06:00 EDT, [facility]/pharmacy #0838, 163, cm, 07/28/22 13:50:00 EDT, Height, 105, kg, 06/05/22 16:25:00 EDT, Dry Weight Start Date: 07/28/22 Status: Ordered amLODIPine 5 mg oral tablet 5 mg, 1, tablet, By Mouth, Daily, # 30 tablet, Refills 2, Tot. Refills 2, Maintenance, 08/05/22 11:00:00 EDT, Route to Pharmacy Electronically, [facility]/pharmacy #0838, pt has allergies to yellow and bluedye, 163, cm, 08/04/22 17:44:00 EDT, Height, 107.3,... Start Date: 08/05/22 Stop Date: 11/03/22 Status: Ordered atorvastatin 20 mg oral tablet 1 tablet, By Mouth, Daily, # 90 tablet, 1 Refills, Maintenance, 03/23/22 21:16:00 EST, [facility], 164, cm, 01/27/22 10:37:00 EST, Height, 98.8, [...] a day, # 180 tablet, 3 Refills, [facility] 92018, 162, cm, 07/03/20 11:05:00 EDT, Height, 99.8, [...] 100 Unknown, 3 Refills, Maintenance, TEST ONCE [id number], 06/08/22 8:32:00 EDT, 163, cm, 06/05/22 16:25:00 [...] Maintenance, 06/26/22 10:29:00 EDT, Tablet, [facility]/pharmacy #4155, Partial fill upon patient request if the [...] tablet, 5 Refills, Acute, 10/02/20 11:46:00 EDT, [facility] ST[facility] 12729, 162, cm, 07/03/20 11:05:00 EDT, Height, 99.8, [...] Start Date: 05/15/19 Status: Ordered nystatin topical 526696 u/gm powder See Instructions, APPLY TO AFFECTED AREA TWICE A DAY -PER DR BOWLING, # 30 Gm, 1 Refills, Acute, [facility], 7, APPLY TO AFFECTED AREA TWICE A [...] 3 Refills, Maintenance, 11/07/19 7:57:00 EDT, [facility], 163, cm, 08/11/19 15:02:00 EDT, Height, 105, [...] Care Nurse Name: Zahira Davis RN Position: [facility] RN Member Role: Primary Care Nurse Name: Jeff BREAKER OPERATOR, Ashley Matson Position: Reference Physician Member Role: Primary Care Nurse Address: Address: [address] [place] [address]- [place] Name: Narda Solares MD Position: [facility] Physician - Primary Care Member Role: PCP Address: Address: [address] [place] [address]- Name: Nate ALEXANDER, Joe Position: [facility] Architectural Job Captain Member Role: Primary Care Nurse Care Team Related Persons Name: EMANILENY TOTH Address: home [address] [place] [address] Name: LAURA CALL Address: home [address] [address]
--- OUTSIDE RECORDS SUMMARY | 2023-08-20 11:21 | XMS_ITS | Continuity of Care Document ---
Author Organization [facility] Address [address] [place] [address]- Care Team Providers Care Cut Off Machine Operator Name Role Phone Marilia HARE, Destiny Gibbs Primary Care Physician [phone] [place] [facility] [place]/10[place]19 - 12/10/19 [facility] [address] [place] [address]- [facility] Attending Physician: Mayra Franz Admitting Physician: AdmMayra clark Referring Physician: AdmtrMayra Allergies, Adverse Reactions, Alerts Substance Reaction Severity [...] PAIN, # 12 tablet, 0 Refills, Acute, [facility], 2, TAKE 1 TABLET BY MOUTH EVERY 4 HOURS NEEDED FOR PAIN, 163, cm, 11/10/19 8:11:00 EDT, Height, 105, kg, 08/11/19 15:02:00 ED... Start Date: 11/13/19 Status: Ordered acyclovir 400 mg oral tablet 1 tablet, By Mouth, 2 times a day, # 20 tablet, 0 Refills, Maintenance, 11/28/19 12:35:00 EDT, [facility]/pharmacy #0838, 163, cm, 11/10/19 8:11:00 EDT, Height, 105, kg, 08/11/19 15:02:00 EDT, Dry Weight Start Date: 11/28/19 Status: Ordered albuterol-ipratropium 3 mg-0.5 mg/3 ml inhalation solution 3 mL, Inhalation, 4 times a day, PRN Wheezing/Shortness of Breath, FAX [phone] BOWLING J45.909 ASTHMA, # 360 mL, 11 Refills, Maintenance, 05/04/17 13:29:51, Inhalation Solution, 3 mL Inhalation 4 times a day,PRN:Wheezing/Shortness of Breath,I... Start Date: 05/04/17 Status: Ordered atorvastatin 20 mg oral tablet 1 tablet = 20 mg, By Mouth, Daily, # 90 tablet, 1 Refills, Maintenance, 06/18/19 11:32:00 EDT, Tablet, [facility]/pharmacy #0838, 164, cm, 04/22/19 10:50:00 EST, [...] Maintenance, 10/13/16 14:32:53, Route to Pharmacy Electronically, [id number], [facility] Start Date: 10/13/16 Status: Ordered [...] 3 Refills, Maintenance, 08/17/19 9:51:00 EDT, Suspension, [facility]/pharmacy #0838, 163, cm, 08/11/19 15:02:00 EDT, Height, 105, kg, 08/11/19 15:02:00 EDT, Dry Weight Start Date: 08/17/19 Stop Date: 08/11/20 Status: Ordered Flonase 50 mcg/inh nasal spray 1 sprays, Nares, Both, 2 times a day, # 16 Gm, 11 Refills, Maintenance, 07/01/18 11:47:12 EDT, [place], 1 sprays Nares, Both 2 times a [...] 0 Refills, Soft Stop, 11/28/19 12:36:00 EDT, Tablet,[facility], 163, cm, 11/10/19 8:11:00 EDT, Height, [...] Replace Required Details, Route to Pharmacy Electronically, [facility] STORE 43133, 163, cm, 08/11/19 15:02:00 EDT, Height, 105, [...] 0 Refills, Maintenance, 04/07/19 10:10:00 EST, Tablet, [facility]/pharmacy #0802, Patient is allergic to blue dye. White tablet would be preferrable., 163, cm, 04/07/19 9:43:0... Start Date: 04/07/19 Status: Ordered Metoprolol Succinate ER 100 mg oral tablet, extended release 1 tablet = 100 mg, By Mouth, Daily, # 90 tablet, 1 Refills, Maintenance, 12/07/19 9:45:00 EDT, [facility]/pharmacy #0838, 163, cm, 11/10/19 8:11:00 EDT, Height, 105, kg, 08/11/19 15:02:00 EDT, Dry Weight Start Date: 12/07/19 Status: Ordered mupirocin 2% topical ointment 1 application, Topically, 3 times a day, # 30 Gm, 11 Refills, Maintenance, 05/15/19 15:41:00 EDT, Ointment, [facility]/pharmacy #0838, 1 application Topically 3 times a day, 164, cm, 04/22/19 10:50:00 EST, Height, 102.5, kg, 03/10/19 22:47:00 EST, Dry Weight Start Date: 05/15/19 Status: Ordered nystatin topical 199272 u/gm powder See Instructions, APPLY TO AFFECTED AREA TWICE A DAY -PER DR BOWLING, # 30 Gm, 1 Refills, Acute, [facility] STORE 82143, 7, APPLY TO AFFECTED AREA TWICE A [...] 900 mL, 0 Refills,Maintenance, 08/21/19 11:24:00 EDT, [facility]/pharmacy #0838, By Mouth take one stat and take one 90 minutes before exam., 163, cm, 08/11/19 15:02:00 EDT, He... Start Date: 08/21/19 Status: Ordered riboflavin 100 mg oral tablet 2 tablet = 200 mg, By Mouth, 2 times a day with meals, # 120 tablet, 5 Refills, Maintenance, 06/12/19 15:11:00 EDT, Tablet, [facility]/pharmacy #0838, 164, cm, 04/22/19 10:50:00 EST, [...] 3 Refills, Maintenance, 11/07/19 7:57:00 EDT, [facility], 163, cm, 08/11/19 15:02:00 EDT, Height, 105, [...] negative for Casey's esophagus. [place] [address] [place] [facility] [place] [address]; repeat 2020 6Colonoscopy 2008 by patient report normal. 7tubular adenoma of colon repeat scrrening colonoscopy in 2020 8colo 2015 Social History Social History Type Response Smoking Status Former smoker; Other : Quit smoking 1983.; entered on: 08/21/15 Sex
--- OUTSIDE RECORDS SUMMARY | 2023-08-20 11:21 | XMS_ITS | Continuity of Care Document ---
Author Organization [facility] Tyrell Sebastián lt Address [address] [place] [address]- Care Team Providers Care Digital Experience Manager Name Role Phone Marilia HARE, Destiny Gibbs Primary Care Physician Encounter [facility] [place] Date(s): 09/27/19 - 10/27/19 [facility] [address] [place] [address]- [facility] Allergies, Adverse Reactions, Alerts Substance Reaction Severity [...] tablet, 0 Refills, Maintenance, 10/11/19 16:02:00 EDT, [facility]/pharmacy #0838, 1 tablet By Mouth Every 4 hours,PRN: NEEDED, 163, cm, 08/11/19 15:02:00 EDT, Height, 105, kg, 08/11/19 15:02:00 EDT, . Start Date: 10/11/19 Status: Ordered acyclovir 400 mg oral tablet 1 tablet = 400 mg, By Mouth, 2 times a day, # 20 tablet, 0 Refills, Soft Stop, 10/19/19 15:16:00 EDT, [facility]/pharmacy #0838, 163, cm, 08/11/19 15:02:00 EDT, Height, 105, kg, 08/11/19 15:02:00 EDT, Dry Weight Start Date: 10/19/19 Status: Ordered albuterol-ipratropium 3 mg-0.5 mg/3 ml inhalation solution 3 mL, Inhalation, 4 times a day, PRN Wheezing/Shortness of Breath, FAX [phone] BOWLING J45.909 ASTHMA, # 360 mL, 11 Refills, Maintenance, 05/04/17 13:29:51, Inhalation Solution, 3 mL Inhalation 4 times a day,PRN:Wheezing/Shortness of Breath,I... Start Date: 05/04/17 Status: Ordered atorvastatin 20 mg oral tablet 1 tablet = 20 mg, By Mouth, Daily, # 90 tablet, 1 Refills, Maintenance, 06/18/19 11:32:00 EDT, Tablet, [facility]/pharmacy #0838, 164, cm, 04/22/19 10:50:00 [...] Maintenance, 10/13/16 14:32:53, Route to Pharmacy Electronically, [id number], [facility]/pharmacy #0838 Start Date: 10/13/16 Status: Ordered Coenzyme Q10 30 mg oral capsule 1 capsule = 30 mg, By Mouth, Daily, # 30 capsule, 5 Refills, Maintenance, 06/12/19 15:10:00 EDT, Capsule, [facility]/pharmacy #0838, 164, cm, 04/22/19 10:50:00 [...] 3 Refills, Maintenance, 08/17/19 9:51:00 EDT, Suspension, [facility]/pharmacy #0838, 163, cm, 08/11/19 15:02:00 EDT, Height, 105, kg, 08/11/19 15:02:00 EDT, Dry Weight Start Date: 08/17/19 Stop Date: 08/11/20 Status: Ordered Flonase 50 mcg/inh nasal spray 1 sprays, Nares, Both, 2 times a day, # 16 Gm, 11 Refills, Maintenance, 07/01/18 11:47:12 EDT, [place], 1 sprays Nares, Both 2 times a [...] Replace Required Details, Route to Pharmacy Electronically, [facility] STORE 48273, 163, cm, 08/11/19 15:02:00 EDT, Height, 105, [...] Acute 12/09/19 15:12:00 EDT, 06/12/19 15:12:00 EDT, [facility]/pharmacy #0838, 164, cm, 04/22/19 10:50:00 EST, Height, 102.5, kg, 03/10/19 22:47:00 EST, Dry Weight Start Date: 06/12/19 Stop Date: 12/09/19 Status: Ordered meclizine 12.5 mg oral tablet 1 tablet = 12.5 mg, By Mouth, 3 times a day, PRN for motion sickness, # 30 tablet, 0 Refills, Maintenance, 04/07/19 10:10:00 EST, Tablet, [facility]/pharmacy #0838, Patient is allergic to blue dye. White tablet would be preferrable., 163, cm, 04/07/19 9:43:0... Start Date: 04/07/19 Status: Ordered Metoprolol Succinate ER 100 mg oral tablet, extended release 1 tablet = 100 mg, By Mouth, Daily, # 90 tablet, 1 Refills, Maintenance, 06/13/19 12:04:00 EDT, [facility]/pharmacy #0838, 164, cm, 04/22/19 10:50:00 EST, Height, 102.5, kg, 03/10/19 22:47:00 EST, Dry Weight Start Date: 06/13/19 Status: Ordered mupirocin 2% topical ointment 1 application, Topically, 3 times a day, # 30 Gm, 11 Refills, Maintenance, 05/15/19 15:41:00 EDT, Ointment, [facility]/pharmacy #0838, 1 application Topically 3 times a day, 164, cm, 04/22/19 10:50:00 EST, Height, 102.5, kg, 03/10/19 22:47:00 EST, Dry Weight Start Date: 05/15/19 Status: Ordered nystatin topical 120716 u/gm powder See Instructions, 1 APPLICATION TOPICALLY 2 TIMES A DAY,INSTR:PER DR BOWLING, # 30 Gm, 1 Refills, Soft Stop, 07/20/19 13:27:00 EDT, [facility]/pharmacy #0838, 1 APPLICATION TOPICALLY 2 TIMES [...] 900 mL, 0 Refills,Maintenance, 08/21/19 11:24:00 EDT, [facility]/pharmacy #0838, By Mouth take one stat and take one 90 minutes before exam., 163, cm, 08/11/19 15:02:00 EDT, He... Start Date: 08/21/19 Status: Ordered riboflavin 100 mg oral tablet 2 tablet = 200 mg, By Mouth, 2 times a day with meals, # 120 tablet, 5 Refills, Maintenance, 06/12/19 15:11:00 EDT, Tablet, [facility]/pharmacy #0838, 164, cm, 04/22/19 10:50:00 [...] PUFFS BY MOUTH 4 TIMES A DAY, [facility]/pharmacy #0838 Start Date: 01/11/19 Status: Ordered [...] negative for Casey's esophagus. [place]80 [place] [facility] [place] [address]; repeat 2020 6Colonoscopy 2008 by patient report normal. 7tubular adenoma of colon repeat scrrening colonoscopy in 2020 8colo 2015 Social History Social History Type Response Smoking Status Former smoker; Other : Quit smoking 1983.; entered on: 08/21/15 Sex
--- OUTSIDE RECORDS SUMMARY | 2023-08-20 11:21 | XMS_ITS | Continuity of Care Document ---
Author Organization [facility] Address [address] [place] [address]- Care Team Providers Care X Ray Equipment Mechanic Name Role Phone Narda Solares MD Primary Care Physician En[place] [facility] [place] Date(s): 05/13/23 - 06/12/23 [facility] [address] [place] [address]- Attending Physician: Mayra Franz Admitting Physician: Mayra [...] PAIN, # 12 tablet, 0 Refills, Maintenance, 05/07/23 13:11:00 EDT, [facility], TAKE 1 TABLET BY MOUTH EVERY 4 HOURS NEEDED FOR PAIN,PRN:Headache, 163, cm,... Start Date: 05/07/23 Status: Ordered acyclovir 400 mg oral tablet 2 tablet = 800 mg, By Mouth, 2 times a day, PRN herpes episodes, # 60 tablet, 0 Refills, Maintenance, 07/28/22 14:06:00 EDT, [facility]/pharmacy #0838, 163, cm, 07/28/22 13:50:00 EDT, Height, 105, kg, 06/05/22 16:25:00 EDT, Dry Weight Start Date: 07/28/22 Status: Ordered albuterol-ipratropium 3 mg-0.5 mg/3 ml inhalation solution 3 mL, Inhalation, 4 times a day, PRN Wheezing/Shortness of Breath, # 90 mL, 0 Refills, Maintenance,11/24/22 18:14:00 EDT, Solution, [facility]/pharmacy #0838, Partial fill upon [...] Refills, Maintenance, 03/23/22 21:16:00 EST, [facility], 164, cm, 01/27/22 10:37:00 EST, Height, 98.8, [...] a day, # 180 tablet, 3 Refills, [facility] ST[facility] 96429, 162, cm, 07/03/20 11:05:00 EDT, Height, 99.8, kg, 07/02/20 6:39:00 EDT, Dry Weight Start Date: 11/14/20 Status: Ordered fluticasone-vilanterol 200 mcg-25 mcg/inh inhalation powder 1 puffs, Inhalation, Daily, # 1 each, 11 Refills, Maintenance, 05/31/23 12:44:00 EDT, [facility], 1 puffs Inhalation Daily,x30 [...] 11 Refills, Maintenance, 03/09/23 16:11:00 EST, Powder, [facility] 2171, Partial fill upon patient request if the [...] Start Date: 09/24/21 Status: Ordered nystatin topical 270521 u/gm powder 1 application, Topically, 2 times [...] 3 Refills, Maintenance, 11/07/19 7:57:00 EDT, [facility], 163, cm, 08/11/19 15:02:00 EDT, Height, 105, [...] Team Personnel Name: Matthew Julio RN Position: [facility] RN Member Role: Primary Care Nurse Name: Akers RN, Ashley Position: [facility] RN Member Role: Primary Care Nurse Name: Evelyn Hernandez RN Position: [facility] RN Member Role: Primary Care Nurse Name: Zahira Davis RN Position: [facility] RN Member Role: Primary Care Nurse Name: Jeff CAMPAIGN CONSULTANT, Ashley Matson Position: Reference Physician Member Role: Primary Care Nurse Address: Address: [address] [place] [address]- Name: Narda Solares MD Position: [facility] Physician - Primary Care Member Role: PCP Address: Address: [address] [place] [id number]- Name: Nate ALEXANDER, Joe Position: [facility] Upholstery Estimator Member Role: Primary Care Nurse Care Team Related Persons Name: LENY BLAS Address: home [address] [address] Name: LAURA CALL Address: home [address] [address]
--- OUTSIDE RECORDS SUMMARY | 2023-08-20 11:21 | XMS_ITS | Continuity of Care Document ---
Author Organization [facility] Address [address] [place] [address]- Care Team Providers Care Mirror Inspector Name Role Phone Sujatha HARE, Narda Primary Care Physician Encounter [facility] [place] Date(s): 08/12/22 - 09/11/22 [facility] [address], [place] [address] Allergies, Adverse Reactions, Alerts Substance Reaction [...] tablet, 0 Refills, Maintenance, 08/13/22 15:44:00 EDT, [facility]/pharmacy #0838, 2, 1 tablet By Mouth Every 4 hours,PRN: NEEDED FOR PAIN, 163, cm, 08/13/22 15:07:00 EDT, Height, 107.3, kg, 06... Start Date: 08/13/22 Status: Ordered acyclovir 400 mg oral tablet 2 tablet = 800 mg, By Mouth, 2 times a day, PRN herpes episodes, # 60 tablet, 0 Refills, Maintenance, 07/28/22 14:06:00 EDT, [facility]/pharmacy #0838, 163, cm, 07/28/22 13:50:00 EDT, Height, 105, kg, 06/05/22 16:25:00 EDT, Dry Weight Start Date: 07/28/22 Status: Ordered amLODIPine 5 mg oral tablet 5 mg, 1, tablet, By Mouth, Daily, # 30 tablet, Refills 2, Tot. Refills 2, Maintenance, 08/05/22 11:00:00 EDT, Route to Pharmacy Electronically, [facility]/pharmacy #0838, pt has allergies to yellow and bluedye, 163, cm, 08/04/22 17:44:00 EDT, Height, 107.3,... Start Date: 08/05/22 Stop Date: 11/03/22 Status: Ordered atorvastatin 20 mg oral tablet 1 tablet, By Mouth, Daily, # 90 tablet, 1 Refills, Maintenance, 03/23/22 21:16:00 EST, [facility], 164, cm, 01/27/22 10:37:00 EST, Height, 98.8, [...] 11 Refills, Maintenance, 05/11/22 12:46:00 EDT, Powder, [facility]/pharmacy #0838, Partial fill upon patient [...] a day, # 180 tablet, 3 Refills, [facility], 162, cm, 07/03/20 11:05:00 EDT, Height, 99.8, [...] 100 Unknown, 3 Refills, Maintenance, TEST ONCE [id number], 06/08/22 8:32:00 EDT, 163, cm, 06/05/22 16:25:00 [...] Maintenance, 06/26/22 10:29:00 EDT, Tablet, [facility]/pharmacy #4051, Partial fill upon patient request if the [...] tablet, 5 Refills, Acute, 10/02/20 11:46:00 EDT, [facility] STORE 08194, 162, cm, 07/03/20 11:05:00 EDT, Height, 99.8, kg, 07/02/20 6:39:00 EDT, Dry Weight Start Date: 10/02/20 Status: Ordered meclizine 12.5 mg oral tablet 1 tablet = 12.5 mg, By Mouth, 3 times a day, PRN for motion sickness, has allergy to blue dye, white tabs only, # 30 tablet, 0 Refills, Maintenance, 11/05/20 9:59:00 EDT, Tablet, [facility]/pharmacy #0838, Patient is allergic to blue dye. White tablet woul... Start Date: 11/05/20 Status: Ordered Metoprolol Succinate ER 100 mg oral tablet, extended release 1 tablet = 100 mg, By Mouth, Daily, # 30 tablet, 0 Refills, Maintenance, 09/24/21 9:49:00 EDT, [facility]/pharmacy #0838, 164, cm, 06/30/21 11:07:00 EDT, Height, 98.8, kg, 06/01/21 18:26:00 EDT, Dry Weight Start Date: 09/24/21 Status: Ordered mupirocin 2% topical ointment 1 application, Topically, 3 times a day, # 30 Gm, 11 Refills, Maintenance, 05/15/19 15:41:00 EDT, Ointment, [facility]/pharmacy #0838, 1 application Topically 3 times a day, 164, cm, 04/22/19 10:50:00 EST, Height, 102.5, kg, 03/10/19 22:47:00 EST, Dry Weight Start Date: 05/15/19 Status: Ordered nystatin topical 586840 u/gm powder See Instructions, APPLY TO AFFECTED AREA TWICE A DAY -PER DR BOWLING, # 30 Gm, 1 Refills, Acute, [facility] STORE 90196, 7, APPLY TO AFFECTED AREA TWICE A [...] 3 Refills, Maintenance, 11/07/19 7:57:00 EDT, [facility], 163, cm, 08/11/19 15:02:00 EDT, Height, 105, [...] Care Nurse Name: Zahira Davis RN Position: [facility] RN Member Role: Primary Care Nurse Name: Jeff ROSS, Ashley Matson Position: Reference Physician Member Role: Primary Care Nurse Address: Address: [address] [place] [address]- [place] Name: Narda Solares MD Position: [facility] Physician - Primary Care Member Role: PCP Address: Address: [address] [place] [address]- Name: Joe Sullivan RN Position: [facility] Hospital Core Dipper Member Role: Primary Care Nurse Care Team Related Persons Name: LENY BLAS Address: home [address] [place] [address] Name: LAURA CALL Address: home [address] [address]
--- OUTSIDE RECORDS SUMMARY | 2023-08-20 11:21 | XMS_ITS | Continuity of Care Document ---
Author Organization [facility] Sebastián lt Address [address] [place] [address]- Care Team Providers Care Dyeing Machine Back Tender Name Role Phone Maricruz HARE, Matthew Singh Primary Care Physician Encounter [facility] [place] Date(s): 01/31/19 - 02/07/19 [facility] Adult [address] [place] [address]- [facility] Attending Physician: Yandel ROSS, Cait Byrnes Allergies, Adverse Reactions, Alerts Substance Reaction Severity [...] a day, PRN Wheezing/Shortness of Breath, FAX [phone] BOWLING J45.909 ASTHMA, # 360 mL, 11 Refills, Maintenance, 05/04/17 13:29:51, Inhalation Solution, 3 mL Inhalation 4 times a day,PRN:Wheezing/Shortness of Breath,I... Start Date: 05/04/17 Status: Ordered atorvastatin 20 mg oral tablet 1 tablet = 20 mg, By Mouth, Daily, # 90 tablet, 3 Refills, Maintenance, Tablet, Route to Pharmacy Electronically, [id number], [facility]/pharmacy #0838 Start Date: 05/26/18 Stop Date: 05/21/19 [...] Maintenance, 10/13/16 14:32:53, Route to Pharmacy Electronically, [id number], [facility]/pharmacy #0838 Start Date: 10/13/16 Status: Ordered [...] Gm, 11 Refills, Maintenance, 07/01/18 11:47:12 EDT, [facility], 1 sprays Nares, Both 2 times a [...] 01/31/19 11:03:42 EST, Route to Pharmacy Electronically, [id number], [facility]/pharmacy #0... Start Date: 01/31/19 Status: Ordered latanoprost 0.005% ophthalmic solution 1 drops, Eyes, Both, Daily in PM, # 2.5 mL, 0 Refills, Maintenance, 08/21/15 10:26:08, Solution Start Date: 08/21/15 Status: Ordered lisinopril 10 mg oral tablet 10 mg, 1, tablet, By Mouth, Daily, # 90 tablet, Refills 0, Tot. Refills 0, Maintenance, 04/12/18 11:28:12 EST, Route to Pharmacy Electronically, [id number], [facility]/pharmacy #0838 Start Date: 04/12/18 Status: Ordered LORazepam [...] tablet, 2 Refills, Maintenance, 02/06/19 9:36:12 EST, [facility] STORE 19503, 163, cm, 01/31/19 10:42:38 EST, Height, 102.1, [...] Start Date: 01/18/18 Status: Ordered nystatin topical 119744 u/gm powder See Instructions, # 30 Gm, Refills 1 Tot. Refills 1, 1 APPLICATION TOPICALLY 2 TIMES A DAY,INSTR:PER DR BOWLING, [facility]/pharmacy #0838 Start Date: 09/15/18 Status: Ordered Probiotic [...] PUFFS BY MOUTH 4 TIMES A DAY, [facility] Start Date: 01/11/19 Status: Ordered Vitamin [...] negative for Casey's esophagus. Per patient's report 19301 - [facility] [place]. Hazel [address]; repeat 2020 6Colonoscopy 2008 by patient report normal. 7tubular adenoma of colon repeat scrrening colonoscopy in 2020 8colo 2015 Vital Signs Most recent to oldest [Reference Range]: 1 Height 163 cm (01/31/19 10:42 AM) Weight 102.9 kg (01/31/19 10:42 AM) Oxygen Saturation [94-100 %] 96 % (01/31/19 10:42 AM) Pulse Rate [55-90 bpm] 95 bpm *H* (01/31/19 10:42 AM) Body Mass Index [18.5-24.99] 38.73 *>HHI* (01/31/19 10:42 AM) Blood Pressure [90-138/55-84 mm Hg] 134/ 82mm Hg (01/31/19 10:42 AM) Blood pressure sites Arm, left (12/10/19 10:42 AM) Social History Social History Type Response Smoking Status Former smoker; Other : Quit smoking 1983.; entered on: 08/21/15 Sex
--- OUTSIDE RECORDS SUMMARY | 2023-08-20 11:21 | XMS_ITS | Continuity of Care Document ---
Author Organization [facility] Address [address] [place] [address]- Care Team Providers Care Software Engineer Kernel Name Role Phone Narda Solares MD Primary Care Physician En[place] [facility] [place] Date(s): 10/22/22 - 11/21/22 [facility] [address] [place] [address]- Attending Physician: Mayra Franz Admitting Physician: AdmMayra [...] tablet, 0 Refills, Maintenance, 11/05/22 11:09:00 EDT, [facility]/pharmacy #0838, TAKE 1 TABLET BY MOUTH EVERY 4HOURS NEEDED FOR PAIN,PRN:Headache, 163, cm, /... Start Date: 11/05/22 Status: Ordered acyclovir 400 mg oral tablet 2 tablet = 800 mg, By Mouth, 2 times a day, PRN herpes episodes, # 60 tablet, 0 Refills, Maintenance, 07/28/22 14:06:00 EDT, [facility]/pharmacy #0838, 163, cm, 07/28/22 13:50:00 EDT, Height, 105, kg, 06/05/22 16:25:00 EDT, Dry Weight Start Date: 07/28/22 Status: Ordered amLODIPine 5 mg oral tablet 5 mg, 1, tablet, By Mouth, Daily, # 90 tablet, Refills 3, Tot. Refills 3, Maintenance, 10/23/22 8:48:00 EDT, Route to Pharmacy Electronically, [facility]/pharmacy #0838, pt has allergies to yellow and blue dye, 163, cm, 08/27/22 12:58:00 EDT, Height, 107.3,... Start Date: 10/23/22 Stop Date: 10/18/23 Status: Ordered atorvastatin 20 mg oral tablet 1 tablet, By Mouth, Daily, # 90 tablet, 1 Refills, Maintenance, 03/23/22 21:16:00 EST, [facility], 164, cm, 01/27/22 10:37:00 EST, Height, 98.8, [...] Gm, 1 Refills, Maintenance, 10/22/22 12:39:00 EDT, [facility]/pharmacy #0838, Partial fill upon patient request if the prescription is for a schedule II opioid drug., 1 sprays Nares, Both 2 anne... Start Date: 10/22/22 Status: Ordered Breo Ellipta 200 mcg-25 mcg/inh inhalation powder 1 puffs, Inhalation, Daily, # 1 each, 11 Refills, Maintenance, 05/11/22 12:46:00 EDT, Powder, [facility]/pharmacy #0838, Partial fill upon patient [...] a day, # 180 tablet, 3 Refills, [facility] ST[facility] 17732, 162, cm, 07/03/20 11:05:00 EDT, Height, 99.8, [...] 100 Unknown, 3 Refills, Maintenance, TEST ONCE [id number], 06/08/22 8:32:00 EDT, 163, cm, 06/05/22 16:25:00 [...] 3 Refills, Maintenance, 06/26/22 10:29:00 EDT, Tablet, [facility]/pharmacy #0838, Partial fill upon patient [...] Refills, Acute, 10/02/20 11:46:00 EDT, [facility], 162, cm, 07/03/20 11:05:00 EDT, Height, 99.8, kg, 07/02/20 6:39:00 EDT, Dry Weight Start Date: 10/02/20 Status: Ordered meclizine 12.5 mg oral tablet 1 tablet = 12.5 mg, By Mouth, 3 times a day, PRN for motion sickness, has allergy to blue dye, white tabs only, # 30 tablet, 0 Refills, Maintenance, 11/05/20 9:59:00 EDT, Tablet, [facility]/pharmacy #0838, Patient is allergic to [...] 11 Refills, Maintenance, 05/15/19 15:41:00 EDT, Ointment, [facility]/pharmacy #0838, 1 application Topically 3 times a day, 164, cm, 04/22/19 10:50:00 EST, Height, 102.5, kg, 03/10/19 22:47:00 EST, Dry Weight Start Date: 05/15/19 Status: Ordered nystatin topical 825464 u/gm powder See Instructions, APPLY TO AFFECTED AREA TWICE A DAY -PER DR BOWLING, # 30 Gm, 1 Refills, Acute, [facility] 66821, 7, APPLY TO AFFECTED AREA TWICE A [...] 0 Refills, Maintenance, 08/11/22 14:46:00 EDT, Solution, [facility]/pharmacy #0838, Partial fill upon patient request ifthe [...] 3 Refills, Maintenance, 11/07/19 7:57:00 EDT, [facility], 163, cm, 08/11/19 15:02:00 EDT, Height, 105, [...] Member Role: Primary Care Nurse Address: Address: [address] [place] [address]- [place] Name: Narda Solares MD Position: [facility] Physician - Primary Care Member Role: PCP Address: Address: [address] [place] [address]- [place] Name: Joe Sullivan RN Position: [facility] Aerial Lineman Member Role: Primary Care Nurse Care Team Related Persons Name: LENY BLAS Address: home [address] [address] Name: LAURA CALL Address: home [address] [facility] [address] [address]
--- NOTE | 2023-08-20 11:43 | MHC.OFFWIV ---
Intake Vital Signs 08/20/23 11:46 BP 136/78 Blood Pressure Location Rt brachial Position Sitting Pulse 76 Pulse Source Pulse Oximeter Pulse Oximetry (%) 95 Oxygen Delivery Method Room Air Intake Visit Reasons: Potentially has shingles Patient Tobacco Use Status: Former Tobacco user Allergies iopromide [From Ultravist] Allergy (Mild, Verified 08/20/23 11:45) REDNESS, SWELLING AROUND NECK amoxapine [AMOXAPINE] Allergy (Unknown, Verified 08/20/23 11:45) OVER EATING amoxicillin [AMOXICILLIN] Allergy (Unknown, Verified 08/20/23 11:45) LOWER GI DISTRESS azithromycin [From ZITHROMAX] Allergy (Unknown, Verified 08/20/23 11:45) DOES NOT WORK blue dye [BLUE DYE] Allergy (Unknown, Verified 08/20/23 11:45) FACIAL SWELLING,TEMP,RASH caffeine [From CAFERGOT] Allergy (Unknown, Verified 08/20/23 11:45) CANT TAKE ANYMORE celecoxib [From CELEBREX] Allergy (Unknown, Verified 08/20/23 11:45) RASH,TEMP ciprofloxacin [CIPROFLOXACIN] Allergy (Unknown, Verified 08/20/23 11:45) HALLUCINATION clarithromycin [From BIAXIN] Allergy (Unknown, Verified 08/20/23 11:45) DOES NOT WORK clavulanic acid [From AUGMENTIN] Allergy (Unknown, Verified 08/20/23 11:45) C-DIFF X 3 divalproex sodium [From DEPAKOTE] Allergy (Unknown, Verified 08/20/23 11:45) NIGHT SCARES ergotamine [From CAFERGOT] Allergy (Unknown, Verified 08/20/23 11:45) UNKNOWN gabapentin [GABAPENTIN] Allergy (Unknown, Verified 08/20/23 11:45) NIGHT SCARES hydroxyzine [HYDROXYZINE] Allergy (Unknown, Verified 08/20/23 11:45) ITCHING influenza virus vaccine, specific [FLU VACCINE] Allergy (Unknown, Verified 08/20/23 11:45) FEVER- PINS/ NEEDLES ALL OVER , RASH Iodinated Contrast Media [IV CONTRAST] Allergy (Unknown, Verified 08/20/23 11:45) HIVES ketorolac [From TORADOL] Allergy (Unknown, Verified 08/20/23 11:45) SEVERE ITCHING levofloxacin [From LEVAQUIN] Allergy (Unknown, Verified 08/20/23 11:45) HEART PALPITATIONS meperidine [From DEMEROL] Allergy (Unknown, Verified 08/20/23 11:45) ANAPHYLAXIS Sulfa (Sulfonamide Antibiotics) [SULFA (SULFONAMIDE ANTIBIOTICS)] Allergy (Unknown, Verified 08/20/23 11:45) ADMITTED WITH HIVES sumatriptan [Imitrex] Allergy (Unknown, Verified 08/20/23 11:45) heart pounding tramadol [From ULTRAM] Allergy (Unknown, Verified 08/20/23 11:45) ITCH trazodone [TRAZODONE] Allergy (Unknown, Verified 08/20/23 11:45) NIGHT SCARES valacyclovir [VALACYCLOVIR] Allergy (Unknown, Verified 08/20/23 11:45) GASTIC UPSET yellow dye [YELLOW DYE] Allergy (Unknown, Verified 08/20/23 11:45) SYSTEMIC ITCHING dexamethasone [From Decadron] Adverse Reaction (Intermediate, Verified 08/20/23 11:45) neck pain naproxen Adverse Reaction (Verified 08/20/23 11:45) Swelling Flu vaccine Allergy (Severe, Uncoded 08/04/23 10:35) Anaphylaxis Amitriptyline Allergy (Unknown, Uncoded 08/04/23 10:35) Unknown Blue and yellow dye Allergy (Unknown, Uncoded 08/04/23 10:35) Swelling Ionic dye Allergy (Unknown, Uncoded 08/04/23 10:35) Rash Medication List - Last Reconciled 08/20/23 by Madonna Loco, [facility]- amlodipine 5 mg PO DAILY baclofen 20 mg PO BID [id number] 160-9-4.8 mcg/actuation (Breztri Aerosphere) inhalations inhalation buspirone 30 mg PO BID doxycycline hyclate 100 mg PO BID 7 days lancets (FreeStyle Lancets) As directed latanoprost 0.005% drps ophthalmic (eye) lisinopril 40 mg PO DAILY lorazepam 1 mg PO TID metoprolol succinate ER 100 mg PO DAILY nystatin topical venlafaxine ER 225 mg PO DAILY HPI HPI Comments History of Present Illness Details Here today with a rash INITIALLY SHE STATES THAT THE RASH STARTED LAST NIGHT. HOWEVER UPON FURTHER QUESTIONING SHE REPORTS THAT SHE HAS HAD A RASH HER WHOLE ENTIRE BODY THAT APPEARS TO START OFF WHITE CRUSTED LESIONS AND THEN TURNS TO OPEN RED SCABBED AREAS FOR SOME TIME. ADMITS TO SCRATCHING HER SKIN HARD AND CAUSING SKIN TEARS. HOWEVER SHE REPORTS THAT THE OTHER AREAS DEVELOP WITHOUT ANY TRAUMA TO THE SKIN. OVERALL SHE HAS A BURNING ITCHY SENSATION TO HER SKIN. SHE WAS WORRIED THAT SHE HAS SHINGLES. SHE DENIES ANY RECENT TRAVEL, EXPOSURES WITH SIMILAR RASH, FEVER. HAS BEEN APPLYING TOPICAL MUPIROCIN TO THE OPEN LESIONS. TAKES A DAILY ANTIHISTAMINE. Exam: A GENERALIZED MACULAR PAPULAR RASH INVOLVING EXTREMITIES X4, ANTERIOR AND POSTERIOR TRUNK AND BUTTOCKS. SEVERAL AREAS OF SECONDARY EXCORIATION WITHOUT INFECTION. THIS IS NOT SHINGLES PLAN ADVISED THAT I DO NOT KNOW THE CAUSE OF HER RASH TODAY. I HAVE PLACED A STAT REFERRAL TO DERMATOLOGY AND PRESCRIBED A SHORT COURSE OF PREDNISONE. CONTINUE DAILY ANTIHISTAMINES AND MUPIROCIN TO THE OPEN AREAS. REPLACED BY [facility] Social History Patient Tobacco Use Status: Former Tobacco user Assessment & Plan Assessment & Plan (1) Maculopapular rash, generalized: Code(s): R21 - Rash and other nonspecific skin eruption Plan: . Plan THIS NOTE IS CONSTRUCTED USING VOICE RECOGNITION SOFTWARE. WHILE EVERY EFFORT HAS BEEN MADE TO ENSURE ACCURACY IN ARTIFICIAL FLY TIER, STILL ERRORS MAY HAVE BEEN INCLUDED SOMETIMES, THESE ERRORS MAY AFFECT THE CONTENT OR MEANING OF THE GIVEN SENTENCE . TOTAL TIME SPENT CARING FOR THE PATIENT TODAY WAS 33 MINUTES. THIS INCLUDES TIME SPENT BEFORE THE VISIT REVIEWING THE CHART, TIME SPENT DURING THE VISIT, AND TIME SPENT AFTER THE VISIT ON DOCUMENTATION Orders: Referrals Dermatology Referral R21 - Rash and other nonspecific skin eruption Medications: New prednisone 20 mg PO DAILY 5 tabs 0RF Coding Level of Care Code Est Pt Level 4 (67517) Diagnoses Maculopapular rash, generalized R21
[2023-08-20 11:46] VITALS: BP 136/78; PULSE 76; O2SAT 95
== END 2023-08-20 12:05 | disposition home or self-care (01) ==
PROVIDERS: PCP Internal Medicine; Visit Provider Nurse Practitioner Family
DX: R21 Rash and other nonspecific skin eruption (principal)
CPT/HCPCS: 99214

== ENCOUNTER 2023-10-20 10:47 | Outpatient (AMB) | payer MEDICARE, SELFPAY ==
--- OUTSIDE RECORDS SUMMARY | 2023-10-20 10:53 | XMS_ITS | Continuity of Care Document ---
Author Organization [facility] Address [address] [place] [address]- Care Team Providers Care Termination Clerk Name Role Phone Not on Staff, PCP Primary Care Physician Unavail able Encounter [facility] Date(s): 08/30/23 - 09/29/23 [facility] [address] [place] [address]- [place] Allergies, Adverse Reactions, Alerts Substance Reaction Severity Status ciprofloxacin hallucinations Persistent Severe Active naproxen Active Remeron swollen neck and rash Persistent [...] HEADACHE, # 12 tablet, 0 Refills, Maintenance, 07/16/23 7:56:00 EDT, [facility], 2, 1 tablet By Mouth Every 4 hours,PRN: NEEDED FOR PAIN FOR HEADACHE, 163, cm, 07/02/23 13:06:0... Start Date: 07/16/23 Status: Ordered acyclovir 400 mg oral tablet 2 tablet = 800 mg, By Mouth, 2 times a day, PRN herpes episodes, # 60 tablet, 0 Refills, Maintenance, 08/31/23 7:57:00 EDT, [facility], 163, cm, 07/28/23 14:08:00 EDT, Height, 108.7, kg, 05/02/23 17:58:00 EDT, Dry Weight Start Date: 08/31/23 Status: Ordered albuterol-ipratropium 3 mg-0.5 mg/3 ml inhalation solution 3 mL, Inhalation, 4 times a day, PRN Wheezing/Shortness of Breath, # 90 mL, 0 Refills, Maintenance,11/24/22 18:14:00 EDT, Solution, [facility]/pharmacy #0838, Partial fill upon patient request if the prescription is for a schedule II opioid drug., 3 mL Inha... Start Date: 11/24/22 Status: Ordered amLODIPine 5 mg oral tablet 5 mg, 1, tablet, By Mouth, Daily, # 90 tablet, Refills 3, Tot. Refills 3, Maintenance, 10/23/22 8:48:00 EDT, Route to Pharmacy Electronically, [facility]/pharmacy #0838, pt has allergies to yellow and blue dye, 163, cm, 08/27/22 12:58:00 EDT, Height, 107.3,... Start Date: 10/23/22 Stop Date: 10/18/23 Status: Ordered atorvastatin 20 mg oral tablet 1 tablet, By Mouth, Daily, # 90 tablet, 1 Refills, Maintenance, 03/23/22 21:16:00 EST, [facility], 164, cm, 01/27/22 10:37:00 EST, Height, 98.8, [...] Gm, 1 Refills, Maintenance, 10/22/22 12:39:00 EDT, [facility]/pharmacy #0838, Partial fill upon patient request if the prescription is for a schedule II opioid drug., 1 sprays Nares, Both 2 anne... Start Date: 10/22/22 Status: Ordered Breztri Aerosphere inhalation aerosol 2 puffs, Inhalation, 2 times a day, rinse mouth and throat after use, # 5.9 Gm, 11 Refills, Maintenance, 07/28/23 13:42:00 EDT, Aerosol, [facility], Partial fill upon patient request if the prescription is for a schedule II opioid drug., 2... Start Date: 07/28/23 Status: Ordered busPIRone 30 mg oral tablet [...] a day, # 180 tablet, 3 Refills, [facility], 162, cm, 07/03/20 11:05:00 EDT, Height, 99.8, [...] Status: Ordered lisinopril 40 mg oral tablet See Instructions, Take 1 tablet by mouth once daily, # 90 tablet, 0 Refills, Maintenance, 08/30/23 8:43:00 EDT, [facility], 163, cm, 07/28/23 14:08:00 EDT, Height, 108.7, kg, 05/02/23 17:58:00 EDT, Dry Weight Start Date: 08/30/23 Status: Ordered magnesium oxide 400 mg oral tablet 1 tablet, By Mouth, Daily, # 60 tablet, 0 Refills, Maintenance, 09/13/23 13:11:00 EDT, [facility], 163, cm, 07/28/23 14:08:00 EDT, Height, 108.7, kg, 05/02/23 17:58:00 EDT, Dry Weight Start Date: 09/13/23 Status: Ordered Metoprolol Succinate ER 100 mg oral tablet, extended release 1 tablet = 100 mg, By Mouth, Daily, # 7 tablet, 0 Refills, Maintenance, 08/12/23 11:03:00 EDT, [facility], 163, cm, 07/28/23 14:08:00 EDT, Height, 108.7, kg, 05/02/23 17:58:00 EDT, Dry Weight Start Date: 08/12/23 Status: Ordered nystatin topical 517075 u/gm powder 1 application, Topically, 2 times [...] day Start Date: 01/22/16 Status: Ordered riboflavin 400 mg oral capsule 1 capsule = 400 mg, By Mouth, Daily, # 30 capsule, 5 Refills, Maintenance, 07/02/23 14:20:00 EDT, [facility], Partial fill upon patient request if the prescription is for a schedule II opioid drug., 163, cm, 07/02/23 13:06:00 EDT, Height, 1... Start Date: 07/02/23 Status: Ordered senna 187 mg oral tablet 1 tablet = 8.6 mg, By Mouth, 2 times a day, PRN Constipation, 0 Refills, Maintenance, 05/04/23 15:08:00 EDT, Tablet, Partial fill upon patient request if the prescription is for a schedule II opioid drug. Start Date: 05/04/23 Status: Ordered Suprep Bowel Prep Kit oral liquid See Instructions, drink half after 5pm evening before procedure, finish remaining half 6 hours prior to procedure time, # 1 kit, 0 Refills, Maintenance, 08/16/23 9:27:00 EDT, [facility], Partial fill upon patient request if the prescription... Start Date: 08/16/23 Status: Ordered venlafaxine 225 mg oral tablet, extended release 225 mg, 1, tablet, By Mouth, Daily, # 30 tablet, Refills 0, Maintenance, 04/17/16 7:41:51 Start Date: 04/17/16 Status: Ordered Ventolin HFA 108 mcg/inh inhalation aerosol with adapter 2 puffs, Inhalation, 4 times a day, # 54 Unknown, 3 Refills, Maintenance, 11/07/19 7:57:00 EDT, [facility], 163, cm, 08/11/19 15:02:00 EDT, Height, 105, [...] Team Personnel Name: Matthew Julio RN Position: [facility] RN Member Role: Primary Care Nurse Name: Ashley Akers RN Position: [facility] RN Member Role: Primary Care Nurse Name: Evelyn Hernandez RN Position: [facility] RN Member Role: Primary Care Nurse Name: Zahira Davis RN Position: [facility] RN Member Role: Primary Care Nurse Name: Ashley Aguilar NP Position: Reference Physician Member Role: Primary Care Nurse Address: Address: [address] [place] [phone]- Name: Not on Staff, PCP Position: [facility] Physician (General Medicine) Member Role: PCP Name: Joe Sullivan RN Position: [facility] RN Member Role: Primary Care Nurse Care Team Related Persons Name: ROOPA LENY Address: home [address] [address] Name: LAURA CALL Address: home [address] [place] [address]
--- NOTE | 2023-10-20 11:18 | A.OFFPC_ITS ---
Vital Signs 10/20/23 11:24 Height 5 ft 4 in Weight 242 lb 2 oz BMI 41.6 BP 133/70 Blood Pressure Location Lt brachial Position Sitting Respiration 16 Pulse 81 Pulse Source Pulse Oximeter Temp 96.8 F Temp Source Tympanic Pulse Oximetry (%) 90 L Oxygen Delivery Method Room Air Intake Visit Reasons: left groin pain Intake Note: pt having on and off syd pain pt has a hx of partial colon removal sigmoidectomy due to diverticulitis Allergies iopromide [From Ultravist] Allergy (Mild, Verified 10/20/23 11:20) REDNESS, SWELLING AROUND NECK amoxapine [AMOXAPINE] Allergy (Unknown, Verified 10/20/23 11:20) OVER EATING amoxicillin [AMOXICILLIN] Allergy (Unknown, Verified 10/20/23 11:20) LOWER GI DISTRESS azithromycin [From ZITHROMAX] Allergy (Unknown, Verified 10/20/23 11:20) DOES NOT WORK blue dye [BLUE DYE] Allergy (Unknown, Verified 10/20/23 11:20) FACIAL SWELLING,TEMP,RASH caffeine [From CAFERGOT] Allergy (Unknown, Verified 10/20/23 11:20) CANT TAKE ANYMORE celecoxib [From CELEBREX] Allergy (Unknown, Verified 10/20/23 11:20) RASH,TEMP ciprofloxacin [CIPROFLOXACIN] Allergy (Unknown, Verified 10/20/23 11:20) HALLUCINATION clarithromycin [From BIAXIN] Allergy (Unknown, Verified 10/20/23 11:20) DOES NOT WORK clavulanic acid [From AUGMENTIN] Allergy (Unknown, Verified 10/20/23 11:20) C-DIFF X 3 divalproex sodium [From DEPAKOTE] Allergy (Unknown, Verified 10/20/23 11:20) NIGHT SCARES ergotamine [From CAFERGOT] Allergy (Unknown, Verified 10/20/23 11:20) UNKNOWN gabapentin [GABAPENTIN] Allergy (Unknown, Verified 10/20/23 11:20) NIGHT SCARES hydroxyzine [HYDROXYZINE] Allergy (Unknown, Verified 10/20/23 11:20) ITCHING influenza virus vaccine, specific [FLU VACCINE] Allergy (Unknown, Verified 10/20/23 11:20) FEVER- PINS/ NEEDLES ALL OVER , RASH Iodinated Contrast Media [IV CONTRAST] Allergy (Unknown, Verified 10/20/23 11:20 ) HIVES ketorolac [From TORADOL] Allergy (Unknown, Verified 10/20/23 11:20) SEVERE ITCHING levofloxacin [From LEVAQUIN] Allergy (Unknown, Verified 10/20/23 11:20) HEART PALPITATIONS meperidine [From DEMEROL] Allergy (Unknown, Verified 10/20/23 11:20) ANAPHYLAXIS Sulfa (Sulfonamide Antibiotics) [SULFA (SULFONAMIDE ANTIBIOTICS)] Allergy (Unknown, Verified 10/20/23 11:20) ADMITTED WITH HIVES sumatriptan [Imitrex] Allergy (Unknown, Verified 10/20/23 11:20) heart pounding tramadol [From ULTRAM] Allergy (Unknown, Verified 10/20/23 11:20) ITCH trazodone [TRAZODONE] Allergy (Unknown, Verified 10/20/23 11:20) NIGHT SCARES valacyclovir [VALACYCLOVIR] Allergy (Unknown, Verified 10/20/23 11:20) GASTIC UPSET yellow dye [YELLOW DYE] Allergy (Unknown, Verified 10/20/23 11:20) SYSTEMIC ITCHING dexamethasone [From Decadron] Adverse Reaction (Intermediate, Verified 10/20/23 11:20) neck pain naproxen Adverse Reaction (Verified 10/20/23 11:20) Swelling Flu vaccine Allergy (Severe, Uncoded 08/04/23 10:35) Anaphylaxis Amitriptyline Allergy (Unknown, Uncoded 08/04/23 10:35) Unknown Blue and yellow dye Allergy (Unknown, Uncoded 08/04/23 10:35) Swelling Ionic dye Allergy (Unknown, Uncoded 08/04/23 10:35) Rash PFSH Social History Patient Tobacco Use Status: Former Tobacco user Physical exam (Primary Care) Tobacco/Smoking Status: Tobacco use Status Patient Tobacco Use Status Former Tobacco user 08/20/23 11:46 Coding
--- NOTE | 2023-10-20 11:18 | MHC.OFFWIV ---
Intake Intake Visit Reasons: left groin pain Patient Tobacco Use Status: Former Tobacco user Allergies iopromide [From Ultravist] Allergy (Mild, Verified 08/20/23 11:45) REDNESS, SWELLING AROUND NECK amoxapine [AMOXAPINE] Allergy (Unknown, Verified 08/20/23 11:45) OVER EATING amoxicillin [AMOXICILLIN] Allergy (Unknown, Verified 08/20/23 11:45) LOWER GI DISTRESS azithromycin [From ZITHROMAX] Allergy (Unknown, Verified 08/20/23 11:45) DOES NOT WORK blue dye [BLUE DYE] Allergy (Unknown, Verified 08/20/23 11:45) FACIAL SWELLING,TEMP,RASH caffeine [From CAFERGOT] Allergy (Unknown, Verified 08/20/23 11:45) CANT TAKE ANYMORE celecoxib [From CELEBREX] Allergy (Unknown, Verified 08/20/23 11:45) RASH,TEMP ciprofloxacin [CIPROFLOXACIN] Allergy (Unknown, Verified 08/20/23 11:45) HALLUCINATION clarithromycin [From BIAXIN] Allergy (Unknown, Verified 08/20/23 11:45) DOES NOT WORK clavulanic acid [From AUGMENTIN] Allergy (Unknown, Verified 08/20/23 11:45) C-DIFF X 3 divalproex sodium [From DEPAKOTE] Allergy (Unknown, Verified 08/20/23 11:45) NIGHT SCARES ergotamine [From CAFERGOT] Allergy (Unknown, Verified 08/20/23 11:45) UNKNOWN gabapentin [GABAPENTIN] Allergy (Unknown, Verified 08/20/23 11:45) NIGHT SCARES hydroxyzine [HYDROXYZINE] Allergy (Unknown, Verified 08/20/23 11:45) ITCHING influenza virus vaccine, specific [FLU VACCINE] Allergy (Unknown, Verified 08/20/23 11:45) FEVER- PINS/ NEEDLES ALL OVER , RASH Iodinated Contrast Media [IV CONTRAST] Allergy (Unknown, Verified 08/20/23 11:45) HIVES ketorolac [From TORADOL] Allergy (Unknown, Verified 08/20/23 11:45) SEVERE ITCHING levofloxacin [From LEVAQUIN] Allergy (Unknown, Verified 08/20/23 11:45) HEART PALPITATIONS meperidine [From DEMEROL] Allergy (Unknown, Verified 08/20/23 11:45) ANAPHYLAXIS Sulfa (Sulfonamide Antibiotics) [SULFA (SULFONAMIDE ANTIBIOTICS)] Allergy (Unknown, Verified 08/20/23 11:45) ADMITTED WITH HIVES sumatriptan [Imitrex] Allergy (Unknown, Verified 08/20/23 11:45) heart pounding tramadol [From ULTRAM] Allergy (Unknown, Verified 08/20/23 11:45) ITCH trazodone [TRAZODONE] Allergy (Unknown, Verified 08/20/23 11:45) NIGHT SCARES valacyclovir [VALACYCLOVIR] Allergy (Unknown, Verified 08/20/23 11:45) GASTIC UPSET yellow dye [YELLOW DYE] Allergy (Unknown, Verified 08/20/23 11:45) SYSTEMIC ITCHING dexamethasone [From Decadron] Adverse Reaction (Intermediate, Verified 08/20/23 11:45) neck pain naproxen Adverse Reaction (Verified 08/20/23 11:45) Swelling Flu vaccine Allergy (Severe, Uncoded 08/04/23 10:35) Anaphylaxis Amitriptyline Allergy (Unknown, Uncoded 08/04/23 10:35) Unknown Blue and yellow dye Allergy (Unknown, Uncoded 08/04/23 10:35) Swelling Ionic dye Allergy (Unknown, Uncoded 08/04/23 10:35) Rash PFSH Social History Patient Tobacco Use Status: Former Tobacco user Coding
[2023-10-20 11:24] VITALS: BP 133/70; PULSE 81; RESP 16; TEMP 36; O2SAT 90; BMI 41.6
--- NOTE | 2023-10-20 11:31 | AM.OFFWIN_ITS ---
Intake Vital Signs 10/20/23 11:24 Height 5 ft 4 in Weight 242 lb 2 oz BMI 41.6 BP 133/70 Blood Pressure Location Lt brachial Position Sitting Respiration 16 Pulse 81 Pulse Source Pulse Oximeter Temp 96.8 F Temp Source Tympanic Pulse Oximetry (%) 90 L Oxygen Delivery Method Room Air Intake Visit Reasons: left groin pain Intake Note: groin pain Patient Tobacco Use Status: Former Tobacco user Allergies iopromide [From Ultravist] Allergy (Mild, Verified 10/20/23 11:20) REDNESS, SWELLING AROUND NECK amoxapine [AMOXAPINE] Allergy (Unknown, Verified 10/20/23 11:20) OVER EATING amoxicillin [AMOXICILLIN] Allergy (Unknown, Verified 10/20/23 11:20) LOWER GI DISTRESS azithromycin [From ZITHROMAX] Allergy (Unknown, Verified 10/20/23 11:20) DOES NOT WORK blue dye [BLUE DYE] Allergy (Unknown, Verified 10/20/23 11:20) FACIAL SWELLING,TEMP,RASH caffeine [From CAFERGOT] Allergy (Unknown, Verified 10/20/23 11:20) CANT TAKE ANYMORE celecoxib [From CELEBREX] Allergy (Unknown, Verified 10/20/23 11:20) RASH,TEMP ciprofloxacin [CIPROFLOXACIN] Allergy (Unknown, Verified 10/20/23 11:20) HALLUCINATION clarithromycin [From BIAXIN] Allergy (Unknown, Verified 10/20/23 11:20) DOES NOT WORK clavulanic acid [From AUGMENTIN] Allergy (Unknown, Verified 10/20/23 11:20) C-DIFF X 3 divalproex sodium [From DEPAKOTE] Allergy (Unknown, Verified 10/20/23 11:20) NIGHT SCARES ergotamine [From CAFERGOT] Allergy (Unknown, Verified 10/20/23 11:20) UNKNOWN gabapentin [GABAPENTIN] Allergy (Unknown, Verified 10/20/23 11:20) NIGHT SCARES hydroxyzine [HYDROXYZINE] Allergy (Unknown, Verified 10/20/23 11:20) ITCHING influenza virus vaccine, specific [FLU VACCINE] Allergy (Unknown, Verified 10/20/23 11:20) FEVER- PINS/ NEEDLES ALL OVER , RASH Iodinated Contrast Media [IV CONTRAST] Allergy (Unknown, Verified 10/20/23 11:20) HIVES ketorolac [From TORADOL] Allergy (Unknown, Verified 10/20/23 11:20) SEVERE ITCHING levofloxacin [From LEVAQUIN] Allergy (Unknown, Verified 10/20/23 11:20) HEART PALPITATIONS meperidine [From DEMEROL] Allergy (Unknown, Verified 10/20/23 11:20) ANAPHYLAXIS Sulfa (Sulfonamide Antibiotics) [SULFA (SULFONAMIDE ANTIBIOTICS)] Allergy (Unknown, Verified 10/20/23 11:20) ADMITTED WITH HIVES sumatriptan [Imitrex] Allergy (Unknown, Verified 10/20/23 11:20) heart pounding tramadol [From ULTRAM] Allergy (Unknown, Verified 10/20/23 11:20) ITCH trazodone [TRAZODONE] Allergy (Unknown, Verified 10/20/23 11:20) NIGHT SCARES valacyclovir [VALACYCLOVIR] Allergy (Unknown, Verified 10/20/23 11:20) GASTIC UPSET yellow dye [YELLOW DYE] Allergy (Unknown, Verified 10/20/23 11:20) SYSTEMIC ITCHING dexamethasone [From Decadron] Adverse Reaction (Intermediate, Verified 10/20/23 11:20) neck pain naproxen Adverse Reaction (Verified 10/20/23 11:20) Swelling Flu vaccine Allergy (Severe, Uncoded 08/04/23 10:35) Anaphylaxis Amitriptyline Allergy (Unknown, Uncoded 08/04/23 10:35) Unknown Blue and yellow dye Allergy (Unknown, Uncoded 08/04/23 10:35) Swelling Ionic dye Allergy (Unknown, Uncoded 08/04/23 10:35) Rash HPI left groin pain HPI Details Pt is a 68 y/o female who presents today with LLQ pain. She states that it started a few days ago and has progressively worsened. The pain is in the lower quadrant of her abdomen and radiates to her back. It is worse with certain movements, lying down or eating. She states it is a constant pain with intermittent stabbing pains. Her urine has been darker but malodorous urine or dysuria. She denies any diarrhea but has been constipated for the last 2 days. Her last bowel movement was 2 days ago but she had to take a stool softener. She does have a history of a sigmoid colon resection due to severe diverticular disease. She has a history of diverticulosis on recent colonoscopy. She has been nauseous but no vomiting. She says it does not feel like a UTI or kidney infection but she wonders if it is something with her colon. Her abdomen is becoming increasingly tender. She has been experiencing low-grade fevers. She is taking Tylenol and Motrin with some improvement of the discomfort. No trauma. [facility] Social History Patient Tobacco Use Status: Former Tobacco user Physical Exam Vital Signs: Last Vital Signs Temp 96.8 F 10/20/23 11:24 Pulse 81 10/20/23 11:24 Resp 16 10/20/23 11:24 BP 133/70 10/20/23 11:24 Pulse Ox 90 L 10/20/23 11:24 Oxygen Delivery Method Room Air 10/20/23 11:24 BMI result Body Mass Index 41.6 Const Orientation/consciousness: patient oriented x3 HEENT Ears: hearing grossly normal bilaterally Neck Thyroid: Thyroid normal Lymphatic: no lymphadenopathy noted Resp Auscultation: clear to auscultation bilaterally Cardio Rate: regular rate Rhythm: regular rhythm Heart sounds: S1 normal heart sound present and S2 normal heart sound present GI Other: There is tenderness to palpation throughout the left side of the abdomen with increased discomfort in the lower quadrant. She does have some guarding. Denies any rebound tenderness. Abdomen is soft. Bowel sounds hypoactive. No CVA tenderness. Inspection: Yes normal to inspection Skin General skin exam: no rashes or lesions noted Neuro General: patient oriented x3, gait normal and no focal motor deficits Assessment & Plan Assessment & Plan (1) LLQ abdominal pain: Code(s): R10.32 - Left lower quadrant pain Plan: I did discuss with patient that I do think she needs more emergent imaging/labs. I discussed my concerns of diverticulitis with her and I do think she would benefit from a CT. Unable to get this done today here. Patient will go to [facility]. Her sister will drive her. Patient understands and agrees with this plan. Coding Level of Care Code Est Pt Level 4 (50333) Diagnoses LLQ abdominal pain R10.32
== END 2023-10-20 11:54 | disposition home or self-care (01) ==
PROVIDERS: PCP Internal Medicine; Visit Provider Physician Assistant
DX: R10.32 Left lower quadrant pain (principal)
CPT/HCPCS: 99214

== ENCOUNTER 2023-11-04 11:37 | Outpatient (AMB) | payer MEDICARE, SELFPAY ==
--- NOTE | 2023-11-04 11:08 | MHC.PC.OV ---
Vital Signs 09 11:51 Height 5 ft 2.44 in Weight 241 lb 4 oz BMI 43.5 BP 106/80 Blood Pressure Location Lt brachial Position Sitting Respiration 16 Pulse 75 Pulse Source Pulse Oximeter Temp 98.4 F Temp Source Oral Pulse Oximetry (%) 93 Oxygen Delivery Method Room Air Intake Visit Reasons: Est. care Intake Note: New patient visit Intravenous Therapy Nurse Required: No Allergies iopromide [From Ultravist] Allergy (Mild, Verified 11/04/23 11:42) REDNESS, SWELLING AROUND NECK amoxapine [AMOXAPINE] Allergy (Unknown, Verified 11/04/23 11:42) OVER EATING amoxicillin [AMOXICILLIN] Allergy (Unknown, Verified 11/04/23 11:42) LOWER GI DISTRESS azithromycin [From ZITHROMAX] Allergy (Unknown, Verified 11/04/23 11:42) DOES NOT WORK blue dye [BLUE DYE] Allergy (Unknown, Verified 11/04/23 11:42) FACIAL SWELLING,TEMP,RASH caffeine [From CAFERGOT] Allergy (Unknown, Verified 11/04/23 11:42) CANT TAKE ANYMORE celecoxib [From CELEBREX] Allergy (Unknown, Verified 11/04/23 11:42) RASH,TEMP ciprofloxacin [CIPROFLOXACIN] Allergy (Unknown, Verified 11/04/23 11:42) HALLUCINATION clarithromycin [From BIAXIN] Allergy (Unknown, Verified 11/04/23 11:42) DOES NOT WORK clavulanic acid [From AUGMENTIN] Allergy (Unknown, Verified 11/04/23 11:42) C-DIFF X 3 divalproex sodium [From DEPAKOTE] Allergy (Unknown, Verified 11/04/23 11:42) NIGHT SCARES ergotamine [From CAFERGOT] Allergy (Unknown, Verified 11/04/23 11:42) UNKNOWN gabapentin [GABAPENTIN] Allergy (Unknown, Verified 11/04/23 11:42) NIGHT SCARES hydroxyzine [HYDROXYZINE] Allergy (Unknown, Verified 11/04/23 11:42) ITCHING influenza virus vaccine, specific [FLU VACCINE] Allergy (Unknown, Verified 11/04/23 11:42) FEVER- PINS/ NEEDLES ALL OVER , RASH Iodinated Contrast Media [IV CONTRAST] Allergy (Unknown, Verified 11/04/23 11:42) HIVES ketorolac [From TORADOL] Allergy (Unknown, Verified 11/04/23 11:42) SEVERE ITCHING levofloxacin [From LEVAQUIN] Allergy (Unknown, Verified 11/04/23 11:42) HEART PALPITATIONS meperidine [From DEMEROL] Allergy (Unknown, Verified 11/04/23 11:42) ANAPHYLAXIS Sulfa (Sulfonamide Antibiotics) [SULFA (SULFONAMIDE ANTIBIOTICS)] Allergy (Unknown, Verified 11/04/23 11:42) ADMITTED WITH HIVES sumatriptan [Imitrex] Allergy (Unknown, Verified 11/04/23 11:42) heart pounding tramadol [From ULTRAM] Allergy (Unknown, Verified 11/04/23 11:42) ITCH trazodone [TRAZODONE] Allergy (Unknown, Verified 11/04/23 11:42) NIGHT SCARES valacyclovir [VALACYCLOVIR] Allergy (Unknown, Verified 11/04/23 11:42) GASTIC UPSET yellow dye [YELLOW DYE] Allergy (Unknown, Verified 11/04/23 11:42) SYSTEMIC ITCHING dexamethasone [From Decadron] Adverse Reaction (Intermediate, Verified 11/04/23 11:42) neck pain naproxen Adverse Reaction (Verified 11/04/23 11:42) Swelling Flu vaccine Allergy (Severe, Uncoded 11/04/23 11:42) Anaphylaxis Amitriptyline Allergy (Unknown, Uncoded 11/04/23 11:42) Unknown Blue and yellow dye Allergy (Unknown, Uncoded 11/04/23 11:42) Swelling Ionic dye Allergy (Unknown, Uncoded 11/04/23 11:42) Rash Medication List - Last Reconciled 11/04/23 by Bettie Gordon PA-C acyclovir 800 mg PO BID amlodipine 5 mg PO DAILY baclofen 20 mg PO BID brexpiprazole (Rexulti) 0.25 mg PO DAILY pjnmyaikrv-vizazbam-lybkdsbcgp 160-9-4.8 mcg/actuation (Breztri Aerosphere) inhalations inhalation buspirone 30 mg PO BID cetirizine (All Day Allergy (cetirizine)) 10 mg PO DAILY PRN cholecalciferol (vitamin D3) 25 mcg PO DAILY doxycycline hyclate 100 mg PO BID famotidine 40 mg PO BID ibuprofen 200 mg PO Q6H PRN ipratropium-albuterol 0.5 mg-3 mg(2.5 mg base)/3 mL mL inhalation lancets (FreeStyle Lancets) As directed latanoprost 0.005% drps ophthalmic (eye) lidocaine 3% 1 appl topical BID PRN lidocaine 5% 1 appl topical DAILY lisinopril 40 mg PO DAILY lorazepam 1 mg PO TID magnesium oxide 400 mg PO DAILY metoprolol succinate ER 100 mg PO DAILY nystatin topical [Probiotic gummies .] sennosides (senna) 8.6 mg PO DAILY venlafaxine ER 225 mg PO DAILY Tobacco use date assessed: 11/04/23 Fall risk assessment: No Falls in past year Last assessed Fall Risk: 11/04/23 Dental Screening Dental Screen Date: 11/04/23 Did you have a dental visit in the last 12 months?: No Did you have a dental problem in the last 6 months where you did not have access to dental care?: Yes Was dental information given to patient?: Patient has dentist HPI Est. care HPI Details Patient is a 68-year-old female with a significant past medical history of asthma, hypertension, anxiety, , PTSD, depression, chronic fatigue, fibromyalgia, osteoarthritis, prediabetes, and obesity presenting today to establish care. General: States that she would like testing for Lyme disease because she has dogs and despite no obvious tick bites wonders if this contributes to her chronic fatigue that she could have Lyme. Stasis she has not been tested in years. She also requests Wegovy for weight loss. CV: Blood pressure today in the office is 106/80. She is on metoprolol 100 mg daily, lisinopril 40 mg, and amlodipine [address] Dutta for mitral valve disease and htn. Echo was done last year. Pulm: states stable. Psych: She is on Rexulti, buspirone 30 mg b.i.d., lorazepam 1 mg t.i.d., and venlafaxine 225 mg daily. No SI/HI. Lives at home by herself. No Si/hi. following with psych. Endo: she is a prediabetic. Last a1c was 6.2. She states she has tried gym exercises, atkins, weight watchers (multiple times), herbal life, nutrisystem. She states the most she was ever able to lose was 15 lbs but would gain it back. She has read most of the books and is still not able to lose weight. She has a hard time sticking with huge lifestyle changes. GI: She was seen recently in the walk-in with lower abdominal pain and was sent to the ER for further evaluation. She states the labs and CT were normal. She started colace which helped. She states the pain is better. She has an appointment with Dr. Desir next month and has a colonoscopy scheduled in January. Musculoskeletal: started on collagen and feeling better with joint pain Neuro: headaches are better with magnesium and b complex. Colonoscopy- booked in Dec Mammo- overdue Bone density- overdue s/p total hysterectomy [facility] Medical History (Updated 11/04/23 @ 12:36 by Bettie Gordon PA-C) Dry skin Vertigo Herpes Diverticulitis Prediabetes HTN (hypertension) Colon polyps GERD (gastroesophageal reflux disease) Glaucoma Migraine Chronic fatigue PTSD (post-traumatic stress disorder) Depression FLOYD (generalized anxiety disorder) Osteoarthritis Fibromyalgia Asthma Surgical History (Updated 11/04/23 @ 11:36 by Sharon Gar CMA) H/O right knee surgery Social History Housing: Apartment Patient Tobacco Use Status: Former Tobacco user (quit 1983) Cigarette Packs Per Day: 1 Years Smoked: 13 e-Cigarette/Vaping Use: Never Used Second Hand Smoke Exposure: No service: Yes Current occupational status: retired and disabled (Disables [place]) Cognitive needs: No Hearing needs: Yes (Trouble hearing) Vision needs: Yes (Glasses) Questionnaire AUDIT C Alcohol Use Questionnaire (AUDIT-C) 1. How often do you have a drink containing alcohol?: Monthly or less 2. How many drinks containing alcohol do you have on a typical day when you are drinking?: 1 or 2 3. How often do you have six or more drinks on one occasion?: Never Total Score: 1 ACT Questionnaire In the past 4 weeks, how much of the time did your asthma keep you from getting as much done at work, school or at home?: Most of the time During the past 4 weeks, how often have you had shortness of breath?: 1-2 times a week During the past 4 weeks, how often did your asthma symptoms wake you up at night or earlier than usual in the morning?: 2-3 nights a week During the past 4 weeks, how often have you had to use your rescue inhaler or nebulizer medication?: 2-3 times a week How would you rate your asthma control during the past 4 weeks?: Somewhat controlled ACT Interpretation: Positive Score: 14 Physical exam (Primary Care) Vital Signs: Last Vital Signs Temp 98.4 F 11/04/23 11:51 Pulse 75 11/04/23 11:51 Resp 16 11/04/23 11:51 BP 106/80 11/04/23 11:51 Pulse Ox 93 11/04/23 11:51 Oxygen Delivery Method Room Air 11/04/23 11:51 BMI result Body Mass Index 43.5 Tobacco/Smoking Status: Tobacco use Status Tobacco use date assessed 11/04/23 11/04/23 11:30 Patient Tobacco Use Status Former Tobacco user (quit 11/04/23 11:47 1983) e-Cigarette/Vaping Use Never Used 11/04/23 11:47 Const Orientation/consciousness: patient oriented x3 HENMT Ears: hearing grossly normal bilaterally Neck Thyroid: Thyroid normal Lymphatic: no lymphadenopathy noted Resp Auscultation: clear to auscultation bilaterally Cardio Rate: regular rate Rhythm: regular rhythm Heart sounds: S1 normal heart sound present, S2 normal heart sound present and Murmur heart sound present GI Inspection: Yes normal to inspection Palpation (GI): Soft to palpation and Other GI palpation findings present (nontender, no cva tenderness) Auscultation: normoactive bowel sounds Rectal Exam - Female: deferred Skin General skin exam: no rashes or lesions noted Neuro General: patient oriented x3, gait normal and no focal motor deficits Results AMB Hemoglobin A1c AMB Hemoglobin A1c 6.2 % Last Edit by Sharon Gar CMA on 11/04/23 12:06 Assessment and Plan Assessment & Plan (1) FLOYD (generalized anxiety disorder): Code(s): F41.1 - Generalized anxiety disorder Plan: Continue current regimen as directed by psychiatry. (2) Major depression, recurrent, chronic: Code(s): F33.9 - Major depressive disorder, recurrent, unspecified Plan: Stable. Continue follow up with Psychiatry. (3) Chronic fatigue: Code(s): R53.82 - Chronic fatigue, unspecified Plan: wants lab testing for lyme. ordered today. (4) HTN (hypertension): Code(s): I10 - Essential (primary) hypertension Plan: wnl. continue current plan. (5) Prediabetes: Code(s): R73.03 - Prediabetes Plan: Advised to limit carbohydrate and sugar intake. Encouraged reducing her caloric intake. We will start Wegovy for weight loss per her request. (6) Severe obesity (BMI >= 40): Code(s): E66.01 - Morbid (severe) obesity due to excess calories Plan: We will start Wegovy. We discussed risks and benefits and adverse effects such as nausea, vomiting, pancreatitis, thyroid cancer etc.. Follow up in 1 month. Did discuss with patient that this also may not be covered by her health insurance. (7) Mitral valve disease: Code(s): I05.9 - Rheumatic mitral valve disease, unspecified Plan: following with Dr. Dutta Plan Labs ordered today. Mammogram and bone density ordered. Follow up in 1 month. Sooner if needed. Patient understands and agrees with the plan. Orders: Orders AMB Hemoglobin A1c Today Z13.9 - Encounter for screening, unspecified Complete Blood Count Auto Diff Today F33.9 - Major depressive disorder, recurrent, unspecified, F41.1 - Generalized anxiety disorder, I10 - Essential (primary) hypertension, R53.82 - Chronic fatigue, unspecified, R73.03 - Prediabetes Lipid Panel Today F33.9 - Major depressive disorder, recurrent, unspecified, F41.1 - Generalized anxiety disorder, I10 - Essential (primary) hypertension, R53.82 - Chronic fatigue, unspecified, R73.03 - Prediabetes Magnesium Today F33.9 - Major depressive disorder, recurrent, unspecified, F41.1 - Generalized anxiety disorder, I10 - Essential (primary) hypertension, R53.82 - Chronic fatigue, unspecified, R73.03 - Prediabetes MM screening mammo BI Today Z12.31 - Encounter for screening mammogram for malignant neoplasm of breast [facility] [place]. Panel Fast Today F33.9 - Major depressive disorder, recurrent, unspecified, F41.1 - Generalized anxiety disorder, I10 - Essential (primary) hypertension, R53.82 - Chronic fatigue, unspecified, R73.03 - Prediabetes TSH reflex Free T4 Today F33.9 - Major depressive disorder, recurrent, unspecified, F41.1 - Generalized anxiety disorder, I10 - Essential (primary) hypertension, R53.82 - Chronic fatigue, unspecified, R73.03 - Prediabetes Vitamin B12 and Folate Today F33.9 - Major depressive disorder, recurrent, unspecified, F41.1 - Generalized anxiety disorder, I10 - Essential (primary) hypertension, R53.82 - Chronic fatigue, unspecified, R73.03 - Prediabetes XR DEXA axial skeleton Today Z78.0 - Asymptomatic menopausal state Lyme IgG/IgM w/reflex to WB Today R53.82 - Chronic fatigue, unspecified Medications: New semaglutide (weight loss) (Christina) administer weeks 1 through 4 of therapy 0.25 mg (0.5 mL) subcut QWEEK 2 mL 1RF Coding Level of Care Code New Pt Level 4 (77898) Complex EM visit Add On G2211 Diagnoses FLOYD (generalized anxiety disorder) F41.1 Major depression, recurrent, chronic F33.9 Chronic fatigue R53.82 HTN (hypertension) I10 Prediabetes R73.03 Severe obesity (BMI >= 40) E66.01 Mitral valve disease I05.9
[2023-11-04 11:51] VITALS: BP 106/80; PULSE 75; RESP 16; TEMP 36.9; O2SAT 93; BMI 43.5
== END 2023-11-04 12:26 | disposition home or self-care (01) ==
PROVIDERS: PCP Internal Medicine; Visit Provider Physician Assistant
DX: I10 Essential (primary) hypertension (principal); F33.9 Major depressive disorder, recurrent, unspecified; E66.01 Morbid (severe) obesity due to excess calories; Z68.41 Body mass index [BMI] 40.0-44.9, adult; R73.03 Prediabetes; F41.1 Generalized anxiety disorder; R53.82 Chronic fatigue, unspecified; I05.9 Rheumatic mitral valve disease, unspecified
CPT/HCPCS: 83036; 99214; G2211

== ENCOUNTER 2023-11-08 08:52 | Outpatient (REF) | payer MEDICARE, SELFPAY ==
[2023-11-08 11:44] LABS: MANUAL DIFF FLAG NO
[2023-11-08 11:55] LABS: Basophils Absolute Auto 0.1 X10*3/uL (0.0-0.2); Basophils Percent Auto 0.6 % (0-2); Eosinophils Absolute Auto 0.3 X10*3/uL (0.0-0.4); Hematocrit 44.7 % (37.0-47.0); Hemoglobin 14.8 g/dl (12.0-16.0); Imm Gran Abs Auto 0.03 X10*3/uL (0.00-0.03); Imm Gran Pct Auto 0.3 % (0.0-0.4); Lymphocytes Absolute Auto 3.5 X10*3/uL (1.2-4.9); Mean Corpuscular HGB Conc 33.1 g/dl (31.0-35.0); Mean Corpuscular Hemoglobin 29.9 pg (27.0-33.0); Mean Corpuscular Volume 90.3 fL (80.0-98.0); Monocytes Absolute Auto 0.9 X10*3/uL (0.1-1.2); Monocytes Percent Auto 8.2 % (2-11); Neutrophils Absolute Auto 5.8 x10*3/uL (2.0-8.3); Neutrophils Percent Auto 54.9 % (45-73); Platelet Count 346 X10*3/uL (160-400); Red Blood Count 4.95 X10*6/uL (4.20-5.50); Red Cell Distribution Width 13.8 % (11.0-16.0); White Blood Count 10.5 X10*3/uL (4.8-10.8)
[2023-11-08 12:29] LABS: Alanine Aminotransferase 25 U/L (0-31); Albumin Level 4.3 g/dL (3.5-5.0); Alkaline Phosphatase 119 U/L (39-117); Anion Gap 14 (12-20); Aspartate Amino Transferase 21 U/L (5-31); Bilirubin Total 0.5 mg/dL (0.0-1.0); Blood Urea Nitrogen 12 mg/dL (9-16); Carbon Dioxide 26 mmol/L (22-29); Chloride 106 mmol/L (96-108); Cholesterol 154 mg/dL (<200); Estimated Glomerular Filt Rate > 60; Glucose Fasting 108 mg/dL (60-99); HDL Cholesterol 42 mg/dL (>40); LDL Cholesterol Calculated 65 mg/dL (<100); Magnesium 2.2 mg/dL (1.6-2.6); Potassium 4.4 mmol/L (3.3-5.1); Sodium 142 mmol/L (135-145); Total Protein 7.2 g/dL (6.5-8.0); Triglycerides 239 mg/dL (<150)
[2023-11-08 12:41] LABS: Folate 12.3 ng/mL (> or = 4.0); Vitamin B12 328 pg/mL (200-900)
[2023-11-09 22:23] LABS: Lyme Abs Screen <0.90 index
== END 2023-11-08 08:53 | disposition home or self-care (01) ==
LOC: HO.WFDLDS 08:52
PROVIDERS: Visit Provider Physician Assistant
DX: I10 Essential (primary) hypertension (principal); R73.03 Prediabetes; F41.1 Generalized anxiety disorder; F33.9 Major depressive disorder, recurrent, unspecified
CPT/HCPCS: 36415; 80053; 80061; 82607; 82746; 83735; 84443; 85025; 86617; 86618

== ENCOUNTER 2023-11-12 10:25 | Outpatient (AMB) | payer MEDICARE, SELFPAY ==
--- NOTE | 2023-11-12 11:07 | MHC.OFFWIV ---
Intake Vital Signs 11/12/23 11:12 Height 5 ft 3 in Weight 242 lb 6 oz BMI 42.9 BP 142/80 H Blood Pressure Location Lt brachial Position Sitting Respiration 16 Pulse 96 Pulse Source Pulse Oximeter Temp 98.1 F Temp Source Oral Pulse Oximetry (%) 95 Oxygen Delivery Method Room Air Intake Visit Reasons: rash on arms and chest,. some legs Intake Note: patient complaining of rash all over her body Patient Tobacco Use Status: Former Tobacco user (quit 1983) Allergies brexpiprazole [From Rexulti] Allergy (Severe, Verified 11/12/23 11:23) Hives iopromide [From Ultravist] Allergy (Mild, Verified 11/12/23 11:23) REDNESS, SWELLING AROUND NECK amoxapine [AMOXAPINE] Allergy (Unknown, Verified 11/12/23 11:23) OVER EATING amoxicillin [AMOXICILLIN] Allergy (Unknown, Verified 11/12/23 11:23) LOWER GI DISTRESS azithromycin [From ZITHROMAX] Allergy (Unknown, Verified 11/12/23 11:23) DOES NOT WORK blue dye [BLUE DYE] Allergy (Unknown, Verified 11/12/23 11:23) FACIAL SWELLING,TEMP,RASH caffeine [From CAFERGOT] Allergy (Unknown, Verified 11/12/23 11:23) CANT TAKE ANYMORE celecoxib [From CELEBREX] Allergy (Unknown, Verified 11/12/23 11:23) RASH,TEMP ciprofloxacin [CIPROFLOXACIN] Allergy (Unknown, Verified 11/12/23 11:23) HALLUCINATION clarithromycin [From BIAXIN] Allergy (Unknown, Verified 11/12/23 11:23) DOES NOT WORK clavulanic acid [From AUGMENTIN] Allergy (Unknown, Verified 11/12/23 11:23) C-DIFF X 3 divalproex sodium [From DEPAKOTE] Allergy (Unknown, Verified 11/12/23 11:23) NIGHT SCARES ergotamine [From CAFERGOT] Allergy (Unknown, Verified 11/12/23 11:23) UNKNOWN gabapentin [GABAPENTIN] Allergy (Unknown, Verified 11/12/23 11:23) NIGHT SCARES hydroxyzine [HYDROXYZINE] Allergy (Unknown, Verified 11/12/23 11:23) ITCHING influenza virus vaccine, specific [FLU VACCINE] Allergy (Unknown, Verified 11/12/23 11:23) FEVER- PINS/ NEEDLES ALL OVER , RASH Iodinated Contrast Media [IV CONTRAST] Allergy (Unknown, Verified 11/12/23 11:23) HIVES ketorolac [From TORADOL] Allergy (Unknown, Verified 11/12/23 11:23) SEVERE ITCHING levofloxacin [From LEVAQUIN] Allergy (Unknown, Verified 11/12/23 11:23) HEART PALPITATIONS meperidine [From DEMEROL] Allergy (Unknown, Verified 11/12/23 11:23) ANAPHYLAXIS Sulfa (Sulfonamide Antibiotics) [SULFA (SULFONAMIDE ANTIBIOTICS)] Allergy (Unknown, Verified 11/12/23 11:23) ADMITTED WITH HIVES sumatriptan [Imitrex] Allergy (Unknown, Verified 11/12/23 11:23) heart pounding tramadol [From ULTRAM] Allergy (Unknown, Verified 11/12/23 11:23) ITCH trazodone [TRAZODONE] Allergy (Unknown, Verified 11/12/23 11:23) NIGHT SCARES valacyclovir [VALACYCLOVIR] Allergy (Unknown, Verified 11/12/23 11:23) GASTIC UPSET yellow dye [YELLOW DYE] Allergy (Unknown, Verified 11/12/23 11:23) SYSTEMIC ITCHING dexamethasone [From Decadron] Adverse Reaction (Intermediate, Verified 11/12/23 11:23) neck pain naproxen Adverse Reaction (Verified 11/12/23 11:23) Swelling Flu vaccine Allergy (Severe, Uncoded 11/04/23 11:42) Anaphylaxis Amitriptyline Allergy (Unknown, Uncoded 11/04/23 11:42) Unknown Blue and yellow dye Allergy (Unknown, Uncoded 11/04/23 11:42) Swelling Ionic dye Allergy (Unknown, Uncoded 11/04/23 11:42) Rash Medication List - Last Reconciled 11/12/23 by Madonna Loco, MACHINE INKER- acyclovir 800 mg PO BID amlodipine 5 mg PO DAILY baclofen 20 mg PO BID brexpiprazole (Rexulti) 0.25 mg PO DAILY wbebfeatwd-jdsopnna-fqucbvmfql 160-9-4.8 mcg/actuation (Breztri Aerosphere) inhalations inhalation buspirone 30 mg PO BID cetirizine (All Day Allergy (cetirizine)) 10 mg PO DAILY PRN cholecalciferol (vitamin D3) 25 mcg PO DAILY doxycycline hyclate 100 mg PO BID famotidine 40 mg PO BID ibuprofen 200 mg PO Q6H PRN ipratropium-albuterol 0.5 mg-3 mg(2.5 mg base)/3 mL mL inhalation lancets (FreeStyle Lancets) As directed latanoprost 0.005% drps ophthalmic (eye) lidocaine 3% 1 appl topical BID PRN lidocaine 5% 1 appl topical DAILY lisinopril 40 mg PO DAILY lorazepam 1 mg PO TID magnesium oxide 400 mg PO DAILY metoprolol succinate ER 100 mg PO DAILY nystatin topical [Probiotic gummies .] semaglutide (weight loss) (Wegovy) 0.25 mg (0.5 mL) subcut QWEEK sennosides (senna) 8.6 mg PO DAILY venlafaxine ER 225 mg PO DAILY Do you need a note to return to daycare/school/sports/work: No HPI HPI Comments History of Present Illness Details 68-year-old female with asthma, hypertension, anxiety, PTSD, depression, chronic fatigue, fibromyalgia, osteoarthritis, prediabetes, and obesity Here today with complaints of a chronic and recurrent rash that is all over her body. I saw her for the same thing several months ago. She was referred to Dermatology who she did see. She tells me that they thought perhaps it was bites or eczema. However upon further questioning she reports that she picks her skin has a result of her mental health conditions. She abruptly stopped her Rexulti as she wondered if this was causing a rash. She reports that she had a meltdown. The picking became worse. She was significantly picked at the areas on bilat breasts. In addition to this rash that covers extremities x4, breasts, abdomen and parts of back she also has a fungal rash underneath her left breast which she usually treats with topical nystatin. She has been using her sister's which has helped some. She denies any fever or chills. She wonders if she can take prednisone to help the rash go away. When asked about routine follow up with Dermatology she reports that she is not scheduled until November. In regards to her mental health she denies SI or HI however she reports that she does not feel stable in her condition. Exam: Awake alert oriented, anxious, no acute distress Scattered pick farris with scabs located on bilat arms, anterior and posterior upper body, bilateral lower extremities and bilat breasts with signs of infection located on both breasts. These lesions are not scabbed, they are pink moist and yellow with surrounding erythema. Under her left breast is candidiasis. Plan: The plan today will be to treat underneath the breasts with nystatin powder 3 times a day until healed. I have advised for her to apply apply the mupirocin cream to the lesions on both breasts twice per day until healed. Advised to follow up with a local continuous improvement black belt, even stop by today to see if there is a cancellation or sooner appointment than November. Do not recommend prednisone as I feel this will worsen anxiety. Given her complaints of mental health, I did ask the community navigator to perform a brief intervention. I have encouraged her to follow up with her psych care team and her primary care provider as scheduled. This note is constructed using voice recognition software. While every effort has been made to ensure accuracy in ecosystem ecology professor, still errors may have been included Sometimes, these errors may affect the content or meaning of the given sentence . Total time spent caring for the patient today was 30 minutes. This includes time spent before the visit reviewing the chart, time spent during the visit, and time spent after the visit on documentation [facility] Medical History (Updated 11/12/23 @ 11:40 by [facility] Dry skin Vertigo Herpes Diverticulitis Prediabetes HTN (hypertension) Colon polyps GERD (gastroesophageal reflux disease) Glaucoma Migraine Chronic fatigue PTSD (post-traumatic stress disorder) Depression FLOYD (generalized anxiety disorder) Osteoarthritis Fibromyalgia Asthma Surgical History (Updated 11/04/23 @ 11:36 by Sharon Gar CMA) H/O right knee surgery Social History Housing: Apartment Patient Tobacco Use Status: Former Tobacco user (quit 1983) Cigarette Packs Per Day: 1 Years Smoked: 13 e-Cigarette/Vaping Use: Never Used Second Hand Smoke Exposure: No service: Yes Current occupational status: retired and disabled (Disables ) Cognitive needs: No Hearing needs: Yes (Trouble hearing) Vision needs: Yes (Glasses) Physical Exam Vital Signs: Last Vital Signs Temp 98.1 F 11/12/23 11:12 Pulse 96 11/12/23 11:12 Resp 16 11/12/23 11:12 BP 142/80 H 11/12/23 11:12 Pulse Ox 95 11/12/23 11:12 Oxygen Delivery Method Room Air 11/12/23 11:12 BMI result Body Mass Index 42.9 Assessment & Plan Assessment & Plan (1) Dermatillomania in adult: Code(s): F42.4 - Excoriation (skin-picking) disorder Plan: . (2) FLOYD (generalized anxiety disorder): Code(s): F41.1 - Generalized anxiety disorder Plan: . Plan . Medications: New mupirocin 2% 1 appl topical BID 22 grams 0RF Changed From nystatin topical To nystatin 1 appl topical TID 60 grams 1RF Patient Instructions: Crisis Hotlines Suicide prevention, domestic violence, and other crisis hotlines for youth, young adults, and their friends and families. [facility]: The [facility] [employer] [facility] Safeline helps youth who have run away, are thinking about running away, or who already ran away but are ready to come home. Parents and guardians can also contact the hotline if they are worried about their child running away or if their child has already left home. The hotline is available 24 hours a day, seven days a week. Youth, parents, and guardians can also use the online chat feature on the [employer] [facility]'s website to ask for help and get support, or [place] [address]. [facility] National Suicide Prevention Lifeline: The National Suicide Prevention Lifeline is a network of local crisis centers that are available 14/09 to provide support for youth and adults who are in any kind of emotional crisis. In addition to the main hotline number listed above, there are several other numbers to call depending on your needs: Tuvaluan Language: Deaf and Hard of Hearin1-490.867.8100 Veterans: Disaster Distress: Anyone can also use their online chat feature on their website. National Suicide Prevention Lifeline [facility] Helpline: The [facility] Helpline is available to anyone in [place] who is need of emotional support. Anyone can call or text the helpline to receive help from specially trained volunteers. [place] high school and college students can also get online support through the IMHear_ program. For high school students, volunteers ages 15-18 are available Wednesday- from 6-9PM. For college students, IMHear_ is available Wednesday-Wednesday from 5-9PM. The Fan Project - The Fan Project is a 14/09 crisis intervention and suicide prevention hotline for LGBTQ youth. Youth can also text Fan to for support, or use the online chat feature on the Fan Project's website. [employer] is available Wednesday-Wednesday between 3-10PM. [employer] is available seven days a week between 3-10PM. SafeLink: SafeLink is for anyone who is being affected by domestic violence or dating violence. Volunteers at [employer] speak Maltese and Tuvaluan, and [employer] also has a service that can provide translation in more than 130 languages. TTY: Coding Level of Care Code Est Pt Level 4 (63866) Diagnoses Dermatillomania in adult F42.4 FLOYD (generalized anxiety disorder) F41.1
[2023-11-12 11:12] VITALS: BP 142/80; PULSE 96; RESP 16; TEMP 36.7; O2SAT 95; BMI 42.9
== END 2023-11-12 11:34 | disposition home or self-care (01) ==
PROVIDERS: PCP Physician Assistant; Visit Provider Nurse Practitioner Family
DX: F42.4 Excoriation (skin-picking) disorder (principal); F41.1 Generalized anxiety disorder

== ENCOUNTER → 2023-11-12 10:25 | Outpatient (BNVA) | payer MEDICARE, SELFPAY | PROVIDERS: PCP Physician Assistant | DX: F42.4 Excoriation (skin-picking) disorder (principal); F41.1 Generalized anxiety disorder | CPT/HCPCS: 99212 ==

== ENCOUNTER 2023-11-23 11:37 | Outpatient (AMB) | payer MEDICARE, SELFPAY ==
--- NOTE | 2023-11-23 11:42 | MHC.OFFWIV ---
Intake Vital Signs 11/23/23 11:48 Height 5 ft 3 in Weight 244 lb 4 oz BMI 43.3 BP 138/70 Blood Pressure Location Lt brachial Position Sitting Respiration 14 Pulse 116 H Pulse Source Pulse Oximeter Temp 98.3 F Pulse Oximetry (%) 95 Oxygen Delivery Method Room Air Intake Visit Reasons: est/ rash getting worse Intake Note: Patient complaining of wounds all over are not healing but started as a rash x 2 months but getting worse with time. Patient Tobacco Use Status: Former Tobacco user (quit 1983) Allergies brexpiprazole [From Rexulti] Allergy (Severe, Verified 11/23/23 11:47) Hives iopromide [From Ultravist] Allergy (Mild, Verified 11/23/23 11:47) REDNESS, SWELLING AROUND NECK amoxapine [AMOXAPINE] Allergy (Unknown, Verified 11/23/23 11:47) OVER EATING amoxicillin [AMOXICILLIN] Allergy (Unknown, Verified 11/23/23 11:47) LOWER GI DISTRESS azithromycin [From ZITHROMAX] Allergy (Unknown, Verified 11/23/23 11:47) DOES NOT WORK blue dye [BLUE DYE] Allergy (Unknown, Verified 11/23/23 11:47) FACIAL SWELLING,TEMP,RASH caffeine [From CAFERGOT] Allergy (Unknown, Verified 11/23/23 11:47) CANT TAKE ANYMORE celecoxib [From CELEBREX] Allergy (Unknown, Verified 11/23/23 11:47) RASH,TEMP ciprofloxacin [CIPROFLOXACIN] Allergy (Unknown, Verified 11/23/23 11:47) HALLUCINATION clarithromycin [From BIAXIN] Allergy (Unknown, Verified 11/23/23 11:47) DOES NOT WORK clavulanic acid [From AUGMENTIN] Allergy (Unknown, Verified 11/23/23 11:47) C-DIFF X 3 divalproex sodium [From DEPAKOTE] Allergy (Unknown, Verified 11/23/23 11:47) NIGHT SCARES ergotamine [From CAFERGOT] Allergy (Unknown, Verified 11/23/23 11:47) UNKNOWN gabapentin [GABAPENTIN] Allergy (Unknown, Verified 11/23/23 11:47) NIGHT SCARES hydroxyzine [HYDROXYZINE] Allergy (Unknown, Verified 11/23/23 11:47) ITCHING influenza virus vaccine, specific [FLU VACCINE] Allergy (Unknown, Verified 11/23/23 11:47) FEVER- PINS/ NEEDLES ALL OVER , RASH Iodinated Contrast Media [IV CONTRAST] Allergy (Unknown, Verified 11/23/23 11:47) HIVES ketorolac [From TORADOL] Allergy (Unknown, Verified 11/23/23 11:47) SEVERE ITCHING levofloxacin [From LEVAQUIN] Allergy (Unknown, Verified 11/23/23 11:47) HEART PALPITATIONS meperidine [From DEMEROL] Allergy (Unknown, Verified 11/23/23 11:47) ANAPHYLAXIS Sulfa (Sulfonamide Antibiotics) [SULFA (SULFONAMIDE ANTIBIOTICS)] Allergy (Unknown, Verified 11/23/23 11:47) ADMITTED WITH HIVES sumatriptan [Imitrex] Allergy (Unknown, Verified 11/23/23 11:47) heart pounding tramadol [From ULTRAM] Allergy (Unknown, Verified 11/23/23 11:47) ITCH trazodone [TRAZODONE] Allergy (Unknown, Verified 11/23/23 11:47) NIGHT SCARES valacyclovir [VALACYCLOVIR] Allergy (Unknown, Verified 11/23/23 11:47) GASTIC UPSET yellow dye [YELLOW DYE] Allergy (Unknown, Verified 11/23/23 11:47) SYSTEMIC ITCHING dexamethasone [From Decadron] Adverse Reaction (Intermediate, Verified 11/23/23 11:47) neck pain naproxen Adverse Reaction (Verified 11/23/23 11:47) Swelling Flu vaccine Allergy (Severe, Uncoded 11/04/23 11:42) Anaphylaxis Amitriptyline Allergy (Unknown, Uncoded 11/04/23 11:42) Unknown Blue and yellow dye Allergy (Unknown, Uncoded 11/04/23 11:42) Swelling Ionic dye Allergy (Unknown, Uncoded 11/04/23 11:42) Rash Do you need a note to return to daycare/school/sports/work: No HPI HPI Comments History of Present Illness Details 68-year-old female, accompanied by her sister, presents with complaints of generalized rash which has worsened. She reports greenish drainage from the lesion to her left breast. No constitutional symptoms She was evaluated here for similar rash last month and was prescribed nystatin and mupirocin She has history of dermatillomania. However, she notes that she has been picking his skin less than before She notes that she is followed by a engine cowling installer but does not currently has a follow-up appointment [facility] Medical History (Updated 11/12/23 @ 11:40 by WALDO Noriega-) Dry skin Vertigo Herpes Diverticulitis Prediabetes HTN (hypertension) Colon polyps GERD (gastroesophageal reflux disease) Glaucoma Migraine Chronic fatigue PTSD (post-traumatic stress disorder) Depression FLOYD (generalized anxiety disorder) Osteoarthritis Fibromyalgia Asthma Surgical History (Updated 11/04/23 @ 11:36 by Sharon Gar CMA) H/O right knee surgery Social History Housing: Apartment Patient Tobacco Use Status: Former Tobacco user (quit 1983) Cigarette Packs Per Day: 1 Years Smoked: 13 e-Cigarette/Vaping Use: Never Used Second Hand Smoke Exposure: No service: Yes Current occupational status: retired and disabled (Disables [place]) Cognitive needs: No Hearing needs: Yes (Trouble hearing) Vision needs: Yes (Glasses) Review of Systems Const Details: Denies chills, Denies fatigue, Denies fever(s), Denies headache(s) and Denies weakness Cardiac Denies chest pain, Denies claudication, Denies leg edema, Denies lightheadedness, Denies palpitations, Denies dyspnea, Denies dyspnea on exertion, Denies orthopnea and Denies other (Loss of consciousness) Resp Denies cough, Denies excessive phlegm production, Denies dyspnea, Denies dyspnea on exertion, Denies snoring and Denies wheezing Skin Reports as per [facility] Physical Exam Vital Signs: Last Vital Signs Temp 98.3 F 11/23/23 11:48 Pulse 116 H 11/23/23 11:48 Resp 14 11/23/23 11:48 BP 138/70 11/23/23 11:48 Pulse Ox 95 11/23/23 11:48 Oxygen Delivery Method Room Air 11/23/23 11:48 BMI result Body Mass Index 43.3 Const Other: General: comfortable and no acute distress Orientation/consciousness: patient oriented x3 Chest Chest palpation & inspection: normal inspection of the chest Resp Auscultation: clear to auscultation bilaterally Cardiac Palpation: normal PMI Heart sounds: S1 normal heart sound present, S2 normal heart sound present, no gallops, no murmur, no rubs Skin Multiple open lesions, in different sizes and stages of healing, noted to her breasts, abdomen, and bilateral upper and lower extremities; lesions with shallow depth then pink bed; no active drainage or overt infection noted Assessment & Plan Assessment & Plan (1) Dermatillomania in adult: Code(s): F42.4 - Excoriation (skin-picking) disorder Plan: Multiple open lesions, in different sizes and stages of healing, noted to her breasts, abdomen, and bilateral upper and lower extremities; lesions with shallow depth then pink bed; no active drainage or overt infection noted Wound care instructed and encouraged. Advised to perform wound care which dry sterile dressing once or twice daily based on amount of drainage Advised to avoid picking her skin Encouraged to call and schedule an urgent appointment with her engine cowling installer Follow-up with PCP as planned Go to the ED with signs and symptoms of infection such as fever, chills, body aches, or fatigue Verbalized understanding and agreed with the plan Coding Level of Care Code Est Pt Level 3 (58860) Diagnoses Dermatillomania in adult F42.4
[2023-11-23 11:48] VITALS: BP 138/70; PULSE 116; RESP 14; TEMP 36.8; O2SAT 95; BMI 43.3
== END 2023-11-23 12:39 | disposition home or self-care (01) ==
PROVIDERS: PCP Physician Assistant; Visit Provider Nurse Practitioner Family
DX: F42.4 Excoriation (skin-picking) disorder (principal)

== ENCOUNTER → 2023-11-23 11:37 | Outpatient (BNVA) | payer MEDICARE, SELFPAY | PROVIDERS: PCP Physician Assistant | DX: F42.4 Excoriation (skin-picking) disorder (principal) | CPT/HCPCS: 99212 ==

== ENCOUNTER 2023-12-08 13:55 | Outpatient (AMB) | payer MEDICARE, SELFPAY ==
--- NOTE | 2023-12-08 14:07 | A.OFFPC_ITS ---
Vital Signs 12/08/23 14:13 Height 5 ft 3 in Weight 241 lb 2 oz BMI 42.7 BP 120/78 Blood Pressure Location Lt brachial Position Sitting Pulse 70 Pulse Source Pulse Oximeter Pulse Oximetry (%) 96 Oxygen Delivery Method Room Air Intake Visit Reasons: htn, weight loss Intake Note: Follow up htn and weight loss. Needs refill on Atorvastin and Famatodine. Lab results Allergies brexpiprazole [From Rexulti] Allergy (Severe, Verified 12/08/23 14:07) Hives iopromide [From Ultravist] Allergy (Mild, Verified 12/08/23 14:07) REDNESS, SWELLING AROUND NECK amoxapine [AMOXAPINE] Allergy (Unknown, Verified 12/08/23 14:07) OVER EATING amoxicillin [AMOXICILLIN] Allergy (Unknown, Verified 12/08/23 14:07) LOWER GI DISTRESS azithromycin [From ZITHROMAX] Allergy (Unknown, Verified 12/08/23 14:07) DOES NOT WORK blue dye [BLUE DYE] Allergy (Unknown, Verified 12/08/23 14:07) FACIAL SWELLING,TEMP,RASH caffeine [From CAFERGOT] Allergy (Unknown, Verified 12/08/23 14:07) CANT TAKE ANYMORE celecoxib [From CELEBREX] Allergy (Unknown, Verified 12/08/23 14:07) RASH,TEMP ciprofloxacin [CIPROFLOXACIN] Allergy (Unknown, Verified 12/08/23 14:07) HALLUCINATION clarithromycin [From BIAXIN] Allergy (Unknown, Verified 12/08/23 14:07) DOES NOT WORK clavulanic acid [From AUGMENTIN] Allergy (Unknown, Verified 12/08/23 14:07) C-DIFF X 3 divalproex sodium [From DEPAKOTE] Allergy (Unknown, Verified 12/08/23 14:07) NIGHT SCARES ergotamine [From CAFERGOT] Allergy (Unknown, Verified 12/08/23 14:07) UNKNOWN gabapentin [GABAPENTIN] Allergy (Unknown, Verified 12/08/23 14:07) NIGHT SCARES hydroxyzine [HYDROXYZINE] Allergy (Unknown, Verified 12/08/23 14:07) ITCHING influenza virus vaccine, specific [FLU VACCINE] Allergy (Unknown, Verified 12/08/23 14:07) FEVER- PINS/ NEEDLES ALL OVER , RASH Iodinated Contrast Media [IV CONTRAST] Allergy (Unknown, Verified 12/08/23 14:07) HIVES ketorolac [From TORADOL] Allergy (Unknown, Verified 12/08/23 14:07) SEVERE ITCHING levofloxacin [From LEVAQUIN] Allergy (Unknown, Verified 12/08/23 14:07) HEART PALPITATIONS meperidine [From DEMEROL] Allergy (Unknown, Verified 12/08/23 14:07) ANAPHYLAXIS Sulfa (Sulfonamide Antibiotics) [SULFA (SULFONAMIDE ANTIBIOTICS)] Allergy (Unknown, Verified 12/08/23 14:07) ADMITTED WITH HIVES sumatriptan [Imitrex] Allergy (Unknown, Verified 12/08/23 14:07) heart pounding tramadol [From ULTRAM] Allergy (Unknown, Verified 12/08/23 14:07) ITCH trazodone [TRAZODONE] Allergy (Unknown, Verified 12/08/23 14:07) NIGHT SCARES valacyclovir [VALACYCLOVIR] Allergy (Unknown, Verified 12/08/23 14:07) GASTIC UPSET yellow dye [YELLOW DYE] Allergy (Unknown, Verified 12/08/23 14:07) SYSTEMIC ITCHING dexamethasone [From Decadron] Adverse Reaction (Intermediate, Verified 12/08/23 14:07) neck pain naproxen Adverse Reaction (Verified 12/08/23 14:07) Swelling Flu vaccine Allergy (Severe, Uncoded 12/08/23 14:07) Anaphylaxis Amitriptyline Allergy (Unknown, Uncoded 12/08/23 14:07) Unknown Blue and yellow dye Allergy (Unknown, Uncoded 12/08/23 14:07) Swelling Ionic dye Allergy (Unknown, Uncoded 12/08/23 14:07) Rash Medication List - Last Reconciled 12/08/23 by Bettie Gordon PA-C acyclovir 800 mg PO BID amlodipine 5 mg PO DAILY atorvastatin 20 mg PO BEDTIME baclofen 20 mg PO BID brexpiprazole (Rexulti) 0.25 mg PO DAILY trlslwgbnq-lrgewndq-crjqvhgzme 160-9-4.8 mcg/actuation (Breztri Aerosphere) inhalations inhalation buspirone 30 mg PO BID cetirizine (All Day Allergy (cetirizine)) 10 mg PO DAILY PRN cholecalciferol (vitamin D3) 25 mcg PO DAILY famotidine 40 mg PO BID famotidine 40 mg PO DAILY ibuprofen 200 mg PO Q6H PRN ipratropium-albuterol 0.5 mg-3 mg(2.5 mg base)/3 mL mL inhalation lancets (FreeStyle Lancets) As directed latanoprost 0.005% drps ophthalmic (eye) lidocaine 3% 1 appl topical BID PRN lidocaine 5% 1 appl topical DAILY lisinopril 40 mg PO DAILY lorazepam 1 mg PO TID magnesium oxide 400 mg PO DAILY metoprolol succinate ER 100 mg PO DAILY mupirocin 2% 1 appl topical BID nystatin 1 appl topical TID [Probiotic gummies .] sennosides (senna) 8.6 mg PO DAILY venlafaxine ER 75 mg PO DAILY Tobacco use date assessed: 11/04/23 Dental Screening Dental Screen Date: 11/04/23 HPI htn, weight loss HPI Details Patient is a 68-year-old female with a significant past medical history of asthma, hypertension, anxiety, , PTSD, depression, chronic fatigue, fibromyalgia, osteoarthritis, prediabetes, and obesity presenting today to follow up. CV: Blood pressure today in the office is 120/78. She is on metoprolol 100 mg daily, lisinopril 40 mg, and amlodipine [address] Dutta for mitral valve disease and htn. Echo was done last year. Pulm: states stable. Psych: She is on Rexulti, buspirone 30 mg b.i.d., lorazepam 1 mg t.i.d., and venlafaxine 75 mg daily. No SI/HI. Lives at home by herself. No Si/hi. following with psych. Currently tapering off of venlafaxine and going to try pristiq. Endo: she is a prediabetic. Last a1c was 6.2. At our last visit I did start her on Wegovy but it is not on her formulary. -She states she has tried gym exercises, atkins, weight watchers (multiple times), herbal life, nutrisystem. She states the most she was ever able to lose was 15 lbs but would gain it back. She has read most of the books and is still not able to lose weight. She has a hard time sticking with huge lifestyle changes. GI: She has an appointment with Dr. Desir next month and has a colonoscopy scheduled in January. Musculoskeletal: started on collagen and feeling better with joint pain Neuro: headaches are better with magnesium and b complex. Colonoscopy- booked in Jan Mammo- overdue Bone density- overdue s/p total hysterectomy [facility] Medical History (Updated 11/12/23 @ 11:40 by Madonna Loco, [facility]-) Dry skin Vertigo Herpes Diverticulitis Prediabetes HTN (hypertension) Colon polyps GERD (gastroesophageal reflux disease) Glaucoma Migraine Chronic fatigue PTSD (post-traumatic stress disorder) Depression FLOYD (generalized anxiety disorder) Osteoarthritis Fibromyalgia Asthma Surgical History (Updated 11/04/23 @ 11:36 by Sharon Gar [facility]) H/O right knee surgery Social History Housing: Apartment Patient Tobacco Use Status: Former Tobacco user (quit 1983) Cigarette Packs Per Day: 1 Years Smoked: 13 e-Cigarette/Vaping Use: Never Used Second Hand Smoke Exposure: No service: Yes Current occupational status: retired and disabled (Disables ) Cognitive needs: No Hearing needs: Yes (Trouble hearing) Vision needs: Yes (Glasses) Questionnaire Thrive Questionnaire Date Thrive assessed: 11/04/23 I am a: Patient What is your living situation today?: I have a steady place to live Within the past 12 months, did the food you bought not last and you didn't have the money to get more?: Never true Within the past 12 months, did you worry whether your food would run out before you got money to buy more?: Never true Do you have trouble paying for medicines?: No Do you have trouble getting transportation to medical appointments?: No Do you have trouble paying your heating and electricity bill?: No Do you have trouble taking care of your child, family member or friend?: Yes Do you have trouble with day-to-day activities such as bathing, preparing meals, shopping, managing finances, etc.?: Yes Are you currently unemployed and looking for a job?: No Are you interested in more education?: Yes THRIVE Score: 0 FLOYD-7 AMB Questionnaire FLOYD-7 Becoming easily annoyed or irritable: 2 = More than half the days Source: Developed by Drs. Trae Craig, Daisy Henderson, Scott Sanchez and colleagues, with an educational aguila from [employer]. Physical exam (Primary Care) Vital Signs: Last Vital Signs Pulse 70 12/08/23 14:13 BP 120/78 12/08/23 14:13 Pulse Ox 96 12/08/23 14:13 Oxygen Delivery Method Room Air 12/08/23 14:13 BMI result Body Mass Index 42.7 Tobacco/Smoking Status: Tobacco use Status Tobacco use date assessed 11/04/23 12/08/23 14:14 Patient Tobacco Use Status Former Tobacco user (quit 12/08/23 14:14 1983) e-Cigarette/Vaping Use Never Used 12/08/23 14:14 Thrive Assessment: Date of Thrive Assessment Date Thrive assessed 11/04/23 12/08/23 14:14 Const Orientation/consciousness: patient oriented x3 HENMT Ears: hearing grossly normal bilaterally Neck Thyroid: Thyroid normal Lymphatic: no lymphadenopathy noted Resp Auscultation: clear to auscultation bilaterally Cardio Rate: regular rate Rhythm: regular rhythm Heart sounds: S1 normal heart sound present and S2 normal heart sound present GI Inspection: Yes normal to inspection Palpation (GI): Soft to palpation and Other GI palpation findings present (nontender, no cva tenderness) Auscultation: normoactive bowel sounds Rectal Exam - Female: deferred Skin General skin exam: no rashes or lesions noted Neuro General: patient oriented x3, gait normal and no focal motor deficits Coding Level of Care Code Est Pt Level 4 (42593) Complex EM visit Add On G2211 Diagnoses Chronic fatigue R53.82 HTN (hypertension) I10 Prediabetes R73.03 Major depression, recurrent, chronic F33.9 Assessment & Plan Assessment & Plan (1) Chronic fatigue: Code(s): R53.82 - Chronic fatigue, unspecified Category: Medical Plan: Stable. Believes that she has this related to her depression. (2) HTN (hypertension): Code(s): I10 - Essential (primary) hypertension Category: Medical Plan: WNL. Continue current regimen (3) Prediabetes: Code(s): R73.03 - Prediabetes Category: Medical Plan: Working on reducing her carbohydrate and sugar intake. We will monitor. We will try to get zepbound covered for weight loss. (4) Major depression, recurrent, chronic: Code(s): F33.9 - Major depressive disorder, recurrent, unspecified Category: Medical Plan: Following with Psychiatry and stable. Orders: Orders Comprehensive [place]. Panel Fast Today F33.9 - Major depressive disorder, recurrent, unspecified, I10 - Essential (primary) hypertension, R53.82 - Chronic fatigue, unspecified, R73.03 - Prediabetes Complete Blood Count Auto Diff Today F33.9 - Major depressive disorder, recurrent, unspecified, I10 - Essential (primary) hypertension, R53.82 - Chronic fatigue, unspecified, R73.03 - Prediabetes Hemoglobin A1c Today F33.9 - Major depressive disorder, recurrent, unspecified, I10 - Essential (primary) hypertension, R53.82 - Chronic fatigue, unspecified, R73.03 - Prediabetes UA CC w/rflx Micro + Cult Today F33.9 - Major depressive disorder, recurrent, unspecified, I10 - Essential (primary) hypertension, R53.82 - Chronic fatigue, unspecified, R73.03 - Prediabetes, Z13.220 - Encounter for screening for lipoid disorders TSH reflex Free T4 Today F33.9 - Major depressive disorder, recurrent, unspecified, I10 - Essential (primary) hypertension, R53.82 - Chronic fatigue, unspecified, R73.03 - Prediabetes Medications: New tirzepatide (weight loss) (Zepbound) for 4 weeks 2.5 mg (0.5 mL) subcut QWEEK 2 mL 3RF atorvastatin 20 mg (1/2 x 40 mg) PO BEDTIME 90 days 45 tabs 3RF ondansetron HCl 4 mg PO Q8H 30 days PRN 30 tabs 0RF nausea and vomiting lisinopril 40 mg PO DAILY 90 tabs 3RF Changed From famotidine 40 mg PO BID To famotidine 40 mg PO DAILY 90 tabs 3RF
[2023-12-08 14:13] VITALS: BP 120/78; PULSE 70; O2SAT 96; BMI 42.7
== END 2023-12-08 14:39 | disposition home or self-care (01) ==
PROVIDERS: PCP Physician Assistant; Visit Provider Physician Assistant
DX: R53.82 Chronic fatigue, unspecified (principal); I10 Essential (primary) hypertension; R73.03 Prediabetes; F33.9 Major depressive disorder, recurrent, unspecified

== ENCOUNTER → 2023-12-08 13:55 | Outpatient (BNVA) | payer MEDICARE, SELFPAY | PROVIDERS: PCP Physician Assistant; Visit Provider Physician Assistant | DX: I10 Essential (primary) hypertension (principal); R73.03 Prediabetes; F33.9 Major depressive disorder, recurrent, unspecified | CPT/HCPCS: 99212 ==

== ENCOUNTER 2024-02-09 13:52 | Outpatient (REF) | payer MEDICARE, SELFPAY ==
--- NOTE | ~2024-02-09 | MM_ITS ---
EXAMINATION: BONE DENSITOMETRY CLINICAL INDICATION: Asymptomatic menopausal state. COMPARISON: This is the patient's baseline examination. TECHNIQUE: Using a [employer] DXA System (software version: 13.1) manufactured by [employer], dual-energy x-ray absorptiometry was performed of the lumbar spine and left hip. The images are of good technical quality. Summary results are attached. FINDINGS: LEFT FEMUR, NECK: BMD 0.754 g/cm2, Z-score -1.1, T-score -2.0, osteopenia. LEFT FEMUR, TOTAL: BMD 0.859 g/cm2, Z-score -0.5, T-score -1.2, osteopenia. AP SPINE L1-L4: BMD 0.985 g/cm2, Z-score -1.1, T-score -1.6, osteopenia. IDENTIFIED RISK FACTORS: Height loss, history of fracture (adult), secondary osteoporosis (intestinal or bowel disease, not IBS). Early menopause, secondary osteoporosis, hysterectomy, bilateral oophorectomy. HISTORY OF FRACTURE: Spine. MEDICATIONS: Calcium supplements or multivitamin, vitamin D. MM/XR DEXA axial skeleton IMPRESSION: 1. DIAGNOSIS: Osteopenia based on the lowest T-score value of -2.0 in the femoral neck applying World Health Organization criteria. 2. 10-YEAR FRACTURE RISK PREDICTION, FRAX: Major osteoporotic fracture (clinical spine, forearm, hip or shoulder) 17.0%. Hip fracture 3.2%. 3. Treatment Recommendations: NOF guidelines recommend consideration for treatment in postmenopausal women and men age 50 and older presenting with the following: -A hip or vertebral (clinical or morphometric) fracture. -T-score less than or equal to -2.5 at the femoral neck or spine after appropriate evaluation to exclude secondary causes. -Low bone mass at the hip or spine and a 10-year fracture probability by FRAX of greater than or equal to 3% for hip fracture or greater than or equal to 20% for major osteoporotic fracture based on the [place] adapted WHO algorithm. 4. Other Recommendations: All treatment decisions require clinical judgment and consideration of individual patient factors, including patient preferences, comorbidities, previous drug use, risk factors not captured in the FRAX model (e.g. frailty, falls, vitamin D deficiency, increased bone turnover, interval significant decline in bone density) and possible under or overestimation of fracture risk by FRAX. Additional medical evaluation for secondary cause of low bone mineral density may be appropriate. FUTURE SCAN RECOMMENDATION: People with diagnosed cases of osteoporosis or at high risk for fracture should have regular bone mineral density tests. For patients eligible for Medicare, routine testing is allowed once every 2 years. The testing frequency can be increased to one year for patients who have rapidly progressing disease, those who are receiving or discontinuing medical therapy to restore bone mass, or have additional risk factors. Electronically signed by: Paul Paz MD 02/09/2024 03:37 PM [facility]
== END 2024-02-09 13:53 | disposition home or self-care (01) ==
LOC: HO.MAMMO 13:52
PROVIDERS: PCP Physician Assistant; Visit Provider Physician Assistant
DX: Z13.820 Encounter for screening for osteoporosis (principal); Z78.0 Asymptomatic menopausal state
CPT/HCPCS: 77080

== ENCOUNTER 2024-02-21 10:27 | Outpatient (AMB) | payer MEDICARE, SELFPAY ==
--- NOTE | 2024-02-21 11:11 | MHC.OFFWIV ---
Intake Vital Signs 02/21/24 11:18 Height 5 ft 3 in Weight 243 lb BMI 43.0 BP 118/68 Blood Pressure Location Rt brachial Position Sitting Respiration 12 Pulse 72 Pulse Source Pulse Oximeter Temp 98.0 F Temp Source Oral Oxygen Delivery Method Room Air Intake Visit Reasons: short of breath, pain under right lung Intake Note: Patient complaining of right lower back side pain, sob, exhausted, coughing up phlegm x 2 weeks Patient Tobacco Use Status: Former Tobacco user (quit 1983) Allergies brexpiprazole [From Rexulti] Allergy (Severe, Verified 02/21/24 11:34) Hives iopromide [From Ultravist] Allergy (Mild, Verified 02/21/24 11:34) REDNESS, SWELLING AROUND NECK amoxapine [AMOXAPINE] Allergy (Unknown, Verified 02/21/24 11:34) OVER EATING amoxicillin [AMOXICILLIN] Allergy (Unknown, Verified 02/21/24 11:34) LOWER GI DISTRESS azithromycin [From ZITHROMAX] Allergy (Unknown, Verified 02/21/24 11:34) DOES NOT WORK blue dye [BLUE DYE] Allergy (Unknown, Verified 02/21/24 11:34) FACIAL SWELLING,TEMP,RASH caffeine [From CAFERGOT] Allergy (Unknown, Verified 02/21/24 11:34) CANT TAKE ANYMORE celecoxib [From CELEBREX] Allergy (Unknown, Verified 02/21/24 11:34) RASH,TEMP ciprofloxacin [CIPROFLOXACIN] Allergy (Unknown, Verified 02/21/24 11:34) HALLUCINATION clarithromycin [From BIAXIN] Allergy (Unknown, Verified 02/21/24 11:34) DOES NOT WORK clavulanic acid [From AUGMENTIN] Allergy (Unknown, Verified 02/21/24 11:34) C-DIFF X 3 divalproex sodium [From DEPAKOTE] Allergy (Unknown, Verified 02/21/24 11:34) NIGHT SCARES ergotamine [From CAFERGOT] Allergy (Unknown, Verified 02/21/24 11:34) UNKNOWN gabapentin [GABAPENTIN] Allergy (Unknown, Verified 02/21/24 11:34) NIGHT SCARES hydroxyzine [HYDROXYZINE] Allergy (Unknown, Verified 02/21/24 11:34) ITCHING influenza virus vaccine, specific [FLU VACCINE] Allergy (Unknown, Verified 02/21/24 11:34) FEVER- PINS/ NEEDLES ALL OVER , RASH Iodinated Contrast Media [IV CONTRAST] Allergy (Unknown, Verified 02/21/24 11:34) HIVES ketorolac [From TORADOL] Allergy (Unknown, Verified 02/21/24 11:34) SEVERE ITCHING levofloxacin [From LEVAQUIN] Allergy (Unknown, Verified 02/21/24 11:34) HEART PALPITATIONS meperidine [From DEMEROL] Allergy (Unknown, Verified 02/21/24 11:34) ANAPHYLAXIS Sulfa (Sulfonamide Antibiotics) [SULFA (SULFONAMIDE ANTIBIOTICS)] Allergy (Unknown, Verified 02/21/24 11:34) ADMITTED WITH HIVES sumatriptan [Imitrex] Allergy (Unknown, Verified 02/21/24 11:34) heart pounding tramadol [From ULTRAM] Allergy (Unknown, Verified 02/21/24 11:34) ITCH trazodone [TRAZODONE] Allergy (Unknown, Verified 02/21/24 11:34) NIGHT SCARES valacyclovir [VALACYCLOVIR] Allergy (Unknown, Verified 02/21/24 11:34) GASTIC UPSET yellow dye [YELLOW DYE] Allergy (Unknown, Verified 02/21/24 11:34) SYSTEMIC ITCHING dexamethasone [From Decadron] Adverse Reaction (Intermediate, Verified 02/21/24 11:34) neck pain naproxen Adverse Reaction (Verified 02/21/24 11:34) Swelling Flu vaccine Allergy (Severe, Uncoded 12/08/23 14:07) Anaphylaxis Amitriptyline Allergy (Unknown, Uncoded 12/08/23 14:07) Unknown Blue and yellow dye Allergy (Unknown, Uncoded 12/08/23 14:07) Swelling Ionic dye Allergy (Unknown, Uncoded 12/08/23 14:07) Rash Medication List - Last Reconciled 02/21/24 by Madonna Loco, MENTAL HEALTH CONSULTANT- acyclovir 800 mg (2 x 400 mg) PO BID 7 days amlodipine 5 mg PO DAILY atorvastatin 20 mg (1/2 x 40 mg) PO BEDTIME 90 days baclofen 20 mg PO BID brexpiprazole (Rexulti) 0.25 mg PO DAILY deqsrsgzrs-qulxdxxh-mndiullcwb 160-9-4.8 mcg/actuation (Breztri Aerosphere) inhalations inhalation buspirone 30 mg PO BID cetirizine (All Day Allergy (cetirizine)) 10 mg PO DAILY PRN cholecalciferol (vitamin D3) 25 mcg PO DAILY famotidine 40 mg PO DAILY fluconazole 150 mg PO Q3D 2 doses ibuprofen 200 mg PO Q6H PRN ipratropium-albuterol 0.5 mg-3 mg(2.5 mg base)/3 mL mL inhalation lancets (FreeStyle Lancets) As directed latanoprost 0.005% drps ophthalmic (eye) lidocaine 3% 1 appl topical BID PRN lidocaine 5% 1 appl topical DAILY lisinopril 40 mg PO DAILY lorazepam 1 mg PO TID magnesium oxide 400 mg PO DAILY metoprolol succinate ER 100 mg PO DAILY mupirocin 2% 1 appl topical BID nystatin 1 appl topical TID ondansetron HCl 4 mg PO Q8H PRN 30 days [Probiotic gummies .] sennosides (senna) 8.6 mg PO DAILY tirzepatide (weight loss) (Zepbound) 2.5 mg (0.5 mL) subcut QWEEK venlafaxine ER 75 mg PO DAILY Do you need a note to return to daycare/school/sports/work: No HPI HPI Comments History of Present Illness Details The patient is a 68-year-old female presenting with complaints of right lower back pain, shortness of breath, fatigue, and cough. The symptoms began two weeks ago. The patient describes the back pain as located under the right lung, reminiscent of pain experienced during a previous episode of pleurisy several years ago. There is tenderness in the affected area on palpation. The cough is persistent but has not been managed with nebulizer treatment due to exhaustion. The patient has applied ibuprofen and acetaminophen to alleviate symptoms without significant improvement. She occasionally experiences chills and subjective fever but denies any measurable high fever. The patient's appetite has been poor, and she reports not sleeping well. Exam Awake alert NAD Sclera and conjunctiva clear bilat Nares patent, turbinates within normal limits, no sinus tenderness with palpation bilat TM intact and clear bilat MMM, pharynx WNL RRR LS CTAB, pain w palpation over right posterior rib cage, no retractions Plan - Conduct a chest X-ray to evaluate potential underlying causes of the back pain and pulmonary symptoms. - Perform a viral swab test to rule out COVID-19, influenza, and RSV infections. - Recommend the use of nebulizer treatments at home to alleviate respiratory symptoms. - Monitor for results and plan to communicate findings to the patient within 24 hours. - Review and manage allergies before prescribing additional medication if needed. Patient was informed and verbally consented to the use of an ambient scribe for clinic note documentation during this visit. This note is constructed using voice recognition software. While every effort has been made to ensure accuracy in practice office associate, still errors may have been included Sometimes, these errors may affect the content or meaning of the given sentence . Total time spent caring for the patient today was 30 minutes. This includes time spent before the visit reviewing the chart, time spent during the visit, and time spent after the visit on documentation [facility] Medical History (Updated 02/21/24 @ 15:13 by Madonna Loco, [facility]-) Dry skin Vertigo Herpes Diverticulitis Prediabetes HTN (hypertension) Colon polyps GERD (gastroesophageal reflux disease) Glaucoma Migraine Chronic fatigue PTSD (post-traumatic stress disorder) Depression FLOYD (generalized anxiety disorder) Osteoarthritis Fibromyalgia Asthma Surgical History (Updated 11/04/23 @ 11:36 by Sharon Gar [facility]) H/O right knee surgery Social History Housing: Apartment Patient Tobacco Use Status: Former Tobacco user (quit 1983) Cigarette Packs Per Day: 1 Years Smoked: 13 e-Cigarette/Vaping Use: Never Used Second Hand Smoke Exposure: No service: Yes Current occupational status: retired and disabled (Disables ) Cognitive needs: No Hearing needs: Yes (Trouble hearing) Vision needs: Yes (Glasses) Physical Exam Vital Signs: Last Vital Signs Temp 98.0 F 02/21/24 11:18 Pulse 72 02/21/24 11:18 Resp 12 02/21/24 11:18 BP 118/68 02/21/24 11:18 Oxygen Delivery Method Room Air 02/21/24 11:18 BMI result Body Mass Index 43.0 Assessment & Plan Assessment & Plan (1) Right-sided chest wall pain: Code(s): R07.89 - Other chest pain (2) Chronic fatigue: Code(s): R53.82 - Chronic fatigue, unspecified (3) Asthma: Code(s): J45.909 - Unspecified asthma, uncomplicated Qualifiers: Asthma severity: mild Asthma persistence: intermittent Asthma complication type: uncomplicated Qualified Code(s): J45.20 - Mild intermittent asthma, uncomplicated (4) Cough: Code(s): R05.9 - Cough, unspecified Qualifiers: Cough type: acute Qualified Code(s): R05.1 - Acute cough Plan . Orders: Orders XR chest 2V Today R05.9 - Cough, unspecified, R07.89 - Other chest pain SARS-CoV2/FLU/RSV Today R05.9 - Cough, unspecified Patient Instructions: [address] [place] [address] Coding Level of Care Code Est Pt Level 4 (32976) Diagnoses Right-sided chest wall pain R07.89 Chronic fatigue R53.82 Mild intermittent asthma without complication J45.20 Asthma severity: mild Asthma persistence: intermittent Asthma complication type: uncomplicated Acute cough R05.1 Cough type: acute
[2024-02-21 11:18] VITALS: BP 118/68; PULSE 72; RESP 12; TEMP 36.7; BMI 43.0
== END 2024-02-21 11:51 | disposition home or self-care (01) ==
LOC: HO.HMCWIW 10:27
PROVIDERS: PCP Physician Assistant; Visit Provider Nurse Practitioner Family
DX: R07.89 Other chest pain (principal); R53.82 Chronic fatigue, unspecified; J45.20 Mild intermittent asthma, uncomplicated; R05.1 Acute cough

== ENCOUNTER 2024-02-21 10:27 | Outpatient (REF) | payer MEDICARE, SELFPAY ==
--- NOTE | ~2024-02-21 | XR_ITS ---
EXAMINATION: XR CHEST CLINICAL INFORMATION: R05.9 - Cough, unspecified COMPARISON: None available. TECHNIQUE: 2 views of the chest were obtained. FINDINGS: No significant abnormality is noted involving the heart, lungs, mediastinum, bony thorax or soft tissues. XR/XR chest 2V IMPRESSION: Unremarkable chest examination. Electronically signed by: Christopher Sharma MD 02/22/2024 11:14 AM [facility]
[2024-02-21 16:08] LABS: Influenza A PCR NEGATIVE (Negative); Influenza B PCR NEGATIVE (Negative); Resp Syncy Virus RNA Qual PCR NEGATIVE (Negative); SARS COV2 PCR INHOUSE NEGATIVE (Negative)
== END 2024-02-21 10:28 | disposition home or self-care (01) ==
LOC: HO.HMGCX 10:27
PROVIDERS: PCP Physician Assistant; Visit Provider Nurse Practitioner Family
DX: R05.9 Cough, unspecified (principal); R07.89 Other chest pain; R53.82 Chronic fatigue, unspecified; J45.20 Mild intermittent asthma, uncomplicated; R05.1 Acute cough
CPT/HCPCS: 0241U; 71046; 99212

== ENCOUNTER → 2024-02-21 13:07 | Outpatient (BNV) | payer MEDICARE, SELFPAY | PROVIDERS: PCP Physician Assistant; Visit Provider Radiology Diagnostic Radiology | DX: Z00.00 Encounter for general adult medical examination without abnormal findings (principal) | CPT/HCPCS: 71046 ==

== ENCOUNTER → 2024-03-29 14:08 | Outpatient (BNVA) | payer MEDICARE, SELFPAY | PROVIDERS: PCP Physician Assistant; Visit Provider Physician Assistant | DX: F41.1 Generalized anxiety disorder (principal); I10 Essential (primary) hypertension; R73.03 Prediabetes; F33.9 Major depressive disorder, recurrent, unspecified; F42.4 Excoriation (skin-picking) disorder | CPT/HCPCS: 83036; 96127; 99212 ==

== ENCOUNTER 2024-05-02 14:00 | Outpatient (REF) | payer MEDICARE, SELFPAY ==
[2024-05-02 18:28] LABS: MANUAL DIFF FLAG NO
[2024-05-02 18:38] LABS: Appearance Urine Clear; Color Urine Yellow; Glucose Urine UA Negative (Negative); Leukocyte Esterase Urine Negative (Negative); Nitrite Urine Negative (Negative); Urine Blood Negative (Negative); Urine Ketones Negative (Negative); Urine Protein Negative (Neg-Trace)
[2024-05-02 18:45] LABS: Basophils Absolute Auto 0.1 X10*3/uL (0.0-0.2); Basophils Percent Auto 0.8 % (0-2); Eosinophils Absolute Auto 0.2 X10*3/uL (0.0-0.4); Eosinophils Percent Auto 2.4 % (0-4); Hematocrit 45.8 % (37.0-47.0); Hemoglobin 14.8 g/dl (12.0-16.0); Imm Gran Abs Auto 0.03 X10*3/uL (0.00-0.03); Imm Gran Pct Auto 0.3 % (0.0-0.4); Lymphocytes Absolute Auto 3.8 X10*3/uL (1.2-4.9); Lymphocytes Percent Auto 37.8 % (20-40); Mean Corpuscular HGB Conc 32.3 g/dl (31.0-35.0); Mean Corpuscular Hemoglobin 29.3 pg (27.0-33.0); Mean Corpuscular Volume 90.7 fL (80.0-98.0); Mean Platelet Volume 9.9 fL (9.4-12.3); Monocytes Absolute Auto 0.9 X10*3/uL (0.1-1.2); Monocytes Percent Auto 8.7 % (2-11); Platelet Count 363 X10*3/uL (160-400); Red Blood Count 5.05 X10*6/uL (4.20-5.50); Red Cell Distribution Width 13.7 % (11.0-16.0)
[2024-05-02 19:51] LABS: Alanine Aminotransferase 25 U/L (0-31); Albumin Level 4.2 g/dL (3.5-5.0); Alkaline Phosphatase 119 U/L (39-117); Anion Gap 14 (12-20); Aspartate Amino Transferase 26 U/L (5-31); Bilirubin Total 0.4 mg/dL (0.0-1.0); Blood Urea Nitrogen 9 mg/dL (9-16); Calcium 9.5 mg/dL (8.4-10.2); Carbon Dioxide 26 mmol/L (22-29); Chloride 104 mmol/L (96-108); Cholesterol 160 mg/dL (<200); Estimated Glomerular Filt Rate > 60; Glucose Fasting 97 mg/dL (60-99); HDL Cholesterol 46 mg/dL (>40); LDL Cholesterol Calculated 65 mg/dL (<100); Potassium 4.1 mmol/L (3.3-5.1); Sodium 140 mmol/L (135-145); Total Protein 7.8 g/dL (6.5-8.0); Triglycerides 249 mg/dL (<150)
[2024-05-02 20:05] LABS: TSH reflex Free T4 1.36 uIU/mL (0.32-4.0)
[2024-05-03 06:26] LABS: Estimated Average Glucose 128 mg/dL; Hemoglobin A1c % 6.1 % (<6.0)
== END 2024-05-02 14:01 | disposition home or self-care (01) ==
LOC: HO.WFDLDS 14:00
PROVIDERS: Visit Provider Physician Assistant
DX: F33.9 Major depressive disorder, recurrent, unspecified (principal); R73.03 Prediabetes; I10 Essential (primary) hypertension; F42.4 Excoriation (skin-picking) disorder; F41.1 Generalized anxiety disorder; Z13.220 Encounter for screening for lipoid disorders
CPT/HCPCS: 36415; 80053; 80061; 81003; 83036; 84443; 85025

== ENCOUNTER 2024-05-11 12:49 | Outpatient (AMB) | payer MEDICARE, SELFPAY ==
--- NOTE | 2024-05-11 13:58 | MHC.PC.OV ---
Vital Signs 05/11/24 14:03 Height 5 ft 3 in Weight 241 lb 6 oz BMI 42.8 BP 122/72 Blood Pressure Location Lt brachial Position Sitting Respiration 18 Pulse 72 Pulse Source Pulse Oximeter Pulse Oximetry (%) 94 Oxygen Delivery Method Room Air Intake Visit Reasons: f/u blood work Intake Note: Follow up lab results Asparagus Cutter Required: No Allergies brexpiprazole [From Rexulti] Allergy (Severe, Verified 05/11/24 13:58) Hives iopromide [From Ultravist] Allergy (Mild, Verified 05/11/24 13:58) REDNESS, SWELLING AROUND NECK amoxapine [AMOXAPINE] Allergy (Unknown, Verified 05/11/24 13:58) OVER EATING amoxicillin [AMOXICILLIN] Allergy (Unknown, Verified 05/11/24 13:58) LOWER GI DISTRESS azithromycin [From ZITHROMAX] Allergy (Unknown, Verified 05/11/24 13:58) DOES NOT WORK blue dye [BLUE DYE] Allergy (Unknown, Verified 05/11/24 13:58) FACIAL SWELLING,TEMP,RASH caffeine [From CAFERGOT] Allergy (Unknown, Verified 05/11/24 13:58) CANT TAKE ANYMORE celecoxib [From CELEBREX] Allergy (Unknown, Verified 05/11/24 13:58) RASH,TEMP ciprofloxacin [CIPROFLOXACIN] Allergy (Unknown, Verified 05/11/24 13:58) HALLUCINATION clarithromycin [From BIAXIN] Allergy (Unknown, Verified 05/11/24 13:58) DOES NOT WORK clavulanic acid [From AUGMENTIN] Allergy (Unknown, Verified 05/11/24 13:58) C-DIFF X 3 divalproex sodium [From DEPAKOTE] Allergy (Unknown, Verified 05/11/24 13:58) NIGHT SCARES ergotamine [From CAFERGOT] Allergy (Unknown, Verified 05/11/24 13:58) UNKNOWN gabapentin [GABAPENTIN] Allergy (Unknown, Verified 05/11/24 13:58) NIGHT SCARES hydroxyzine [HYDROXYZINE] Allergy (Unknown, Verified 05/11/24 13:58) ITCHING influenza virus vaccine, specific [FLU VACCINE] Allergy (Unknown, Verified 05/11/24 13:58) FEVER- PINS/ NEEDLES ALL OVER , RASH Iodinated Contrast Media [IV CONTRAST] Allergy (Unknown, Verified 05/11/24 13:58) HIVES ketorolac [From TORADOL] Allergy (Unknown, Verified 05/11/24 13:58) SEVERE ITCHING levofloxacin [From LEVAQUIN] Allergy (Unknown, Verified 05/11/24 13:58) HEART PALPITATIONS meperidine [From DEMEROL] Allergy (Unknown, Verified 05/11/24 13:58) ANAPHYLAXIS Sulfa (Sulfonamide Antibiotics) [SULFA (SULFONAMIDE ANTIBIOTICS)] Allergy (Unknown, Verified 05/11/24 13:58) ADMITTED WITH HIVES sumatriptan [Imitrex] Allergy (Unknown, Verified 05/11/24 13:58) heart pounding tramadol [From ULTRAM] Allergy (Unknown, Verified 05/11/24 13:58) ITCH trazodone [TRAZODONE] Allergy (Unknown, Verified 05/11/24 13:58) NIGHT SCARES valacyclovir [VALACYCLOVIR] Allergy (Unknown, Verified 05/11/24 13:58) GASTIC UPSET yellow dye [YELLOW DYE] Allergy (Unknown, Verified 05/11/24 13:58) SYSTEMIC ITCHING dexamethasone [From Decadron] Adverse Reaction (Intermediate, Verified 05/11/24 13:58) neck pain naproxen Adverse Reaction (Verified 05/11/24 13:58) Swelling Flu vaccine Allergy (Severe, Uncoded 05/11/24 13:58) Anaphylaxis Amitriptyline Allergy (Unknown, Uncoded 05/11/24 13:58) Unknown Blue and yellow dye Allergy (Unknown, Uncoded 05/11/24 13:58) Swelling Ionic dye Allergy (Unknown, Uncoded 05/11/24 13:58) Rash Medication List - Last Reconciled 05/11/24 by Bettie Gordon PA-C acyclovir 400 mg PO TID 14 days amlodipine 5 mg PO DAILY ammonium lactate 12% (AmLactin) 1 appl topical DAILY atorvastatin 40 mg PO BEDTIME baclofen 20 mg PO BID ymcriwmmza-ywihhpkx-oudwjsfdpg 160-9-4.8 mcg/actuation (Breztri Aerosphere) inhalations inhalation buspirone 30 mg PO BID zukedjvmtz-kfsrxzoeykmnb-zkmv 50-325-40 mg 1 tab PO Q6H PRN cetirizine (All Day Allergy (cetirizine)) 10 mg PO DAILY PRN cholecalciferol (vitamin D3) 25 mcg PO DAILY desvenlafaxine succinate ER 100 mg PO DAILY famotidine 40 mg PO DAILY fluconazole 150 mg PO Q3D 2 doses ibuprofen 200 mg PO Q6H PRN ipratropium-albuterol 0.5 mg-3 mg(2.5 mg base)/3 mL mL inhalation lancets (FreeStyle Lancets) As directed latanoprost 0.005% drps ophthalmic (eye) lidocaine 3% 1 appl topical BID PRN lidocaine 5% 1 appl topical DAILY lisinopril 40 mg PO DAILY lorazepam 1 mg PO TID magnesium oxide 400 mg PO DAILY metoprolol succinate ER 100 mg PO DAILY mupirocin 2% 1 appl topical BID nystatin 1 appl topical TID ondansetron HCl 4 mg PO Q8H PRN 30 days [Probiotic gummies .] sennosides (senna) 8.6 mg PO DAILY Tobacco use date assessed: 11/04/23 Dental Screening Dental Screen Date: 11/04/23 HPI f/u blood work HPI Details Patient is a 68-year-old female with a significant past medical history of asthma, hypertension, anxiety, PTSD, depression, chronic fatigue, fibromyalgia, osteoarthritis, prediabetes, and obesity presenting today to follow up. CV: Blood pressure today in the office is 122/72. She is on metoprolol 100 mg daily, lisinopril 40 mg, and amlodipine [address] Dutta for mitral valve disease and htn. Echo was done last year. Pulm: Recently exacerbated. She says for the last month or 2 she has been coughing and wheezing more. She is compliant with the Breztri. She is supposed to follow with Dr. Cortez from [facility] but her insurance changed and she states that she would like to see someone here. She worries that at night her oxygen trips low and she does have a history of obstructive sleep apnea but unfortunately can not tolerate any of the masks. She would like a 2nd opinion on this. She has been having to use her rescue inhaler quite frequently in the last month. She has been coughing up a little bit of phlegm as well. No fever, chills, sinus pain or pressure. No recent sick contacts. Psych: She is on Rexulti, buspirone 30 mg b.i.d., lorazepam 1 mg t.i.d., and desvenlafaxine 75 mg daily. No SI/HI. Lives at home by herself. No Si/hi. following with psych. Endo: she is a prediabetic. Her A1c is stable at 6.1. She is trying to get her insurance to cover GLP 1 but this point they will not cover 1. -She states she has tried gym exercises, atkins, weight watchers (multiple times), herbal life, nutrisystem. She states the most she was ever able to lose was 15 lbs but would gain it back. She has read most of the books and is still not able to lose weight. She has a hard time sticking with huge lifestyle changes. GI: She follows with Dr. Desir and is scheduled for a colonoscopy in August Musculoskeletal: started on collagen and feeling better with joint pain Neuro: She has a history of headaches and states that they are exacerbated and almost every day now. They happen in the morning but they typically bother her in the evening. She says that she had previous imaging in that it was abnormal but she can not recall exactly what it showed. Unfortunately, today we are unable to get into [facility] system. 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 She states that she does follow with Dermatology and has a hard time letting some of them heal even though she is due for a mammogram. She says that they can not do it until it heals. 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 Bone density- UTD- 2023 osteopenia s/p total hysterectomy [facility] Medical History (Updated 05/11/24 @ 14:35 by Bettie Gordon PA-C) Dry skin Vertigo Herpes Diverticulitis Prediabetes HTN (hypertension) Colon polyps GERD (gastroesophageal reflux disease) Glaucoma Migraine Chronic fatigue PTSD (post-traumatic stress disorder) Depression FLOYD (generalized anxiety disorder) Osteoarthritis Fibromyalgia Asthma Surgical History H/O right knee surgery Social History (Updated 05/11/24 @ 14:13 by Sharon Gar CMA) Housing: Apartment Alcohol intake: current Patient Tobacco Use Status: Former Tobacco user (quit 1983) Cigarette Packs Per Day: 1 Years Smoked: 13 e-Cigarette/Vaping Use: Never Used Second Hand Smoke Exposure: No service: Yes Current occupational status: retired and disabled (Disables [place]) Cognitive needs: No Hearing needs: Yes (Trouble hearing) Vision needs: Yes (Glasses) Questionnaire Thrive Questionnaire Date Thrive assessed: 05/11/24 I am a: Patient What is your living situation today?: I have a steady place to live Within the past 12 months, did the food you bought not last and you didn't have the money to get more?: Never true Within the past 12 months, did you worry whether your food would run out before you got money to buy more?: I choose not to answer this question Do you have trouble paying for medicines?: Yes Do you have trouble getting transportation to medical appointments?: No Do you have trouble paying your heating and electricity bill?: No Do you have trouble taking care of your child, family member or friend?: I choose not to answer this question Do you have trouble with day-to-day activities such as bathing, preparing meals, shopping, managing finances, etc.?: Yes Are you currently unemployed and looking for a job?: No Are you interested in more education?: No Please select the resources that you would like help with: Paying for medicine THRIVE Score: 0 FLOYD-7 AMB Questionnaire FLOYD-7 Date FLOYD - 7 assessed: 05/11/24 Feeling nervous, anxious, or on edge: 3 = Nearly every day Not being able to stop or control worryin = More than half the days Worrying too much about different things: 2 = More than half the days Trouble relaxin = More than half the days Being so restless that it is hard to sit still: 1 = Several days Becoming easily annoyed or irritable: 2 = More than half the days Feeling afraid as if something awful might happen: 1 = Several days Total FLOYD-7 score (0-4 normal; 5-9 mild; 10-14 moderate; 15-21 severe): 13 Source: Developed by Drs. Trae Craig, Daisy Henderson, Scott Sanchez and colleagues, with an educational aguila from [facility] [facility]. FLOYD-7 Assessment Billing FLOYD-7 Assessment Tool: FLOYD-7 Assessment 94062 ACT Questionnaire In the past 4 weeks, how much of the time did your asthma keep you from getting as much done at work, school or at home?: All of the time During the past 4 weeks, how often have you had shortness of breath?: More than once a day During the past 4 weeks, how often did your asthma symptoms wake you up at night or earlier than usual in the morning?: 4 or more nights a week During the past 4 weeks, how often have you had to use your rescue inhaler or nebulizer medication?: More than 3 times per day (twice a day) How would you rate your asthma control during the past 4 weeks?: Somewhat controlled ACT Interpretation: Positive Score: 7 Physical exam (Primary Care) Vital Signs: Last Vital Signs Pulse 72 05/11/24 14:03 Resp 18 05/11/24 14:03 BP 122/72 05/11/24 14:03 Pulse Ox 94 05/11/24 14:03 Oxygen Delivery Method Room Air 05/11/24 14:03 BMI result Body Mass Index 42.8 Tobacco/Smoking Status: Tobacco use Status Tobacco use date assessed 11/04/23 05/11/24 14:07 Patient Tobacco Use Status Former Tobacco user (quit 05/11/24 14:13 1983) e-Cigarette/Vaping Use Never Used 05/11/24 14:13 Thrive Assessment: Date of Thrive Assessment Date Thrive assessed 05/11/24 05/11/24 14:13 Const Orientation/consciousness: patient oriented x3 HENMT Ears: hearing grossly normal bilaterally Face and sinus: Yes sinuses nontender Neck Thyroid: Thyroid normal Lymphatic: no lymphadenopathy noted Resp Other: Slight inspiratory and expiratory wheezing noted. Effort & Inspection: normal respiratory effort and able to speak in complete sentences Cardio Rate: regular rate Rhythm: regular rhythm Heart sounds: S1 normal heart sound present and S2 normal heart sound present GI Inspection: Yes normal to inspection Palpation (GI): Soft to palpation and Other GI palpation findings present (nontender, no cva tenderness) Auscultation: normoactive bowel sounds Rectal Exam - Female: deferred Skin General skin exam: no rashes or lesions noted Neuro General: patient oriented x3, gait normal and no focal motor deficits Coding Level of Care Code Est Pt Level 4 (27695) Complex EM visit Add On G2211 Diagnoses Mild intermittent asthma without complication J45.20 Asthma complication type: uncomplicated Asthma persistence: intermittent Asthma severity: mild LUIGI (obstructive sleep apnea) G47.33 New daily persistent headache G44.52 Additional Codes Asthma Control Questionnaire - ACT Interpretation: Positive ([id number]) FLOYD-7 Assessment Billing - FLOYD-7 Assessment Tool: FLOYD-7 Assessment 37595 ([id number]) Assessment & Plan Assessment & Plan (1) Asthma: Code(s): J45.909 - Unspecified asthma, uncomplicated Category: Medical Qualifiers: Asthma complication type: uncomplicated Asthma persistence: intermittent Asthma severity: mild Qualified Code(s): J45.20 - Mild intermittent asthma, uncomplicated Plan: Prednisone taper ordered. Chest x-ray ordered. Referral to pulmonology. (2) LUIGI (obstructive sleep apnea): Code(s): G47.33 - Obstructive sleep apnea (adult) (pediatric) Category: Medical Plan: As above. Encouraged compliance. (3) New daily persistent headache: Code(s): G44.52 - New daily persistent headache (NDPH) Category: Medical Plan: MRI ordered. We will follow up pending test results. Orders: Orders XR chest 2V Today G47.33 - Obstructive sleep apnea (adult) (pediatric), J45.20 - Mild intermittent asthma, uncomplicated MR head/brain wo con Today G44.52 - New daily persistent headache (NDPH) Referrals Pulmonology Referral G47.33 - Obstructive sleep apnea (adult) (pediatric), J45.20 - Mild intermittent asthma, uncomplicated Behavioral Health Referral F33.9 - Major depressive disorder, recurrent, unspecified, F41.1 - Generalized anxiety disorder Medications: New ammonium lactate 12% (AmLactin) 1 appl topical DAILY 225 grams 5RF prednisone take 3 tab po x 3 days, take 2 tab po x 3 days, 1 tab po x 3 days 18 tabs 0RF
[2024-05-11 14:03] VITALS: BP 122/72; PULSE 72; RESP 18; O2SAT 94; BMI 42.8
== END 2024-05-11 14:45 | disposition home or self-care (01) ==
LOC: HO.HMCFM 12:50
PROVIDERS: PCP Physician Assistant; Visit Provider Physician Assistant
DX: J45.20 Mild intermittent asthma, uncomplicated (principal); G47.33 Obstructive sleep apnea (adult) (pediatric); G44.52 New daily persistent headache (NDPH)

== ENCOUNTER → 2024-05-11 12:49 | Outpatient (BNVA) | payer MEDICARE, SELFPAY | PROVIDERS: PCP Physician Assistant; Visit Provider Physician Assistant | DX: J45.20 Mild intermittent asthma, uncomplicated (principal); G47.33 Obstructive sleep apnea (adult) (pediatric); G44.52 New daily persistent headache (NDPH) | CPT/HCPCS: 96127; 96160; 99212 ==

== ENCOUNTER 2024-05-25 18:10 | Outpatient (REF) | payer MEDICARE, SELFPAY ==
--- NOTE | ~2024-05-25 | MR_ITS ---
EXAMINATION: MR BRAIN WITHOUT CONTRAST CLINICAL INFORMATION: Headache. COMPARISON: None available. TECHNIQUE: MRI of the brain was obtained using routine sequences without contrast. FINDINGS: No restricted diffusion. No acute intracranial hemorrhage, mass effect, midline shift, hydrocephalus or herniation. There is a 1 cm, isointense T1 slightly hyperintense FLAIR intermediate T2 with restricted diffusion round lesion in the extra-axial right frontoparietal convexity near the right postcentral gyrus. Bilateral multifocal patchy and punctate deep periventricular white matter and subcortical white matter hyperintense T2 FLAIR signal involving centrum semiovale and jeronimo radiata and nicole. Old lacunar infarcts with the cribriform pattern in the basal ganglia and nicole. Flow-void signal within the main cerebral vessels is normal. Sellar/suprasellar region demonstrated no signal abnormality or masses. Craniocervical junction is intact and normal Mucosal thickening left frontal sinus left frontal ethmoid recess and left ethmoid air cells.. MR/MR head/brain wo con IMPRESSION: No acute brain abnormality. Small vessel occlusive disease. 1 cm extra-axial lesion, right frontoparietal convexity. Consider meningioma. Chronic paranasal sinus disease, left frontal and ethmoid air cells. Electronically signed by: Ken Beard MD 05/26/2024 07:17 AM EDT
== END 2024-05-25 18:11 | disposition home or self-care (01) ==
LOC: HO.MRI 18:10
PROVIDERS: PCP Physician Assistant; Visit Provider Physician Assistant
DX: G44.52 New daily persistent headache (NDPH) (principal)
CPT/HCPCS: 70551

== ENCOUNTER → 2024-05-25 18:10 | Outpatient (BNV) | payer MEDICARE, SELFPAY | PROVIDERS: PCP Physician Assistant; Visit Provider Radiology Diagnostic Radiology | DX: J32.2 Chronic ethmoidal sinusitis (principal) | CPT/HCPCS: 70551 ==

== ENCOUNTER 2024-05-31 10:03 | Outpatient (AMB) | payer MEDICARE, SELFPAY ==
--- NOTE | 2024-05-31 10:44 | A.OFFVIS_ITS ---
Intake Visit Reasons: discuss a few concerns Allergies brexpiprazole [From Rexulti] Allergy (Severe, Verified 05/11/24 13:58) Hives iopromide [From Ultravist] Allergy (Mild, Verified 05/11/24 13:58) REDNESS, SWELLING AROUND NECK amoxapine [AMOXAPINE] Allergy (Unknown, Verified 05/11/24 13:58) OVER EATING amoxicillin [AMOXICILLIN] Allergy (Unknown, Verified 05/11/24 13:58) LOWER GI DISTRESS azithromycin [From ZITHROMAX] Allergy (Unknown, Verified 05/11/24 13:58) DOES NOT WORK blue dye [BLUE DYE] Allergy (Unknown, Verified 05/11/24 13:58) FACIAL SWELLING,TEMP,RASH caffeine [From CAFERGOT] Allergy (Unknown, Verified 05/11/24 13:58) CANT TAKE ANYMORE celecoxib [From CELEBREX] Allergy (Unknown, Verified 05/11/24 13:58) RASH,TEMP ciprofloxacin [CIPROFLOXACIN] Allergy (Unknown, Verified 05/11/24 13:58) HALLUCINATION clarithromycin [From BIAXIN] Allergy (Unknown, Verified 05/11/24 13:58) DOES NOT WORK clavulanic acid [From AUGMENTIN] Allergy (Unknown, Verified 05/11/24 13:58) C-DIFF X 3 divalproex sodium [From DEPAKOTE] Allergy (Unknown, Verified 05/11/24 13:58) NIGHT SCARES ergotamine [From CAFERGOT] Allergy (Unknown, Verified 05/11/24 13:58) UNKNOWN gabapentin [GABAPENTIN] Allergy (Unknown, Verified 05/11/24 13:58) NIGHT SCARES hydroxyzine [HYDROXYZINE] Allergy (Unknown, Verified 05/11/24 13:58) ITCHING influenza virus vaccine, specific [FLU VACCINE] Allergy (Unknown, Verified 05/11/24 13:58) FEVER- PINS/ NEEDLES ALL OVER , RASH Iodinated Contrast Media [IV CONTRAST] Allergy (Unknown, Verified 05/11/24 13:58) HIVES ketorolac [From TORADOL] Allergy (Unknown, Verified 05/11/24 13:58) SEVERE ITCHING levofloxacin [From LEVAQUIN] Allergy (Unknown, Verified 05/11/24 13:58) HEART PALPITATIONS meperidine [From DEMEROL] Allergy (Unknown, Verified 05/11/24 13:58) ANAPHYLAXIS Sulfa (Sulfonamide Antibiotics) [SULFA (SULFONAMIDE ANTIBIOTICS)] Allergy (Unknown, Verified 05/11/24 13:58) ADMITTED WITH HIVES sumatriptan [Imitrex] Allergy (Unknown, Verified 05/11/24 13:58) heart pounding tramadol [From ULTRAM] Allergy (Unknown, Verified 05/11/24 13:58) ITCH trazodone [TRAZODONE] Allergy (Unknown, Verified 05/11/24 13:58) NIGHT SCARES valacyclovir [VALACYCLOVIR] Allergy (Unknown, Verified 05/11/24 13:58) GASTIC UPSET yellow dye [YELLOW DYE] Allergy (Unknown, Verified 05/11/24 13:58) SYSTEMIC ITCHING dexamethasone [From Decadron] Adverse Reaction (Intermediate, Verified 05/11/24 13:58) neck pain naproxen Adverse Reaction (Verified 05/11/24 13:58) Swelling Flu vaccine Allergy (Severe, Uncoded 05/11/24 13:58) Anaphylaxis Amitriptyline Allergy (Unknown, Uncoded 05/11/24 13:58) Unknown Blue and yellow dye Allergy (Unknown, Uncoded 05/11/24 13:58) Swelling Ionic dye Allergy (Unknown, Uncoded 05/11/24 13:58) Rash HPI HPI discuss a few concerns: Details: Patient is a 69-year-old female with a significant past medical history of asthma, hypertension, anxiety, PTSD, depression, chronic fatigue, fibromyalgia, osteoarthritis, prediabetes, and obesity presenting today to follow up. Pulm: Recently treated with prednisone taper for a COPD exacerbation. She did not get the chest x-ray. She is compliant with the Breztri. She is supposed to follow with Dr. Cortze from [facility] but her insurance changed and she states that she would like to see someone here. She worries that at night her oxygen trips low and she does have a history of obstructive sleep apnea but unfortunately can not tolerate any of the masks. She has booked next month with pulmonology. No fever, chills, sinus pain or pressure. No recent sick contacts. Psych: She is on Rexulti, buspirone 30 mg b.i.d., lorazepam 1 mg t.i.d., and desvenlafaxine 75 mg daily. No SI/HI. Lives at home by herself. No Si/hi. following with psych. Endo: she is a prediabetic. Her A1c is stable at 6.1. She is trying to get her insurance to cover GLP 1 but this point they will not cover 1. -She states she has tried gym exercises, atkins, weight watchers (multiple times), herbal life, nutrisystem. She states the most she was ever able to lose was 15 lbs but would gain it back. She has read most of the books and is still not able to lose weight. She has a hard time sticking with huge lifestyle changes. GI: She follows with Dr. Desir and is scheduled for a colonoscopy in August 2024 Musculoskeletal: started on collagen and feeling better with joint pain Neuro: She has a history of headaches and states that they are exacerbated and almost every day now. They happen in the morning but they typically bother her in the evening. We did review her MRI today in that it showed a likely meningioma. I did review with her that I believe that this is possibly caused by her sleep apnea. 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 She states that she does follow with Dermatology and has a hard time letting some of them heal even though she is due for a mammogram. She says that they can not do it until it heals. 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 Bone density- UTD- 2023 osteopenia s/p total hysterectomy [facility] Medical History (Updated 05/31/24 @ 15:48 by Bettie Gordon PA-C) Dry skin Vertigo Herpes Diverticulitis Prediabetes HTN (hypertension) Colon polyps GERD (gastroesophageal reflux disease) Glaucoma Migraine Chronic fatigue PTSD (post-traumatic stress disorder) Depression FLOYD (generalized anxiety disorder) Osteoarthritis Fibromyalgia Asthma Surgical History H/O right knee surgery Social History (Updated 05/11/24 @ 14:13 by Sharon Gar CMA) Housing: Apartment Alcohol intake: current Patient Tobacco Use Status: Former Tobacco user (quit 1983) Cigarette Packs Per Day: 1 Years Smoked: 13 e-Cigarette/Vaping Use: Never Used Second Hand Smoke Exposure: No service: Yes Current occupational status: retired and disabled (Disables [employer]) Cognitive needs: No Hearing needs: Yes (Trouble hearing) Vision needs: Yes (Glasses) Telehealth Telehealth Telehealth Platform: Telephone Location of provider rendering services: practice address Location of patient: address on file Patient Identification confirmed using: Name, : Yes Telehealth method: voice only Patient verbally consented to treatment: Yes Patient verbally consented to billing insurance company: Yes Patient informed of any privacy concerns related to visit: Yes Minutes spent on Phone/Video with Pt.: 15 Results Reviewed Results Reviewed: EXAMINATION: MR BRAIN WITHOUT CONTRAST CLINICAL INFORMATION: Headache. COMPARISON: None available. TECHNIQUE: MRI of the brain was obtained using routine sequences without contrast. FINDINGS: No restricted diffusion. No acute intracranial hemorrhage, mass effect, midline shift, hydrocephalus or herniation. There is a 1 cm, isointense T1 slightly hyperintense FLAIR intermediate T2 with restricted diffusion round lesion in the extra-axial right frontoparietal convexity near the right postcentral gyrus. Bilateral multifocal patchy and punctate deep periventricular white matter and subcortical white matter hyperintense T2 FLAIR signal involving centrum semiovale and jeronimo radiata and nicole. Old lacunar infarcts with the cribriform pattern in the basal ganglia and nicole. Flow-void signal within the main cerebral vessels is normal. Sellar/suprasellar region demonstrated no signal abnormality or masses. Craniocervical junction is intact and normal Mucosal thickening left frontal sinus left frontal ethmoid recess and left ethmoid air cells.. MR/MR head/brain wo con IMPRESSION: No acute brain abnormality. Small vessel occlusive disease. 1 cm extra-axial lesion, right frontoparietal convexity. Consider meningioma. Chronic paranasal sinus disease, left frontal and ethmoid air cells. Electronically signed by: Ken Beard MD 05/26/2024 07:17 AM EDT Assessment & Plan Assessment & Plan (1) Meningioma: Code(s): D32.9 - Benign neoplasm of meninges, unspecified Category: Medical Plan: Referral to neurosurgery for evaluation (2) New daily persistent headache: Code(s): G44.52 - New daily persistent headache (NDPH) Category: Medical Plan: Reviewed the MRI. Discussed the importance of treating the sleep apnea. I do believe that it was related. We will get a consult from Neurosurgery regarding the meningioma and then discuss possibility of seeing neurology for the headaches. (3) LUIGI (obstructive sleep apnea): Code(s): G47.33 - Obstructive sleep apnea (adult) (pediatric) Category: Medical Plan: Seeing pulmonology. Encouraged her to trial the mask again. Orders: Referrals Neurosurgery Referral G93.9 - Disorder of brain, unspecified Coding Level of Care Code Tele Est Pt Level 2 (26542) Diagnoses Meningioma D32.9 New daily persistent headache G44.52 LUIGI (obstructive sleep apnea) G47.33
== END 2024-05-31 17:05 | disposition home or self-care (01) ==
LOC: HO.HMCFM 10:03
PROVIDERS: PCP Physician Assistant; Visit Provider Physician Assistant
DX: D32.9 Benign neoplasm of meninges, unspecified (principal); G44.52 New daily persistent headache (NDPH); G47.33 Obstructive sleep apnea (adult) (pediatric)

== ENCOUNTER → 2024-05-31 10:03 | Outpatient (BNVA) | payer MEDICARE, SELFPAY | PROVIDERS: PCP Physician Assistant; Visit Provider Physician Assistant | DX: Z13.89 Encounter for screening for other disorder (principal) ==

== ENCOUNTER 2024-06-07 11:05 | Outpatient (AMB) | payer MEDICARE, SELFPAY ==
--- NOTE | 2024-06-07 11:17 | MHC.PC.OV ---
Vital Signs 06/07/24 11:26 Height 5 ft 3 in Weight 244 lb BMI 43.2 BP 132/74 Blood Pressure Location Lt brachial Position Sitting Respiration 16 Pulse 63 Pulse Source Pulse Oximeter Pulse Oximetry (%) 94 Oxygen Delivery Method Room Air Intake Visit Reasons: Ongoing breathing problems Intake Note: Follow up ongoing breathing problems. Forging Machine Operator Required: No Allergies brexpiprazole [From Rexulti] Allergy (Severe, Verified 06/07/24 12:39) Hives iopromide [From Ultravist] Allergy (Mild, Verified 06/07/24 12:39) REDNESS, SWELLING AROUND NECK amoxapine [AMOXAPINE] Allergy (Unknown, Verified 06/07/24 12:39) OVER EATING amoxicillin [AMOXICILLIN] Allergy (Unknown, Verified 06/07/24 12:39) LOWER GI DISTRESS azithromycin [From ZITHROMAX] Allergy (Unknown, Verified 06/07/24 12:39) DOES NOT WORK blue dye [BLUE DYE] Allergy (Unknown, Verified 06/07/24 12:39) FACIAL SWELLING,TEMP,RASH caffeine [From CAFERGOT] Allergy (Unknown, Verified 06/07/24 12:39) CANT TAKE ANYMORE celecoxib [From CELEBREX] Allergy (Unknown, Verified 06/07/24 12:39) RASH,TEMP ciprofloxacin [CIPROFLOXACIN] Allergy (Unknown, Verified 06/07/24 12:39) HALLUCINATION clarithromycin [From BIAXIN] Allergy (Unknown, Verified 06/07/24 12:39) DOES NOT WORK clavulanic acid [From AUGMENTIN] Allergy (Unknown, Verified 06/07/24 12:39) C-DIFF X 3 divalproex sodium [From DEPAKOTE] Allergy (Unknown, Verified 06/07/24 12:39) NIGHT SCARES ergotamine [From CAFERGOT] Allergy (Unknown, Verified 06/07/24 12:39) UNKNOWN gabapentin [GABAPENTIN] Allergy (Unknown, Verified 06/07/24 12:39) NIGHT SCARES hydroxyzine [HYDROXYZINE] Allergy (Unknown, Verified 06/07/24 12:39) ITCHING influenza virus vaccine, specific [FLU VACCINE] Allergy (Unknown, Verified 06/07/24 12:39) FEVER- PINS/ NEEDLES ALL OVER , RASH Iodinated Contrast Media [IV CONTRAST] Allergy (Unknown, Verified 06/07/24 12:39) HIVES ketorolac [From TORADOL] Allergy (Unknown, Verified 06/07/24 12:39) SEVERE ITCHING levofloxacin [From LEVAQUIN] Allergy (Unknown, Verified 06/07/24 12:39) HEART PALPITATIONS meperidine [From DEMEROL] Allergy (Unknown, Verified 06/07/24 12:39) ANAPHYLAXIS Sulfa (Sulfonamide Antibiotics) [SULFA (SULFONAMIDE ANTIBIOTICS)] Allergy (Unknown, Verified 06/07/24 12:39) ADMITTED WITH HIVES sumatriptan [Imitrex] Allergy (Unknown, Verified 06/07/24 12:39) heart pounding tramadol [From ULTRAM] Allergy (Unknown, Verified 06/07/24 12:39) ITCH trazodone [TRAZODONE] Allergy (Unknown, Verified 06/07/24 12:39) NIGHT SCARES valacyclovir [VALACYCLOVIR] Allergy (Unknown, Verified 06/07/24 12:39) GASTIC UPSET yellow dye [YELLOW DYE] Allergy (Unknown, Verified 06/07/24 12:39) SYSTEMIC ITCHING dexamethasone [From Decadron] Adverse Reaction (Intermediate, Verified 06/07/24 12:39) neck pain naproxen Adverse Reaction (Verified 06/07/24 12:39) Swelling Flu vaccine Allergy (Severe, Uncoded 06/07/24 11:18) Anaphylaxis Amitriptyline Allergy (Unknown, Uncoded 06/07/24 11:18) Unknown Blue and yellow dye Allergy (Unknown, Uncoded 06/07/24 11:18) Swelling Ionic dye Allergy (Unknown, Uncoded 06/07/24 11:18) Rash Tobacco use date assessed: 11/04/23 Dental Screening Dental Screen Date: 11/04/23 HPI Ongoing breathing problems HPI Details Patient is a 69-year-old female with a significant past medical history of asthma, hypertension, anxiety, PTSD, depression, chronic fatigue, fibromyalgia, osteoarthritis, prediabetes, and obesity presenting today for an acute problem visit. She called complaining of increased shortness on breath especially with exertion. She has not noticed any cough or wheezing and states that she has been compliant with the Breztri and albuterol as needed. She has tried a few times a day but there does not seem to be any improvement with the shortness on breath. She is monitoring her oxygen at home and when she gets up in the morning she states it is in the 80s to low 90s. Few else have untreated sleep apnea. Does not tolerate a CPAP machine and refuses to use this. She states for the last couple of days she has noticed a Charley horse/squeezing sensation in her chest on the left side. She states that it was happening at anytime during the day. She thought maybe it was related to an electrolyte abnormalities so she took some potassium. She did have right lower leg pain a couple days ago. That has since resolved with the muscle relaxant and elevation. She has not noticed any lower leg swelling. No erythema. No trauma. She is relatively sedentary. Her sister is here today with her states that she can not do anything without extreme shortness on breath. This has been no stool for the last couple of months but significantly notable with the last couple weeks. She says that they went out for her birthday a couple of weeks ago and she had a hard time walking a very short distance. She is not currently having any chest pain but she is having shortness a breath. She denies any fevers or chills. She states that she did have a nuclear stress test about a year ago with Dr. Dutta which she reports as negative. Was recommended at triage that she go to the ER which she declined. She is supposed to follow with Dr. Cortez from [facility] but her insurance changed and she is not booked with pulmonology until June 27. she states that she would like to see someone here. She worries that at night her oxygen trips low and she does have a history of obstructive sleep apnea but unfortunately can not tolerate any of the masks. She has booked next month with pulmonology. No fever, chills, sinus pain or pressure. No recent sick contacts. Psych: She is on Rexulti, buspirone 30 mg b.i.d., lorazepam 1 mg t.i.d., and desvenlafaxine 75 mg daily. No SI/HI. Lives at home by herself. No Si/hi. following with psych. Endo: she is a prediabetic. Her A1c is stable at 6.1. She is trying to get her insurance to cover GLP 1 but this point they will not cover 1. -She states she has tried gym exercises, atkins, weight watchers (multiple times), herbal life, nutrisystem. She states the most she was ever able to lose was 15 lbs but would gain it back. She has read most of the books and is still not able to lose weight. She has a hard time sticking with huge lifestyle changes. GI: She follows with Dr. Desir and is scheduled for a colonoscopy in August 2024 Musculoskeletal: started on collagen and feeling better with joint pain Neuro: She has a history of headaches and states that they are exacerbated and almost every day now. They happen in the morning but they typically bother her in the evening. We did review her MRI today in that it showed a likely meningioma. I did review with her that I believe that this is possibly caused by her sleep apnea. 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 Bone density- UTD- 2023 osteopenia s/p total hysterectomy [facility] Medical History (Updated 06/07/24 @ 13:10 by Bettie Gordon PA-C) Dry skin Vertigo Herpes Diverticulitis Prediabetes HTN (hypertension) Colon polyps GERD (gastroesophageal reflux disease) Glaucoma Migraine Chronic fatigue PTSD (post-traumatic stress disorder) Depression FLOYD (generalized anxiety disorder) Osteoarthritis Fibromyalgia Asthma Surgical History H/O right knee surgery Social History (Updated 05/11/24 @ 14:13 by Sharon Gar CMA) Housing: Apartment Alcohol intake: current Patient Tobacco Use Status: Former Tobacco user (quit 1983) Cigarette Packs Per Day: 1 Years Smoked: 13 e-Cigarette/Vaping Use: Never Used Second Hand Smoke Exposure: No service: Yes Current occupational status: retired and disabled (Disables ) Cognitive needs: No Hearing needs: Yes (Trouble hearing) Vision needs: Yes (Glasses) Questionnaire Thrive Questionnaire Date Thrive assessed: 03/09/24 I am a: Patient What is your living situation today?: I have a steady place to live Within the past 12 months, did the food you bought not last and you didn't have the money to get more?: Never true Within the past 12 months, did you worry whether your food would run out before you got money to buy more?: I choose not to answer this question Do you have trouble paying for medicines?: Yes Do you have trouble getting transportation to medical appointments?: No Do you have trouble paying your heating and electricity bill?: No Do you have trouble taking care of your child, family member or friend?: I choose not to answer this question Do you have trouble with day-to-day activities such as bathing, preparing meals, shopping, managing finances, etc.?: Yes Are you currently unemployed and looking for a job?: No Are you interested in more education?: No Please select the resources that you would like help with: Paying for medicine THRIVE Score: 0 FLOYD-7 AMB Questionnaire FLOYD-7 Date FLOYD - 7 assessed: 05/11/24 Source: Developed by Drs. Trae Craig, Daisy Henderson, Scott Sanchez and colleagues, with an educational aguila from [employer]. Physical exam (Primary Care) Vital Signs: Last Vital Signs Pulse 63 06/07/24 11:26 Resp 16 06/07/24 11:26 BP 132/74 06/07/24 11:26 Pulse Ox 94 06/07/24 11:26 Oxygen Delivery Method Room Air 06/07/24 11:26 BMI result Body Mass Index 43.2 Tobacco/Smoking Status: Tobacco use Status Tobacco use date assessed 11/04/23 06/07/24 11:24 Patient Tobacco Use Status Former Tobacco user (quit 06/07/24 11:24 1983) e-Cigarette/Vaping Use Never Used 06/07/24 11:24 Thrive Assessment: Date of Thrive Assessment Date Thrive assessed 03/09/24 06/07/24 11:24 Const Orientation/consciousness: patient oriented x3 HENMT Ears: hearing grossly normal bilaterally Neck Thyroid: Thyroid normal Lymphatic: no lymphadenopathy noted Resp Auscultation: clear to auscultation bilaterally Cardio Rate: regular rate Rhythm: regular rhythm Heart sounds: S1 normal heart sound present and S2 normal heart sound present GI Inspection: Yes normal to inspection Palpation (GI): Soft to palpation and Other GI palpation findings present (nontender, no cva tenderness) Auscultation: normoactive bowel sounds Rectal Exam - Female: deferred Skin General skin exam: no rashes or lesions noted Neuro General: patient oriented x3, gait normal and no focal motor deficits Extrem Other: No calf tenderness. Calves are symmetrical bilaterally. They measure 41 cm. No erythema. Coding Level of Care Code Est Pt Level 4 (96127) Diagnoses ROSA (dyspnea on exertion) R06.09 Hypoxia R09.02 Assessment & Plan Assessment & Plan (1) ROSA (dyspnea on exertion): Code(s): R06.09 - Other forms of dyspnea Category: Medical Plan: Patient's oxygen did drop today to 89% with a few feet of walking. She is notably short of breath with exertion and does take a minute to recover. I did advised to go to the ER and to do an EKG but she prefers to just go to the emergency room. Offered her an ambulance but she prefers to go by private vehicle. She does not currently have any chest pain and is neurologically intact. Her sister is going to drive her. Advised follow up after ER. Patient understands and agrees with this plan. (2) Hypoxia: Code(s): R09.02 - Hypoxemia Category: Medical Plan: As above.
[2024-06-07 11:26] VITALS: BP 132/74; PULSE 63; RESP 16; O2SAT 94; BMI 43.2
--- OUTSIDE RECORDS SUMMARY | 2024-06-07 13:19 | XMS_ITS | Data Portability ---
Author Organization [place] [facility] Address [address] [place] [address] Care Team Providers Care Packaging [employer]lies Distributor Name Role Phone IRIS SNOWDEN Primary Care Provider Assessment Encounter Date Assessment Date Assessment LastModified by Organization Details LastModified Time 12/11/2021 12/11/2021 Time On Scene with Patient: 00:48:11 DDX: ABRS, acute sinus venous thrombosis, viral sinusitis, allergic rhinosinusitis , COVID, COVID test negative. Pt has been having symptoms for 2 weeks. Facial fullness, tenderness. Prior surgery to sinuses noted. Concern given story and physical findings. Will treat for ABRS. Pt given ED precautions with any worsening symptoms, headache. Pt ambulating without difficulty. [email or web address] Not available 12/11/2021 19:33:59 Plan of Treatment Reminders Order Date Submit Date Provider Last Modified By Organization Details Last Modified Time Details Appointments None recorded. Lab rapid SARS CoV 2 Ag, QL IA, respiratory specimen 2021 [email or web address] [facility], [address] [place] [address], [phone], 18:59:01 Referral None recorded. Procedures None recorded. Surgeries None recorded. Imaging None recorded. Medication Orders doxycycline hyclate 100 mg tablet 2021 [id number], [address] [facility], [place], [address], 18:31:31 Patient TargetsNo targets recorded. Patient InstructionsNo instructions recorded. Reason for Referral None Reported. Results Created Date Observation Date Name Description Value Unit Range Abnormal Flag Note LastModifiedBy Organization Detail LastModifiedTime 12/12/19 22 12/11/2021 rapid SARS CoV 2 Ag, QL IA, respi rator y speci men Covid-19 (ref: neg) negati ve Not Available [facility] [address] [place], [address], 12/11/2021 18:57:23 12/12/19 22 12/11/2021 rapid SARS CoV 2 Ag, QL IA, respi rator y speci men Control Visual ized/V alid Not Available [facility] - Home [address] [place], [address], 12/11/2021 18:57:23 12/12/19 22 12/11/2021 rapid SARS CoV 2 Ag, QL IA, respi rator y speci men Location [facility], [address] [place] [address], [phone] Not Available [facility] [address] [place], [address], 12/11/2021 18:57:23 12/12/19 22 12/11/2021 rapid SARS CoV 2 Ag, QL IA, respi rator y speci men Language Englis h Not Available [facility] [address] [place], [address], 12/11/2021 18:57:23 Result Notes None recorded. Medical Equipment None Reported. Allergies Allergen ID Allergen Name Allergen Category Reaction Reaction Severity Criticality Documentation Date Start Date Code Code System Note Provider Name and Address Organization Details Recorded Time 812250 blue dye medicatio n Not available Not available low 12/11/202119788 UNK CHER QUACH NP [address] [place], [address], [place] [facility] 17:54:40 [id number] Levaquin medicatio n palpitati ons Not available low 12/11/2021 24969 2 RxNorm CHER QUACH NP [address] [place], [address], [place] [facility] 2 17:54:56 [id number] Substance with sulfonami de structure and antibacte rial mechanism of action (substanc e) medicatio n fever Not available low 12/11/2021 35226 8003 SNOMED CHER QUACH, FOOD AND NUTRITION SERVICES SUPERVISOR [address], [facility] [place], [address], [place] [facility] 2 17:55:10 [id number] Cipro medicatio n palpitati ons Not available low 12/11/2021 31007 3 RxNorm CHER BRUNNERIN, FO[employer] AND NUTRITION SERVICES SUPERVISOR [address], [facility] [place], [address], [place] [facility] 2 17:55:26 Medications Name Sig Start Date Stop Date Status Note LastModified by Organization Details LastModified Time latanoprost 0.005 % eye drops INSTILL 1 DROP IN BOTH EYES AT BEDTIME active Not Available Not Available N ot Available doxycycline hyclate 100 mg capsule TAKE 1 CAPSULE BY MOUTH TWICE A DAY FOR 7 DAYS active Not Available Not Available No t Available atorvastatin 20 mg tablet TAKE 1 TABLET BY MOUTH EVERY DAY active Not Available Not Available No t Available ipratropium 0.5 mg-albuterol 3 mg (2.5 mg base)/3 mL nebulization soln USE 1 AMPULE VIA NEBULIZER 4 TIMES A DAY active Not Available Not Available Not Available clindamycin HCl 300 mg capsule TAKE 2 TABS ONE HALF HOUR PRIOR TO DENTAL APPT active Not Available Not Available No t Available FreeStyle Lancets 28 gauge TEST ONCE DAILY E11.9 active Not Available Not Available Not Available metoprolol succinate ER 100 mg tablet,exten ded release 24 hr TAKE 1 TABLET BY MOUTH EVERY DAY active Not Available Not Available No t Available acyclovir 400 mg tablet TAKE 1 TABLET BY MOUTH TWICE A DAY active Not Available Not Available No t Available butalbital-a cetaminophen -caffeine 50 mg-325 mg-40 mg tablet TAKE 1 TABLET BY MOUTH EVERY 4 HOURS, NEEDED FOR PAIN active Not Available Not Available No t Available baclofen 20 mg tablet TAKE 1 TABLET BY MOUTH TWICE A DAY active Not Available Not Available No t Available magnesium oxide 400 mg (241.3 mg magnesium) tablet TAKE 1 TABLET BY MOUTH EVERY DAY active Not Available Not Available No t Available buspirone 30 mg tablet TAKE 1 TABLET BY MOUTH TWICE A DAY active Not Available Not Available No t Available lansoprazole 30 mg capsule,abundio yed release TAKE 1 CAPSULE BY MOUTH EVERY DAY X14 DAYS active Not Available Not Available No t Available codeine 10 mg-guaifenes in 100 mg/5 mL oral liquid TAKE 5 ML BY MOUTH EVERY 4 HOURS, NEEDED FOR COUGH active Not Available Not Available No t Available lorazepam 1 mg tablet TAKE 1 TABLET BY MOUTH THREE TIMES A DAY NEEDED FOR INTRACTABLE ANXIETY. active Not Available Not Available No t Available methylpredni solone 4 mg tablets in a dose pack TAKE 6 TABLETS ON DAY 1 DIRECTED ON PACKAGE AND DECREASE BY 1 TAB EACH DAY FOR A TOTAL OF 6 DAYS active Not Available Not Available No t Available doxycycline hyclate 100 mg tablet Take 1 tablet twice a day by oral route for 7 days. 2021 active Not Available Not Available Not Avai lable Asmanex Twisthaler 220 mcg/actuatio n(60 doses) breath activated inhalr INHALE 1 PUFFS INHALATION 2 TIMES A DAY active Not Available Not Available No t Available FreeStyle Lite Meter kit TEST ONCE DAILY E11.9 active Not Available Not Available Not Available FreeStyle Lite Strips TEST ONCE DAILY E11.9 active Not Available Not Available Not Available Wixela Inhub 250 mcg-50 mcg/dose powder for inhalation INHALE 1 DOSE BY MOUTH TWICE DAILY. RINSE MOUTH AFTER USE active Not Available Not Available No t Available Vitals Date Recorded Oxygen saturation Oxygen saturation in Arterial blood by Pulse oximetry Respiratory rate Body temperature Heart rate Systolic blood pressure Diastolic blood pressure Provider Name and Address Organization Details Last Updated DateTime 2 97 % 97 % 16 /min 98.3 [degF] 88 /min 146 mm[Hg] 84 mm[Hg] Not Available [facility] 18:01:16 Social History None recorded. Functional Status None recorded. Mental Status None recorded. Family History Nothing Reported. Medical History Condition Response Parkinson's Disease N Cancer N Stroke N Hypothyroidism N Asthma Y COPD Y Depression Y High Cholesterol Y Rheumatoid Arthritis N Pulmonary Embolism N Hypertension Y Osteoporosis Y Kidney Disease N Gynecological HistoryNo gynecological history recorded. Obstetrics History GPAL:G 0 P 0 0 0 0 Past Encounters Encounter ID Performer Location Encounter Start Date Encounter Closed Date Diagnosis/Indication Diagnosis SNOMED-CT Code Diagnosis ICD10 Code Diagnosis Note [id number] CHER QUACH NP [facility] [address] [place] [address] 12/11/2021 17:53:14 12/12/2021 14:07:43 Acute bacterial sinusitis 75011389 J01.90 Viral syndrome 445041128 B34.9 Health Concerns Section Related Observation LastModified by Organization Detai ls LastModified Time None Recorded Concern Status LastModified by Organization Details LastModified Time None Recorded Advance Directives Directive None Recorded Payers Encounter Date Sequence Insurance Name Policy Number Policy Mims Covered Member ID Mims Member ID Guarantor Name 12/11/2021 1 MEDICARE B-ND: [employer] SERVICES Yas Gibbs Walsh [id number] Yas Walsh Notes Date Note Type Note Provider Name and Address Organization Details Recorded Time 12/11/2021 text/html 66 year-old fema celso with history of HTN, HLD, depression, anxiety, asthma, fibromyalgia who calls to the home for evaluation of Began about 2 weeks ago with runny nose, sneezing, frontal headache and worsening facial pressure. She has been having some shortness of breath episodes since having COVID back in February. Still lacking taste and smell.She denies fevers or chills. She has been having intermittent sweating episodes with the facial discomfort.She has had surgery for her sinuses in the past for defects and deviated septum. CHER QUACH NP [address], [place], [address], [place] [facility] 12/11/2021 19:34:23 OBGyn Episode No OBEpisode recorded.
== END 2024-06-07 12:01 | disposition home or self-care (01) ==
LOC: HO.HMCFM 11:06
PROVIDERS: PCP Physician Assistant; Visit Provider Physician Assistant
DX: R06.09 Other forms of dyspnea (principal); R09.02 Hypoxemia

== ENCOUNTER → 2024-06-07 11:05 | Outpatient (BNVA) | payer MEDICARE, SELFPAY | PROVIDERS: PCP Physician Assistant; Visit Provider Physician Assistant | DX: Z13.89 Encounter for screening for other disorder (principal) | CPT/HCPCS: 99212 ==

== ENCOUNTER 2024-06-07 12:20 | Emergency (ER) | payer MEDICARE, SELFPAY ==
[2024-06-07] VITALS (9 sets, daily range): BP systolic 120–142; BP diastolic 60–67; PULSE 65–78; RESP 14–20; TEMP 36.6–36.8; O2SAT 90–95; BMI 42.0
--- NOTE | ~2024-06-07 | XR_ITS ---
EXAMINATION: XR CHEST CLINICAL INFORMATION: CP COMPARISON: 02/21/2024. TECHNIQUE: 2 views of the chest were obtained. FINDINGS: The cardiac, hilar, and mediastinal contours are normal. The lungs are clear bilaterally. There is no pneumothorax or pleural effusion. There is no focal osseous or soft tissue abnormality. There are spinal degenerative changes. XR/XR chest 2V IMPRESSION: No active pulmonary disease. Electronically signed by: Carlos Jimenez MD 06/07/2024 01:37 PM EDT
--- NOTE | 2024-06-07 12:22 | ECG_ITS ---
Test Reason : CP Blood Pressure : */* mmHG Vent. Rate : 65 BPM Atrial Rate : 65 BPM P-R Int : 166 ms QRS Dur : 84 ms QT Int : 400 ms P-R-T Axes : 17 4 79 degrees QTcB Int : 416 ms Normal sinus rhythm Normal ECG No previous ECGs available Referred By: Generic ED Physician Electronically Signed By: GAIL LIZ MD
[2024-06-07 13:04] LABS: MANUAL DIFF FLAG NO
[2024-06-07 13:05] LABS: Basophils Absolute Auto 0.1 X10*3/uL (0.0-0.2); Basophils Percent Auto 0.6 % (0-2); Eosinophils Absolute Auto 0.3 X10*3/uL (0.0-0.4); Hematocrit 43.5 % (37.0-47.0); Hemoglobin 14.9 g/dl (12.0-16.0); Imm Gran Abs Auto 0.02 X10*3/uL (0.00-0.03); Imm Gran Pct Auto 0.2 % (0.0-0.4); Lymphocytes Absolute Auto 2.6 X10*3/uL (1.2-4.9); Lymphocytes Percent Auto 29.3 % (20-40); Mean Corpuscular HGB Conc 34.3 g/dl (31.0-35.0); Mean Corpuscular Hemoglobin 30.2 pg (27.0-33.0); Mean Corpuscular Volume 88.2 fL (80.0-98.0); Mean Platelet Volume 9.4 fL (9.4-12.3); Monocytes Absolute Auto 0.8 X10*3/uL (0.1-1.2); Monocytes Percent Auto 8.4 % (2-11); Neutrophils Absolute Auto 5.2 x10*3/uL (2.0-8.3); Neutrophils Percent Auto 58.5 % (45-73); Platelet Count 289 X10*3/uL (160-400); Red Blood Count 4.93 X10*6/uL (4.20-5.50); Red Cell Distribution Width 13.9 % (11.0-16.0); White Blood Count 8.9 X10*3/uL (4.8-10.8)
[2024-06-07 13:10] LABS: Prothrombin Time 11.1 SEC (10.9-12.4)
--- NOTE | 2024-06-07 13:19 | ED_ITS ---
HPI - Chest Pain General Chief Complaint: Chest Pain Stated Complaint: Chest Pain, Shortness Of Breath, Fatigue Time Seen by Provider: 06/07/24 14:28 History of Present Illness ED Provider: Arden Osorio MD HPI narrative: [age] female with atypical chest pain reporting spasm and pulling like sensation in her left upper chest and bilateral anterior axillary regions. No radiation to the back, neck, extremities. Denies cough difficulty breathing. She did feel mild sensation of calf tightening but no objective swelling redness or injury to that area a few days ago no history of DVT or PE Related Data Home Medications ?Medication ?Instructions ?Recorded ?Confirmed amlodipine 5 mg tablet 5 mg PO DAILY 08/04/23 05/11/24 baclofen 20 mg tablet 20 mg PO BID 08/04/23 05/11/24 budesonide 160 mcg-glycopyr 9 inh inhalation 08/04/23 05/11/24 mcg-formot 4.8 mcg/actuation HFA inhaler ([employer]) buspirone 30 mg tablet 30 mg PO BID 08/04/23 05/11/24 lancets 28 gauge (FreeStyle #100 ea 08/04/23 05/11/24 Lancets) latanoprost 0.005 % eye drops drp ophthalmic (eye) 08/04/23 05/11/24 lorazepam 1 mg tablet 1 mg PO TID 08/04/23 05/11/24 Probiotic gummies .Route 11/04/23 05/11/24 cetirizine 10 mg tablet (All Day 10 mg PO DAILY PRN 11/04/23 05/11/24 Allergy (cetirizine)) cholecalciferol (vitamin D3) 25 25 mcg PO DAILY 11/04/23 05/11/24 mcg (1,000 unit) capsule ibuprofen 200 mg tablet 200 mg PO Q6H PRN 11/04/23 05/11/24 ipratropium 0.5 mg-albuterol 3 mg ml inhalation 11/04/23 05/11/24 (2.5 mg base)/3 mL nebulization soln lidocaine 3 % topical cream 1 appl topical BID PRN 11/04/23 05/11/24 lidocaine 5 % topical ointment 1 appl topical DAILY 11/04/23 05/11/24 magnesium oxide 400 mg PO DAILY 11/04/23 05/11/24 sennosides 8.6 mg capsule (senna) 8.6 mg PO DAILY 11/04/23 05/11/24 atorvastatin 40 mg tablet 40 mg PO BEDTIME 03/29/24 05/11/24 desvenlafaxine succinate 100 mg 100 mg PO DAILY 03/29/24 05/11/24 tablet,extended release 24 hr docusate sodium 50 mg capsule 50 mg PO DAILY 06/07/24 Previous Rx's ?Medication ?Instructions ?Recorded mupirocin 2 % topical ointment 1 appl topical BID #22 grams 11/12/23 nystatin 100,000 unit/gram topical 1 appl topical TID #60 grams 11/12/23 powder metoprolol succinate 100 mg 100 mg PO DAILY #90 tabs 11/26/23 tablet,extended release 24 hr famotidine 40 mg tablet 40 mg PO DAILY #90 tabs 12/08/23 lisinopril 40 mg tablet 40 mg PO DAILY #90 tabs 12/08/23 fluconazole 150 mg tablet 150 mg PO Q3D 2 doses #2 tabs 02/09/24 acyclovir 400 mg tablet 400 mg PO TID 14 days #42 tabs 03/29/24 ondansetron HCl 4 mg tablet 4 mg PO Q8H PRN nausea and 04/19/24 vomiting 30 days #30 tabs pffjyvfzwk-mctiukqafvltr-rojglzca 1 tab PO Q6H PRN pain #112 tabs 05/06/24 50 mg-325 mg-40 mg tablet ammonium lactate 12 % lotion 1 appl topical DAILY #225 grams 05/11/24 (AmLactin) prednisone 50 mg tablet 50 mg PO BID 5 days #10 tabs 06/07/24 Allergies Allergy/AdvReac Type Severity Reaction Status Date / Time brexpiprazole [From Rexulti] Allergy Severe Hives Verified 06/07/24 12:39 iopromide [From Ultravist] Allergy Mild REDNESS, Verified 06/07/24 12:39 SWELLING AROUND NECK amoxapine [AMOXAPINE] Allergy Unknown OVER EATING Verified 06/07/24 12:39 amoxicillin [AMOXICILLIN] Allergy Unknown LOWER GI Verified 06/07/24 12:39 DISTRESS azithromycin [From ZITHROMAX] Allergy Unknown DOES NOT Verified 06/07/24 12:39 WORK blue dye [BLUE DYE] Allergy Unknown FACIAL Verified 06/07/24 12:39 SWELLING,TEMP,RASH caffeine [From CAFERGOT] Allergy Unknown CANT TAKE Verified 06/07/24 12:39 ANYMORE celecoxib [From CELEBREX] Allergy Unknown RASH,TEMP Verified 06/07/24 12:39 ciprofloxacin [CIPROFLOXACIN] Allergy Unknown HALLUCINATI Verified 06/07/24 12:39 ON clarithromycin [From BIAXIN] Allergy Unknown DOES NOT Verified 06/07/24 12:39 WORK clavulanic acid Allergy Unknown C-DIFF X 3 Verified 06/07/24 12:39 [From AUGMENTIN] divalproex sodium Allergy Unknown NIGHT Verified 06/07/24 12:39 [From DEPAKOTE] SCARES ergotamine [From CAFERGOT] Allergy Unknown UNKNOWN Verified 06/07/24 12:39 gabapentin [GABAPENTIN] Allergy Unknown NIGHT Verified 06/07/24 12:39 SCARES hydroxyzine [HYDROXYZINE] Allergy Unknown ITCHING Verified 06/07/24 12:39 influenza virus vaccine, Allergy Unknown FEVER- Verified 06/07/24 12:39 specific PINS/ [FLU VACCINE] NEEDLES ALL OVER , RASH Iodinated Contrast Media Allergy Unknown HIVES Verified 06/07/24 12:39 [IV CONTRAST] ketorolac [From TORADOL] Allergy Unknown SEVERE Verified 06/07/24 12:39 ITCHING levofloxacin [From LEVAQUIN] Allergy Unknown HEART Verified 06/07/24 12:39 PALPITATIONS meperidine [From DEMEROL] Allergy Unknown ANAPHYLAXIS Verified 06/07/24 12:39 Sulfa (Sulfonamide Allergy Unknown ADMITTED Verified 06/07/24 12:39 Antibiotics) WITH HIVES [SULFA (SULFONAMIDE ANTIBIOTICS)] sumatriptan [Imitrex] Allergy Unknown heart Verified 06/07/24 12:39 pounding tramadol [From ULTRAM] Allergy Unknown ITCH Verified 06/07/24 12:39 trazodone [TRAZODONE] Allergy Unknown NIGHT Verified 06/07/24 12:39 SCARES valacyclovir [VALACYCLOVIR] Allergy Unknown GASTIC Verified 06/07/24 12:39 UPSET yellow dye [YELLOW DYE] Allergy Unknown SYSTEMIC Verified 06/07/24 12:39 ITCHING dexamethasone [From Decadron] AdvReac Intermediate neck pain Verified 06/07/24 12:39 naproxen AdvReac Swelling Verified 06/07/24 12:39 Flu vaccine Allergy Severe Anaphylaxis Uncoded 06/07/24 11:18 Amitriptyline Allergy Unknown Unknown Uncoded 06/07/24 11:18 Blue and yellow dye Allergy Unknown Swelling Uncoded 06/07/24 11:18 Ionic dye Allergy Unknown Rash Uncoded 06/07/24 11:18 PMF Past Medical History Medical History (Updated 06/08/24 @ 00:00 by Pritesh Dasharon) Dry skin Vertigo Herpes Diverticulitis Prediabetes HTN (hypertension) Colon polyps GERD (gastroesophageal reflux disease) Glaucoma Migraine Chronic fatigue PTSD (post-traumatic stress disorder) Depression FLOYD (generalized anxiety disorder) Osteoarthritis Fibromyalgia Asthma Surgical History H/O right knee surgery Social History Social History (Updated 05/11/24 @ 14:13 by Sharon Gar CMA) Housing: Apartment Alcohol intake: current Patient Tobacco Use Status: Former Tobacco user Cigarette Packs Per Day: 1 Years Smoked: 13 Smoked in Last 30 Days: No e-Cigarette/Vaping Use: Never Used Second Hand Smoke Exposure: No Use of substances other than those prescribed or required for medical reasons: No Advance Directives: No Advance Directives Information Provided: Yes service: Yes Current occupational status: retired and disabled ([employer]ables [employer]) Cognitive needs: No Hearing needs: Yes (Trouble hearing) Vision needs: Yes (Glasses) Physical Exam 2 Vital Signs: Vital Signs: Last Vital Signs Temp 98.3 F 06/07/24 17:50 Pulse 78 06/07/24 17:50 Resp 20 06/07/24 17:50 BP 136/60 06/07/24 17:50 Pulse Ox 90 L 06/07/24 17:50 O2 Del Method Room Air 06/07/24 17:50 BMI result Body Mass Index 42.0 Course Course Course Narrative: This is an RME: Additional HPI, ROS, PE not included below will be deferred to primary provider. RME assessment and note performed by: Stephani Santiago PA-C This is a 39-oebm-bvu-female who presents to the ER with complaints of chest pain x 1 week. Reporting muscle spasms and cramping. No nausea, vomiting. Blood pressure slightly elevated at 142/64, all other vital signs within normal limits. Patient well-appearing, under no acute distress. Plan: Labs, CXR, EKG, further ER eval needed Medications Administered Discontinued Medications Generic Name Dose Route Start Last Admin Trade Name Dory PRN Reason Stop Dose Admin Albuterol/Ipratropium 3 ml 06/07/24 15:31 06/07/24 15:50 Albuterol/Iprat 2.5/0.5mg 3 Ml Ampul.Neb INHALE 06/07/24 15:32 3 ml ONCE ONE Administration Guaifenesin 1,200 mg 06/07/24 15:31 06/07/24 15:58 Guaifenesin La 600 Mg Tab.Er.12h PO 06/07/24 15:32 Not Given ONCE ONE Prednisone 60 mg 06/07/24 15:31 06/07/24 15:43 Prednisone 20 Mg Tablet PO 06/07/24 15:32 60 mg ONCE ONE Administration Procedures Procedure Narrative Procedure Narrative: EMERGENCY ULTRASOUND INTERPRETATION-Limited Point of Care Venous (DVT) [This study was ordered, performed, and interpreted by myself. The study reveals: Impression: NO EVIDENCE OF DVT. I RECOMMENDED TO THE PATIENT REPEAT ULTRASOUND IN ONE WEEK IF SYMPTOMS PERSIST.] [Indication: Laterality: RIGHT Common Femoral: -Full Compressibility: YES -Clot Seen: NO Superficial Femoral: -Full Compressibility: YES -Clot Seen: NO Popliteal: -Full Compressibility: YES -Clot Seen: NO Other: Performed by: Arden Osorio MD CPT: 65379] Medical Decision Making Medical Decision Making MDM Narrative: 69-year-old female with atypical chest pain. ND excluded ECG without acute ischemic changes. Calf pain yesterday but no objective tenderness. Point of care ultrasound without findings to suggest DVT in the right lower extremity. Reassuring most likely musculoskeletal. Close follow up with PCP was recommended Lab Data [place] Lab Attestation statement: I reviewed the patient's lab results. 06/07/24 12:53 06/07/24 12:53 Labs: Lab Results 06/07/24 Range/Units 12:53 WBC 8.9 (4.8-10.8) X10*3/uL RBC 4.93 (4.20-5.50) X10*6/uL Hgb 14.9 (12.0-16.0) g/dl Hct 43.5 (37.0-47.0) % MCV 88.2 (80.0-98.0) fL MCH 30.2 (27.0-33.0) pg MCHC 34.3 (31.0-35.0) g/dl RDW 13.9 (11.0-16.0) % Plt Count 289 (160-400) X10*3/uL MPV 9.4 (9.4-12.3) fL Immature Gran % (Auto) 0.2 (0.0-0.4) % Neut % (Auto) 58.5 (45-73) % Lymph % (Auto) 29.3 (20-40) % [place] % (Auto) 8.4 (2-11) % Eos % (Auto) 3.0 (0-4) % Baso % (Auto) 0.6 (0-2) % Lymph # (Auto) 2.6 (1.2-4.9) X10*3/uL [place] # (Auto) 0.8 (0.1-1.2) X10*3/uL Eos # (Auto) 0.3 (0.0-0.4) X10*3/uL Baso # (Auto) 0.1 (0.0-0.2) X10*3/uL Abs Immat Gran (auto) 0.02 (0.00-0.03) X10*3/uL Absolute Neuts (auto) 5.2 (2.0-8.3) x10*3/uL Absolute Nucleated RBC 0.000 (0.0-0.012) X10*3/uL Nucleated RBC % (auto) 0.0 (0.0-0.2) /100WBC PT 11.1 (10.9-12.4) SEC INR 1.0 (0.9-1.1) Sodium 141 (135-145) mmol/L Potassium 4.4 (3.3-5.1) mmol/L Chloride 107 (96-108) mmol/L Carbon Dioxide 24 (22-29) mmol/L Anion Gap 14 (12-20) BUN 10 (9-16) mg/dL Creatinine 0.77 (0.5-1.4) mg/dL Estim Creat Clear Calc 81.6 Estimated GFR > 60 Random Glucose 103 (60-115) mg/dL Calcium 9.8 (8.4-10.2) mg/dL Magnesium 2.0 (1.6-2.6) mg/dL Total Bilirubin 0.3 (0.0-1.0) mg/dL AST 28 (5-31) U/L ALT 28 (0-31) U/L Alkaline Phosphatase 124 H (39-117) U/L Troponin I High Sens < 2.7 (<3.5-17.0) ng/L B-Natriuretic Peptide 19 (<100) pg/mL Total Protein 7.2 (6.5-8.0) g/dL Albumin 4.3 (3.5-5.0) g/dL Independent Interpretation I performed an independent interpretation of an: EKG and Ultrasound Interpretation: Normal sinus rhythm rate 65, QTC 416. Normal intervals normal axis Discharge Plan Discharge Clinical Impression: Acute hypoxic respiratory failure Patient Disposition: Home, Self-Care Instructions: Hypoxia (ED) Additional Instructions: _ DISCHARGE DIAGNOSES: This breath likely multifactorial including COPD/asthma HISTORY OF PRESENTATION: ?Cough shortness of breath chest heaviness 1 week EMERGENCY DEPARTMENT COURSE,TESTS, TREATMENTS: While in the ED today you had an EKG which is normal and reassuring. Chest x-ray with no signs of pneumonia or other abnormalities. We treated you with albuterol/ipratropium breathing treatments and steroids. Your oxygen fluctuated from 89-95. He can distress DISCHARGE MEDICATIONS: ?[We have made no changes to your regular medication regimen, we have added prednisone for 5 additional days and we recommend you continue taking her breathing treatments and call your lung doctor/primary doctor FOLLOW-UP: ?Call your primary or general physician soon as possible to discuss your symptoms, your ED visit and to discuss follow up plans Call your lung doctor INSTRUCTIONS ?& RETURN PRECAUTIONS: If any symptoms change first call your primary physician, if it is after-hours your primary doctors office should have a provider welcome wagon hostess you can speak with. If the symptoms are severe or very concerning to you then call 911 or return to the ED. Arden Osorio MD Emergency Physician [facility] Prescriptions: New prednisone 50 mg tablet 50 mg PO BID 5 Days Qty: 10 0RF No Action nystatin 100,000 unit/gram powder 1 appl topical TID Qty: 60 1RF metoprolol succinate 100 mg tablet extended release 24 hr 100 mg PO DAILY Qty: 90 3RF fluconazole 150 mg tablet 150 mg PO Q3D Qty: 2 0RF Rx Instructions: may repeat second dose 72 hrs after first dose if symptoms persist ondansetron HCl 4 mg tablet 4 mg PO Q8H PRN (Reason: nausea and vomiting) 30 Days Qty: 30 0RF bppdjvqwxm-sbjjwdnxyogdy-vyjo 50-325-40 mg tablet 1 tab PO Q6H PRN (Reason: pain) Qty: 112 0RF Rx Instructions: Allergy to blue dye Ok for caffeine Pay out of pocket if not covered by insurance Partial fill upon patient request lorazepam 1 mg tablet 1 mg PO TID Breztri Aerosphere 160-9-4.8 mcg/actuation HFA aerosol inhaler inhalation amlodipine 5 mg tablet 5 mg PO DAILY buspirone 30 mg tablet 30 mg PO BID baclofen 20 mg tablet 20 mg PO BID latanoprost 0.005 % drops ophthalmic (eye) (DME) lancets [FreeStyle Lancets] 28 gauge misc See Rx Instructions .ROUTE BID Qty: 100 Rx Instructions: As directed cetirizine [All Day Allergy (cetirizine)] 10 mg tablet 10 mg PO DAILY PRN senna 8.6 mg capsule 8.6 mg PO DAILY magnesium oxide 400 mg magnesium capsule 400 mg PO DAILY cholecalciferol (vitamin D3) 25 mcg (1,000 unit) capsule 25 mcg PO DAILY lidocaine 3 % cream 1 appl topical BID PRN ibuprofen 200 mg tablet 200 mg PO Q6H PRN lidocaine 5 % ointment 1 appl topical DAILY Probiotic gummies .Route Rx Instructions: . ipratropium-albuterol 0.5 mg-3 mg(2.5 mg base)/3 mL solution for nebulization inhalation mupirocin 2 % ointment 1 appl topical BID Qty: 22 0RF desvenlafaxine succinate 100 mg tablet extended release 24 hr 100 mg PO DAILY acyclovir 400 mg tablet 400 mg PO TID 14 Days Qty: 42 0RF atorvastatin 40 mg tablet 40 mg PO BEDTIME famotidine 40 mg tablet 40 mg PO DAILY Qty: 90 3RF lisinopril 40 mg tablet 40 mg PO DAILY Qty: 90 3RF ammonium lactate [AmLactin] 12 % lotion 1 appl topical DAILY Qty: 225 5RF docusate sodium 50 mg capsule 50 mg PO DAILY Interventions: ED Discharge Assessment Last Done: 06/07/24 17:50 Discharge Date/Time: 06/07/24 17:51 Print Language: Macedonian
[2024-06-07 13:40] LABS: Alanine Aminotransferase 28 U/L (0-31); Albumin Level 4.3 g/dL (3.5-5.0); Alkaline Phosphatase 124 U/L (39-117); Anion Gap 14 (12-20); Aspartate Amino Transferase 28 U/L (5-31); Bilirubin Total 0.3 mg/dL (0.0-1.0); Blood Urea Nitrogen 10 mg/dL (9-16); Calcium 9.8 mg/dL (8.4-10.2); Carbon Dioxide 24 mmol/L (22-29); Chloride 107 mmol/L (96-108); Creatinine Clr Calc Pharmacy 81.6; Estimated Glomerular Filt Rate > 60; Glucose Random 103 mg/dL (60-115); Potassium 4.4 mmol/L (3.3-5.1); Sodium 141 mmol/L (135-145); Total Protein 7.2 g/dL (6.5-8.0)
[2024-06-07 13:51] LABS: Troponin-I High Sensitivity < 2.7 ng/L (<3.5-17.0)
[2024-06-07] MEDS: predniSONE 20 MG TABLET 60 MG PO (15:43)
[2024-06-07] MEDS: Albuterol/Iprat 2.5/0.5MG 3 ML AMPUL.NEB INHALE (15:50)
[2024-06-07 16:02] LABS: B Type Natriuretic Peptide 19 pg/mL (<100)
== END 2024-06-07 17:51 | disposition home or self-care (01) ==
PROVIDERS: Emergency Provider Emergency Medicine; PCP Physician Assistant
DX: J96.01 Acute respiratory failure with hypoxia (principal); R07.89 Other chest pain; R05.9 Cough, unspecified; R06.02 Shortness of breath; E11.9 Type 2 diabetes mellitus without complications; I10 Essential (primary) hypertension; J45.909 Unspecified asthma, uncomplicated; Z79.899 Other long term (current) drug therapy; Z87.891 Personal history of nicotine dependence
CPT/HCPCS: 36415; 71046; 80053; 83735; 83880; 84484; 85025; 85610; 93005; 94640; 99212; 99284; 99285

== ENCOUNTER → 2024-06-07 12:22 | Outpatient (BNV) | payer MEDICARE, SELFPAY | PROVIDERS: Emergency Provider Emergency Medicine; PCP Physician Assistant; Visit Provider Internal Medicine Cardiovascular Disease | DX: R07.9 Chest pain, unspecified (principal) | CPT/HCPCS: 93010 ==

== ENCOUNTER → 2024-06-07 13:20 | Outpatient (BNV) | payer MEDICARE, SELFPAY | PROVIDERS: PCP Physician Assistant; Visit Provider Radiology Diagnostic Radiology | DX: R07.9 Chest pain, unspecified (principal) | CPT/HCPCS: 71046 ==

== ENCOUNTER 2024-07-06 13:56 | Outpatient (AMB) | payer MEDICARE, SELFPAY ==
--- NOTE | 2024-07-06 14:09 | MHC.PC.OV ---
Vital Signs 07/06/24 14:17 Height 5 ft 3 in Weight 244 lb 6 oz BMI 43.3 BP 114/76 Blood Pressure Location Lt brachial Position Sitting Respiration 18 Pulse 78 Pulse Source Pulse Oximeter Pulse Oximetry (%) 93 Oxygen Delivery Method Room Air Intake Visit Reasons: prediabetes Intake Note: Prediabetes follow up Smooth Plater Required: No Allergies brexpiprazole [From Rexulti] Allergy (Severe, Verified 07/06/24 14:10) Hives iopromide [From Ultravist] Allergy (Mild, Verified 07/06/24 14:10) REDNESS, SWELLING AROUND NECK amoxapine [AMOXAPINE] Allergy (Unknown, Verified 07/06/24 14:10) OVER EATING amoxicillin [AMOXICILLIN] Allergy (Unknown, Verified 07/06/24 14:10) LOWER GI DISTRESS azithromycin [From ZITHROMAX] Allergy (Unknown, Verified 07/06/24 14:10) DOES NOT WORK blue dye [BLUE DYE] Allergy (Unknown, Verified 07/06/24 14:10) FACIAL SWELLING,TEMP,RASH caffeine [From CAFERGOT] Allergy (Unknown, Verified 07/06/24 14:10) CANT TAKE ANYMORE celecoxib [From CELEBREX] Allergy (Unknown, Verified 07/06/24 14:10) RASH,TEMP ciprofloxacin [CIPROFLOXACIN] Allergy (Unknown, Verified 07/06/24 14:10) HALLUCINATION clarithromycin [From BIAXIN] Allergy (Unknown, Verified 07/06/24 14:10) DOES NOT WORK clavulanic acid [From AUGMENTIN] Allergy (Unknown, Verified 07/06/24 14:10) C-DIFF X 3 divalproex sodium [From DEPAKOTE] Allergy (Unknown, Verified 07/06/24 14:10) NIGHT SCARES ergotamine [From CAFERGOT] Allergy (Unknown, Verified 07/06/24 14:10) UNKNOWN gabapentin [GABAPENTIN] Allergy (Unknown, Verified 07/06/24 14:10) NIGHT SCARES hydroxyzine [HYDROXYZINE] Allergy (Unknown, Verified 07/06/24 14:10) ITCHING influenza virus vaccine, specific [FLU VACCINE] Allergy (Unknown, Verified 07/06/24 14:10) FEVER- PINS/ NEEDLES ALL OVER , RASH Iodinated Contrast Media [IV CONTRAST] Allergy (Unknown, Verified 07/06/24 14:10) HIVES ketorolac [From TORADOL] Allergy (Unknown, Verified 07/06/24 14:10) SEVERE ITCHING levofloxacin [From LEVAQUIN] Allergy (Unknown, Verified 07/06/24 14:10) HEART PALPITATIONS meperidine [From DEMEROL] Allergy (Unknown, Verified 07/06/24 14:10) ANAPHYLAXIS Sulfa (Sulfonamide Antibiotics) [SULFA (SULFONAMIDE ANTIBIOTICS)] Allergy (Unknown, Verified 07/06/24 14:10) ADMITTED WITH HIVES sumatriptan [Imitrex] Allergy (Unknown, Verified 07/06/24 14:10) heart pounding tramadol [From ULTRAM] Allergy (Unknown, Verified 07/06/24 14:10) ITCH trazodone [TRAZODONE] Allergy (Unknown, Verified 07/06/24 14:10) NIGHT SCARES valacyclovir [VALACYCLOVIR] Allergy (Unknown, Verified 07/06/24 14:10) GASTIC UPSET yellow dye [YELLOW DYE] Allergy (Unknown, Verified 07/06/24 14:10) SYSTEMIC ITCHING dexamethasone [From Decadron] Adverse Reaction (Intermediate, Verified 07/06/24 14:10) neck pain naproxen Adverse Reaction (Verified 07/06/24 14:10) Swelling Flu vaccine Allergy (Severe, Uncoded 07/06/24 14:10) Anaphylaxis Amitriptyline Allergy (Unknown, Uncoded 07/06/24 14:10) Unknown Blue and yellow dye Allergy (Unknown, Uncoded 07/06/24 14:10) Swelling Ionic dye Allergy (Unknown, Uncoded 07/06/24 14:10) Rash Medication List - Last Reconciled 07/06/24 by Bettie Gordon PA-C acyclovir 400 mg PO TID 14 days amlodipine 5 mg PO DAILY ammonium lactate 12% (AmLactin) 1 appl topical DAILY atorvastatin 40 mg PO BEDTIME baclofen 20 mg PO BID budesonide-formoterol 160-4.5 mcg/actuation (Breyna) 2 puffs inhalation buspirone 30 mg PO BID kncsoczvkl-gckksvspkfxpe-uwas 50-325-40 mg 1 tab PO Q6H PRN cetirizine (All Day Allergy (cetirizine)) 10 mg PO DAILY PRN cholecalciferol (vitamin D3) 25 mcg PO DAILY desvenlafaxine succinate ER 100 mg PO DAILY docusate sodium 50 mg PO DAILY famotidine 40 mg PO DAILY fluconazole 150 mg PO Q3D 2 doses ibuprofen 200 mg PO Q6H PRN ipratropium-albuterol 0.5 mg-3 mg(2.5 mg base)/3 mL mL inhalation lancets (FreeStyle Lancets) As directed latanoprost 0.005% drps ophthalmic (eye) lidocaine 3% 1 appl topical BID PRN lidocaine 5% 1 appl topical DAILY lisinopril 40 mg PO DAILY lorazepam 1 mg PO TID magnesium oxide 400 mg PO DAILY metoprolol succinate ER 100 mg PO DAILY mupirocin 2% 1 appl topical BID nystatin 1 appl topical TID ondansetron HCl 4 mg PO Q8H PRN 30 days [Probiotic gummies .] sennosides (senna) 8.6 mg PO DAILY Tobacco use date assessed: 07/06/24 Fall risk assessment: 1 Fall in past year Last assessed Fall Risk: 07/06/24 Dental Screening Dental Screen Date: 11/24/23 Did you have a dental visit in the last 12 months?: No Did you have a dental problem in the last 6 months where you did not have access to dental care?: No Was dental information given to patient?: Patient has dentist HPI prediabetes HPI Details Patient is a 69-year-old female with a significant past medical history of asthma, hypertension, anxiety, PTSD, depression, chronic fatigue, fibromyalgia, osteoarthritis, prediabetes, and obesity presenting today for a follow up regarding her recent shortness on breath. Pulm: She was able to get in with [facility] sooner than she was with [facility] so she saw them on 06/22. She did not realize that she could still see them even though her insurance changed. It was recommended that she start on Zepbound as she does have obstructive sleep apnea and has been intolerant of devices. Zepbound does have FDA approval for LUIGI. She states that the shortness on breath is somewhat improved as they switched inhalers and she is now currently trialing Breyna which has been helpful. Psych: She is on Rexulti, buspirone 30 mg b.i.d., lorazepam 1 mg t.i.d., and desvenlafaxine 75 mg daily. No SI/HI. Lives at home by herself. No Si/hi. following with psych. Endo: she is a prediabetic. Her A1c is stable at 6.1. She is trying to get her insurance to cover GLP 1. -She states she has tried gym exercises, atkins, weight watchers (multiple times), herbal life, nutrisystem. She states the most she was ever able to lose was 15 lbs but would gain it back. She has read most of the books and is still not able to lose weight. She has a hard time sticking with huge lifestyle changes. She is actively trying to eat healthy as she does not like feeling this large Derm: She had a recent her gap regarding her face and was picking at her skin and ended up with a large sore that is open with surrounding erythema. This has been going on for last couple of days and it does appear to be getting worse. No fevers or chills. She states that her chin is tender. She denies any fluid collection where it feels like an abscess has formed. No difficulty opening her mouth or chewing. GI: She does report today that she has frequent right upper quadrant pain that she thinks comes from the back. It is worse with certain movements. She does get worried that it feels like it is deep in the abdomen. She did have a CT last year which was negative for any acute findings. She states since then it has been on and off and it does resolve with heat. She has not noticed any pain with eating, nausea or vomiting. She states it almost feels like she has back arthritis that triggers it. We did review on the CAT scan it did have moderate arthritic changes. She follows with Dr. Desir and is scheduled for a colonoscopy in August 2024 Musculoskeletal: started on collagen and feeling better with joint pain Neuro: She has a history of headaches and states that they are exacerbated and almost every day now. They happen in the morning but they typically bother her in the evening. We did review her MRI today in that it showed a likely meningioma. She is seeing Dr. Mcdowell in [place] for neurosurgery consult. I did review with her that I believe that this is possibly caused by her sleep apnea. 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 Bone density- UTD- 2023 osteopenia s/p total hysterectomy [facility] Medical History (Updated 07/06/24 @ 14:36 by Bettie Gordon PA-C) Dry skin Vertigo Herpes Diverticulitis Prediabetes HTN (hypertension) Colon polyps GERD (gastroesophageal reflux disease) Glaucoma Migraine Chronic fatigue PTSD (post-traumatic stress disorder) Depression FLOYD (generalized anxiety disorder) Osteoarthritis Fibromyalgia Asthma Surgical History H/O right knee surgery Social History (Updated 05/11/24 @ 14:13 by Sharon Gar CMA) Housing: Apartment Alcohol intake: current Patient Tobacco Use Status: Former Tobacco user Cigarette Packs Per Day: 1 Years Smoked: 13 e-Cigarette/Vaping Use: Never Used Second Hand Smoke Exposure: No service: Yes Current occupational status: retired and disabled (Disables [place]) Cognitive needs: No Hearing needs: Yes (Trouble hearing) Vision needs: Yes (Glasses) Questionnaire Thrive Questionnaire Date Thrive assessed: 03/09/24 I am a: Patient What is your living situation today?: I have a steady place to live Within the past 12 months, did the food you bought not last and you didn't have the money to get more?: Never true Within the past 12 months, did you worry whether your food would run out before you got money to buy more?: I choose not to answer this question Do you have trouble paying for medicines?: Yes Do you have trouble getting transportation to medical appointments?: No Do you have trouble paying your heating and electricity bill?: No Do you have trouble taking care of your child, family member or friend?: I choose not to answer this question Do you have trouble with day-to-day activities such as bathing, preparing meals, shopping, managing finances, etc.?: Yes Are you currently unemployed and looking for a job?: No Are you interested in more education?: No Please select the resources that you would like help with: Paying for medicine THRIVE Score: 0 FLOYD-7 AMB Questionnaire FLOYD-7 Date FLOYD - 7 assessed: 05/11/24 Source: Developed by Drs. Trae Craig, Daisy Henderson, Scott Sanchez and colleagues, with an educational aguila from [employer]. Physical exam (Primary Care) Vital Signs: Last Vital Signs Pulse 78 07/06/24 14:17 Resp 18 07/06/24 14:17 BP 114/76 07/06/24 14:17 Pulse Ox 93 07/06/24 14:17 Oxygen Delivery Method Room Air 07/06/24 14:17 BMI result Body Mass Index 43.3 Tobacco/Smoking Status: Tobacco use Status Tobacco use date assessed 07/06/24 07/06/24 14:21 Patient Tobacco Use Status Former Tobacco user 07/06/24 14:09 e-Cigarette/Vaping Use Never Used 07/06/24 14:09 Thrive Assessment: Date of Thrive Assessment Date Thrive assessed 03/09/24 07/06/24 14:09 Const Orientation/consciousness: patient oriented x3 HENMT Ears: hearing grossly normal bilaterally Neck Thyroid: Thyroid normal Lymphatic: no lymphadenopathy noted Resp Auscultation: clear to auscultation bilaterally Cardio Rate: regular rate Rhythm: regular rhythm Heart sounds: S1 normal heart sound present and S2 normal heart sound present GI Inspection: Yes normal to inspection Palpation (GI): Soft to palpation and Other GI palpation findings present (nontender, no cva tenderness) Auscultation: normoactive bowel sounds Rectal Exam - Female: deferred Skin Other: There is a 1 cm x 1 cm area with granulation tissue noted on the chin with surrounding erythema. It is well demarcated. No abscess formation Neuro General: patient oriented x3, gait normal and no focal motor deficits Results Reviewed Results Reviewed: Laboratory Tests 05/02/24 06/07/24 14:02 12:53 Sodium 141 Potassium 4.4 Chloride 107 Carbon Dioxide 24 Anion Gap 14 Estim Creat Clear Calc 81.6 Estimated GFR > 60 Random Glucose 103 Hemoglobin A1c % 6.1 H AST 28 ALT 28 Triglycerides 249 H Cholesterol 160 LDL Cholesterol, Calc 65 HDL Cholesterol 46 TSH 1.36 Coding Level of Care Code Est Pt Level 4 (10594) Complex EM visit Add On G2211 Diagnoses LUIGI (obstructive sleep apnea) G47.33 Severe obesity (BMI >= 40) E66.01 Facial cellulitis L03.211 HTN (hypertension) I10 Prediabetes R73.03 RUQ pain R10.11 Assessment & Plan Assessment & Plan (1) LUIGI (obstructive sleep apnea): Code(s): G47.33 - Obstructive sleep apnea (adult) (pediatric) Category: Medical Plan: Following with pulmonology (2) Severe obesity (BMI >= 40): Code(s): E66.01 - Morbid (severe) obesity due to excess calories Category: Medical Plan: We will try to get Zepbound covered. (3) Facial cellulitis: Code(s): L03.211 - Cellulitis of face Category: Medical Plan: We will start Keflex. Discussed risks and benefits and adverse effects of this medication (4) HTN (hypertension): Code(s): I10 - Essential (primary) hypertension Category: Medical Plan: WNL. Continue current regimen (5) Prediabetes: Code(s): R73.03 - Prediabetes Category: Medical Plan: As listed above. Labs ordered. We will monitor (6) RUQ pain: Code(s): R10.11 - Right upper quadrant pain Category: Medical Plan: Ultrasound ordered Orders: Orders Complete Blood Count Auto Diff Today E66.01 - Morbid (severe) obesity due to excess calories, G47.33 - Obstructive sleep apnea (adult) (pediatric), I10 - Essential (primary) hypertension, L03.211 - Cellulitis of face, R73.03 - Prediabetes Hemoglobin A1c Today E66.01 - Morbid (severe) obesity due to excess calories, G47.33 - Obstructive sleep apnea (adult) (pediatric), I10 - Essential (primary) hypertension, L03.211 - Cellulitis of face, R73.01 - Impaired fasting glucose, R73.03 - Prediabetes TSH reflex Free T4 Today E66.01 - Morbid (severe) obesity due to excess calories, G47.33 - Obstructive sleep apnea (adult) (pediatric), I10 - Essential (primary) hypertension, L03.211 - Cellulitis of face, R73.03 - Prediabetes US abdomen complete Today R10.11 - Right upper quadrant pain Comprehensive Met. Panel Today E66.01 - Morbid (severe) obesity due to excess calories, G47.33 - Obstructive sleep apnea (adult) (pediatric), I10 - Essential (primary) hypertension, L03.211 - Cellulitis of face, R73.03 - Prediabetes Lipid Panel Today E66.01 - Morbid (severe) obesity due to excess calories, G47.33 - Obstructive sleep apnea (adult) (pediatric), I10 - Essential (primary) hypertension, L03.211 - Cellulitis of face, R73.03 - Prediabetes Microalbumin, Random (w Creat) Today E66.01 - Morbid (severe) obesity due to excess calories, G47.33 - Obstructive sleep apnea (adult) (pediatric), I10 - Essential (primary) hypertension, L03.211 - Cellulitis of face, R73.03 - Prediabetes Medications: New tirzepatide (weight loss) (Zepbound) for 4 weeks 2.5 mg (0.5 mL) subcut QWEEK 2 mL 1RF cephalexin 500 mg PO QID 10 days 40 tabs 0RF Changed From ipratropium-albuterol 0.5 mg-3 mg(2.5 mg base)/3 mL inhalation To ipratropium-albuterol 0.5 mg-3 mg(2.5 mg base)/3 mL 3 mL inhalation Q6-8H PRN 90 mL 1RF wheezing
[2024-07-06 14:17] VITALS: BP 114/76; PULSE 78; RESP 18; O2SAT 93; BMI 43.3
--- OUTSIDE RECORDS SUMMARY | 2024-07-06 14:38 | XMS_ITS | Data Portability ---
Author Organization [place] - [facility], [facility] Address [address] [place] [address] Care Team Providers Care Warehouse Delivery Driver Name Role Phone IRIS SNODWEN Primary Care Provider Assessment Encounter Date Assessment [...] Ag, QL IA, respiratory specimen 2021 [email or web address] [facility], [address] [place] [address], [id number], 18:59:01 Referral None recorded. Procedures None recorded. Surgeries None recorded. Imaging None recorded. Medication Orders doxycycline hyclate 100 mg tablet 2021 [facility][id number], [address] [facility] [address], [place], [address], 18:31:31 Patient TargetsNo targets recorded. Patient InstructionsNo instructions recorded. Reason for Referral None Reported. Results Created Date Observation Date Name Description Value Unit Range Abnormal Flag Note LastModifiedBy Organization Detail LastModifiedTime 12/12/19 22 12/11/2021 rapid SARS CoV 2 Ag, QL IA, respi rator y speci men Covid-19 (ref: neg) negati ve Not Available [facility] [address] [place], [address], 12/11/2021 18:57:23 12/12/19 22 12/11/2021 rapid SARS CoV 2 Ag, QL IA, respi rator y speci men Control Visual ized/V alid Not Available [facility] [address] [place], [address], 12/11/2021 18:57:23 12/12/19 22 12/11/2021 rapid SARS CoV 2 Ag, QL IA, respi rator y speci men Location [facility], [address] [place] [address], [id number] [phone] Not Available [facility] [address] [place], [address], 12/11/2021 18:57:23 12/12/19 22 12/11/2021 rapid SARS CoV 2 Ag, QL IA, respi rator y speci men Language Englis h Not Available [facility] [address] [place], [address], 12/11/2021 18:57:23 Result Notes None recorded. Medical Equipment None Reported. Allergies Allergen ID Allergen Name Allergen Category Reaction Reaction Severity Criticality Documentation Date Start Date Code Code System Note Provider Name and Address Organization Details Recorded Time 322342 blue dye medicatio n Not available Not available low 12/11/202119788 UNK CHER QUACH NP [address] [place], [address], [place] [facility] 17:54:40 [id number] Levaquin medicatio n palpitati ons Not available low 12/11/2021 03891 2 RxNorm CHER QUACH NP [address] [place], [address], [place] [facility] 2 17:54:56 [id number] Substance with sulfonami de structure and antibacte rial mechanism of action (substanc e) medicatio n fever Not available low 12/11/2021 85074 8003 SNOMED CHER QUACH, [employer] [address], [facility] [place], [address], [place] [facility] 2 17:55:10 [id number] Cipro medicatio n palpitati ons Not available low 12/11/2021 11855 3 RxNorm CHER BRUNNERIN, [employer] [address], [facility], [address], [place] [facility] 2 [...] N Stroke N Hypothyroidism N Asthma Y Depression Y COPD Y High Cholesterol Y Rheumatoid Arthritis N Pulmonary Embolism N Hypertension Y Osteoporosis Y Kidney Disease N Gynecological HistoryNo gynecological history recorded. Obstetrics History GPAL:G 0 P 0 0 0 0 Past Encounters Encounter ID Performer Location Encounter Start Date Encounter Closed Date Diagnosis/Indication Diagnosis SNOMED-CT Code Diagnosis ICD10 Code Diagnosis Note [id number] CHER QUACH NP [facility] [address] [place] [address] 12/11/2021 17:53:14 12/12/2021 14:07:43 Acute bacterial sinusitis 12463644 J01.90 Viral syndrome 497804663 B34.9 Health Concerns Section Related Observation LastModified by Organization Detai ls LastModified Time None Recorded Concern Status LastModified by Organization Details LastModified Time None Recorded Advance Directives Directive None Recorded Payers Insurance Date Sequence Insurance Name Policy Number Policy Mims Covered Member ID Mims Member ID Guarantor Name 12/11/2021 1 *SELF PAY* Yas Nico [id number] Yas Nico 12/16/2021 1 [place]IC[place] [employer] Yas Gibbs Nico [id number] Yas Nico Notes Date Note Type Note Provider Name and Address Organization Details Recorded Time 12/11/2021 text/html 66 year-old fema le with history of HTN, HLD, depression, anxiety, [...] septum. CHER QUACH NP [address], [place], [address], [place] [facility] 12/11/2021 19:34:23 OBGyn Episode No OBEpisode recorded.
== END 2024-07-06 14:40 | disposition home or self-care (01) ==
LOC: HO.HMCFM 13:57
PROVIDERS: PCP Physician Assistant; Visit Provider Physician Assistant
DX: G47.33 Obstructive sleep apnea (adult) (pediatric) (principal); E66.01 Morbid (severe) obesity due to excess calories; Z68.41 Body mass index [BMI] 40.0-44.9, adult; L03.211 Cellulitis of face; I10 Essential (primary) hypertension; R73.03 Prediabetes; R10.11 Right upper quadrant pain

== ENCOUNTER → 2024-07-06 13:56 | Outpatient (BNVA) | payer MEDICARE, SELFPAY | PROVIDERS: PCP Physician Assistant; Visit Provider Physician Assistant | DX: R73.03 Prediabetes (principal); J45.909 Unspecified asthma, uncomplicated; I10 Essential (primary) hypertension; F41.9 Anxiety disorder, unspecified; F43.10 Post-traumatic stress disorder, unspecified; R53.82 Chronic fatigue, unspecified; M79.7 Fibromyalgia; G47.33 Obstructive sleep apnea (adult) (pediatric); E66.01 Morbid (severe) obesity due to excess calories; L03.211 Cellulitis of face; R10.11 Right upper quadrant pain; Z68.41 Body mass index [BMI] 40.0-44.9, adult | CPT/HCPCS: 99212 ==

== ENCOUNTER 2024-07-12 14:01 | Outpatient (AMB) | payer MEDICARE, SELFPAY ==
--- NOTE | 2024-07-12 14:17 | MHC.PC.OV ---
Vital Signs 07/12/24 14:20 BMI Reason not done Patient refused/unable BP 126/80 Blood Pressure Location Lt brachial Position Sitting Respiration 16 Pulse 70 Pulse Source Pulse Oximeter Temp 98 F Temp Source Oral Pulse Oximetry (%) 92 Oxygen Delivery Method Room Air Intake Visit Reasons: difficulty walking, back pain Intake Note: Difficulty and back pain Printing Sales Representative Required: No Allergies brexpiprazole [From Rexulti] Allergy (Severe, Verified 07/12/24 14:17) Hives iopromide [From Ultravist] Allergy (Mild, Verified 07/12/24 14:17) REDNESS, SWELLING AROUND NECK amoxapine [AMOXAPINE] Allergy (Unknown, Verified 07/12/24 14:17) OVER EATING amoxicillin [AMOXICILLIN] Allergy (Unknown, Verified 07/12/24 14:17) LOWER GI DISTRESS azithromycin [From ZITHROMAX] Allergy (Unknown, Verified 07/12/24 14:17) DOES NOT WORK blue dye [BLUE DYE] Allergy (Unknown, Verified 07/12/24 14:17) FACIAL SWELLING,TEMP,RASH caffeine [From CAFERGOT] Allergy (Unknown, Verified 07/12/24 14:17) CANT TAKE ANYMORE celecoxib [From CELEBREX] Allergy (Unknown, Verified 07/12/24 14:17) RASH,TEMP ciprofloxacin [CIPROFLOXACIN] Allergy (Unknown, Verified 07/12/24 14:17) HALLUCINATION clarithromycin [From BIAXIN] Allergy (Unknown, Verified 07/12/24 14:17) DOES NOT WORK clavulanic acid [From AUGMENTIN] Allergy (Unknown, Verified 07/12/24 14:17) C-DIFF X 3 divalproex sodium [From DEPAKOTE] Allergy (Unknown, Verified 07/12/24 14:17) NIGHT SCARES ergotamine [From CAFERGOT] Allergy (Unknown, Verified 07/12/24 14:17) UNKNOWN gabapentin [GABAPENTIN] Allergy (Unknown, Verified 07/12/24 14:17) NIGHT SCARES hydroxyzine [HYDROXYZINE] Allergy (Unknown, Verified 07/12/24 14:17) ITCHING influenza virus vaccine, specific [FLU VACCINE] Allergy (Unknown, Verified 07/12/24 14:17) FEVER- PINS/ NEEDLES ALL OVER , RASH Iodinated Contrast Media [IV CONTRAST] Allergy (Unknown, Verified 07/12/24 14:17) HIVES ketorolac [From TORADOL] Allergy (Unknown, Verified 07/12/24 14:17) SEVERE ITCHING levofloxacin [From LEVAQUIN] Allergy (Unknown, Verified 07/12/24 14:17) HEART PALPITATIONS meperidine [From DEMEROL] Allergy (Unknown, Verified 07/12/24 14:17) ANAPHYLAXIS Sulfa (Sulfonamide Antibiotics) [SULFA (SULFONAMIDE ANTIBIOTICS)] Allergy (Unknown, Verified 07/12/24 14:17) ADMITTED WITH HIVES sumatriptan [Imitrex] Allergy (Unknown, Verified 07/12/24 14:17) heart pounding tramadol [From ULTRAM] Allergy (Unknown, Verified 07/12/24 14:17) ITCH trazodone [TRAZODONE] Allergy (Unknown, Verified 07/12/24 14:17) NIGHT SCARES valacyclovir [VALACYCLOVIR] Allergy (Unknown, Verified 07/12/24 14:17) GASTIC UPSET yellow dye [YELLOW DYE] Allergy (Unknown, Verified 07/12/24 14:17) SYSTEMIC ITCHING dexamethasone [From Decadron] Adverse Reaction (Intermediate, Verified 07/12/24 14:17) neck pain naproxen Adverse Reaction (Verified 07/12/24 14:17) Swelling Flu vaccine Allergy (Severe, Uncoded 07/12/24 14:17) Anaphylaxis Amitriptyline Allergy (Unknown, Uncoded 07/12/24 14:17) Unknown Blue and yellow dye Allergy (Unknown, Uncoded 07/12/24 14:17) Swelling Ionic dye Allergy (Unknown, Uncoded 07/12/24 14:17) Rash Medication List - Last Reconciled 07/12/24 by Bettie Gordon PA-C acyclovir 400 mg PO TID 14 days amlodipine 5 mg PO DAILY ammonium lactate 12% (AmLactin) 1 appl topical DAILY atorvastatin 40 mg PO BEDTIME budesonide-formoterol 160-4.5 mcg/actuation (Breyna) 2 puffs inhalation buspirone 30 mg PO BID dwahraksku-ctmnpipvpmuhy-ajcx 50-325-40 mg 1 tab PO Q6H PRN cephalexin 500 mg PO QID 10 days cetirizine (All Day Allergy (cetirizine)) 10 mg PO DAILY PRN cholecalciferol (vitamin D3) 25 mcg PO DAILY cyclobenzaprine 10 mg PO TID desvenlafaxine succinate ER 100 mg PO DAILY docusate sodium 50 mg PO DAILY famotidine 40 mg PO DAILY fluconazole 150 mg PO Q3D 2 doses ipratropium-albuterol 0.5 mg-3 mg(2.5 mg base)/3 mL 3 mL inhalation Q6-8H PRN lancets (FreeStyle Lancets) As directed latanoprost 0.005% drps ophthalmic (eye) lidocaine 3% 1 appl topical BID PRN lidocaine 5% 1 appl topical DAILY lisinopril 40 mg PO DAILY lorazepam 1 mg PO TID magnesium oxide 400 mg PO DAILY metoprolol succinate ER 100 mg PO DAILY mupirocin 2% 1 appl topical BID nystatin 1 appl topical TID ondansetron HCl 4 mg PO Q8H PRN 30 days [Probiotic gummies .] sennosides (senna) 8.6 mg PO DAILY tirzepatide (weight loss) (Zepbound) 2.5 mg (0.5 mL) subcut QWEEK Tobacco use date assessed: 07/06/24 Dental Screening Dental Screen Date: 11/24/23 HPI difficulty walking, back pain HPI Details Patient is a 69-year-old female with a significant past medical history of asthma, hypertension, anxiety, PTSD, depression, chronic fatigue, fibromyalgia, osteoarthritis, prediabetes, and obesity presenting today for an acute problem visit regarding her back. Pulm: She was able to get in with [facility] sooner than she was with [facility] so she saw them on 06/22. She did not realize that she could still see them even though her insurance changed. It was recommended that she start on Zepbound as she does have obstructive sleep apnea and has been intolerant of devices. Zepbound does have FDA approval for LUIGI. She states that the shortness on breath is somewhat improved as they switched inhalers and she is now currently trialing Breyna which has been helpful. Psych: She is on Rexulti, buspirone 30 mg b.i.d., lorazepam 1 mg t.i.d., and desvenlafaxine 75 mg daily. No SI/HI. Lives at home by herself. No Si/hi. following with psych. Endo: she is a prediabetic. Her A1c is stable at 6.1. She is trying to get her insurance to cover GLP 1. -She states she has tried gym exercises, atkins, weight watchers (multiple times), herbal life, nutrisystem. She states the most she was ever able to lose was 15 lbs but would gain it back. She has read most of the books and is still not able to lose weight. She has a hard time sticking with huge lifestyle changes. She is actively trying to eat healthy as she does not like feeling this large Derm: At our last visit I did treat her for a facial cellulitis with and she has been taking the Keflex which has made a significant improvement. States that the redness has resolved and that the wound on her face is scabbed over. Musculoskeletal: reports feeling a flare of back pain that started over the weekend. She states that she got up out of bed and had a hard time getting up. She states that she has been using heat and ice, flexeril but is out of the Flexeril. States that that was a little bit helpful. At times it was radiating down her legs were they feel weak and tingly. No specific trauma. No bowel or bladder dysfunction. No rashes. 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 Bone density- UTD- 2023 osteopenia s/p total hysterectomy [facility] Medical History (Updated 07/12/24 @ 14:58 by Bettie Gordon PA-C) Dry skin Vertigo Herpes Diverticulitis Prediabetes HTN (hypertension) Colon polyps GERD (gastroesophageal reflux disease) Glaucoma Migraine Chronic fatigue PTSD (post-traumatic stress disorder) Depression FLOYD (generalized anxiety disorder) Osteoarthritis Fibromyalgia Asthma Surgical History H/O right knee surgery Social History (Updated 07/12/24 @ 15:15 by Sharon Gar CMA) Housing: Apartment Alcohol intake: current Patient Tobacco Use Status: Former Tobacco user Cigarette Packs Per Day: 1 Years Smoked: 13 Packs Per Year: 13 e-Cigarette/Vaping Use: Never Used Second Hand Smoke Exposure: No Use of substances other than those prescribed or required for medical reasons: No service: Yes Current occupational status: retired and disabled (Disables ) Cognitive needs: No Hearing needs: Yes (Trouble hearing) Vision needs: Yes (Glasses) Questionnaire Thrive Questionnaire Date Thrive assessed: 03/09/24 I am a: Patient What is your living situation today?: I have a steady place to live Within the past 12 months, did the food you bought not last and you didn't have the money to get more?: Never true Within the past 12 months, did you worry whether your food would run out before you got money to buy more?: I choose not to answer this question Do you have trouble paying for medicines?: Yes Do you have trouble getting transportation to medical appointments?: No Do you have trouble paying your heating and electricity bill?: No Do you have trouble taking care of your child, family member or friend?: I choose not to answer this question Do you have trouble with day-to-day activities such as bathing, preparing meals, shopping, managing finances, etc.?: Yes Are you currently unemployed and looking for a job?: No Are you interested in more education?: No Please select the resources that you would like help with: Paying for medicine THRIVE Score: 0 FLOYD-7 AMB Questionnaire FLOYD-7 Date FLOYD - 7 assessed: 05/11/24 Source: Developed by Drs. Trae Craig, Daisy Henderson, Scott Sanchez and colleagues, with an educational aguila from [employer]. Physical exam (Primary Care) Vital Signs: Last Vital Signs Temp 98 F 07/12/24 14:20 Pulse 70 07/12/24 14:20 Resp 16 07/12/24 14:20 BP 126/80 07/12/24 14:20 Pulse Ox 92 07/12/24 14:20 Oxygen Delivery Method Room Air 07/12/24 14:20 Tobacco/Smoking Status: Tobacco use Status Tobacco use date assessed 07/06/24 07/12/24 14:23 Patient Tobacco Use Status Former Tobacco user 07/12/24 15:15 e-Cigarette/Vaping Use Never Used 07/12/24 15:15 Thrive Assessment: Date of Thrive Assessment Date Thrive assessed 03/09/24 07/12/24 14:23 Const Orientation/consciousness: patient oriented x3 HENMT Ears: hearing grossly normal bilaterally Neck Thyroid: Thyroid normal Lymphatic: no lymphadenopathy noted Resp Auscultation: clear to auscultation bilaterally Cardio Rate: regular rate Rhythm: regular rhythm Heart sounds: S1 normal heart sound present and S2 normal heart sound present General: Yes no CVA tenderness Back/Spine/Pelvis Back: no CVA tenderness Thoracic/Lumbar Spine: thoracic and lumbar spine normal to inspection, paraspinal muscle tenderness bilaterally and straight leg raise positive (Bilaterally) Skin General skin exam: no rashes or lesions noted Neuro General: patient oriented x3, gait normal and no focal motor deficits Coding Level of Care Code Est Pt Level 4 (26153) Complex EM visit Add On G2211 Diagnoses Lumbar pain with radiation down both legs M54.50; M79.604; M79.605 HTN (hypertension) I10 Prediabetes R73.03 Assessment & Plan Assessment & Plan (1) Lumbar pain with radiation down both legs: Code(s): M54.50 - Low back pain, unspecified; M79.604 - Pain in right leg; M79.605 - Pain in left leg Category: Medical Plan: Pred taper Muscle relaxant provided. Advised to avoid drinking or driving while taking this medication. X-ray ordered. Referral to physical therapy. She would like at home PT but is aware that insurance may not cover that. We discussed sciatica stretching, rest, heat and ice. (2) HTN (hypertension): Code(s): I10 - Essential (primary) hypertension Category: Medical Plan: WNL. Continue current regimen (3) Prediabetes: Code(s): R73.03 - Prediabetes Category: Medical Plan: Did discuss that the prednisone will likely elevate blood sugars and to watch her diet closely. Orders: Orders PT Evaluation and Treatment 07/12/24 M54.50 - Low back pain, unspecified, M79.604 - Pain in right leg, M79.605 - Pain in left leg XR lumbar spine 2-3V 07/12/24 M54.50 - Low back pain, unspecified Medications: New prednisone take 3 tab po x 3 days, take 2 tab po x 3 days, 1 tab po x 3 days 18 tabs 0RF cyclobenzaprine 10 mg PO TID PRN 30 tabs 2RF muscle spasm 10 days
[2024-07-12 14:20] VITALS: BP 126/80; PULSE 70; RESP 16; TEMP 36.6; O2SAT 92
--- OUTSIDE RECORDS SUMMARY | 2024-07-12 14:31 | XMS_ITS | Data Portability ---
Author Organization [place] [facility] Address [address] [place] [address] Care Team Providers Care Director Patient Name Role Phone IRIS SNOWDEN Primary Care [...] Ag, QL IA, respiratory specimen 2021 [email or web address] [facility], [address] [place] [address], [phone], 18:59:01 Referral None recorded. Procedures None recorded. Surgeries None recorded. Imaging None recorded. Medication Orders doxycycline hyclate 100 mg tablet 2021 [facility] #[id number], [address] [facility], [place], [address], 18:31:31 Patient TargetsNo targets recorded. Patient InstructionsNo instructions recorded. Reason for Referral None Reported. Results Created Date Observation Date Name Description Value Unit Range Abnormal Flag Note LastModifiedBy Organization Detail LastModifiedTime 12/12/19 22 12/11/2021 rapid SARS CoV 2 Ag, QL IA, respi rator y speci men Covid-19 (ref: neg) negati ve Not Available [facility] - Home [address] [place], [address], 12/11/2021 18:57:23 12/12/19 22 12/11/2021 rapid SARS CoV 2 Ag, QL IA, respi rator y speci men Control Visual ized/V alid Not Available [facility] - Home [address] [place], [address], 12/11/2021 18:57:23 12/12/19 22 12/11/2021 rapid SARS CoV 2 Ag, QL IA, respi rator y speci men Location [facility], [address] [place] [address], [id number] Not Available [facility] - Home [address] [place], [address], 12/11/2021 18:57:23 12/12/19 22 12/11/2021 rapid SARS CoV 2 Ag, QL IA, respi rator y speci men Language Englis h Not Available [facility] - Home [address] [place], [address], 12/11/2021 18:57:23 Result Notes None recorded. Medical Equipment None Reported. Allergies Allergen ID Allergen Name Allergen Category Reaction Reaction Severity Criticality Documentation Date Start Date Code Code System Note Provider Name and Address Organization Details Recorded Time 858186 blue dye medicatio n Not available Not available low 12/11/202119788 UNK CHER QUACH NP [address] [place], [address], [place] [facility] 17:54:40 [id number] Levaquin medicatio n palpitati ons Not available low 12/11/2021 87200 2 RxNorm CHER QUACH NP [address] [place], [address], [place] [facility] 2 17:54:56 084838 Substance with sulfonami de structure and antibacte rial mechanism of action (substanc e) medicatio n fever Not available low 12/11/2021 05495 8003 SNOMED CHER QUACH, ORTHOPTIST [address], [place], [address], [place] [facility] 2 17:55:10 049729 Cipro medicatio n palpitati ons Not available low 12/11/2021 05602 3 RxNorm CHER BRUNNERIN, ORTHOPTIST [address], [place], [address], [place] [facility] [...] N Cancer N Stroke N Hypothyroidism N Depression Y COPD Y Asthma Y High Cholesterol Y Rheumatoid Arthritis N Pulmonary Embolism N Hypertension Y Osteoporosis Y Kidney Disease N Gynecological HistoryNo gynecological history recorded. Obstetrics History GPAL:G 0 P 0 0 0 0 Past Encounters Encounter ID Performer Location Encounter Start Date Encounter Closed Date Diagnosis/Indication Diagnosis SNOMED-CT Code Diagnosis ICD10 Code Diagnosis Note [id number] CHER QUACH NP [facility] - [facility] [address] [place] [address] 12/11/2021 17:53:14 12/12/2021 14:07:43 Acute bacterial sinusitis 32294707 J01.90 Viral syndrome 477226636 B34.9 Health Concerns Section Related Observation LastModified by Organization Detai ls LastModified Time None Recorded Concern Status LastModified by Organization Details LastModified Time None Recorded Advance Directives Directive None Recorded Payers Insurance Date Sequence Insurance Name Policy Number Policy Mims Covered Member ID Mims Member ID Guarantor Name 12/11/2021 1 *SELF PAY* Yas Nico [id number] Yas Nico 12/16/2021 1 [place]ICARE [place] [employer] Yas Gibbs Nico [id number] Yas Nico Notes Date Note Type [...] septum. CHER QUACH NP [address], [place], [address], [place] [facility] 12/11/2021 19:34:23 OBGyn Episode No OBEpisode recorded.
== END 2024-07-12 16:59 | disposition home or self-care (01) ==
LOC: HO.HMCFM 14:04
PROVIDERS: PCP Physician Assistant; Visit Provider Physician Assistant
DX: M54.50 Low back pain, unspecified (principal); M79.604 Pain in right leg; M79.605 Pain in left leg; I10 Essential (primary) hypertension; R73.03 Prediabetes

== ENCOUNTER → 2024-07-12 14:01 | Outpatient (BNVA) | payer MEDICARE, SELFPAY | PROVIDERS: PCP Physician Assistant; Visit Provider Physician Assistant | DX: I10 Essential (primary) hypertension (principal); J45.909 Unspecified asthma, uncomplicated; F41.9 Anxiety disorder, unspecified; F43.10 Post-traumatic stress disorder, unspecified; F32.A Depression, unspecified; R53.82 Chronic fatigue, unspecified; M79.7 Fibromyalgia; G47.33 Obstructive sleep apnea (adult) (pediatric); R73.03 Prediabetes; M54.50 Low back pain, unspecified; M79.604 Pain in right leg; M79.605 Pain in left leg | CPT/HCPCS: 99212 ==

== ENCOUNTER 2024-08-14 07:58 | Outpatient (REF) | payer MEDICARE, SELFPAY ==
--- OUTSIDE RECORDS SUMMARY | 2024-08-14 08:11 | XMS_ITS | Data Portability ---
Author Organization [place] [facility] Address [address] [place] [address] Care Team Providers Care Heat Treat Inspector Name Role Phone IRIS SNOWDEN Primary Care [...] Ag, QL IA, respiratory specimen 2021 [email or web address] [facility], [address] [place] [address], [phone], 18:59:01 Referral None recorded. Procedures None recorded. Surgeries None recorded. Imaging None recorded. Medication Orders doxycycline hyclate 100 mg tablet 2021 [facility]acy #[id number], [address] [facility], [place], [address], 18:31:31 Patient TargetsNo targets recorded. Patient InstructionsNo instructions recorded. Reason for Referral None Reported. Results Created Date Observation Date Name Description Value Unit Range Abnormal Flag Note LastModifiedBy Organization Detail LastModifiedTime 12/12/19 22 12/11/2021 rapid SARS CoV 2 Ag, QL IA, respi rator y speci men Covid-19 (ref: neg) negati ve Not Available [facility] - Home [address] [place], [address], 12/11/2021 18:57:23 12/12/19 22 12/11/2021 rapid SARS CoV 2 Ag, QL IA, respi rator y speci men Control Visual ized/V alid Not Available [facility] - Home [address] [place], [address], 12/11/2021 18:57:23 12/12/19 22 12/11/2021 rapid SARS CoV 2 Ag, QL IA, respi rator y speci men Location [facility], [address] [place] [address], [phone] Not Available [facility] - Home [address] [place], [address], 12/11/2021 18:57:23 12/12/19 22 12/11/2021 rapid SARS CoV 2 Ag, QL IA, respi rator y speci men Language Englis h Not Available [facility] - Home [address] [place], [address], 12/11/2021 18:57:23 Result Notes None recorded. Medical Equipment None Reported. Allergies Allergen ID Allergen Name Allergen Category Reaction Reaction Severity Criticality Documentation Date Start Date Code Code System Note Provider Name and Address Organization Details Recorded Time 186275 blue dye medicatio n Not available Not available low 12/11/2021 UNK CHER QUACH NP [address] [place], [address], [place] [facility] 17:54:40 [id number] Levaquin medicatio n palpitati ons Not available low 12/11/2021 93532 2 RxNorm CHER QUACH NP [address] [place], [address], [place] [facility] 2 17:54:56 473307 Substance with sulfonami de structure and antibacte rial mechanism of action (substanc e) medicatio n fever Not available low 12/11/2021 03193 8003 SNOMED CHERCornell QUACH, ADVERTISING VICE PRESIDENT [address], [place], [address], [place] [facility] 17:55:10 129861 Cipro medicatio n palpitati ons Not available low 12/11/2021 61614 3 RxNorm CHERCornell QUACH, CODY [address], [facility] [place], [address], [place] [facility] [...] History Nothing Reported. Medical History Condition Response Hypothyroidism N COPD Y Depression Y Cancer N Stroke N High Cholesterol Y Rheumatoid Arthritis N Kidney Disease N Parkinson's Disease N Asthma Y Pulmonary Embolism N Hypertension Y Osteoporosis Y Gynecological HistoryNo gynecological history recorded. Obstetrics History GPAL:G 0 P 0 0 0 0 Past Encounters Encounter ID Performer Location Encounter Start Date Encounter Closed Date Diagnosis/Indication Diagnosis SNOMED-CT Code Diagnosis ICD10 Code Diagnosis Note [id number] CHER QUACH NP [facility] - HOME [address] [place] [address] 12/11/2021 17:53:14 12/12/2021 14:07:43 Acute bacterial sinusitis 09428272 J01.90 Viral syndrome 580749295 B34.9 Health Concerns Section Related Observation LastModified by Organization Detai ls LastModified Time None Recorded Concern Status LastModified by Organization Details LastModified Time None Recorded Advance Directives Directive None Recorded Payers Insurance Date Sequence Insurance Name Policy Number Policy Mims Covered Member ID Mims Member ID Guarantor Name 12/11/2021 1 *SELF PAY* Yas Walsh [id number] Yas Nico 12/16/2021 1 MEDICARE [place]: [employer] Yas Gibbs Walsh [id number] Yas Nico Notes Date Note Type [...] the past for defects and deviated septum. HCER QUACH NP [address], [place], [address], [place] [facility] 12/11/2021 19:34:23 OBGyn Episode No OBEpisode recorded.
[2024-08-14 11:22] LABS: MANUAL DIFF FLAG NO
[2024-08-14 11:35] LABS: Basophils Absolute Auto 0.1 X10*3/uL (0.0-0.2); Basophils Percent Auto 0.4 % (0-2); Eosinophils Absolute Auto 0.3 X10*3/uL (0.0-0.4); Eosinophils Percent Auto 2.4 % (0-4); Hematocrit 43.8 % (37.0-47.0); Hemoglobin 14.4 g/dl (12.0-16.0); Imm Gran Abs Auto 0.03 X10*3/uL (0.00-0.03); Imm Gran Pct Auto 0.3 % (0.0-0.4); Lymphocytes Absolute Auto 3.8 X10*3/uL (1.2-4.9); Lymphocytes Percent Auto 33.9 % (20-40); Mean Corpuscular HGB Conc 32.9 g/dl (31.0-35.0); Mean Corpuscular Hemoglobin 29.9 pg (27.0-33.0); Mean Corpuscular Volume 90.9 fL (80.0-98.0); Mean Platelet Volume 9.9 fL (9.4-12.3); Monocytes Absolute Auto 0.9 X10*3/uL (0.1-1.2); Monocytes Percent Auto 7.6 % (2-11); Neutrophils Absolute Auto 6.3 x10*3/uL (2.0-8.3); Neutrophils Percent Auto 55.4 % (45-73); Platelet Count 347 X10*3/uL (160-400); Red Blood Count 4.82 X10*6/uL (4.20-5.50); Red Cell Distribution Width 13.8 % (11.0-16.0); White Blood Count 11.3 X10*3/uL (4.8-10.8)
[2024-08-14 11:38] LABS: Microalbum/Creatinine Ratio Ur 11.3 ug/mg cr (<30)
[2024-08-14 12:00] LABS: Estimated Average Glucose 123 mg/dL; Hemoglobin A1c % 5.9 % (<6.0)
[2024-08-14 12:03] LABS: Alanine Aminotransferase 25 U/L (0-31); Albumin Level 4.2 g/dL (3.5-5.0); Alkaline Phosphatase 101 U/L (39-117); Anion Gap 13 (12-20); Aspartate Amino Transferase 29 U/L (5-31); Bilirubin Total 0.2 mg/dL (0.0-1.0); Blood Urea Nitrogen 9 mg/dL (9-16); Calcium 9.6 mg/dL (8.4-10.2); Carbon Dioxide 27 mmol/L (22-29); Chloride 106 mmol/L (96-108); Cholesterol 161 mg/dL (<200); Estimated Glomerular Filt Rate > 60; Glucose Fasting 99 mg/dL (60-99); Glucose Random 98 mg/dL (60-115); HDL Cholesterol 41 mg/dL (>40); LDL Cholesterol Calculated 69 mg/dL (<100); Potassium 4.2 mmol/L (3.3-5.1); Sodium 142 mmol/L (135-145); TSH reflex Free T4 2.25 uIU/mL (0.32-4.0); Triglycerides 256 mg/dL (<150)
== END 2024-08-14 07:59 | disposition home or self-care (01) ==
LOC: HO.WFDLDS 07:58
PROVIDERS: Visit Provider Physician Assistant
DX: F42.4 Excoriation (skin-picking) disorder (principal); F33.9 Major depressive disorder, recurrent, unspecified; F41.1 Generalized anxiety disorder; R73.03 Prediabetes; I10 Essential (primary) hypertension; L03.211 Cellulitis of face; E66.01 Morbid (severe) obesity due to excess calories; G47.33 Obstructive sleep apnea (adult) (pediatric)
CPT/HCPCS: 36415; 80053; 80061; 82043; 82570; 83036; 84443; 85025

== ENCOUNTER 2024-08-16 13:18 | Outpatient (AMB) | payer MEDICARE, SELFPAY ==
--- NOTE | 2024-08-16 13:34 | MHC.PC.OV ---
Vital Signs 08/16/24 13:45 Height 5 ft 3 in Weight 239 lb 6 oz BMI 42.4 BP 114/82 Blood Pressure Location Lt brachial Position Sitting Respiration 16 Pulse 82 Pulse Source Pulse Oximeter Temp 98.7 F Temp Source Oral Pulse Oximetry (%) 91 L Oxygen Delivery Method Room Air Intake Visit Reasons: labs and u/s f/u Intake Note: Labs. Hasn't had ultrasound, pt resceduled. 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 Allergies brexpiprazole (From Rexulti) Allergy (Severe, Verified 08/16/24 13:38) Hives iopromide (From Ultravist) Allergy (Mild, Verified 08/16/24 13:38) REDNESS, SWELLING AROUND NECK amoxapine (AMOXAPINE) Allergy (Unknown, Verified 08/16/24 13:38) OVER EATING amoxicillin (AMOXICILLIN) Allergy (Unknown, Verified 08/16/24 13:38) LOWER GI DISTRESS azithromycin (From ZITHROMAX) Allergy (Unknown, Verified 08/16/24 13:38) DOES NOT WORK blue dye (BLUE DYE) Allergy (Unknown, Verified 08/16/24 13:38) FACIAL SWELLING,TEMP,RASH caffeine (From CAFERGOT) Allergy (Unknown, Verified 08/16/24 13:38) CANT TAKE ANYMORE celecoxib (From CELEBREX) Allergy (Unknown, Verified 08/16/24 13:38) RASH,TEMP ciprofloxacin (CIPROFLOXACIN) Allergy (Unknown, Verified 08/16/24 13:38) HALLUCINATION clarithromycin (From BIAXIN) Allergy (Unknown, Verified 08/16/24 13:38) DOES NOT WORK clavulanic acid (From AUGMENTIN) Allergy (Unknown, Verified 08/16/24 13:38) C-DIFF X 3 divalproex sodium (From DEPAKOTE) Allergy (Unknown, Verified 08/16/24 13:38) NIGHT SCARES ergotamine (From CAFERGOT) Allergy (Unknown, Verified 08/16/24 13:38) UNKNOWN gabapentin (GABAPENTIN) Allergy (Unknown, Verified 08/16/24 13:38) NIGHT SCARES hydroxyzine (HYDROXYZINE) Allergy (Unknown, Verified 08/16/24 13:38) ITCHING influenza virus vaccine, specific (FLU VACCINE) Allergy (Unknown, Verified 08/16/24 13:38) FEVER- PINS/ NEEDLES ALL OVER , RASH Iodinated Contrast Media (IV CONTRAST) Allergy (Unknown, Verified 08/16/24 13:38) HIVES ketorolac (From TORADOL) Allergy (Unknown, Verified 08/16/24 13:38) SEVERE ITCHING levofloxacin (From LEVAQUIN) Allergy (Unknown, Verified 08/16/24 13:38) HEART PALPITATIONS meperidine (From DEMEROL) Allergy (Unknown, Verified 08/16/24 13:38) ANAPHYLAXIS Sulfa (Sulfonamide Antibiotics) (SULFA (SULFONAMIDE ANTIBIOTICS)) Allergy (Unknown, Verified 08/16/24 13:38) ADMITTED WITH HIVES sumatriptan (Imitrex) Allergy (Unknown, Verified 08/16/24 13:38) heart pounding tramadol (From ULTRAM) Allergy (Unknown, Verified 08/16/24 13:38) ITCH trazodone (TRAZODONE) Allergy (Unknown, Verified 08/16/24 13:38) NIGHT SCARES valacyclovir (VALACYCLOVIR) Allergy (Unknown, Verified 08/16/24 13:38) GASTIC UPSET yellow dye (YELLOW DYE) Allergy (Unknown, Verified 08/16/24 13:38) SYSTEMIC ITCHING dexamethasone (From Decadron) Adverse Reaction (Intermediate, Verified 08/16/24 13:38) neck pain naproxen Adverse Reaction (Verified 08/16/24 13:38) Swelling Flu vaccine Allergy (Severe, Uncoded 08/16/24 13:38) Anaphylaxis Amitriptyline Allergy (Unknown, Uncoded 08/16/24 13:38) Unknown Blue and yellow dye Allergy (Unknown, Uncoded 08/16/24 13:38) Swelling Ionic dye Allergy (Unknown, Uncoded 08/16/24 13:38) Rash Tobacco use date assessed: 08/16/24 Fall risk assessment: 1 Fall in past year Last assessed Fall Risk: 08/16/24 Dental Screening Dental Screen Date: 08/16/24 Did you have a dental visit in the last 12 months?: No Did you have a dental problem in the last 6 months where you did not have access to dental care?: No Was dental information given to patient?: Patient has dentist HPI labs and u/s f/u HPI Details Patient is a 69-year-old female with a significant past medical history of asthma, hypertension, anxiety, PTSD, depression, chronic fatigue, fibromyalgia, osteoarthritis, prediabetes, and obesity presenting today for a follow up. Pulm: She was able to get in with [facility] sooner than she was with [place] so she saw them on 06/22. She is now on supplemental oxygen at night. She was also recently started on Zepbound to help with weight loss. She states that the shortness on breath is somewhat improved as they switched inhalers and she is now currently trialing Breyna which has been helpful. Psych: She is on Rexulti, buspirone 30 mg b.i.d., lorazepam 1 mg t.i.d., and desvenlafaxine 75 mg daily. No SI/HI. Lives at home by herself. No Si/hi. following with psych. Endo: she is a prediabetic. Her A1c is improved at 5.9.. Recently started on Zepbound. Tolerating this well. Has lost about 5 lb with this medication. -She states she has tried gym exercises, atkins, weight watchers (multiple times), herbal life, nutrisystem. She states the most she was ever able to lose was 15 lbs but would gain it back. She has read most of the books and is still not able to lose weight. She has a hard time sticking with huge lifestyle changes. She is actively trying to eat healthy as she does not like feeling this large Derm: She does complain today of picking a scab on her left lower leg. She states that the scab fell off and there has been some increased erythema on the lower leg. She has been applying topical antibiotics but feels like the last couple of days it has gotten a little worse. No fevers or chills. GI: She is getting right upper quadrant pain at times. It is worse with certain movements. Sometimes it feels like it could be exacerbated by diet. CT of the abdomen and pelvis from last year did not show any gallstones. I did order an ultrasound but she states that she wants to get this done at [facility] instead of [place]. Musculoskeletal: reports feeling a flare of back pain that started over the weekend. She states that she got up out of bed and had a hard time getting up. She states that she has been using heat and ice, flexeril but is out of the Flexeril. States that that was a little bit helpful. At times it was radiating down her legs were they feel weak and tingly. No specific trauma. No bowel or bladder dysfunction. No rashes. 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 Bone density- UTD- 2023 osteopenia s/p total hysterectomy [facility] Medical History (Updated 08/18/24 @ 10:47 by Bettie Gordon PA-C) Dry skin Vertigo Herpes Diverticulitis Prediabetes HTN (hypertension) Colon polyps GERD (gastroesophageal reflux disease) Glaucoma Migraine Chronic fatigue PTSD (post-traumatic stress disorder) Depression FLOYD (generalized anxiety disorder) Osteoarthritis Fibromyalgia Asthma Surgical History H/O right knee surgery Social History (Updated 07/12/24 @ 15:15 by Sharon Gar CMA) Housing: Apartment Alcohol intake: current Patient Tobacco Use Status: Former Tobacco user Cigarette Packs Per Day: 1 Years Smoked: 13 e-Cigarette/Vaping Use: Never Used Second Hand Smoke Exposure: No service: Yes Current occupational status: retired and disabled (Disables ) Cognitive needs: No Hearing needs: Yes (Trouble hearing) Vision needs: Yes (Glasses) Questionnaire Thrive Questionnaire Date Thrive assessed: 03/09/24 I am a: Patient What is your living situation today?: I have a steady place to live Within the past 12 months, did the food you bought not last and you didn't have the money to get more?: Never true Within the past 12 months, did you worry whether your food would run out before you got money to buy more?: I choose not to answer this question Do you have trouble paying for medicines?: Yes Do you have trouble getting transportation to medical appointments?: No Do you have trouble paying your heating and electricity bill?: No Do you have trouble taking care of your child, family member or friend?: I choose not to answer this question Do you have trouble with day-to-day activities such as bathing, preparing meals, shopping, managing finances, etc.?: Yes Are you currently unemployed and looking for a job?: No Are you interested in more education?: No Please select the resources that you would like help with: Paying for medicine Currently or been in a relationship where the following occur: No concerns reported THRIVE Score: 0 FLOYD-7 AMB Questionnaire FLOYD-7 Date FLOYD - 7 assessed: 05/11/24 Source: Developed by Drs. Trae Craig, Daisy Henderson, Scott Sanchez and colleagues, with an educational aguila from [employer]. Physical exam (Primary Care) Vital Signs: Last Vital Signs Temp 98.7 F 08/16/24 13:45 Pulse 82 08/16/24 13:45 Resp 16 08/16/24 13:45 BP 114/82 08/16/24 13:45 Pulse Ox 91 L 08/16/24 13:45 Oxygen Delivery Method Room Air 08/16/24 13:45 BMI result Body Mass Index 42.4 Tobacco/Smoking Status: Tobacco use Status Tobacco use date assessed 08/16/24 08/16/24 13:46 Patient Tobacco Use Status Former Tobacco user 08/16/24 13:36 e-Cigarette/Vaping Use Never Used 08/16/24 13:36 Thrive Assessment: Date of Thrive Assessment Date Thrive assessed 03/09/24 08/16/24 13:36 Currently or been in a relationship where the following occur: No concerns reported Const Orientation/consciousness: patient oriented x3 HENMT Ears: hearing grossly normal bilaterally Neck Thyroid: Thyroid normal Lymphatic: no lymphadenopathy noted Resp Auscultation: clear to auscultation bilaterally Cardio Rate: regular rate Rhythm: regular rhythm Heart sounds: S1 normal heart sound present and S2 normal heart sound present GI Other: Mild tenderness to palpation in the right upper quadrant Inspection: Yes normal to inspection Palpation (GI): Soft to palpation Auscultation: normoactive bowel sounds Rectal Exam - Female: deferred Skin Other: There is 3 in x 1 in area of erythema noted on the left lateral lower leg, proximal to the lateral malleolus Neuro General: patient oriented x3, gait normal and no focal motor deficits Results Reviewed Results Reviewed: Laboratory Tests 08/14/24 08/14/24 08:06 08:14 WBC 11.3 H RBC 4.82 Hgb 14.4 Hct 43.8 Plt Count 347 Sodium 142 Potassium 4.2 Chloride 106 Carbon Dioxide 27 Anion Gap 13 BUN 9 Creatinine 0.76 Estimated GFR > 60 Random Glucose 98 Fasting Glucose 99 Estimat Average Glucose 123 Hemoglobin A1c % 5.9 Calcium 9.6 Total Bilirubin 0.2 AST 29 ALT 25 Alkaline Phosphatase 101 Total Protein 7.0 Albumin 4.2 Triglycerides 256 H Cholesterol 161 LDL Cholesterol, Calc 69 HDL Cholesterol 41 TSH 2.25 Urine Creatinine 114.10 Urine Microalbumin 13.0 Microalb/Creat Ratio 11.3 Coding Level of Care Code Est Pt Level 4 (93362) Complex EM visit Add On G2211 Diagnoses Left leg cellulitis L03.116 HTN (hypertension) I10 Prediabetes R73.03 Severe obesity (BMI >= 40) E66.01 RUQ pain R10.11 Assessment & Plan Assessment & Plan (1) Left leg cellulitis: Code(s): L03.116 - Cellulitis of left lower limb Category: Medical Plan: We will start Keflex. She has tolerated this in the past. Advised to monitor her leg closely. Advised to take a picture. (2) HTN (hypertension): Code(s): I10 - Essential (primary) hypertension Category: Medical Plan: WNL. Continue current regimen (3) Prediabetes: Code(s): R73.03 - Prediabetes Category: Medical Plan: Improving numbers. (4) Severe obesity (BMI >= 40): Code(s): E66.01 - Morbid (severe) obesity due to excess calories Category: Medical Plan: Has lost 5 lb. I have encouraged her to continue with the Zepbound. She does not want to increase the dose as she does get some nausea with this. (5) RUQ pain: Code(s): R10.11 - Right upper quadrant pain Category: Medical Plan: Ultrasound reordered for [facility]. She will let me know if she does not hear anything within a week of an appointment time and date. Medications: New cephalexin 500 mg PO QID 56 caps 0RF 14 days Refilled ondansetron HCl 4 mg PO Q8H PRN 30 tabs 0RF nausea and vomiting 30 days
[2024-08-16 13:45] VITALS: BP 114/82; PULSE 82; RESP 16; TEMP 37.1; O2SAT 91; BMI 42.4
--- OUTSIDE RECORDS SUMMARY | 2024-08-16 15:40 | XMS_ITS | Data Portability ---
Author Organization [place] [facility] Address [address] [place] [address] Care Team Providers Care Shoe Treer Name Role Phone IRIS SNOWDEN Primary Care [...] Ag, QL IA, respiratory specimen [email or web address] [facility], [address] [place] [address], [address], 18:59:01 Referral None recorded. Procedures None recorded. Surgeries None recorded. Imaging None recorded. Medication Orders doxycycline hyclate 100 mg tablet 2021 [id number], [address] [facility] [place], [place], [address], 18:31:31 Patient TargetsNo targets recorded. Patient InstructionsNo instructions recorded. Reason for Referral None Reported. Results Created Date Observation Date Name Description Value Unit Range Abnormal Flag Note LastModifiedBy Organization Detail LastModifiedTime 12/12/19 22 12/11/2021 rapid SARS CoV 2 Ag, QL IA, respi rator y speci men Covid-19 (ref: neg) negati ve Not Available [facility] - [facility] [address] [place], [address], 12/11/2021 18:57:23 12/12/19 22 12/11/2021 rapid SARS CoV 2 Ag, QL IA, respi rator y speci men Control Visual ized/V alid Not Available [facility] - Home [address] [place], [address], 12/11/2021 18:57:23 12/12/19 22 12/11/2021 rapid SARS CoV 2 Ag, QL IA, respi rator y speci men Location [facility] [place] [employer] [facility], [address] [place] [address], [id number] Not Available [facility] - Home [address] [place], [address], 12/11/2021 18:57:23 12/12/19 22 12/11/2021 rapid SARS CoV 2 Ag, QL IA, respi rator y speci men Language Englis h Not Available [facility] - Home [address] [place], [address], 12/11/2021 18:57:23 Result Notes None recorded. Medical Equipment None Reported. Allergies Allergen ID Allergen Name Allergen Category Reaction Reaction Severity Criticality Documentation Date Start Date Code Code System Note Provider Name and Address Organization Details Recorded Time 455881 blue dye medicatio n Not available Not available low 12/11/2021 UNK CHER QUACH NP [address] [place], [address], [place] [facility] 17:54:40 [id number] Levaquin medicatio n palpitati ons Not available low 12/11/2021 69794 2 RxNorm CHER QUACH NP [address] [facility] [place], [address], [place] [facility] 2 17:54:56 [id number] Substance with sulfonami de structure and antibacte rial mechanism of action (substanc e) medicatio n fever Not available low 12/11/2021 36068 8003 SNOMED CHERCornell QUACH, DIE CLEANER [address], [place], [address], [place] [facility] 2 17:55:10 [id number] Cipro medicatio n palpitati ons Not available low 12/11/2021 03819 3 RxNorm CHERCornell QUACH, CODY [address], [facility] [place], [address], [place] [facility] 2 [...] Medical History Condition Response Parkinson's Disease N COPD Y Depression Y Hypothyroidism N Cancer N Stroke N Asthma Y High Cholesterol Y Rheumatoid Arthritis N Pulmonary Embolism N Hypertension Y Osteoporosis Y Kidney Disease N Gynecological HistoryNo gynecological history recorded. Obstetrics History GPAL:G 0 P 0 0 0 0 Past Encounters Encounter ID Performer Location Encounter Start Date Encounter Closed Date Diagnosis/Indication Diagnosis SNOMED-CT Code Diagnosis ICD10 Code Diagnosis Note [id number] CHER QUACH NP [facility] [address] [place] [address] 12/11/2021 17:53:14 12/12/2021 14:07:43 Acute bacterial sinusitis 42052304 J01.90 Viral syndrome 297348000 B34.9 Health Concerns Section Related Observation LastModified by Organization Detai ls LastModified Time None Recorded Concern Status LastModified by Organization Details LastModified Time None Recorded Advance Directives Directive None Recorded Payers Insurance Date Sequence Insurance Name Policy Number Policy Mims Covered Member ID Mims Member ID Guarantor Name 12/11/2021 1 *SELF PAY* Yas Walsh [id number] Yas Nico 12/16/2021 1 MEDICARE B-[place]: [employer] Yas Gibbs Walsh [id number] Yas Nico Notes Date Note Type [...] septum. CHER QUACH NP [address], [place], [address], [place] [facility] 12/11/2021 19:34:23 OBGyn Episode No OBEpisode recorded.
== END 2024-08-16 15:04 | disposition home or self-care (01) ==
LOC: HO.HMCFM 13:19
PROVIDERS: PCP Physician Assistant; Visit Provider Physician Assistant
DX: I10 Essential (primary) hypertension (principal); E66.01 Morbid (severe) obesity due to excess calories; Z68.41 Body mass index [BMI] 40.0-44.9, adult; R73.03 Prediabetes; L03.116 Cellulitis of left lower limb; R10.11 Right upper quadrant pain

== ENCOUNTER → 2024-08-16 13:18 | Outpatient (BNVA) | payer MEDICARE, SELFPAY | PROVIDERS: PCP Physician Assistant; Visit Provider Physician Assistant | DX: I10 Essential (primary) hypertension (principal); F41.9 Anxiety disorder, unspecified; J45.909 Unspecified asthma, uncomplicated; F43.10 Post-traumatic stress disorder, unspecified; F32.A Depression, unspecified; R53.82 Chronic fatigue, unspecified; M79.7 Fibromyalgia; M19.90 Unspecified osteoarthritis, unspecified site; R73.03 Prediabetes; E66.9 Obesity, unspecified; R10.11 Right upper quadrant pain; M54.9 Dorsalgia, unspecified; Z68.41 Body mass index [BMI] 40.0-44.9, adult | CPT/HCPCS: 99212 ==

== ENCOUNTER 2024-10-25 14:42 | Outpatient (REF) | payer MEDICARE, SELFPAY ==
[2024-10-25 17:37] LABS: MANUAL DIFF FLAG NO
[2024-10-25 18:05] LABS: Hematocrit 43.2 % (37.0-47.0); Hemoglobin 14.3 g/dl (12.0-16.0); Imm Gran Abs Auto 0.05 X10*3/uL (0.00-0.03); Imm Gran Pct Auto 0.4 % (0.0-0.4); Lymphocytes Absolute Auto 3.5 X10*3/uL (1.2-4.9); Mean Corpuscular HGB Conc 33.1 g/dl (31.0-35.0); Mean Corpuscular Hemoglobin 29.7 pg (27.0-33.0); Mean Corpuscular Volume 89.8 fL (80.0-98.0); NRBC Abs Auto 0.000 X10*3/uL (0.0-0.012); NRBC Pct Auto 0.0 /100WBC (0.0-0.2); Platelet Count 334 X10*3/uL (160-400); Red Blood Count 4.81 X10*6/uL (4.20-5.50); White Blood Count 12.8 X10*3/uL (4.8-10.8)
[2024-10-25 18:12] LABS: Appearance Urine Clear; Glucose Urine UA Negative (Negative); PH 5.5 (5.0-9.0); Specific Gravity - Urine 1.020 (1.005-1.025); UMIC TRIGGER UACC YES
[2024-10-25 18:27] LABS: Alanine Aminotransferase 28 U/L (0-31); Albumin Level 4.4 g/dL (3.5-5.0); Alkaline Phosphatase 139 U/L (39-117); Anion Gap 14 (12-20); Aspartate Amino Transferase 26 U/L (5-31); Blood Urea Nitrogen 13 mg/dL (9-16); Calcium 9.3 mg/dL (8.4-10.2); Carbon Dioxide 24 mmol/L (22-29); Chloride 106 mmol/L (96-108); Estimated Glomerular Filt Rate > 60; Iron 71 mcg/dL (30-160); Magnesium 2.1 mg/dL (1.6-2.6); Percent Iron Saturation 22 % (15-50); Potassium 4.3 mmol/L (3.3-5.1); Sodium 140 mmol/L (135-145); Total Iron Binding Capacity 328 mcg/dL (228-428); Total Protein 7.3 g/dL (6.5-8.0); Unsaturated Iron Binding 257 ug/dL
[2024-10-25 18:28] LABS: Ferritin 71 ng/mL (10-250)
[2024-10-25 18:42] LABS: Folate 10.6 ng/mL (> or = 4.0); Vitamin B12 352 pg/mL (200-900)
== END 2024-10-25 14:43 | disposition home or self-care (01) ==
LOC: HO.WFDLDS 14:42
PROVIDERS: PCP Physician Assistant; Visit Provider Physician Assistant
DX: R53.83 Other fatigue (principal); F33.9 Major depressive disorder, recurrent, unspecified; F41.1 Generalized anxiety disorder; I10 Essential (primary) hypertension; R73.03 Prediabetes; E66.01 Morbid (severe) obesity due to excess calories; L03.211 Cellulitis of face; G47.33 Obstructive sleep apnea (adult) (pediatric); R73.01 Impaired fasting glucose; R30.0 Dysuria; Z68.41 Body mass index [BMI] 40.0-44.9, adult; Z79.899 Other long term (current) drug therapy
CPT/HCPCS: 36415; 80053; 81001; 82607; 82728; 82746; 83036; 83540; 83735; 84443; 85025; 99212

== ENCOUNTER 2024-10-25 14:42 | Outpatient (AMB) | payer MEDICARE, SELFPAY ==
--- NOTE | 2024-10-25 14:52 | A.OFFPC_ITS ---
Vital Signs 10/25/24 15:01 Height 5 ft 3 in Weight 236 lb 2 oz BMI 41.8 BP 118/88 Blood Pressure Location Lt brachial Position Sitting Respiration 16 Pulse 76 Pulse Source Pulse Oximeter Temp 98.6 F Temp Source Oral Pulse Oximetry (%) 93 Oxygen Delivery Method Room Air Intake Visit Reasons: Ultrasound results/weight loss issues Intake Note: Follow up. Has been having trouble moving bowels since July 2024. Colonoscopy 08/08/24 and 9 polyps were removed, 2 precancerous. Ultrasound was done in August. We did not get results. Auto Emissions Technician Required: No Allergies brexpiprazole (From Rexulti) Allergy (Severe, Verified 08/16/24 13:38) Hives tirzepatide (From Zepbound) Allergy (Intermediate, Verified 10/25/24 14:59) fatigue, headache, nausea, constipation iopromide (From Ultravist) Allergy (Mild, Verified 08/16/24 13:38) REDNESS, SWELLING AROUND NECK amoxapine (AMOXAPINE) Allergy (Unknown, Verified 08/16/24 13:38) OVER EATING amoxicillin (AMOXICILLIN) Allergy (Unknown, Verified 08/16/24 13:38) LOWER GI DISTRESS azithromycin (From ZITHROMAX) Allergy (Unknown, Verified 08/16/24 13:38) DOES NOT WORK blue dye (BLUE DYE) Allergy (Unknown, Verified 08/16/24 13:38) FACIAL SWELLING,TEMP,RASH caffeine (From CAFERGOT) Allergy (Unknown, Verified 08/16/24 13:38) CANT TAKE ANYMORE celecoxib (From CELEBREX) Allergy (Unknown, Verified 08/16/24 13:38) RASH,TEMP ciprofloxacin (CIPROFLOXACIN) Allergy (Unknown, Verified 08/16/24 13:38) HALLUCINATION clarithromycin (From BIAXIN) Allergy (Unknown, Verified 08/16/24 13:38) DOES NOT WORK clavulanic acid (From AUGMENTIN) Allergy (Unknown, Verified 08/16/24 13:38) C-DIFF X 3 divalproex sodium (From DEPAKOTE) Allergy (Unknown, Verified 08/16/24 13:38) NIGHT SCARES ergotamine (From CAFERGOT) Allergy (Unknown, Verified 08/16/24 13:38) UNKNOWN gabapentin (GABAPENTIN) Allergy (Unknown, Verified 08/16/24 13:38) NIGHT SCARES hydroxyzine (HYDROXYZINE) Allergy (Unknown, Verified 08/16/24 13:38) ITCHING influenza virus vaccine, specific (FLU VACCINE) Allergy (Unknown, Verified 08/16/24 13:38) FEVER- PINS/ NEEDLES ALL OVER , RASH Iodinated Contrast Media (IV CONTRAST) Allergy (Unknown, Verified 08/16/24 13:38) HIVES ketorolac (From TORADOL) Allergy (Unknown, Verified 08/16/24 13:38) SEVERE ITCHING levofloxacin (From LEVAQUIN) Allergy (Unknown, Verified 08/16/24 13:38) HEART PALPITATIONS meperidine (From DEMEROL) Allergy (Unknown, Verified 08/16/24 13:38) ANAPHYLAXIS Sulfa (Sulfonamide Antibiotics) (SULFA (SULFONAMIDE ANTIBIOTICS)) Allergy (Unknown, Verified 08/16/24 13:38) ADMITTED WITH HIVES sumatriptan (Imitrex) Allergy (Unknown, Verified 08/16/24 13:38) heart pounding tramadol (From ULTRAM) Allergy (Unknown, Verified 08/16/24 13:38) ITCH trazodone (TRAZODONE) Allergy (Unknown, Verified 08/16/24 13:38) NIGHT SCARES valacyclovir (VALACYCLOVIR) Allergy (Unknown, Verified 08/16/24 13:38) GASTIC UPSET yellow dye (YELLOW DYE) Allergy (Unknown, Verified 08/16/24 13:38) SYSTEMIC ITCHING dexamethasone (From Decadron) Adverse Reaction (Intermediate, Verified 08/16/24 13:38) neck pain naproxen Adverse Reaction (Verified 08/16/24 13:38) Swelling Flu vaccine Allergy (Severe, Uncoded 08/16/24 13:38) Anaphylaxis Amitriptyline Allergy (Unknown, Uncoded 08/16/24 13:38) Unknown Blue and yellow dye Allergy (Unknown, Uncoded 08/16/24 13:38) Swelling Ionic dye Allergy (Unknown, Uncoded 08/16/24 13:38) Rash Medication List - Last Reconciled 10/25/24 by Bettie Gordon PA-C acyclovir 400 mg PO TID 14 days amlodipine 5 mg PO DAILY ammonium lactate 12% (AmLactin) 1 appl topical DAILY atorvastatin 40 mg PO BEDTIME budesonide-formoterol 160-4.5 mcg/actuation (Breyna) 2 puffs inhalation buspirone 30 mg PO BID mcsmhjfwtm-uvlwrytnfiiwm-ejlz 50-325-40 mg 1 tab PO Q6H PRN cetirizine (All Day Allergy (cetirizine)) 10 mg PO DAILY PRN cholecalciferol (vitamin D3) 25 mcg PO DAILY cyclobenzaprine 10 mg PO TID PRN 10 days desvenlafaxine succinate ER 100 mg PO DAILY docusate sodium 50 mg PO DAILY famotidine 40 mg PO DAILY ipratropium-albuterol 0.5 mg-3 mg(2.5 mg base)/3 mL 3 mL inhalation Q6-8H PRN lancets (FreeStyle Lancets) As directed latanoprost 0.005% drps ophthalmic (eye) lidocaine 3% 1 appl topical BID PRN lidocaine 5% 1 appl topical DAILY lisinopril 40 mg PO DAILY lorazepam 1 mg PO TID magnesium oxide 400 mg PO DAILY metoprolol succinate ER 100 mg PO DAILY mupirocin 2% 1 appl topical BID nystatin 1 appl topical TID ondansetron HCl 4 mg PO Q8H PRN 30 days [Probiotic gummies .] sennosides (senna) 8.6 mg PO DAILY tirzepatide (weight loss) (Zepbound) 5 mg (0.5 mL) subcut QWEEK Tobacco use date assessed: 10/25/24 Fall risk assessment: 1 Fall in past year Last assessed Fall Risk: 10/25/24 Dental Screening Dental Screen Date: 08/16/24 HPI Ultrasound results/weight loss issues HPI Details Patient is a 69-year-old female with a significant past medical history of asthma, hypertension, anxiety, PTSD, depression, chronic fatigue, fibromyalgia, osteoarthritis, prediabetes, and obesity presenting today for a follow up. Pulm: She was able to get in with [facility] sooner than she was with [facility] so she saw them on 06/22. She is now on supplemental oxygen at night. She was also recently started on Zepbound to help with weight loss but is not tolerating it. Stopped zepbound about 2 weeks ago due to GI upset and fatigue. She states that the shortness on breath is somewhat improved as they switched inhalers and she is now currently trialing Breyna which has been helpful. Psych: She is on Rexulti, buspirone 30 mg b.i.d., lorazepam 1 mg t.i.d., and desvenlafaxine 75 mg daily. No SI/HI. Lives at home by herself. No Si/hi. following with psych. Endo: she is a prediabetic. Her A1c is improved at 5.9. GI: She is getting right upper quadrant pain at times. It is worse with certain movements. Sometimes it feels like it could be exacerbated by diet. CT of the abdomen and pelvis from last year did not show any gallstones. I did order an ultrasound but she states that she wants to get this done at [place] instead of [facility]. Just had u/s done and has not had results. We requested today. Colonoscopy- August 2024, has 2 precancerous polyps- states going back in a couple years Bone density- UTD- 2023 osteopenia s/p total hysterectomy [facility] Medical History (Updated 10/25/24 @ 15:13 by Bettie Gordon PA-C) Dry skin Vertigo Herpes Diverticulitis Prediabetes HTN (hypertension) Colon polyps GERD (gastroesophageal reflux disease) Glaucoma Migraine Chronic fatigue PTSD (post-traumatic stress disorder) Depression FLOYD (generalized anxiety disorder) Osteoarthritis Fibromyalgia Asthma Surgical History H/O right knee surgery Social History (Updated 07/12/24 @ 15:15 by Sharon Gar CMA) Housing: Apartment Alcohol intake: current Patient Tobacco Use Status: Former Tobacco user Cigarette Packs Per Day: 1 Years Smoked: 13 e-Cigarette/Vaping Use: Never Used Second Hand Smoke Exposure: No service: Yes Current occupational status: retired and disabled (Disables ) Cognitive needs: No Hearing needs: Yes (Trouble hearing) Vision needs: Yes (Glasses) Questionnaire Thrive Questionnaire Date Thrive assessed: 03/09/24 I am a: Patient What is your living situation today?: I have a steady place to live Within the past 12 months, did the food you bought not last and you didn't have the money to get more?: Never true Within the past 12 months, did you worry whether your food would run out before you got money to buy more?: I choose not to answer this question Do you have trouble paying for medicines?: Yes Do you have trouble getting transportation to medical appointments?: No Do you have trouble paying your heating and electricity bill?: No Do you have trouble taking care of your child, family member or friend?: I choose not to answer this question Do you have trouble with day-to-day activities such as bathing, preparing meals, shopping, managing finances, etc.?: Yes Are you currently unemployed and looking for a job?: No Are you interested in more education?: No Please select the resources that you would like help with: Paying for medicine THRIVE Score: 0 FLOYD-7 AMB Questionnaire FLOYD-7 Date FLOYD - 7 assessed: 05/11/24 Source: Developed by Drs. Trae Craig, Daisy Henderson, Scott Sanchez and colleagues, with an educational aguila from [employer]. Physical exam (Primary Care) Vital Signs: Last Vital Signs Temp 98.6 F 10/25/24 15:01 Pulse 76 10/25/24 15:01 Resp 16 10/25/24 15:01 BP 118/88 10/25/24 15:01 Pulse Ox 93 10/25/24 15:01 Oxygen Delivery Method Room Air 10/25/24 15:01 BMI result Body Mass Index 41.8 Tobacco/Smoking Status: Tobacco use Status Tobacco use date assessed 10/25/24 10/25/24 15:05 Patient Tobacco Use Status Former Tobacco user 10/25/24 14:53 e-Cigarette/Vaping Use Never Used 10/25/24 14:53 Thrive Assessment: Date of Thrive Assessment Date Thrive assessed 03/09/24 10/25/24 14:53 Const Orientation/consciousness: patient oriented x3 HENMT Ears: hearing grossly normal bilaterally Neck Thyroid: Thyroid normal Lymphatic: no lymphadenopathy noted Resp Auscultation: clear to auscultation bilaterally Cardio Rate: regular rate Rhythm: regular rhythm Heart sounds: S1 normal heart sound present and S2 normal heart sound present GI Inspection: Yes normal to inspection Palpation (GI): Soft to palpation and Other GI palpation findings present (nontender, no cva tenderness) Auscultation: normoactive bowel sounds Rectal Exam - Female: deferred Skin General skin exam: no rashes or lesions noted Neuro General: patient oriented x3, gait normal and no focal motor deficits Coding Level of Care Code Est Pt Level 4 (40674) Complex EM visit Add On G2211 Diagnoses FLOYD (generalized anxiety disorder) F41.1 HTN (hypertension) I10 Prediabetes R73.03 Major depression, recurrent, chronic F33.9 Severe obesity (BMI >= 40) E66.01 Fatigue R53.83 Assessment & Plan Assessment & Plan (1) FLOYD (generalized anxiety disorder): Code(s): F41.1 - Generalized anxiety disorder Category: Medical Plan: Stable. Improving since being off of the Zepbound (2) HTN (hypertension): Code(s): I10 - Essential (primary) hypertension Category: Medical Plan: WNL. Continue current regimen (3) Prediabetes: Code(s): R73.03 - Prediabetes Category: Medical Plan: A1c ordered (4) Major depression, recurrent, chronic: Code(s): F33.9 - Major depressive disorder, recurrent, unspecified Category: Medical Plan: As above. (5) Severe obesity (BMI >= 40): Code(s): E66.01 - Morbid (severe) obesity due to excess calories Category: Medical Plan: Encouraged her to continue to work on diet and weight loss (6) Fatigue: Code(s): R53.83 - Other fatigue Category: Medical Plan: Labs ordered. We will follow up pending test results. Orders: Orders Hemoglobin A1c 10/25/24 E66.01 - Morbid (severe) obesity due to excess calories, F33.9 - Major depressive disorder, recurrent, unspecified, F41.1 - Generalized anxiety disorder, I10 - Essential (primary) hypertension, R53.83 - Other fatigue, R73.01 - Impaired fasting glucose, R73.03 - Prediabetes Ferritin 10/25/24 E66.01 - Morbid (severe) obesity due to excess calories, F33.9 - Major depressive disorder, recurrent, unspecified, F41.1 - Generalized anxiety disorder, I10 - Essential (primary) hypertension, R53.83 - Other fatigue, R73.03 - Prediabetes IRON PROFILE 10/25/24 E66.01 - Morbid (severe) obesity due to excess calories, F33.9 - Major depressive disorder, recurrent, unspecified, F41.1 - Generalized anxiety disorder, I10 - Essential (primary) hypertension, R53.83 - Other fatigue, R73.03 - Prediabetes Complete Blood Count Auto Diff 10/25/24 E66.01 - Morbid (severe) obesity due to excess calories, F33.9 - Major depressive disorder, recurrent, unspecified, F41.1 - Generalized anxiety disorder, I10 - Essential (primary) hypertension, R53.83 - Other fatigue, R73.03 - Prediabetes Comprehensive Met. Panel 10/25/24 E66.01 - Morbid (severe) obesity due to excess calories, F33.9 - Major depressive disorder, recurrent, unspecified, F41.1 - Generalized anxiety disorder, I10 - Essential (primary) hypertension, R53.83 - Other fatigue, R73.03 - Prediabetes TSH reflex Free T4 10/25/24 E66.01 - Morbid (severe) obesity due to excess calories, F33.9 - Major depressive disorder, recurrent, unspecified, F41.1 - Generalized anxiety disorder, I10 - Essential (primary) hypertension, R53.83 - Other fatigue, R73.03 - Prediabetes UA CC w/rflx Micro + Cult 10/25/24 E66.01 - Morbid (severe) obesity due to excess calories, F33.9 - Major depressive disorder, recurrent, unspecified, F41.1 - Generalized anxiety disorder, I10 - Essential (primary) hypertension, R30.0 - Dysuria, R53.83 - Other fatigue, R73.03 - Prediabetes Vitamin B12 and Folate 10/25/24 E66.01 - Morbid (severe) obesity due to excess calories, F33.9 - Major depressive disorder, recurrent, unspecified, F41.1 - Generalized anxiety disorder, I10 - Essential (primary) hypertension, R53.83 - Other fatigue, R73.03 - Prediabetes Magnesium 10/25/24 E66.01 - Morbid (severe) obesity due to excess calories, F33.9 - Major depressive disorder, recurrent, unspecified, F41.1 - Generalized anxiety disorder, I10 - Essential (primary) hypertension, R53.83 - Other fatigue, R73.03 - Prediabetes
[2024-10-25 15:01] VITALS: BP 118/88; PULSE 76; RESP 16; TEMP 37; O2SAT 93; BMI 41.8
--- OUTSIDE RECORDS SUMMARY | 2024-10-25 17:01 | XMS_ITS | Clinical Summary ---
Author Organization [facility] Address [address] [place] [address] Phone Care Team Providers Care Contract Lead Name Role Phone Yulisa Saucedo MD Primary Care Provider Allergies Active Allergy Reactions Criticality Noted Date Comments Amoxicillin 09/23/2023 Cefuroxime 09/23/2023 Celecoxib 09/23/2023 Other Reaction(s): HIVES Chocolate 09/23/2023 Other Reaction(s): migraine STARR Ciprofloxacin 09/23/2023 Other Reaction(s): hallucinations Dexamethasone 09/23/2023 Other Reaction(s): Pins and needles sensation Divalproex 09/23/2023 Other Reaction(s): night terrors Gabapentin 09/23/2023 Other Reaction(s): night terrors Influenza Virus Vaccines 09/23/2023 Other Reaction(s): high fever and swelling Iodinated Contrast Media 09/23/2023 Other Reaction(s): hives Ketorolac 09/23/2023 Levofloxacin 09/23/2023 Other Reaction(s): Heart Palpatations Meperidine 09/23/2023 Other Reaction(s): anaphylaxis Mirtazapine 09/23/2023 Other Reaction(s): swollen neck and rash Nitrate Analogues 09/23/2023 Other Reaction(s): migraine STARR Oxycodone-Acetaminophen 09/23/2023 Other Reaction(s): severe STARR Pantoprazole 09/23/2023 Other Reaction(s): Facial swelling patient has yellow dye allergy --Pantoprazole 40mg (manfacturer: [employer]) contains yellow dye Prochlorperazine 09/23/2023 Other Reaction(s): severe STARR Sulfa (Sulfonamide Antibiotics) 09/23/2023 Other Reaction(s): high temp and rash Sumatriptan 09/23/2023 Other Reaction(s): chest heaviness Tramadol 09/23/2023 Other Reaction(s): generalized itching Valacyclovir 09/23/2023 Other Reaction(s): abd upspet Medications amLODIPine (NORVASC) 5 MG tablet Take 5 mg by mouth. 10/23/2022 Active acyclovir (ZOVIRAX) 400 MG tablet Take 800 mg by mouth. 07/28/2022 Active baclofen (LIORESAL) 20 MG tablet 09/19/2023 Active beclomethasone (BECONASE AQ) 42 mcg (0.042 %) nasal spray by Nasal route. 10/22/2022 Active busPIRone (BUSPAR) 30 MG tablet 09/15/2023 Active ipratropium-albu teroL (DUONEB) 0.5-3 mg (2.5 mg base)/3 mL nebulizer solution Inhale 3 mL into the lungs. 11/24/2022 Active latanoprost (XALATAN) 0.005 % ophthalmic solution 09/08/2023 Active lisinopril (PRINIVIL,ZESTRI L) 40 MG tablet 09/10/2023 Act krystal LORazepam (ATIVAN) 1 MG tablet 09/19/2023 Active metoprolol succinate (TOPROL-XL) 100 MG 24 hr tablet 08/12/2023 Act krystal nystatin (NYSTOP) powder Apply topically. 05/02/2023 Active senna (SENOKOT) 8.6 mg tablet Take 8.6 mg by mouth. 05/04/2023 Active sodium-potassium -magnesium sulfates (SUPREP) 17.5-3.13-1.6 gram SolR 08/16/2023 Active fluocinonide 0.05 % cream 09/20/2023 Active INCRUSE ELLIPTA 62.5 mcg/actuation inhalation 07/06/2023 Active BREZTRI AEROSPHERE 160-9-4.8 mcg/actuation inhaler 08/24/2023 Active butalbital-aceta minophen-caffein e (FIORICET, ESGIC) 50-325-40 mg per tablet Take by mouth. 06/21/2023 Active BREO ELLIPTA 200-25 mcg/dose inhaler 07/02/2023 Active cyclobenzaprine (FLEXERIL) 10 MG tablet Take 1 tablet (10 mg total) by mouth 3 (three) times a day as needed. 30 tablet 09/23/2023 Active Social History Tobacco Use Types Packs/Day Years Used Date Smoking Tobacco: Former Cigarettes Smokeless Tobacco: Never Tobacco Cessation:Counseling Given: Not Answered Education Answer Date Recorded Are you interested in more education? Not on keri e 09/23/2023 Are you concerned about learning? Not on file 09/23/2023 No 09/23/2023 No 09/23/2023 Digital Access Answer Date Recorded No 09/23/2023 No 09/23/2023 Reliable internet access at home? Not on file 09/23/2023 Device with a working camera? Not on file Comments Unknown Sex and Gender Information Value Date Recorded Sex Assigned at Not on file Legal Sex Female 12:46 PM EDT Gender Identity Not on file Sexual Orientation Not on file Last Filed Vital Signs Vital Sign Reading Time Taken Comments Blood Pressure 136/83 09/23/2023 12:57 PM EDT Pulse 78 09/23/2023 12:57 PM EDT Temperature 36.8 C (98.2 F) 09/23/2023 12:57 PM EDT Respiratory Rate 20 09/23/2023 12:57 PM EDT Oxygen Saturation 96% 09/23/2023 12:57 PM EDT Inhaled Oxygen Concentration - - Weight - - Height - - Body Mass Index - - Plan of Treatment Health Maintenance Due Date Last Done Comments Adult Td,Tdap Booster 1953 CREATININE LEVEL 1953 LIPID PANEL 1953 POTASSIUM LEVEL 1953 DEPRESSION SCREENING 1965 SMOKING Hx and SMOKELESS TOB ACCO SCREENING 1966 HEPATITIS C SCREENING 05/24/1971 MAMMOGRAM 1993 COLOGUARD 1998 COLONOSCOPY 1998 COLORECTAL CANCER SCREENING 1998 FIT TEST 1998 FOBT 1998 SIGMOIDOSCOPY 1998 VIRTUAL COLONOSCOPY 1998 PNEUMOCOCCAL VACCINES (50+ y ears) (1 of 1 - PCV) 05/24/2003 ZOSTER VACCINES (1 of 2) 05/24/2003 OSTEOPOROSIS SCREENING INITI AL (ONE-TIME) 2018 COVID-19 VACCINE ( - 2023-2 5 season) 2024 RSV VACCINE (1 - 1-dose 75+ series) 2028 HEPATITIS A VACCINES Aged Out No long er eligible based on patient's age to complete this topic HIB VACCINES Aged Out No longer eligi ble based on patient's age to complete this topic MENINGOCOCCAL VACCINES (ACWY) Aged Out No longer eligible based on patient's age to complete this topic MENINGOCOCCAL VACCINES (B) Aged Out N o longer eligible based on patient's age to complete this topic Medical Devices Not on file Insurance [facility]NA [facility] AETNA PPO MEDICARE REPLACEMENT AETNA PPO MEDICARE REPLACEMENT AETNA O MEDICARE REPLACEMENT AET[employer] PPO MEDICARE REPLACEMENT Care Teams Contract Lead Relationship Specialty Start Date End Date Yulisa Saucedo MD PCP - General Internal Medicine 09/23/23 Additional Source Comments The information contained in this document represents components of the legal health record. It is not the complete legal health record.[facility]
== END 2024-10-25 15:18 | disposition home or self-care (01) ==
LOC: HO.HMCFM 14:43
PROVIDERS: PCP Physician Assistant; Visit Provider Physician Assistant
DX: I10 Essential (primary) hypertension (principal); F41.1 Generalized anxiety disorder; E66.01 Morbid (severe) obesity due to excess calories; Z68.41 Body mass index [BMI] 40.0-44.9, adult; R73.03 Prediabetes; F33.9 Major depressive disorder, recurrent, unspecified; R53.83 Other fatigue

== ENCOUNTER 2025-01-11 11:09 | Outpatient (AMB) | payer MEDICARE, SELFPAY ==
[2025-01-11 11:15] VITALS: BP 112/66; PULSE 72; TEMP 36.9; O2SAT 98; BMI 40.7
--- NOTE | 2025-01-11 11:15 | AM.OFFWIN_ITS ---
Intake Vital Signs 01/11/25 11:15 Height 5 ft 3 in Weight 230 lb BMI 40.7 BP 112/66 Blood Pressure Location Rt brachial Position Sitting Pulse 72 Pulse Source Pulse Oximeter Temp 98.5 F Temp Source Oral Pulse Oximetry (%) 98 Oxygen Delivery Method Room Air Intake Visit Reasons: EP right flank pain pain burning when urination Intake Note: pt presents with non resolving right flank pain x1 mo (xray done at [facility] a couple weeks ago), decreased appetite, extreme burning with voiding and occasional minor lower abdominal pain. [facility] dx UTI after urine C&S, rx'd with pyridium and Cephalexin 500mg BID x7 days. Patient Tobacco Use Status: Former Tobacco user Allergies brexpiprazole (From Rexulti) Allergy (Severe, Verified 08/16/24 13:38) Hives tirzepatide (From Zepbound) Allergy (Intermediate, Verified 10/25/24 14:59) fatigue, headache, nausea, constipation iopromide (From Ultravist) Allergy (Mild, Verified 08/16/24 13:38) REDNESS, SWELLING AROUND NECK amoxapine (AMOXAPINE) Allergy (Unknown, Verified 08/16/24 13:38) OVER EATING amoxicillin (AMOXICILLIN) Allergy (Unknown, Verified 08/16/24 13:38) LOWER GI DISTRESS azithromycin (From ZITHROMAX) Allergy (Unknown, Verified 08/16/24 13:38) DOES NOT WORK blue dye (BLUE DYE) Allergy (Unknown, Verified 08/16/24 13:38) FACIAL SWELLING,TEMP,RASH caffeine (From CAFERGOT) Allergy (Unknown, Verified 08/16/24 13:38) CANT TAKE ANYMORE celecoxib (From CELEBREX) Allergy (Unknown, Verified 08/16/24 13:38) RASH,TEMP ciprofloxacin (CIPROFLOXACIN) Allergy (Unknown, Verified 08/16/24 13:38) HALLUCINATION clarithromycin (From BIAXIN) Allergy (Unknown, Verified 08/16/24 13:38) DOES NOT WORK clavulanic acid (From AUGMENTIN) Allergy (Unknown, Verified 08/16/24 13:38) C-DIFF X 3 divalproex sodium (From DEPAKOTE) Allergy (Unknown, Verified 08/16/24 13:38) NIGHT SCARES ergotamine (From CAFERGOT) Allergy (Unknown, Verified 08/16/24 13:38) UNKNOWN gabapentin (GABAPENTIN) Allergy (Unknown, Verified 08/16/24 13:38) NIGHT SCARES hydroxyzine (HYDROXYZINE) Allergy (Unknown, Verified 08/16/24 13:38) ITCHING influenza virus vaccine, specific (FLU VACCINE) Allergy (Unknown, Verified 08/16/24 13:38) FEVER- PINS/ NEEDLES ALL OVER , RASH Iodinated Contrast Media (IV CONTRAST) Allergy (Unknown, Verified 08/16/24 13:38) HIVES ketorolac (From TORADOL) Allergy (Unknown, Verified 08/16/24 13:38) SEVERE ITCHING levofloxacin (From LEVAQUIN) Allergy (Unknown, Verified 08/16/24 13:38) HEART PALPITATIONS meperidine (From DEMEROL) Allergy (Unknown, Verified 08/16/24 13:38) ANAPHYLAXIS Sulfa (Sulfonamide Antibiotics) (SULFA (SULFONAMIDE ANTIBIOTICS)) Allergy (Unknown, Verified 08/16/24 13:38) ADMITTED WITH HIVES sumatriptan (Imitrex) Allergy (Unknown, Verified 08/16/24 13:38) heart pounding tramadol (From ULTRAM) Allergy (Unknown, Verified 08/16/24 13:38) ITCH trazodone (TRAZODONE) Allergy (Unknown, Verified 08/16/24 13:38) NIGHT SCARES valacyclovir (VALACYCLOVIR) Allergy (Unknown, Verified 08/16/24 13:38) GASTIC UPSET yellow dye (YELLOW DYE) Allergy (Unknown, Verified 08/16/24 13:38) SYSTEMIC ITCHING dexamethasone (From Decadron) Adverse Reaction (Intermediate, Verified 08/16/24 13:38) neck pain naproxen Adverse Reaction (Verified 08/16/24 13:38) Swelling Flu vaccine Allergy (Severe, Uncoded 08/16/24 13:38) Anaphylaxis Amitriptyline Allergy (Unknown, Uncoded 08/16/24 13:38) Unknown Blue and yellow dye Allergy (Unknown, Uncoded 08/16/24 13:38) Swelling Ionic dye Allergy (Unknown, Uncoded 08/16/24 13:38) Rash Do you need a note to return to daycare/school/sports/work: No HPI HPI Comments History of Present Illness Details History of Present Illness - The patient is a 69 year old individua l presenting with symptoms suggestive of a urinary tract infection and possible kidney stone. - The urinary symptoms began approximate ly one month ago, leading to an urgent care visit on December 31, where a urine test was conducted, and the patient was prescribed Keflex for seven days. - The patient completed the antibiotic c ourse on January 07, but symptoms persisted, including a slight fever, loss of appetite, and general malaise. - The patient has a history of a kidney stone and a kidney infection, raising concerns about a recurrent issue. - The patient has been having a constant sharp pain in the right low back and flank. - She has nausea but no vomiting. - She has not been feeling well and she called her PCP this am who suggested going to the ER. - Family history includes a sister with stage 3 chronic kidney disease, increasing the patient's concern about kidney health. - The patient reports chills, hot flashe s, and a weight loss of six pounds, with a blood pressure reading of 112/66 mmHg and a slightly elevated temperature of 98.5?F. - She denies CP, SOB, blood in the urine , diarrhea, or constipation. - She has no vaginal discharge or itchin g. Physical Exam General: Cooperative, uncomfortable, no acute distress and well developed Orientation: Patient oriented x3 Limitations: No limitations Respiratory: Normal respiratory effort and able to speak in complete sentences. Clear to auscultation bilaterally. No w/r/r noted. Cardiovascular: Regular rate and rhythm. Normal S1 and S2. No m/r/g noted. GI: Normal to inspection. Hypoactive BS noted. Soft to palpation and nontender, non-distended. No TTP in all 4 quadrants. No guarding, round tenderness noted. Negative Aneta noted. Negative Rovsing noted. Positive CVA tenderness noted on the right. Skin: Pale, sweating noted. No rashes or lesions noted. Neuro: Patient oriented x3 Patient was informed and verbally consented to the use of an ambient scribe for clinic note documentation during this visit. [facility] Medical History (Updated 10/25/24 @ 15:13 by Bettie Gordon PA-C) Dry skin Vertigo Herpes Diverticulitis Prediabetes HTN (hypertension) Colon polyps GERD (gastroesophageal reflux disease) Glaucoma Migraine Chronic fatigue PTSD (post-traumatic stress disorder) Depression FLOYD (generalized anxiety disorder) Osteoarthritis Fibromyalgia Asthma Surgical History H/O right knee surgery Social History (Updated 07/12/24 @ 15:15 by Sharon Gar CMA) Housing: Apartment Alcohol intake: current Patient Tobacco Use Status: Former Tobacco user Cigarette Packs Per Day: 1 Years Smoked: 13 e-Cigarette/Vaping Use: Never Used Second Hand Smoke Exposure: No service: Yes Current occupational status: retired and disabled (Disables ) Cognitive needs: No Hearing needs: Yes (Trouble hearing) Vision needs: Yes (Glasses) Review of Systems Const All systems reviewed & are unremarkable except as noted in HPI and below Physical Exam Vital Signs: Last Vital Signs Temp 98.5 F 01/11/25 11:15 Pulse 72 01/11/25 11:15 BP 112/66 01/11/25 11:15 Pulse Ox 98 01/11/25 11:15 Oxygen Delivery Method Room Air 01/11/25 11:15 BMI result Body Mass Index 40.7 Results AMB Urinalysis, Automated UA Leukoctes 70 Isa/uL Last Edit by Cari Sarkar CMA on 01/11/25 11:58 UA Nitrite Negative Last Edit by Cari Sarkar CMA on 01/11/25 11:58 UA Urobilinogen 0.2 mg/dL Last Edit by Cari Sarkar CMA on 01/11/25 11: 58 UA Protein 15 mg/dL Last Edit by Cari Sarkar CMA on 01/11/25 11:58 UA pH 6.0 Last Edit by Cari Sarkar CMA on 01/11/25 11:58 UA Blood 200 Omero/uL Last Edit by Cari Sarkar CMA on 01/11/25 11:58 UA Specific [place] 1.015 Last Edit by Cari Sarkar CMA on 01/11/25 11 :58 UA Ketone Negative Last Edit by Cari Sarkar CMA on 01/11/25 11:58 UA Bilirubin 0 mg/dL Last Edit by Cari Sarkar CMA on 01/11/25 11:58 UA Glucose 0 mg/dL Last Edit by Cari Sarkar CMA on 01/11/25 11:58 Results Reviewed Results Reviewed: Laboratory Last Values Urine pH (Auto) 6.0 01/11/25 11:56 Specific [place] (Auto) 1.015 01/11/25 11:56 Urine Protein (Auto) 15 mg/dL 01/11/25 11:56 Glucose (UA)(Auto) 0 mg/dL 01/11/25 11:56 Urine Ketones (Auto) Negative 01/11/25 11:56 Urine Blood (Auto) 200 [place]mero/uL H* 01/11/25 11:56 Urine Nitrite (Auto) Negative 01/11/25 11:56 Urine Bilirubin (Auto) 0 mg/dL 01/11/25 11:56 Urine Urobilinogen (Auto) 0.2 mg/dL 01/11/25 11:56 Leukocyte Esterase (Auto) 70 Isa/uL H* 01/11/25 11:56 Assessment & Plan Assessment & Plan (1) Dysuria: Code(s): R30.0 - Dysuria (2) Hematuria: Code(s): R31.9 - Hematuria, unspecified Qualifiers: Hematuria type: other microscopic Qualified Code(s): R31.29 - Other microscopic hematuria Plan Most likely UTI vs pyelonephritis vs nephrolithiasis UA 1+leuko, +pro, 3+ blood plan - The patient was treated with a seven-day course of Keflex, which did not resolve the symptoms. - Further evaluation in the emergency department is recommended for potential intravenous antibiotics and imaging to assess for complications such as pyelonephritis or kidney stones. - Pt is unable to drive herself due to her symptoms - will call her an ambulance - called in an expect to ER Orders: Orders AMB Urinalysis Automated Today Z13.9 - Encounter for screening, unspecified Coding Level of Care Code Est Pt Level 3 (19859) Diagnoses Dysuria R30.0 Other microscopic hematuria R31.29 Hematuria type: other microscopic
--- OUTSIDE RECORDS SUMMARY | 2025-01-11 17:17 | XMS_ITS | Data Portability ---
Author Organization [place] [facility], [facility] Address [address] [place] [address] Care Team Providers Care Machine Tester Name Role Phone IRIS SNOWDEN Primary Care [...] Ag, QL IA, respiratory specimen 2021 [email or web address] [facility] - Home, [address] [place] [address], [address], 18:59:01 Referral None recorded. Procedures None recorded. Surgeries None recorded. Imaging None recorded. Medication Orders doxycycline hyclate 100 mg tablet 2021 [facility]/Pharmacy #[id number], [address], [place], [address], 18:31:31 Patient TargetsNo targets recorded. Patient InstructionsNo instructions recorded. Reason for Referral None Reported. Results Created Date Observation Date Name Description Value Unit Range Abnormal Flag Note LastModifiedBy Organization Detail LastModifiedTime 12/12/19 22 12/11/2021 rapid SARS CoV 2 Ag, QL IA, respi rator y speci men Covid-19 (ref: neg) negati ve Not Available Spr - Home [address] [place], [address], 12/11/2021 18:57:23 12/12/19 22 12/11/2021 rapid SARS CoV 2 Ag, QL IA, respi rator y speci men Control Visual ized/V alid Not Available Spr - Home [address] [place], [address], 12/11/2021 18:57:23 12/12/19 22 12/11/2021 rapid SARS CoV 2 Ag, QL IA, respi rator y speci men [facility], [address] [place] [address], [phone] Not Available Spr - Home [address] [place], [address], 12/11/2021 18:57:23 12/12/19 22 12/11/2021 rapid SARS CoV 2 Ag, QL IA, respi rator y speci men Language Englis h Not Available Spr - Home [address] [place], [address], 12/11/2021 18:57:23 Result Notes None recorded. Medical Equipment None Reported. Allergies Allergen ID Allergen Name Allergen Category Reaction Reaction Severity Criticality Documentation Date Start Date Code Code System Note Provider Name and Address Organization Details Recorded Time 384875 blue dye medicatio n Not available Not available low 12/11/2021 CHER QUACH NP [address] [place], [address], [place] [facility] 17:54:40 [id number] Levaquin medicatio n palpitati ons Not available low 12/11/2021 58677 2 RxNorm CHER QUACH NP [address] [facility] [place], [address], [place] [facility] 2 17:54:56 742749 Substance with sulfonami de structure and antibacte rial mechanism of action (substanc e) medicatio n fever Not available low 12/11/2021 85226 8003 SNOMED CHER QUACH, ELECTRICAL APPLIANCE MECHANIC [address], [facility] [place], [address], [place] [facility] 2 17:55:10 [id number] Cipro medicatio n palpitati ons Not available low 12/11/2021 08228 3 RxNorm CHER QUACH, ELECTRICAL APPLIANCE MECHANIC [address], [facility] [place], [address], [place] [facility] [...] t Available Vitals Date Recorded Oxygen saturation Respiratory rate Body temperature Heart rate Systolic And Diastolic Provider Name and Address Organization Details Last Updated DateTime 2 97 % 16 /min 98.3 [degF] 88 /min 146/84 mm[Hg] Not Available [facility] 2 18:01:16 [...] Diagnosis SNOMED-CT Code Diagnosis ICD10 Code Diagnosis IMO Codes Diagnosis Note [id number] CHER QUACH NP [facility] - HOME [address] [place] [address] 12/11/2021 17:53:14 12/12/2021 14:07:43 Acute bacterial sinusitis 65966858 J01.90 Viral syndrome 057129756 B34.9 Health Concerns Section Related Observation LastModified by Organization Detai ls LastModified Time None Recorded Concern Status LastModified by Organization Details LastModified Time None Recorded Advance Directives Directive None Recorded Payers Insurance Date Sequence Insurance Name Policy Number Policy Mims Covered Member ID Mims Member ID Guarantor Name 12/11/2021 1 *SELF PAY* Yas Walsh [id number] Yas Walsh 12/16/2021 1 MEDICARE B-[place] [employer] Yas Walsh [id number] Yas Tinocorid Notes Date Note Type Note Provider Name and Address Organization Details Recorded Time 12/11/2021 text/html 66 year-old female with history of HTN, HLD, depression, anxiety, [...] septum. CHER QUACH NP [address], [place], [address], [place] [facility] 12/11/2021 19:34:23 OBGyn Episode No OBEpisode recorded.
--- OUTSIDE RECORDS SUMMARY | 2025-01-11 17:18 | XMS_ITS | Clinical Summary ---
Author Organization [facility] Address [address] [place] [address] Phone Care Team Providers Care Ent Consultant Name Role Phone Yulisa Saucedo MD Primary [...] SCREENING INITI AL (ONE-TIME) 2018 COVID-19 VACCINE (2024-2 6 season) 2024 RSV VACCINE (1 - 1-dose 75+ series) 2028 HEPATITIS A VACCINES Aged Out No long er eligible based on patient's age to complete this topic HIB VACCINES Aged Out No longer eligi ble based on patient's age to complete this topic IPV VACCINES Aged Out No longer eligi ble based on patient's age to complete this topic MENINGOCOCCAL VACCINES (ACWY) Aged Out No longer eligible based on patient's age to complete this topic MENINGOCOCCAL VACCINES (B) Aged Out N o longer eligible based on patient's age to complete this topic Medical Devices Not on file Insurance AETNA O MEDICARE REPLACEMENT AETNA O MEDICARE REPLACEMENT AETNA O MEDICARE REPLACEMENT AETNA PPO MEDICARE REPLACEMENT AETNA O MEDICARE REPLACEMENT AETNA PPO MEDICARE REPLACEMENT Care Teams Ent Consultant Relationship Specialty Start Date End Date Yulisa Saucedo MD PCP - General Internal Medicine 09/23/23 Additional Source Comments The information contained in this document represents components of the legal health record. It is not the complete legal health record.[facility]
== END 2025-01-11 13:32 | disposition home or self-care (01) ==
PROVIDERS: PCP Physician Assistant; Visit Provider Physician Assistant Medical
DX: R30.0 Dysuria (principal); R31.29 Other microscopic hematuria; Z13.9 Encounter for screening, unspecified

== ENCOUNTER 2025-01-11 13:26 | Emergency (ER) | payer OTHER, SELFPAY ==
[2025-01-11] VITALS (7 sets, daily range): BP systolic 126–149; BP diastolic 60–90; PULSE 64–74; RESP 14–18; TEMP 36.6–36.7; O2SAT 93–97; BMI 40.7
--- NOTE | ~2025-01-11 | CT_ITS ---
CLINICAL HISTORY: Right flank pain CT abdomen and pelvis without contrast Comparison: None provided Findings: Limited evaluation without contrast. The lung bases are clear. The gallbladder is unremarkable. No biliary ductal dilatation. Unenhanced liver, spleen and pancreas within normal limits. Adrenal glands are normal. No stones in bilateral kidneys or along the course of the ureters with no hydronephrosis or hydroureter. No bowel obstruction, pneumoperitoneum, or pneumatosis. Previous sigmoid colon surgery with surgical anastomosis. Diverticulosis with no evidence of acute diverticulitis. No free fluid. Appendix not visualized. No pericecal inflammatory changes. Uterus is surgically absent. Urinary bladder only slightly filled in appears within normal limits. Atherosclerotic vascular disease with no aneurysm of the abdominal aorta. No acute fracture. Degenerative changes of the spine. IMPRESSION: 1. No acute findings. No renal or ureteral stones with no hydronephrosis or hydroureter bilaterally. 2. Previous colonic surgery. Diverticulosis with no evidence of acute diverticulitis. This document has been electronically signed by: Hortnesia Torres MD on 01/11/2025 17:57:08
[2025-01-11 14:08] LABS: MANUAL DIFF FLAG NO
[2025-01-11 14:11] LABS: Hematocrit 42.5 % (37.0-47.0); Hemoglobin 13.9 g/dl (12.0-16.0); Imm Gran Abs Auto 0.03 X10*3/uL (0.00-0.03); Imm Gran Pct Auto 0.2 % (0.0-0.4); Lymphocytes Absolute Auto 3.3 X10*3/uL (1.2-4.9); Mean Corpuscular HGB Conc 32.7 g/dl (31.0-35.0); Mean Corpuscular Hemoglobin 29.7 pg (27.0-33.0); Mean Corpuscular Volume 90.8 fL (80.0-98.0); NRBC Abs Auto 0.000 X10*3/uL (0.0-0.012); NRBC Pct Auto 0.0 /100WBC (0.0-0.2); Platelet Count 285 X10*3/uL (160-400); Red Blood Count 4.68 X10*6/uL (4.20-5.50); White Blood Count 13.3 X10*3/uL (4.8-10.8)
[2025-01-11 14:14] LABS: Appearance Urine Clear; Glucose Urine UA Negative (Negative); PH 6.5 (5.0-9.0); Specific Gravity - Urine <= 1.005 (1.005-1.025); UMIC TRIGGER UACC YES
[2025-01-11 14:27] LABS: Alanine Aminotransferase 19 U/L (0-31); Albumin Level 4.3 g/dL (3.5-5.0); Alkaline Phosphatase 120 U/L (39-117); Anion Gap 14 (12-20); Aspartate Amino Transferase 28 U/L (5-31); Blood Urea Nitrogen 8 mg/dL (9-16); Calcium 9.5 mg/dL (8.4-10.2); Carbon Dioxide 25 mmol/L (22-29); Chloride 106 mmol/L (96-108); Creatinine Clr Calc Pharmacy 75.4; Estimated Glomerular Filt Rate > 60; Potassium 4.1 mmol/L (3.3-5.1); Sodium 141 mmol/L (135-145); Total Protein 6.8 g/dL (6.5-8.0); UACC Culture Trigger YES
--- NOTE | 2025-01-11 15:16 | ED.GENADULT ---
HPI - General Adult General Chief complaint: Abdominal Pain Stated complaint: abd pain coming from [facility] Time Seen by Provider: 01/11/25 14:38 Source: patient and EMS Mode of arrival: EMS Limitations: no limitations History of Present Illness ED Provider: KARRIE BARLOW PA-C HPI narrative: 69 y/o female with pmhx significant for HTN, FLOYD, MDD, asthma, LUIGI presents to the ED today via EMS for evaluation of right flank pain x1 month. Pain is localized to her right flank, no radiation. She reports associated dysuria, increased urinary frequency and urgency. She was evaluated for same at urgent care approx 1 month ago. She was treated with keflex and pyridium x7 days for UTI. Reports completing these antibiotics on 01/03/25. Her symptoms shortly returned. Reports associated anxiety surrounding symptoms. She typically takes ativan for this at home however missed her afternoon dose today. Admits to chronic constipation s/p partial colectomy secondary to complicated diverticulitis in 2002. She is able to pass BMs w/ laxatives into stool softeners. Her last BM was this morning. She is passing flatus. Her last colonoscopy was 1 month ago - reportedly had a few polyps removed. Denies abdominal pain, nausea, vomiting, dizziness, lightheadedness, chest pain, or shortness of breath, melena, BRBPR. Related Data Home Medications ?Medication ?Instructions ?Recorded ?Confirmed buspirone 30 mg tablet 30 mg PO BID 08/04/23 10/25/24 lancets 28 gauge (FreeStyle #100 ea 08/04/23 10/25/24 Lancets) latanoprost 0.005 % eye drops drp ophthalmic (eye) 08/04/23 10/25/24 lorazepam 1 mg tablet 1 mg PO TID 08/04/23 10/25/24 Probiotic gummies .Route 11/04/23 10/25/24 cetirizine 10 mg tablet (All Day 10 mg PO DAILY PRN 11/04/23 10/25/24 Allergy (cetirizine)) cholecalciferol (vitamin D3) 25 25 mcg PO DAILY 11/04/23 10/25/24 mcg (1,000 unit) capsule lidocaine 3 % topical cream 1 appl topical BID PRN 11/04/23 10/25/24 lidocaine 5 % topical ointment 1 appl topical DAILY 11/04/23 10/25/24 magnesium oxide 400 mg PO DAILY 11/04/23 10/25/24 sennosides 8.6 mg capsule (senna) 8.6 mg PO DAILY 11/04/23 10/25/24 desvenlafaxine succinate 100 mg 100 mg PO DAILY 03/29/24 10/25/24 tablet,extended release 24 hr docusate sodium 50 mg capsule 50 mg PO DAILY 06/07/24 10/25/24 budesonide-formoterol HFA 160 2 puff inhalation 07/06/24 10/25/24 mcg-4.5 mcg/actuation aerosol inhaler (Breyna) acetaminophen 650 mg 650 mg PO Q8H PRN 01/11/25 tablet,extended release (Tylenol Arthritis Pain) glucosamine-chondroitin 250 mg-200 1 tab PO ONCE 01/11/25 mg tablet ibuprofen 200 mg capsule 200 mg PO Q6H PRN 01/11/25 Previous Rx's ?Medication ?Instructions ?Recorded mupirocin 2 % topical ointment 1 appl topical BID #22 grams 11/12/23 nystatin 100,000 unit/gram topical 1 appl topical TID #60 grams 11/12/23 powder famotidine 40 mg tablet 40 mg PO DAILY #90 tabs 12/08/23 ammonium lactate 12 % lotion 1 appl topical DAILY #225 grams 05/11/24 (AmLactin) acyclovir 400 mg tablet 400 mg PO TID 14 days #42 tabs 07/04/24 ipratropium 0.5 mg-albuterol 3 mg 3 ml inhalation Q6-8H PRN wheezing 07/06/24 (2.5 mg base)/3 mL nebulization #90 mL soln atorvastatin 40 mg tablet 40 mg PO BEDTIME #90 tabs 07/24/24 ondansetron HCl 4 mg tablet 4 mg PO Q8H PRN nausea and 08/16/24 vomiting 30 days #30 tabs tirzepatide (weight loss) 5 mg/0.5 5 mg (0.5 mL) subcut QWEEK #2 mL 09/06/24 mL subcutaneous pen injector (Zepbound) lisinopril 40 mg tablet 40 mg PO DAILY #90 tabs 09/18/24 metoprolol succinate 100 mg 100 mg PO DAILY #90 tabs 10/16/24 tablet,extended release 24 hr amlodipine 5 mg tablet 5 mg PO DAILY #90 tabs 11/02/24 eehovwanic-koespryvbfpmh-qafotrcf 1 tab PO Q6H PRN pain #112 tabs 12/18/24 50 mg-325 mg-40 mg tablet acetaminophen 500 mg tablet 500 mg PO Q8H PRN pain #21 tabs 01/11/25 (Acetaminophen Extra Strength) Allergies Allergy/AdvReac Type Severity Reaction Status Date / Time brexpiprazole (From Rexulti) Allergy Severe Hives Verified 01/11/25 13:39 tirzepatide (From Zepbound) Allergy Intermediate fatigue, Verified 01/11/25 13:39 headache, nausea, constipation iopromide (From Ultravist) Allergy Mild REDNESS, Verified 01/11/25 13:39 SWELLING AROUND NECK amoxapine (AMOXAPINE) Allergy Unknown OVER EATING Verified 01/11/25 13:39 amoxicillin (AMOXICILLIN) Allergy Unknown LOWER GI Verified 01/11/25 13:39 DISTRESS azithromycin (From ZITHROMAX) Allergy Unknown DOES NOT Verified 01/11/25 13:39 WORK blue dye (BLUE DYE) Allergy Unknown FACIAL Verified 01/11/25 13:39 SWELLING,TEMP,RASH caffeine (From CAFERGOT) Allergy Unknown CANT TAKE Verified 01/11/25 13:39 ANYMORE celecoxib (From CELEBREX) Allergy Unknown RASH,TEMP Verified 01/11/25 13:39 ciprofloxacin (CIPROFLOXACIN) Allergy Unknown HALLUCINATI Verified 01/11/25 13:39 ON clarithromycin (From BIAXIN) Allergy Unknown DOES NOT Verified 01/11/25 13:39 WORK clavulanic acid (From Allergy Unknown C-DIFF X 3 Verified 01/11/25 13:39 AUGMENTIN) divalproex sodium (From Allergy Unknown NIGHT Verified 01/11/25 13:39 DEPAKOTE) SCARES ergotamine (From CAFERGOT) Allergy Unknown UNKNOWN Verified 01/11/25 13:39 gabapentin (GABAPENTIN) Allergy Unknown NIGHT Verified 01/11/25 13:39 SCARES hydroxyzine (HYDROXYZINE) Allergy Unknown ITCHING Verified 01/11/25 13:39 influenza virus vaccine, Allergy Unknown FEVER- Verified 01/11/25 13:39 specific (FLU VACCINE) PINS/ NEEDLES ALL OVER , RASH Iodinated Contrast Media (IV Allergy Unknown HIVES Verified 01/11/25 13:39 CONTRAST) ketorolac (From TORADOL) Allergy Unknown SEVERE Verified 01/11/25 13:39 ITCHING levofloxacin (From LEVAQUIN) Allergy Unknown HEART Verified 01/11/25 13:39 PALPITATIONS meperidine (From DEMEROL) Allergy Unknown ANAPHYLAXIS Verified 01/11/25 13:39 Sulfa (Sulfonamide Allergy Unknown ADMITTED Verified 01/11/25 13:39 Antibiotics) (SULFA WITH HIVES (SULFONAMIDE ANTIBIOTICS)) sumatriptan (Imitrex) Allergy Unknown heart Verified 01/11/25 13:39 pounding tramadol (From ULTRAM) Allergy Unknown ITCH Verified 01/11/25 13:39 trazodone (TRAZODONE) Allergy Unknown NIGHT Verified 01/11/25 13:39 SCARES valacyclovir (VALACYCLOVIR) Allergy Unknown GASTIC Verified 01/11/25 13:39 UPSET yellow dye (YELLOW DYE) Allergy Unknown SYSTEMIC Verified 01/11/25 13:39 ITCHING dexamethasone (From Decadron) AdvReac Intermediate neck pain Verified 01/11/25 13:39 naproxen AdvReac Swelling Verified 01/11/25 13:39 Flu vaccine Allergy Severe Anaphylaxis Uncoded 08/16/24 13:38 Amitriptyline Allergy Unknown Unknown Uncoded 08/16/24 13:38 Blue and yellow dye Allergy Unknown Swelling Uncoded 08/16/24 13:38 Ionic dye Allergy Unknown Rash Uncoded 08/16/24 13:38 Review of Systems Review of Systems: Yes all other systems are reviewed and are negative PMFSH Past Medical History Attestation statement: The following information was validated with the patient. Source: old records reviewed and nursing notes reviewed Medical History Dry skin Vertigo Herpes Diverticulitis Prediabetes HTN (hypertension) Colon polyps GERD (gastroesophageal reflux disease) Glaucoma Migraine Chronic fatigue PTSD (post-traumatic stress disorder) Depression FLOYD (generalized anxiety disorder) Osteoarthritis Fibromyalgia Asthma Surgical History H/O right knee surgery Social History Social History Housing: Apartment Alcohol intake: current Patient Tobacco Use Status: Former Tobacco user Cigarette Packs Per Day: 1 Years Smoked: 13 e-Cigarette/Vaping Use: Never Used Second Hand Smoke Exposure: No service: Yes Current occupational status: retired and disabled (Disables ) Cognitive needs: No Hearing needs: Yes (Trouble hearing) Vision needs: Yes (Glasses) Physical Exam ED Vital Signs: Vital Signs - 24 hr 01/11/25 13:35 01/11/25 14:28 01/11/25 16:30 Temperature 98.1 F 97.9 F 98.0 F Pulse Rate 68 71 70 Respiratory Rate 16 18 14 Blood Pressure 149/62 H 126/64 131/65 Pulse Oximetry 95 93 97 Oxygen Delivery Method Room Air Room Air Room Air 01/11/25 16:35 Temperature Pulse Rate Respiratory Rate 18 Blood Pressure Pulse Oximetry Oxygen Delivery Method BMI result Body Mass Index 40.7 vital signs stable, afebrile General: Well appearing, in no acute distress. Skin: Warm, dry, intact. No rashes or lesions. Head: Normocephalic, atraumatic. EENT: Hearing is intact b/l. Conjunctiva clear. PERRLA. EOM intact. Moist mucous membranes.? Neck: Supple without LAD Cardiac: Chest wall symmetric. RRR Lungs: Normal respiratory effort without accessory muscle use. CTA bilaterally. Abdomen: Obese abdomen, nondistended, nontender, no rebound or guarding, active bowel sounds throughout. +right CVAT. Back: No midline spinous or paraspinal tenderness. No step off deformity. Ext: Upper and lower extremities atraumatic, without tenderness, deformity, swelling or erythema Neuro: AOx3. Normal speech. Ambulating with steady gait. assisted by cane. Course Course Course Narrative: 1640 -- CBC with slight leukocytosis to 13.3, no left shift. No anemia, H and H stable. Chemistry without acute electrolyte abnormality requiring intervention. No DEBBIE. Liver function at baseline. Urine showing moderate blood, large leukocytes, trace urine bacteria. Little squamous epithelial cells. > CT abdomen pending > medicated w/ IV tylenol and dilaudid for pain control - various allergies to pain medications 1700 -- Patient is stable at this time. Sign out given to Jayson MARTÍNEZ pending imaging and disposition. Reevaluation(s) Reevaluation #1: Patient's CAT scan negative for signs of pyelonephritis, kidney stones, hydronephrosis, or ureter obstruction. Negative for any emergent abdominal emergency. Patient's pain is controlled. Patient informed to follow up with Urology and will be discharged with pain medication. UA negative for infection. patient explained worrisome signs and informed to return to the ED. Time: 19:32 Medications Administered Discontinued Medications Generic Name Dose Route Start Last Admin Trade Name Dory PRN Reason Stop Dose Admin Diazepam 5 mg 01/11/25 15:08 01/11/25 15:34 Diazepam 10 Mg/2 Ml Cartridge IVPUSH 01/11/25 15:09 5 mg STAT STA Administration Hydromorphone HCl 1 mg 01/11/25 16:15 01/11/25 16:35 Hydromorphone Hcl 1 Mg/Ml Syringe IVPUSH 01/11/25 16:16 1 mg ONCE ONE Administration Protocol Acetaminophen 1,000 mg in 100 mls @ 400 mls/hr 01/11/25 15:08 01/11/25 15:57 Ofirmev IV 01/11/25 15:22 Infused ONCE ONE Infusion Sodium Chloride 1,000 mls @ 999 mls/hr 01/11/25 16:45 01/11/25 18:08 Ns IV 01/11/25 17:45 Infused .Q1H1M NOEMÍ Infusion Medical Decision Making Medical Decision Making [facility] Narrative: 69 y/o female with pmhx significant for HTN, FLOYD, MDD, asthma, LUIGI presents to the ED today via EMS for evaluation of right flank pain x1 month. hypertensive, vitals are otherwise wnl. Abdomen is obese, soft, nondistended, nontender to palpation, no rebound or guarding. There is right CVAT. Differetial diagnosis includes UTI, renal colic, nephrolithiasis, hydronephrosis, pyelonephoritis, constipation Lower suspicion for acute abdomen, bowel obstruction. Plan for labs, UA, imaging, pain control, re-evaluation. Differential Diagnosis Differential Diagnoses: The differential diagnosis associated with the presentation includes as above. Admission/Observation Consideration of admission/observation: Escalation of care including admission/observation considered Lab Data [facility] Lab Attestation statement: I reviewed the patient's lab results. as above. 01/11/25 14:00 01/11/25 14:00 Labs: Lab Results 01/11/25 Range/Units 14:00 WBC 13.3 H (4.8-10.8) X10*3/uL RBC 4.68 (4.20-5.50) X10*6/uL Hgb 13.9 (12.0-16.0) g/dl Hct 42.5 (37.0-47.0) % MCV 90.8 (80.0-98.0) fL MCH 29.7 (27.0-33.0) pg MCHC 32.7 (31.0-35.0) g/dl RDW 13.3 (11.0-16.0) % Plt Count 285 (160-400) X10*3/uL MPV 9.3 L (9.4-12.3) fL Immature Gran % (Auto) 0.2 (0.0-0.4) % Neut % (Auto) 66.4 (45-73) % Lymph % (Auto) 25.0 (20-40) % Campbell % (Auto) 6.4 (2-11) % Eos % (Auto) 1.6 (0-4) % Baso % (Auto) 0.4 (0-2) % Lymph # (Auto) 3.3 (1.2-4.9) X10*3/uL Campbell # (Auto) 0.9 (0.1-1.2) X10*3/uL Eos # (Auto) 0.2 (0.0-0.4) X10*3/uL Baso # (Auto) 0.1 (0.0-0.2) X10*3/uL Abs Immat Gran (auto) 0.03 (0.00-0.03) X10*3/uL Absolute Neuts (auto) 8.8 H (2.0-8.3) x10*3/uL Absolute Nucleated RBC 0.000 (0.0-0.012) X10*3/uL Nucleated RBC % (auto) 0.0 (0.0-0.2) /100WBC Sodium 141 (135-145) mmol/L Potassium 4.1 (3.3-5.1) mmol/L Chloride 106 (96-108) mmol/L Carbon Dioxide 25 (22-29) mmol/L Anion Gap 14 (12-20) BUN 8 L (9-16) mg/dL Creatinine 0.79 (0.5-1.4) mg/dL Estim Creat Clear Calc 75.4 Estimated GFR > 60 Random Glucose 111 (60-115) mg/dL Calcium 9.5 (8.4-10.2) mg/dL Total Bilirubin 0.4 (0.0-1.0) mg/dL AST 28 (5-31) U/L ALT 19 (0-31) U/L Alkaline Phosphatase 120 H (39-117) U/L Total Protein 6.8 (6.5-8.0) g/dL Albumin 4.3 (3.5-5.0) g/dL Urine Color Yellow Urine Appearance Clear Urine pH 6.5 (5.0-9.0) Ur Specific [place] <= 1.005 (1.005-1.025) Urine Protein Negative (Neg-Trace) mg/dL Urine Glucose (UA) Negative (Negative) mg/dL Urine Ketones Negative (Negative) mg/dL Urine Blood Moderate (2+) H (Negative) Urine Nitrite Negative (Negative) Ur Leukocyte Esterase Large (3+) H (Negative) Urine RBC 0-2 (0-2) /HPF Urine WBC 11-20 (0-5) /HPF Ur Squamous Epith Cells 0-2 (0-2) /HPF Urine Bacteria Trace (None Seen) Hyaline Casts 0-2 (0-2) /LPF Independent Interpretation I performed an independent interpretation of an: CT Scan Interpretation: ct a/p w/o obstructing ureteral stone Radiology Impression Discussion of test interpretation with radiology: I have reviewed the radiologist's reading. Radiologist Impression: Procedure(s): CT abdomen pelvis wo IV con Accession Number(s): [id number] cc: Karrie Camacho~ Report Number: [id number]: Total DLP = 935.00 mGy-cm Reason for Exam: Right flank pain CLINICAL HISTORY: Right flank pain CT abdomen and pelvis without contrast Comparison: None provided Findings: Limited evaluation without contrast. The lung bases are clear. The gallbladder is unremarkable. No biliary ductal dilatation. Unenhanced liver, spleen and pancreas within normal limits. Adrenal glands are normal. No stones in bilateral kidneys or along the course of the ureters with no hydronephrosis or hydroureter. No bowel obstruction, pneumoperitoneum, or pneumatosis. Previous sigmoid colon surgery with surgical anastomosis. Diverticulosis with no evidence of acute diverticulitis. No free fluid. Appendix not visualized. No pericecal inflammatory changes. Uterus is surgically absent. Urinary bladder only slightly filled in appears within normal limits. Atherosclerotic vascular disease with no aneurysm of the abdominal aorta. No acute fracture. Degenerative changes of the spine. IMPRESSION: 1. No acute findings. No renal or ureteral stones with no hydronephrosis or hydroureter bilaterally. 2. Previous colonic surgery. Diverticulosis with no evidence of acute diverticulitis. This document has been electronically signed by: Hortensia Torres MD on 01/11/2025 17:57:08 Independent Historian Clinical information obtained from an independent historian. History obtained from or confirmed by: EMS External Record Review External record reviewed: Inpatient record Prescription Management I considered prescription management with: Pain Medication and Antibiotic Social Determinants Patient?s care significantly limited by Social Determinants of Health including: Other Social Determinant of Health Critical Care Time Critical Care Time Critical Care Time: Yes Total Critical Care Time: 31 Attestation: Critical care time in the amount of 31 minutes has been provided to the patient in terms of direct patient care, frequent reevaluation on IV dilaudid, review and interpretation of medical data and results, and management of potentially life-threatening conditions. This is all outside of any medical procedures. Discharge Plan Discharge Clinical Impression: Dysuria, Flank pain Patient Disposition: Home, Self-Care Instructions: Dysuria (ED), Flank Pain (ED) Additional Instructions: Labs UA CT scan came back reassuring. Recommend follow up with primary care provider and urologist. Return to the ED immediately for any nausea, vomiting, abdominal pain, fever, chills, flank pain, rash, urinary/bowel incontinence, inability to walk, or any other concerning symptoms. Ordering Physician: Karrie Barlow Date of Service: 01/11/25 Procedure(s): CT abdomen pelvis wo IV con Accession Number(s): [id number] cc: Bettie Gordon; Karrie Barlow~ Report Number: [id number]: Total DLP = 935.00 mGy-cm Reason for Exam: Right flank pain CLINICAL HISTORY: Right flank pain CT abdomen and pelvis without contrast Comparison: None provided Findings: Limited evaluation without contrast. The lung bases are clear. The gallbladder is unremarkable. No biliary ductal dilatation. Unenhanced liver, spleen and pancreas within normal limits. Adrenal glands are normal. No stones in bilateral kidneys or along the course of the ureters with no hydronephrosis or hydroureter. No bowel obstruction, pneumoperitoneum, or pneumatosis. Previous sigmoid colon surgery with surgical anastomosis. Diverticulosis with no evidence of acute diverticulitis. No free fluid. Appendix not visualized. No pericecal inflammatory changes. Uterus is surgically absent. Urinary bladder only slightly filled in appears within normal limits. Atherosclerotic vascular disease with no aneurysm of the abdominal aorta. No acute fracture. Degenerative changes of the spine. IMPRESSION: 1. No acute findings. No renal or ureteral stones with no hydronephrosis or hydroureter bilaterally. 2. Previous colonic surgery. Diverticulosis with no evidence of acute diverticulitis. This document has been electronically signed by: Hortensia Torres MD on 01/11/2025 17:57:08 Prescriptions: New acetaminophen [Acetaminophen Extra Strength] 500 mg tablet 500 mg PO Q8H PRN (Reason: pain) Qty: 21 0RF No Action nystatin 100,000 unit/gram powder 1 appl topical TID Qty: 60 1RF acyclovir 400 mg tablet 400 mg PO TID 14 Days Qty: 42 0RF atorvastatin 40 mg tablet 40 mg PO BEDTIME Qty: 90 3RF Zepbound 5 mg/0.5 mL pen injector 5 mg subcut QWEEK Qty: 2 4RF lisinopril 40 mg tablet 40 mg PO DAILY Qty: 90 3RF metoprolol succinate 100 mg tablet extended release 24 hr 100 mg PO DAILY Qty: 90 1RF amlodipine 5 mg tablet 5 mg PO DAILY Qty: 90 1RF xjfrkznjdu-yhtesebppjiyg-kduc 50-325-40 mg tablet 1 tab PO Q6H PRN (Reason: pain) Qty: 112 0RF Rx Instructions: Allergy to blue dye Ok for caffeine Pay out of pocket if not covered by insurance Partial fill upon patient request lorazepam 1 mg tablet 1 mg PO TID buspirone 30 mg tablet 30 mg PO BID latanoprost 0.005 % drops ophthalmic (eye) (DME) lancets [FreeStyle Lancets] 28 gauge misc See Rx Instructions .ROUTE BID Qty: 100 Rx Instructions: As directed cetirizine [All Day Allergy (cetirizine)] 10 mg tablet 10 mg PO DAILY PRN senna 8.6 mg capsule 8.6 mg PO DAILY magnesium oxide 400 mg magnesium capsule 400 mg PO DAILY cholecalciferol (vitamin D3) 25 mcg (1,000 unit) capsule 25 mcg PO DAILY lidocaine 3 % cream 1 appl topical BID PRN lidocaine 5 % ointment 1 appl topical DAILY Probiotic gummies .Route Rx Instructions: . mupirocin 2 % ointment 1 appl topical BID Qty: 22 0RF desvenlafaxine succinate 100 mg tablet extended release 24 hr 100 mg PO DAILY ondansetron HCl 4 mg tablet 4 mg PO Q8H PRN (Reason: nausea and vomiting) 30 Days Qty: 30 0RF budesonide-formoterol [Breyna] 160-4.5 mcg/actuation HFA aerosol inhaler 2 puff inhalation ipratropium-albuterol 0.5 mg-3 mg(2.5 mg base)/3 mL solution for nebulization 3 ml inhalation Q6-8H PRN (Reason: wheezing) Qty: 90 1RF famotidine 40 mg tablet 40 mg PO DAILY Qty: 90 3RF ammonium lactate [AmLactin] 12 % lotion 1 appl topical DAILY Qty: 225 5RF docusate sodium 50 mg capsule 50 mg PO DAILY ibuprofen 200 mg capsule 200 mg PO Q6H PRN acetaminophen [Tylenol Arthritis Pain] 650 mg tablet extended release 650 mg PO Q8H PRN glucosamine-chondroitin 250-200 mg tablet 1 tab PO ONCE Rx Instructions: give after food/meal Referrals: [facility] [Provider Group, Urology] - 2 days Referral Note: Dysuria flank pain Clinical Impression: Dysuria; Flank pain Bettie Gordon PA-C [Primary Care Provider, Endocrinology] - 2 days Referral Note: Dysuria flank pain Clinical Impression: Dysuria; Flank pain Interventions: ED Discharge Assessment Last Done: 01/11/25 20:31 Discharge Date/Time: 01/11/25 20:32 Print Language: Turkmen
[2025-01-11] MEDS: diazePAM 10 MG/2 ML CARTRIDGE 5 MG IVPUSH (15:34)
== END 2025-01-11 20:32 | disposition home or self-care (01) ==
PROVIDERS: Emergency Provider Emergency Medicine; PCP Physician Assistant
DX: R30.0 Dysuria (principal); R10.A1 Flank pain, right side; R31.29 Other microscopic hematuria; R35.0 Frequency of micturition; R39.15 Urgency of urination
CPT/HCPCS: 36415; 74176; 80053; 81001; 81003; 85025; 87086; 96361; 96374; 96375; 99212; 99284; J0131; J1171; J3360

== ENCOUNTER → 2025-01-11 15:08 | Outpatient (BNV) | payer MEDICARE, SELFPAY | PROVIDERS: Emergency Provider Emergency Medicine; PCP Physician Assistant; Visit Provider Specialist | DX: K57.90 Diverticulosis of intestine, part unspecified, without perforation or abscess without bleeding (principal) | CPT/HCPCS: 74176 ==

== ENCOUNTER 2025-01-24 12:54 | Outpatient (AMB) | payer MEDICARE, SELFPAY ==
--- NOTE | 2025-01-24 13:02 | MHC.PC.OV ---
Vital Signs 01/24/25 13:16 BP 112/74 Blood Pressure Location Rt brachial Position Sitting Respiration 18 Pulse 75 Pulse Source Pulse Oximeter Temp 99 F Temp Source Oral Pulse Oximetry (%) 93 Oxygen Delivery Method Room Air Intake Visit Reasons: Hospital follow up/ URI (mask) Intake Note: Sore throat, coughing, sneezing, headache, sob, chills, fatigue, phlem. sxs started last month. symptoms got worse after treatment of UTI. Senior Water/Wastewater Engineer Required: No Allergies brexpiprazole (From Rexulti) Allergy (Severe, Verified 01/11/25 13:39) Hives tirzepatide (From Zepbound) Allergy (Intermediate, Verified 01/11/25 13:39) fatigue, headache, nausea, constipation iopromide (From Ultravist) Allergy (Mild, Verified 01/11/25 13:39) REDNESS, SWELLING AROUND NECK amoxapine (AMOXAPINE) Allergy (Unknown, Verified 01/11/25 13:39) OVER EATING amoxicillin (AMOXICILLIN) Allergy (Unknown, Verified 01/11/25 13:39) LOWER GI DISTRESS azithromycin (From ZITHROMAX) Allergy (Unknown, Verified 01/11/25 13:39) DOES NOT WORK blue dye (BLUE DYE) Allergy (Unknown, Verified 01/11/25 13:39) FACIAL SWELLING,TEMP,RASH caffeine (From CAFERGOT) Allergy (Unknown, Verified 01/11/25 13:39) CANT TAKE ANYMORE celecoxib (From CELEBREX) Allergy (Unknown, Verified 01/11/25 13:39) RASH,TEMP ciprofloxacin (CIPROFLOXACIN) Allergy (Unknown, Verified 01/11/25 13:39) HALLUCINATION clarithromycin (From BIAXIN) Allergy (Unknown, Verified 01/11/25 13:39) DOES NOT WORK clavulanic acid (From AUGMENTIN) Allergy (Unknown, Verified 01/11/25 13:39) C-DIFF X 3 divalproex sodium (From DEPAKOTE) Allergy (Unknown, Verified 01/11/25 13:39) NIGHT SCARES ergotamine (From CAFERGOT) Allergy (Unknown, Verified 01/11/25 13:39) UNKNOWN gabapentin (GABAPENTIN) Allergy (Unknown, Verified 01/11/25 13:39) NIGHT SCARES hydroxyzine (HYDROXYZINE) Allergy (Unknown, Verified 01/11/25 13:39) ITCHING influenza virus vaccine, specific (FLU VACCINE) Allergy (Unknown, Verified 01/11/25 13:39) FEVER- PINS/ NEEDLES ALL OVER , RASH Iodinated Contrast Media (IV CONTRAST) Allergy (Unknown, Verified 01/11/25 13:39) HIVES ketorolac (From TORADOL) Allergy (Unknown, Verified 01/11/25 13:39) SEVERE ITCHING levofloxacin (From LEVAQUIN) Allergy (Unknown, Verified 01/11/25 13:39) HEART PALPITATIONS meperidine (From DEMEROL) Allergy (Unknown, Verified 01/11/25 13:39) ANAPHYLAXIS Sulfa (Sulfonamide Antibiotics) (SULFA (SULFONAMIDE ANTIBIOTICS)) Allergy (Unknown, Verified 01/11/25 13:39) ADMITTED WITH HIVES sumatriptan (Imitrex) Allergy (Unknown, Verified 01/11/25 13:39) heart pounding tramadol (From ULTRAM) Allergy (Unknown, Verified 01/11/25 13:39) ITCH trazodone (TRAZODONE) Allergy (Unknown, Verified 01/11/25 13:39) NIGHT SCARES valacyclovir (VALACYCLOVIR) Allergy (Unknown, Verified 01/11/25 13:39) GASTIC UPSET yellow dye (YELLOW DYE) Allergy (Unknown, Verified 01/11/25 13:39) SYSTEMIC ITCHING dexamethasone (From Decadron) Adverse Reaction (Intermediate, Verified 01/11/25 13:39) neck pain naproxen Adverse Reaction (Verified 01/11/25 13:39) Swelling Flu vaccine Allergy (Severe, Uncoded 08/16/24 13:38) Anaphylaxis Amitriptyline Allergy (Unknown, Uncoded 08/16/24 13:38) Unknown Blue and yellow dye Allergy (Unknown, Uncoded 08/16/24 13:38) Swelling Ionic dye Allergy (Unknown, Uncoded 08/16/24 13:38) Rash Tobacco use date assessed: 10/25/24 Dental Screening Dental Screen Date: 08/16/24 HPI Hospital follow up/ URI (mask) HPI Details Patient is a 69-year-old female with a significant past medical history of asthma, hypertension, anxiety, PTSD, depression, chronic fatigue, fibromyalgia, osteoarthritis, prediabetes, and obesity presenting today for an acute problem visit regarding feeling sick. HEENT: States today that she has been feeling sick for about a week and a half with a head cold and cough. She states she is coughing up phlegm and having low grade fevers, chills. Reports mild sinus pain but states that she has a lot of congestion and rhinorrhea. Mild bilateral ear discomfort on and off. She is getting somewhat of a sore throat on the right side. No wheezing or shortness a breath. Compliant with her inhalers. Pulm: She is now currently on Breyna which has been helpful. Psych: She is on Rexulti, buspirone 30 mg b.i.d., lorazepam 1 mg t.i.d., and desvenlafaxine 75 mg daily. No SI/HI. Lives at home by herself. No Si/hi. following with psych. Endo: she is a prediabetic. Her A1c is improved at 5.9. Colonoscopy- August 2024, has 2 precancerous polyps- states going back in a couple years Bone density- UTD- 2023 osteopenia s/p total hysterectomy [facility] Medical History Dry skin Vertigo Herpes Diverticulitis Prediabetes HTN (hypertension) Colon polyps GERD (gastroesophageal reflux disease) Glaucoma Migraine Chronic fatigue PTSD (post-traumatic stress disorder) Depression FLOYD (generalized anxiety disorder) Osteoarthritis Fibromyalgia Asthma Surgical History H/O right knee surgery Social History Housing: Apartment Alcohol intake: current Patient Tobacco Use Status: Former Tobacco user Cigarette Packs Per Day: 1 Years Smoked: 13 Packs Per Year: 13 e-Cigarette/Vaping Use: Never Used Second Hand Smoke Exposure: No service: Yes Current occupational status: retired and disabled (Disables ) Cognitive needs: No Hearing needs: Yes (Trouble hearing) Vision needs: Yes (Glasses) Questionnaire Thrive Questionnaire Date Thrive assessed: 03/09/24 I am a: Patient What is your living situation today?: I have a steady place to live Within the past 12 months, did the food you bought not last and you didn't have the money to get more?: Never true Within the past 12 months, did you worry whether your food would run out before you got money to buy more?: I choose not to answer this question Do you have trouble paying for medicines?: Yes Do you have trouble getting transportation to medical appointments?: No Do you have trouble paying your heating and electricity bill?: No Do you have trouble taking care of your child, family member or friend?: I choose not to answer this question Do you have trouble with day-to-day activities such as bathing, preparing meals, shopping, managing finances, etc.?: Yes Are you currently unemployed and looking for a job?: No Are you interested in more education?: No Please select the resources that you would like help with: Paying for medicine THRIVE Score: 0 FLOYD-7 AMB Questionnaire FLOYD-7 Date FLOYD - 7 assessed: 05/11/24 Source: Developed by Drs. Trae Craig, Daisy Henderson, Scott Sanchez and colleagues, with an educational aguila from [employer]. Physical exam (Primary Care) Vital Signs: Last Vital Signs Temp 99 F 01/24/25 13:16 Pulse 75 01/24/25 13:16 Resp 18 01/24/25 13:16 BP 112/74 01/24/25 13:16 Pulse Ox 93 01/24/25 13:16 Oxygen Delivery Method Room Air 01/24/25 13:16 Tobacco/Smoking Status: Tobacco use Status Tobacco use date assessed 10/25/24 01/24/25 13:04 Patient Tobacco Use Status Former Tobacco user 01/24/25 13:04 e-Cigarette/Vaping Use Never Used 01/24/25 13:04 Thrive Assessment: Date of Thrive Assessment Date Thrive assessed 03/09/24 01/24/25 13:04 Const Orientation/consciousness: patient oriented x3 HENMT Other: TMs dome-shaped a small air-fluid levels bilaterally. Nasal mucosa erythematous and edematous. Purulent drainage noted. Maxillary sinuses tenderness present Ears: hearing grossly normal bilaterally Mouth: Normal oral and palatal mucosa present Throat: Yes posterior oropharynx normal Neck Thyroid: Thyroid normal Lymphatic: no lymphadenopathy noted Resp Auscultation: clear to auscultation bilaterally Cardio Rate: regular rate Rhythm: regular rhythm Heart sounds: S1 normal heart sound present and S2 normal heart sound present Skin General skin exam: no rashes or lesions noted Neuro General: patient oriented x3, gait normal and no focal motor deficits Results Reviewed Results Reviewed: IMPRESSION: 1. No acute findings. No renal or ureteral stones with no hydronephrosis or hydroureter bilaterally. 2. Previous colonic surgery. Diverticulosis with no evidence of acute diverticulitis. Coding Level of Care Code Est Pt Level 4 (65446) Complex visit Add On G2211 Diagnoses Bacterial sinusitis J32.9; B96.89 HTN (hypertension) I10 Prediabetes R73.03 Major depression, recurrent, chronic F33.9 Assessment & Plan Assessment & Plan (1) Bacterial sinusitis: Code(s): J32.9 - Chronic sinusitis, unspecified; B96.89 - Other specified bacterial agents as the cause of diseases classified elsewhere Plan: We will start doxycycline. Discussed risks and benefits and side effects of this medication. She will let me know if she is unable to tolerate this. Has an extensive medication intolerance list (2) HTN (hypertension): Code(s): I10 - Essential (primary) hypertension Category: Medical Plan: WNL. Continue current regimen (3) Prediabetes: Code(s): R73.03 - Prediabetes Category: Medical Plan: A1c ordered (4) Major depression, recurrent, chronic: Code(s): F33.9 - Major depressive disorder, recurrent, unspecified Category: Medical Plan: Stable. Medications: New benzonatate 100 mg PO TID PRN 30 caps 0RF cough 10 days doxycycline hyclate 100 mg PO BID 20 tabs 0RF
[2025-01-24 13:16] VITALS: BP 112/74; PULSE 75; RESP 18; TEMP 37.2; O2SAT 93
--- OUTSIDE RECORDS SUMMARY | 2025-01-24 15:21 | XMS_ITS | Clinical Summary ---
Author Organization [facility] Address [address] [place] [address] Phone Care Team Providers Care Steward/Stewardess Economy Class Name Role Phone Yulisa Saucedo MD Primary [...] Medical Devices Not on file Insurance AETNA [facility] MEDICARE RE[facility]AC[facility] AETNA PPO MEDICARE REPLACEMENT AETNA PPO MEDICARE REPLACEMENT AETNA O MEDICARE REPLACEMENT AETNA PPO MEDICARE REPLACEMENT Care Teams Steward/Stewardess Economy Class Relationship Specialty Start Date End Date Yulisa Saucedo MD PCP - General Internal Medicine 09/23/23 Additional Source Comments The information contained in this document represents components of the legal health record. It is not the complete legal health record.[facility]
--- OUTSIDE RECORDS SUMMARY | 2025-01-24 15:21 | XMS_ITS | Data Portability ---
Author Organization [facility] Address [address] [place] [address] Care Team Providers Care Pan Greaser Name Role Phone IRIS SNOWDEN Primary Care [...] Ag, QL IA, respiratory specimen 2021 [email or web address] [facility] - Home, [address] [place] [address], [address], 18:59:01 Referral None recorded. Procedures None recorded. Surgeries None recorded. Imaging None recorded. Medication Orders doxycycline hyclate 100 mg tablet 2021 [facility]/Pharmacy #[id number], [address], [place], [address], 18:31:31 Patient TargetsNo targets recorded. Patient InstructionsNo instructions recorded. Reason for Referral None Reported. Results Created Date Observation Date Name Description Value Unit Range Abnormal Flag Note LastModifiedBy Organization Detail LastModifiedTime 12/12/19 22 12/11/2021 rapid SARS CoV 2 Ag, QL IA, respi rator y speci men Covid-19 (ref: neg) negati ve Not Available Spr - Home [address] [place], [address], 12/11/2021 18:57:23 12/12/19 22 12/11/2021 rapid SARS CoV 2 Ag, QL IA, respi rator y speci men Control Visual ized/V alid Not Available Spr - Home [address] [place], [address], 12/11/2021 18:57:23 12/12/19 22 12/11/2021 rapid SARS CoV 2 Ag, QL IA, respi rator y speci men [facility], [address] [place] [address], [id number] [phone] Not Available Spr - Home [address] [place], [address], 12/11/2021 18:57:23 12/12/19 22 12/11/2021 rapid SARS CoV 2 Ag, QL IA, respi rator y speci men Language Englis h Not Available Spr - Home [address] [place], [address], 12/11/2021 18:57:23 Result Notes None recorded. Medical Equipment None Reported. Allergies Allergen ID Allergen Name Allergen Category Reaction Reaction Severity Criticality Documentation Date Start Date Code Code System Note Provider Name and Address Organization Details Recorded Time 092711 blue dye medicatio n Not available Not available low 12/11/2021 CHER QUACH NP [address] [place], [address], [place] [facility] 17:54:40 522954 Levaquin medicatio n palpitati ons Not available low 12/11/2021 78829 2 RxNorm CHER QUACH NP [address] [facility] [place], [address], [place] [facility] 2 17:54:56 371306 Substance with sulfonami de structure and antibacte rial mechanism of action (substanc e) medicatio n fever Not available low 12/11/2021 18355 8003 SNOMED CHER QUACH, MICROWAVE RADIO TECHNICIAN [address], [place], [address], [place] [facility] 2 17:55:10 208222 Cipro medicatio n palpitati ons Not available low 12/11/2021 49874 3 RxNorm CHER QUACH, MICROWAVE RADIO TECHNICIAN [address], [place], [address], [place] [facility] 2 [...] ICD10 Code Diagnosis IMO Codes Diagnosis Note [id number] CHER QUACH NP [facility] - HOME [address] [place] [address] 12/11/2021 17:53:14 12/12/2021 14:07:43 Acute bacterial sinusitis 34970356 J01.90 Viral syndrome 893070492 B34.9 Health Concerns Section Related Observation LastModified by Organization Detai ls LastModified Time None Recorded Concern Status LastModified by Organization Details LastModified Time None Recorded Advance Directives Directive None Recorded Payers Insurance Date Sequence Insurance Name Policy Number Policy Mims Covered Member ID Mims Member ID Guarantor Name 12/11/2021 1 *SELF PAY* Yas Walsh [id number] Yas Walsh 12/16/2021 1 MEDICARE B-[place]: [employer] Yas Walsh [id number] Yas Tinocorid Notes Date Note Type [...] septum. CHER QUACH NP [address], [place], [address], [place] [facility] 12/11/2021 19:34:23 OBGyn Episode No OBEpisode recorded.
== END 2025-01-24 15:03 | disposition home or self-care (01) ==
LOC: HO.HMCFM 12:55
PROVIDERS: PCP Physician Assistant; Visit Provider Physician Assistant
DX: J32.9 Chronic sinusitis, unspecified (principal); B96.89 Other specified bacterial agents as the cause of diseases classified elsewhere; I10 Essential (primary) hypertension; R73.03 Prediabetes; F33.9 Major depressive disorder, recurrent, unspecified

== ENCOUNTER → 2025-01-24 12:54 | Outpatient (BNVA) | payer MEDICARE, SELFPAY | PROVIDERS: PCP Physician Assistant; Visit Provider Physician Assistant | DX: R73.03 Prediabetes (principal); I10 Essential (primary) hypertension; F33.9 Major depressive disorder, recurrent, unspecified; J32.9 Chronic sinusitis, unspecified; B96.89 Other specified bacterial agents as the cause of diseases classified elsewhere | CPT/HCPCS: 99212 ==

== ENCOUNTER 2025-02-21 10:45 | Outpatient (REF) | payer MEDICARE, SELFPAY ==
--- OUTSIDE RECORDS SUMMARY | 2025-02-22 07:26 | XMS_ITS | Clinical Summary ---
Author Organization [facility] Address [address] [place] [phone] Phone Care Team Providers Care Machine Plug Shaper Name Role Phone Yulisa Saucedo MD Primary Care Provider [phone] Allergies Active Allergy Reactions Criticality Noted Date [...] Medical Devices Not on file Insurance AETNA [facility]IC[facility] AETNA PPO MEDICARE REPLACEMENT A[employer] PPO MEDICARE REPLACEMENT AETNA O MEDICARE REPLACEMENT [employer] PPO MEDICARE REPLACEMENT Care Teams Machine Plug Shaper Relationship Specialty Start Date End Date Yulisa Saucedo MD PCP - General Internal Medicine 09/23/23 Additional Source Comments The information contained in this document represents components of the legal health record. It is not the complete legal health record.[facility]
[2025-02-22 09:07] LABS: Resp Syncy Virus RNA Qual PCR NEGATIVE (Negative); SARS COV2 PCR INHOUSE NEGATIVE (Negative)
== END 2025-02-21 10:46 | disposition home or self-care (01) ==
LOC: HO.LNP 10:45
PROVIDERS: Visit Provider Physician Assistant
DX: R09.89 Other specified symptoms and signs involving the circulatory and respiratory systems (principal); J06.9 Acute upper respiratory infection, unspecified; R06.2 Wheezing
CPT/HCPCS: 87637

== ENCOUNTER 2025-02-21 10:45 | Outpatient (AMB) | payer MEDICARE, SELFPAY ==
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
[2025-02-21 10:52] VITALS: BP 108/82; PULSE 70; RESP 18; TEMP 37.9; O2SAT 92; BMI 40.1
--- OUTSIDE RECORDS SUMMARY | 2025-02-21 12:08 | XMS_ITS | Clinical Summary ---
Author Organization [facility] Address [address] [place] [address] Phone Care Team Providers Care Family Engagement Specialist Name Role Phone Yulisa Saucedo MD Primary [...] Medical Devices Not on file Insurance [facility] A[facility]NA PPO MEDICARE REPLACEMENT AETNA PPO MEDICARE REPLACEMENT AETNA O MEDICARE REPLACEMENT AETNA PPO MEDICARE REPLACEMENT Care Teams Family Engagement Specialist Relationship Specialty Start Date End Date Yulisa Saucedo MD PCP - General Internal Medicine 09/23/23 Additional Source Comments The information contained in this document represents components of the legal health record. It is not the complete legal health record.[facility]
--- OUTSIDE RECORDS SUMMARY | 2025-02-21 12:08 | XMS_ITS | Data Portability ---
Author Organization [place] [facility] Address [address] [place] [address] Care Team Providers Care Grinding Supervisor Name Role Phone IRIS SNOWDEN Primary Care Provider [phone] Assessment Encounter Date Assessment Date Assessment LastModified [...] Ag, QL IA, respiratory specimen 2021 [email or web address] [facility], [address] [place] [address], [phone], 18:59:01 Referral None recorded. Procedures None recorded. Surgeries None recorded. Imaging None recorded. Medication Orders doxycycline hyclate 100 mg tablet 2021 [id number], [address] [place], [address], 18:31:31 Patient TargetsNo targets recorded. Patient InstructionsNo instructions recorded. Reason for Referral None Reported. Results Created Date Observation Date Name Description Value Unit Range Abnormal Flag Note LastModifiedBy Organization Detail LastModifiedTime 12/12/19 22 12/11/2021 rapid SARS CoV 2 Ag, QL IA, respi rator y speci men Covid-19 (ref: neg) negati ve Not Available [facility] - Home [address], [place], [address], 12/11/2021 18:57:23 12/12/19 22 12/11/2021 rapid SARS CoV 2 Ag, QL IA, respi rator y speci men Control Visual ized/V alid Not Available [facility] - Home [address] [place], [address], 12/11/2021 18:57:23 12/12/19 22 12/11/2021 rapid SARS CoV 2 Ag, QL IA, respi rator y speci men [facility], [address] [place] [address], [id number] Not Available [facility] - Home [address], [address], 12/11/2021 18:57:23 12/12/19 22 12/11/2021 rapid SARS CoV 2 Ag, QL IA, respi rator y speci men Language Englis h Not Available [facility] - Home [address] [place], [address], 12/11/2021 18:57:23 Result Notes None recorded. Medical Equipment None Reported. Allergies Allergen ID Allergen Name Allergen Category Reaction Reaction Severity Criticality Documentation Date Start Date Code Code System Note Provider Name and Address Organization Details Recorded Time 109377 blue dye medicatio n Not available Not available low 12/11/2021 CHER QUACH NP [address] [place], [address], [place] [facility] 17:54:40 [id number] Levaquin medicatio n palpitati ons Not available low 12/11/2021 87305 2 RxNorm CHER QUACH NP [address] [place], [address], [place] [facility] 2 17:54:56 [id number] Substance with sulfonami de structure and antibacte rial mechanism of action (substanc e) medicatio n fever Not available low 12/11/2021 17009 8003 SNOMED CHER BRUNNERIN, CLIP RIVETER [address], [place], [address], [place] [facility] 2 17:55:10 [id number] Cipro medicatio n palpitati ons Not available low 12/11/2021 08191 3 RxNorm CHER MAIN, CLIP RIVETER [address], [place], [address], [place] [facility] 2 [...] ICD10 Code Diagnosis IMO Codes Diagnosis Note [id number] CHER QUACH NP [facility] - [address] [place] [address] 12/11/2021 17:53:14 12/12/2021 14:07:43 Acute bacterial sinusitis [id number] J01.90 Viral syndrome [id number] B34.9 Health Concerns Section Related Observation LastModified by Organization Detai ls LastModified Time None Recorded Concern Status LastModified by Organization Details LastModified Time None Recorded Advance Directives Directive None Recorded Payers Insurance Date Sequence Insurance Name Policy Number Policy Mims Covered Member ID Mims Member ID Guarantor Name 12/11/2021 1 *SELF PAY* Yas Walsh [id number] Yas Walsh 12/16/2021 1 MEDICARE [place]: [employer] Yas Walsh [id number] Yas Tinocorid Notes Date Note Type [...] and deviated septum. CHER QUACH NP [address], [place], [address], [place] [facility] 12/11/2021 19:34:23 OBGyn Episode No OBEpisode recorded.
== END 2025-02-21 12:49 | disposition home or self-care (01) ==
LOC: HO.HMCFM 10:46
PROVIDERS: PCP Physician Assistant; Visit Provider Physician Assistant
DX: J02.9 Acute pharyngitis, unspecified (principal); R50.9 Fever, unspecified

== ENCOUNTER → 2025-02-21 10:45 | Outpatient (BNVA) | payer MEDICARE, SELFPAY | PROVIDERS: PCP Physician Assistant; Visit Provider Physician Assistant | DX: J06.9 Acute upper respiratory infection, unspecified (principal); R06.2 Wheezing; R50.9 Fever, unspecified; R09.89 Other specified symptoms and signs involving the circulatory and respiratory systems | CPT/HCPCS: 87637; 87880; 99212 ==